=== PATIENT | female | born 1955 | race Caucasian/White ===

== ENCOUNTER → 2016-04-14 | Outpatient (CLI) | payer OTHER ==
[~2016-04-14] MED LIST: ALOE25CA4 PO; CALC-354 PO; CHOL100010 PO; DABI150C PO; DILT-115 PO; DILT-203 PO; FOLI800T PO; MERC50TA9 PO; MESA800T6 PO; METO25TA56 PO; MISC4CAP PO; MULTTAB45 PO; OMEG12006 PO; PANT40TA PO; POTA99TA PO; PRD150 PO; VITA400C28 PO; VITA400C3 PO
[2016-04-14 12:28] LABS: COMPLETE YES; EOS % 0.4 %; IG% 0.2 %; LYMPH % 29.8 %; LYMPH ABS # 1.68 K/uL (1.2-3.4); MEAN CELL VOLUME 84.5 fL (80-100); MEAN CORPUSCULAR HEMOGLOBIN 29.2 pg (25-34); MEAN CORPUSCULAR HGB CONC 34.5 g/dl (32-36); MONO % 8.2 %; NEUT % 61.4 %; PLATELET COUNT 239 K/uL (130-400); RED BLOOD COUNT 3.67 M/uL (4.2-5.4); WHITE BLOOD COUNT 5.64 K/uL (4.8-10.8)
[2016-04-14 12:56] LABS: ALB/GLOB RATIO 1.1 (0.9-2); ALT/SGPT 21 U/L (12-78); BLOOD UREA NITROGEN 11 mg/dl (7-18); BUN/CREATININE RATIO 12.5 (10-20); CALCIUM 8.8 mg/dl (8.5-10.1); CARBON DIOXIDE 27 mmol/L (21-32); CHLORIDE 108 mmol/L (98-107); CREATININE 0.87 mg/dl (0.60-1.20); GLUCOSE 107 mg/dl (70-99); POTASSIUM 3.5 mmol/L (3.5-5.1); SODIUM 143 mmol/L (136-145)
[2016-04-14 13:02] LABS: ALKALINE PHOSPHATASE 123 U/L (45-117); AST/SGOT 8 U/L (15-37); C-REACTIVE PROTEIN < 0.29 mg/dl (0-0.29)
== END | disposition home or self-care (01) ==
LOC: C.LAB1850 11:45
PROVIDERS: ATTEND Registered Nurse
DX: K29.50 Unspecified chronic gastritis without bleeding (principal)

== ENCOUNTER → 2016-06-02 | Outpatient (CLI) | payer OTHER ==
[~2016-06-02] MED LIST changes: -DILT-203 PO; +DILT240C56 PO; +MESA1TAB4 PO; -MESA800T6 PO
[2016-06-02 12:14] LABS: COMPLETE YES; EOS % 0.1 %; HEMATOCRIT 31.7 % (37-47); IG% 0.3 %; LYMPH % 28.4 %; LYMPH ABS # 1.94 K/uL (1.2-3.4); MEAN CELL VOLUME 83.6 fL (80-100); MEAN CORPUSCULAR HGB CONC 33.4 g/dl (32-36); MEAN PLATELET VOLUME 9.7 fL (7.4-10.4); MONO % 6.7 %; NEUT % 64.5 %; PLATELET COUNT 230 K/uL (130-400); RED BLOOD COUNT 3.79 M/uL (4.2-5.4); WHITE BLOOD COUNT 6.83 K/uL (4.8-10.8)
== END | disposition home or self-care (01) ==
LOC: C.LAB1850 11:27
PROVIDERS: ATTEND Registered Nurse
DX: K50.90 Crohn's disease, unspecified, without complications (principal)

== ENCOUNTER → 2016-06-11 | Day surgery (SDC) | payer OTHER ==
[2016-06-02 07:52] VITALS: BMI 31.0
[~2016-06-11] VITALS: Ht 167.6 cm; Wt 88.6 kg
[~2016-06-11] MED LIST changes: -DILT240C56 PO; +LIDOCAINE HCL 2% 2 ML VIAL (20MG/ML) ONE; -PRD150 PO; +PROPOFOL IV EMULSION 10 MG/ML 20 ML VIAL IV ONE; -VITA400C3 PO
[2016-06-11 08:19] VITALS: Ht 167.6 cm; Wt 88.6 kg
[2016-06-11 08:27] VITALS: TEMP 36.8
--- NOTE | 2016-06-11 08:29 | Endo History and Physical ---
History & Physical Date of Service: Jun 11, 2016. Chief Complaint: Screening Referring Physician: Dr. Leon History of Present Illness 61 yo CF who presents for screening colonoscopy. Past Medical History Arthritis, Asthma, Gastrointestinal Disorder, Reflux, Cancer, Hypertension Past Surgical History Hx Cardiac Surgery: No Hx Internal Defibrillator: No Hx Pacemaker: No Hx Abdominal Surgery: Yes (BOWEL RESECTION, APPY, CANDIDO) Hx of Implantable Prosthesis: No Hx Post-Op Nausea and Vomiting: No Hx Cancer Surgery: Yes (BACK EXCISION SCC) Hx Thoracic Surgery: No Hx Orthopedic: Yes (LEFT HEEL SX BONE GRAFTING) Hx Urinary Tract Surgery: No Family History IBD Social History Smoking Status: Never Smoker Hx Substance Use: No Hx Alcohol Use: Yes (OCCASIONALLY) Allergies Coded Allergies: Lactose (Verified Allergy, Unknown, LACTOSE INTOLERANT, 06/02/16) Mushroom (Unverified Allergy, Unknown, GI SYMPTOMS, 06/02/16) Prednisone (Verified Allergy, Unknown, MOOD CHANGES, 06/02/16) Infliximab (Verified Adverse Reaction, Unknown, PALPITATIONS, SOB, FLUSHING, 06/02/16) Morphine (Verified Adverse Reaction, Unknown, HALLUCINATIONS, 06/02/16) Current Medications Reported Home Medications Medications Dose Route/Sig Max Daily Dose Days Date Category Dose Instructions Alph-E (Vitamin E) 400 Unit Cap 1 Cap PO QAM 06/02/16 Reported Vitamin D (Cholecalciferol) 1,000 Unit Tab 1 Tab PO QAM 06/02/16 Reported Pradaxa (Dabigatran Etexilate Mesylate) 150 Mg Cap 150 Mg PO BID 06/02/16 Reported RECENTLY STOPPED TAKING 04/27/16 Potassium 99 Mg Tab 1 Tab PO QAM 06/02/16 Reported Lopressor (Metoprolol Tartrate) 25 Mg Tab 25 Mg PO DIRECTED PRN 06/02/16 Reported Tiazac (Diltiazem HCl) 240 Mg Capcr 240 Mg PO QAM 06/02/16 Reported Protonix (Pantoprazole Sodium) 40 Mg Tab 40 Mg PO BID 06/07/13 Reported Oberlin 3 (Oberlin-3 Fatty Acids) 1 Cap Cap 1 Cap PO QAM 06/07/13 Reported Multiple Vitamin 1 Tab Tab 1 Tab PO QAM 06/07/13 Reported Purinethol (Mercaptopurine) 50 Mg Tab 50 Mg PO QAM 06/07/13 Reported Folic Acid 800 Mcg Tab 800 Mcg PO QAM 06/07/13 Reported Caltrate 600+D (Calcium Carbonate-Cholecalcife) 1 Tab Tab 1 Tabs PO QAM 06/07/13 Reported Asacol Hd (Mesalamine) 800 Mg Tab 800 Mg PO TID 06/07/13 Reported Aloe Vera 25 Mg Cap 25 Mg PO QAM 06/07/13 Reported Align (Probiotic Product) 4 Mg Cap 1 Cap PO QAM 06/07/13 Reported Vital Signs Weight (Kilograms): 88.64 Height (Feet): 5 Height (Inches): 6 Physical Exam General Appearance: WD/WN, no apparent distress Respiratory/Chest: Auscultation: breath sounds normal Cardiovascular: Heart Auscultation: RRR Abdomen: Bowel Sounds: normal Inspection & Palpation: soft, non-distended, no tenderness, guarding & rebound Assessment and Plan Assessment: 61 yo CF who presents for screening colonoscopy. Plan: Proceed with colonoscopy.
--- NOTE | 2016-06-11 09:19 | GI REPORT ---
Procedure Date: 06/11/2016 8:47 AM Procedure: Colonoscopy Indications: Screening for colorectal malignant neoplasm Medicines: Monitored Anesthesia Care Complications: No immediate complications. Estimated Blood Loss: Estimated blood loss: none. Procedure: Pre-Anesthesia Assessment: - Prior to the procedure, a History and Physical was performed, and patient medications and allergies were reviewed. The patient's tolerance of previous anesthesia was also reviewed. The risks and benefits of the procedure and the sedation options and risks were discussed with the patient. All questions were answered, and informed consent was obtained. Prior Anticoagulants: The patient has taken Pradaxa (dabigatran), last dose was more than 28 days prior to procedure. ASA Grade Assessment: III - A patient with severe systemic disease. After reviewing the risks and benefits, the patient was deemed in satisfactory condition to undergo the procedure. After I obtained informed consent, the scope was passed under direct vision. Throughout the procedure, the patient's blood pressure, pulse, and oxygen saturations were monitored continuously. The scope was introduced through the anus and advanced to the ileocolonic anastomosis. The colonoscopy was performed without difficulty. The patient tolerated the procedure well. The quality of the bowel preparation was good. The terminal ileum and the rectum were photographed. Findings: There was evidence of a prior end-to-side ileo-colonic anastomosis in the ascending colon. This was non-patent and was characterized by moderate stenosis and ulceration. The anastomosis was not traversed. Non-bleeding internal hemorrhoids were found during retroflexion. The hemorrhoids were small. Impression: - Non-patent end-to-side ileo-colonic anastomosis, characterized by ulceration and moderate stenosis. - Non-bleeding internal hemorrhoids. - No specimens collected. Recommendation: - Resume previous diet. - Continue present medications. - Repeat colonoscopy in 2 years for surveillance. - Return to primary care physician as previously scheduled. Selvin Campbell DO 06/11/2016 9:19:03 AM This report has been signed electronically. Note Initiated On: 06/11/2016 8:47 AM I attest to the content of the Intraoperative Record and orders documented therein, exceptions below
[2016-06-11 09:43] VITALS: BP 130/79; PULSE 71; O2SAT 98
--- NOTE | 2016-06-11 10:03 | Discharge Instructions ---
Endoscopy Patient Instructions Date / Procedure(s) Performed Jun 11, 2016. Colonoscopy Allergy Information Coded Allergies: Lactose (Verified Allergy, Unknown, LACTOSE INTOLERANT, 06/02/16) Mushroom (Verified Allergy, Unknown, GI SYMPTOMS, 06/11/16) Prednisone (Verified Allergy, Unknown, MOOD CHANGES, 06/02/16) Infliximab (Verified Adverse Reaction, Unknown, PALPITATIONS, SOB, FLUSHING, 06/02/16) Morphine (Verified Adverse Reaction, Unknown, HALLUCINATIONS, 06/02/16) Discharge Date / Findings Jun 11, 2016. Crohn's Disease Anastomotic stricture and anastomotic ulcer Medication Instructions Stopped Medication(s): Pradaxa stopped since April d/t ? blood in stool. OK to resume all medications today as prescribed Reported Home Medications Medications Dose Route/Sig Max Daily Dose Days Date Category Dose Instructions Alph-E (Vitamin E) 400 Unit Cap 1 Cap PO QAM 06/02/16 Reported Vitamin D (Cholecalciferol) 1,000 Unit Tab 1 Tab PO QAM 06/02/16 Reported Pradaxa (Dabigatran Etexilate Mesylate) 150 Mg Cap 150 Mg PO BID 06/02/16 Reported RECENTLY STOPPED TAKING 04/27/16 Potassium 99 Mg Tab 1 Tab PO QAM 06/02/16 Reported Lopressor (Metoprolol Tartrate) 25 Mg Tab 25 Mg PO DIRECTED PRN 06/02/16 Reported Tiazac (Diltiazem HCl) 240 Mg Capcr 240 Mg PO QAM 06/02/16 Reported Protonix (Pantoprazole Sodium) 40 Mg Tab 40 Mg PO BID 06/07/13 Reported Blockton 3 (Blockton-3 Fatty Acids) 1 Cap Cap 1 Cap PO QAM 06/07/13 Reported Multiple Vitamin 1 Tab Tab 1 Tab PO QAM 06/07/13 Reported Purinethol (Mercaptopurine) 50 Mg Tab 50 Mg PO QAM 06/07/13 Reported Folic Acid 800 Mcg Tab 800 Mcg PO QAM 06/07/13 Reported Caltrate 600+D (Calcium Carbonate-Cholecalcife) 1 Tab Tab 1 Tabs PO QAM 06/07/13 Reported Asacol Hd (Mesalamine) 800 Mg Tab 800 Mg PO TID 06/07/13 Reported Aloe Vera 25 Mg Cap 25 Mg PO QAM 06/07/13 Reported Align (Probiotic Product) 4 Mg Cap 1 Cap PO QAM 06/07/13 Reported Provider Instructions Activity Restrictions - No exercising or heavy lifting for 24 hours. - Do not drink alcohol the day of the procedure. - Do not drive a car or operate machinery until the day after the procedure. - Do not make any important decisions or sign important papers in 24 hours after the procedure. Following Day: - Return to full activity which may include returning to work/school. Diet Start your diet with liquids and light foods (jello, soup, juice, toast). Then eat your usual diet if not nauseated. Treatment For Common After Affects For mild abdominal pain, bloating, or excessive gas: - Rest - Eat lightly - Lie on right side 1) Followup in our office in 3 months 2) Check CT Enterography prior to next appointment Follow-Up Information Follow-up with Dr. Leon as scheduled Anesthesia Information What You Should Know You have had a procedure that required some medicine to reduce anxiety and discomfort. This treatment is called moderate sedation. After receiving the treatment, you may be sleepy, but you will be able to breathe on your own. The effects of the treatment may last for several hours. Follow these instructions along with Activity/Diet recommendations noted above: * Do NOT do anything where dizziness or clumsiness would be dangerous. * Rest quietly at home today, then you can be up and about tomorrow. * Have a responsible person stay with you the rest of today. * You may have had an I.V. today. If so, you may take the dressing off later today. Recommendations Call your doctor if: * Trouble breathing * Continuous vomiting for more than 24 hours * Temperature above 101 degrees * Severe abdominal pain or bloating * Pain not relieved by pain medicine ordered * There is increased drainage or redness from any incision * A large amount of rectal bleeding greater than 2-3 tablespoons. (If you had a polyp/s removed or have hemorrhoids, a small amount of blood - from the rectum is to be expected.) * You have any unanswered questions or concerns. IN THE EVENT OF A SERIOUS EMERGENCY, GO TO THE NEAREST EMERGENCY ROOM Your discharge instructions were prepared by provider Selvin Campbell. Patient Instructions Signature Page Neena Merida Patient (or Guardian) Signature/Date: I have read and understand the instructions given to me by my caregivers. Caregiver/RN/Doctor Signature/Date: The above-named patient and/or guardian has received patient instructions on this date. + Original Patient Signature Page (only) stays with chart. Please make copy for patient.
--- NOTE | 2016-06-11 14:24 | Anesthesiology Progress Note ---
Anesthesia Post Op Note Date & Time Jun 11, 2016 at 14:23 Vital Signs Pain Intensity: 0 Vital Signs Past 12 Hours Date Time Temp Pulse Resp B/P Pulse Ox O2 Delivery O2 Flow Rate FiO2 06/11/16 09:43 71 18 130/79 98 Room Air 06/11/16 09:28 65 18 103/59 97 Room Air 06/11/16 09:13 78 18 114/82 95 Room Air 06/11/16 08:27 36.8 72 18 138/97 98 Room Air Notes Mental Status: alert / awake / arousable, participated in evaluation Pt Amnestic to Procedure: Yes Nausea / Vomiting: adequately controlled Pain: adequately controlled Airway Patency, RR, SpO2: stable & adequate BP & HR: stable & adequate Hydration State: stable & adequate Anesthetic Complications: no major complications apparent
== END | disposition home or self-care (01) ==
LOC: C.GI 08:00
PROVIDERS: ATTEND Internal Medicine
DX: Z12.11 Encounter for screening for malignant neoplasm of colon (principal); K64.8 Other hemorrhoids; J45.909 Unspecified asthma, uncomplicated; K21.9 Gastro-esophageal reflux disease without esophagitis; I10 Essential (primary) hypertension; Z90.49 Acquired absence of other specified parts of digestive tract

== ENCOUNTER → 2016-09-04 | Outpatient (CLI) | payer OTHER ==
[~2016-09-04] MED LIST changes: -LIDOCAINE HCL 2% 2 ML VIAL (20MG/ML) ONE; -MESA1TAB4 PO; +MESA800T6 PO; +OPTIRAY 320 IV PRN; -PROPOFOL IV EMULSION 10 MG/ML 20 ML VIAL IV ONE
--- NOTE | 2016-09-04 10:49 | DIAGNOSTIC IMAGING REPORT ---
CT SCAN OF THE ABDOMEN AND PELVIS WITH IV CONTRAST ENTEROGRAPHY PROTOCOL CLINICAL HISTORY: Crohn's disease. Anemia. COMPARISON STUDY: Abdominal CT dated 10/11/2013. TECHNIQUE: The small bowel was prepped by having the patient consumed VoLumen. Following the IV administration of 93 cc of Optiray 320, CT scan of the abdomen and pelvis is performed from the lung bases to the proximal femora using the enterography protocol. Images are reviewed in the axial, sagittal, and coronal planes. IV contrast was administered without complication. Automated dose control exposure was utilized. CT DOSE: 901.88 mGy.cm FINDINGS: Lung bases: The heart is normal in size and without pericardial effusion. The lung bases are clear. There is a tiny hiatal hernia. Liver: The contrast-enhanced liver is enlarged, measuring 20 cm in length. The liver demonstrates diffusely diminished attenuation consistent with hepatic steatosis. There is mild central intrahepatic biliary ductal dilatation. The hepatic veins and portal veins are patent. Gallbladder: Surgically absent noting clips in the gallbladder fossa. Spleen: Normal in size and attenuation. Pancreas: Unremarkable. Adrenal glands: Unremarkable. Kidneys: The contrast enhanced kidneys demonstrate cortical atrophy and are without hydronephrosis. There are bilateral nonobstructing renal calculi. The largest is in the interpolar right kidney and measures up to 8 mm. The kidneys enhance symmetrically. Foci of cortical scarring are present in the interpolar right kidney. A subcentimeter cortical hypodensity in the left kidney likely represents a cyst but is too small for definitive characterization. Abdominal vasculature: The abdominal aorta is normal in course and caliber noting mild atherosclerotic calcification. Bowel: There are postoperative changes from distal ileal resection with ileocolic anastomosis. No hyperemic or thick-walled small bowel loops are identified. Submucosal fat deposition is seen in the distal ileum and suggests chronic inflammation. There is no clear evidence of stricture or fistula formation. The appendix is surgically absent. Peritoneum: There is no intraperitoneal free air or abdominal ascites. Lymphadenopathy: None. Pelvic viscera: The bladder, uterus, and adnexa are normal as visualized. Skeletal structures: The skeletal structures are osteopenic. Mild lumbosacral spondylosis is observed. A large disc herniation is suggested at L3-L4. No lytic or blastic lesions are seen. IMPRESSION: 1. There are postoperative changes from distal ileal resection with ileocolic anastomosis. No bowel obstruction is seen. 2. There is no CT evidence of active Crohn's disease at the time of examination. 3. There is no evidence of abscess, fistula formation, or stricture. 4. Hepatomegaly and hepatic steatosis. 5. Bilateral nonobstructing renal calculi. 6. A large disc herniation is suggested L3-L4. Electronically signed by: Son Briseno M.D. 09/04/2016 10:48 AM Dictated Date/Time: 09/04/2016 10:37 AM
== END | disposition home or self-care (01) ==
LOC: C.CTS 09:09
PROVIDERS: ATTEND Registered Nurse
DX: D64.9 Anemia, unspecified (principal); K50.90 Crohn's disease, unspecified, without complications

== ENCOUNTER → 2016-09-10 | Outpatient (CLI) | payer OTHER ==
[~2016-09-10] MED LIST changes: -OPTIRAY 320 IV PRN
[2016-09-10 13:04] LABS: BASO % 0.2 %; BASO ABS # 0.01 K/uL (0-0.2); COMPLETE YES; EOS % 0.5 %; IG% 0.2 %; LYMPH ABS # 1.66 K/uL (1.2-3.4); MEAN CELL VOLUME 81.5 fL (80-100); MEAN CORPUSCULAR HEMOGLOBIN 25.7 pg (25-34); MEAN CORPUSCULAR HGB CONC 31.5 g/dl (32-36); MEAN PLATELET VOLUME 9.5 fL (7.4-10.4); MONO % 9.9 %; NEUT % 59.2 %; PLATELET COUNT 282 K/uL (130-400); RED BLOOD COUNT 4.05 M/uL (4.2-5.4); WHITE BLOOD COUNT 5.54 K/uL (4.8-10.8)
[2016-09-10 13:33] LABS: ALT/SGPT 25 U/L (12-78); AST/SGOT 13 U/L (15-37); BLOOD UREA NITROGEN 9 mg/dl (7-18); BUN/CREATININE RATIO 10.6 (10-20); CALCIUM 8.8 mg/dl (8.5-10.1); CARBON DIOXIDE 27 mmol/L (21-32); CHLORIDE 108 mmol/L (98-107); CREATININE 0.86 mg/dl (0.60-1.20); GLUCOSE 75 mg/dl (70-99); POTASSIUM 3.6 mmol/L (3.5-5.1); SODIUM 143 mmol/L (136-145)
[2016-09-10 13:36] LABS: ALB/GLOB RATIO 1.1 (0.9-2); ALKALINE PHOSPHATASE 138 U/L (45-117); C-REACTIVE PROTEIN < 0.29 mg/dl (0-0.29)
== END | disposition home or self-care (01) ==
LOC: C.LAB1850 11:52
PROVIDERS: ATTEND Registered Nurse
DX: K83.8 Other specified diseases of biliary tract (principal)

== ENCOUNTER → 2016-09-18 | Outpatient (CLI) | payer OTHER ==
--- NOTE | 2016-09-18 08:59 | DIAGNOSTIC IMAGING REPORT ---
ABDOMEN LIMITED (US) CLINICAL HISTORY: 61 years-old Female presenting with Crohn's disease, intrahepatic biliary ductal dilatation. TECHNIQUE: Real-time grayscale and limited color Doppler ultrasound imaging of the abdomen limited to the right upper quadrant was performed. COMPARISON: Correlation made to CT of the abdomen and pelvis from 09/04/2016. FINDINGS: Pancreas: Visualized portions of the pancreatic head and body normal. Liver: Mildly hyperechogenic parenchyma, although the right hemidiaphragm remains visible, likely indicating mild steatosis. Main portal vein patent with normal directional flow. Biliary: No intrahepatic biliary ductal dilatation. Common bile duct measures up to 5 mm in diameter. Gallbladder: Surgically absent. Right kidney: Normal in appearance. No hydronephrosis. Ascites: None. IMPRESSION: 1. No convincing evidence of biliary ductal dilatation. 2. Suggestion of hepatic steatosis. Electronically signed by: Hilton Chisholm M.D. 09/18/2016 8:57 AM Dictated Date/Time: 09/18/2016 8:55 AM
== END | disposition home or self-care (01) ==
LOC: C.ULTR 08:17
PROVIDERS: ATTEND Registered Nurse
DX: K50.90 Crohn's disease, unspecified, without complications (principal); K83.8 Other specified diseases of biliary tract

== ENCOUNTER → 2016-09-22 | Outpatient (CLI) | payer OTHER | END | disposition home or self-care (01) | LOC: C.PATHSPEC 16:23 | PROVIDERS: ATTEND Dermatology | DX: D36.7 Benign neoplasm of other specified sites (principal) ==

== ENCOUNTER → 2016-09-29 | Outpatient (CLI) | payer OTHER | END | disposition home or self-care (01) | LOC: C.MAMM 08:18 | PROVIDERS: ATTEND Registered Nurse | DX: M85.80 Other specified disorders of bone density and structure, unspecified site (principal) ==

== ENCOUNTER → 2016-10-08 | Outpatient (CLI) | payer OTHER | END | disposition home or self-care (01) | LOC: C.PATHSPEC 17:19 | PROVIDERS: ATTEND Plastic Surgery | DX: C44.622 Squamous cell carcinoma of skin of right upper limb, including shoulder (principal) ==

== ENCOUNTER → 2016-10-16 | Outpatient (CLI) | payer OTHER | END | disposition home or self-care (01) | LOC: C.LAB1850 10:23 | PROVIDERS: ATTEND Registered Nurse | DX: K50.90 Crohn's disease, unspecified, without complications (principal); R53.83 Other fatigue ==

== ENCOUNTER → 2016-12-17 | Outpatient (CLI) | payer OTHER ==
[2016-12-17 12:22] LABS: COMPLETE YES; EOS % 0.7 %; HEMATOCRIT 30.6 % (37-47); IG% 0.2 %; LYMPH % 26.9 %; LYMPH ABS # 1.57 K/uL (1.2-3.4); MEAN CELL VOLUME 78.9 fL (80-100); MEAN CORPUSCULAR HEMOGLOBIN 24.7 pg (25-34); MEAN CORPUSCULAR HGB CONC 31.4 g/dl (32-36); MONO % 6.5 %; NEUT % 65.7 %; PLATELET COUNT 315 K/uL (130-400); RED BLOOD COUNT 3.88 M/uL (4.2-5.4); WHITE BLOOD COUNT 5.83 K/uL (4.8-10.8)
[2016-12-17 12:53] LABS: ALT/SGPT 19 U/L (12-78); BLOOD UREA NITROGEN 12 mg/dl (7-18); BUN/CREATININE RATIO 12.7 (10-20); C-REACTIVE PROTEIN < 0.29 mg/dl (0-0.29); CALCIUM 8.7 mg/dl (8.5-10.1); CARBON DIOXIDE 24 mmol/L (21-32); CHLORIDE 108 mmol/L (98-107); CREATININE 0.91 mg/dl (0.60-1.20); GLUCOSE 109 mg/dl (70-99); POTASSIUM 3.6 mmol/L (3.5-5.1); SODIUM 140 mmol/L (136-145)
[2016-12-17 12:55] LABS: ALKALINE PHOSPHATASE 118 U/L (45-117); AST/SGOT 11 U/L (15-37)
[2016-12-20 14:36] LABS: ALK PHOS ISO-INTESTINE 0 % (1-24); ALK PHOS ISO-LIVER 48 % (25-69); ALK PHOS ISO-PLACENTAL 0 % (<=0); ALK PHOS MACROHEPATIC 0 % (<=0); ALP (ALK P'TASE) 110 U/L (33-130)
== END | disposition home or self-care (01) ==
LOC: C.LAB1850 10:41
PROVIDERS: ATTEND Registered Nurse
DX: R74.8 Abnormal levels of other serum enzymes (principal)

== ENCOUNTER → 2016-12-17 | Outpatient (CLI) | payer OTHER ==
--- NOTE | 2016-12-18 07:46 | MAMMOGRAPHY REPORT ---
BILATERAL DIGITAL SCREENING MAMMOGRAM TOMOSYNTHESIS WITH CAD: 12/17/2016 CLINICAL HISTORY: Routine screening. Patient has no complaints. TECHNIQUE: Breast tomosynthesis in addition to standard 2D mammography was performed. Current study was also evaluated with a Computer Aided Detection (CAD) system. COMPARISON: Comparison is made to exams dated: 12/17/2015 mammogram, 12/12/2014 mammogram, 12/08/2013 mammogram, 12/07/2012 mammogram, 12/04/2011 mammogram, and 12/03/2010 mammogram - [facility]. BREAST COMPOSITION: There are scattered areas of fibroglandular density in both breasts. FINDINGS: There are a few stable benign round microcalcifications. No suspicious mass, architectural distortion or cluster of microcalcifications is seen. IMPRESSION: ACR BI-RADS CATEGORY 1: NEGATIVE There is no mammographic evidence of malignancy. A 1 year screening mammogram is recommended. The pa tient will receive written notification of the results. Approximately 10% of breast cancers are not detected with mammography. A negative mammographic report should not delay biopsy if a clinically suggestive mass is present. Josefa Brown M.D. ay/:12/17/2016 14:34:43 Field Operations Supervisor: Claudia Chambers, [facility] letter sent: Normal 1/2 BI-RADS Code: ACR BI-RADS Category 1: Negative
== END | disposition home or self-care (01) ==
LOC: C.MAMM 10:16
PROVIDERS: ATTEND Obstetrics & Gynecology
DX: Z12.31 Encounter for screening mammogram for malignant neoplasm of breast (principal)

== ENCOUNTER → 2017-01-19 | Outpatient (CLI) | payer OTHER ==
[~2017-01-19] MED LIST changes: +MESA1TAB4 PO; -MESA800T6 PO
[2017-01-19 12:12] LABS: BASO % 0.2 %; BASO ABS # 0.01 K/uL (0-0.2); COMPLETE YES; EOS % 0.3 %; HEMATOCRIT 31.1 % (37-47); IG% 0.2 %; LYMPH % 27.4 %; LYMPH ABS # 1.71 K/uL (1.2-3.4); MEAN CORPUSCULAR HEMOGLOBIN 25.3 pg (25-34); MEAN CORPUSCULAR HGB CONC 31.2 g/dl (32-36); MONO % 6.4 %; NEUT % 65.5 %; PLATELET COUNT 255 K/uL (130-400); RED BLOOD COUNT 3.84 M/uL (4.2-5.4); WHITE BLOOD COUNT 6.24 K/uL (4.8-10.8)
[2017-01-19 12:45] LABS: FERRITIN 4.5 ng/ml (8.0-388.0)
== END | disposition home or self-care (01) ==
LOC: C.LAB1850 10:05
PROVIDERS: ATTEND Registered Nurse
DX: K50.90 Crohn's disease, unspecified, without complications (principal)

== ENCOUNTER → 2017-02-24 | Outpatient (CLI) | payer OTHER ==
[~2017-02-24] MED LIST changes: -FOLI800T PO
== END | disposition home or self-care (01) ==
LOC: C.PAPS 11:34
PROVIDERS: ATTEND Obstetrics & Gynecology
DX: Z12.4 Encounter for screening for malignant neoplasm of cervix (principal)

== ENCOUNTER → 2017-03-14 | Outpatient (CLI) | payer OTHER ==
[2017-03-14 11:19] LABS: BASO % 0.2 %; BASO ABS # 0.01 K/uL (0-0.2); EOS % 0.3 %; EOS ABS # 0.02 K/uL (0-0.5); HEMATOCRIT 33.9 % (37-47); HEMOGLOBIN 10.9 g/dL (12.0-16.0); IG# 0.02 K/uL (0.00-0.02); LYMPH ABS # 1.79 K/uL (1.2-3.4); MEAN CELL VOLUME 81.3 fL (80-100); MEAN CORPUSCULAR HEMOGLOBIN 26.1 pg (25-34); MEAN CORPUSCULAR HGB CONC 32.2 g/dl (32-36); MEAN PLATELET VOLUME 9.8 fL (7.4-10.4); MONO % 8.9 %; MONO ABS # 0.55 K/uL (0.11-0.59); NEUT % 61.3 %; NEUT ABS # 3.78 K/uL (1.4-6.5); PLATELET COUNT 264 K/uL (130-400); RED CELL DISTRIBUTION WIDTH CV 17.3 % (11.5-14.5); RED CELL DISTRIBUTION WIDTH SD 51.7 fL (36.4-46.3); WHITE BLOOD COUNT 6.17 K/uL (4.8-10.8)
[2017-03-14 11:51] LABS: ALBUMIN 3.8 gm/dl (3.4-5.0); ALT/SGPT 23 U/L (12-78); AST/SGOT 12 U/L (15-37); BLOOD UREA NITROGEN 13 mg/dl (7-18); CALCIUM 8.4 mg/dl (8.5-10.1); CARBON DIOXIDE 28 mmol/L (21-32); CREATININE 0.84 mg/dl (0.60-1.20); GLUCOSE 89 mg/dl (70-99); POTASSIUM 3.7 mmol/L (3.5-5.1); SODIUM 138 mmol/L (136-145)
[2017-03-14 11:58] LABS: ALKALINE PHOSPHATASE 124 U/L (45-117); TOTAL PROTEIN 7.4 gm/dl (6.4-8.2); TRANSFERRIN 379 mg/dl (200-360)
== END | disposition home or self-care (01) ==
LOC: C.LAB 10:52
PROVIDERS: ATTEND Registered Nurse
DX: D64.9 Anemia, unspecified (principal)

== ENCOUNTER → 2017-04-20 | Outpatient (CLI) | payer OTHER ==
--- NOTE | 2017-04-20 10:26 | DIAGNOSTIC IMAGING REPORT ---
C-SPINE ROUTINE 4 OR 5 VIEWS CLINICAL HISTORY: M79.646 Thumb [id number] radiculopathy COMPARISON STUDY: No previous studies for comparison. FINDINGS: The prevertebral soft tissues are normal. No fractures or subluxations are visualized. There are multilevel degenerative changes. There is mild left C5-6 foraminal encroachment due to uncinate spurs IMPRESSION: Multilevel degenerative change. No fractures or subluxations are visualized Electronically signed by: Anatoliy Ni M.D. 04/20/2017 10:24 AM Dictated Date/Time: 04/20/2017 10:23 AM
--- NOTE | 2017-04-20 10:27 | DIAGNOSTIC IMAGING REPORT ---
LEFT HAND 3 VIEWS CLINICAL HISTORY: Thumb pain. FINDINGS: 3 views of the left hand are obtained. No prior studies are available for comparison at the time of dictation. The skeletal structures are osteopenic. No fracture is seen. Mild osteoarthritic change is present at the first carpometacarpal and metacarpophalangeal joints. Mild arthritic change is also seen involving the interphalangeal joints, distal greater than proximal. No erosive disease is seen. The overlying soft tissues are within normal limits. IMPRESSION: 1. No acute bony abnormality is seen in the left hand. 2. Osteopenia and arthritic change as above. Electronically signed by: Son Briseno M.D. 04/20/2017 10:26 AM Dictated Date/Time: 04/20/2017 10:24 AM
== END ==
LOC: C.RAD1850 10:07
PROVIDERS: ATTEND Internal Medicine Pulmonary Disease
DX: M79.645 Pain in left finger(s) (principal); M50.30 Other cervical disc degeneration, unspecified cervical region

== ENCOUNTER → 2017-06-04 | Outpatient (CLI) | payer OTHER ==
[2017-06-04 12:20] LABS: EOS % 0.3 %; EOS ABS # 0.02 K/uL (0-0.5); HEMATOCRIT 34.1 % (37-47); HEMOGLOBIN 11.4 g/dL (12.0-16.0); IG# 0.01 K/uL (0.00-0.02); LYMPH % 29.9 %; LYMPH ABS # 1.71 K/uL (1.2-3.4); MEAN CELL VOLUME 82.8 fL (80-100); MEAN CORPUSCULAR HEMOGLOBIN 27.7 pg (25-34); MEAN CORPUSCULAR HGB CONC 33.4 g/dl (32-36); MEAN PLATELET VOLUME 10.1 fL (7.4-10.4); MONO ABS # 0.46 K/uL (0.11-0.59); NEUT % 61.6 %; NEUT ABS # 3.52 K/uL (1.4-6.5); PLATELET COUNT 279 K/uL (130-400); RED CELL DISTRIBUTION WIDTH CV 17.2 % (11.5-14.5); RED CELL DISTRIBUTION WIDTH SD 52.3 fL (36.4-46.3); WHITE BLOOD COUNT 5.72 K/uL (4.8-10.8)
== END | disposition home or self-care (01) ==
LOC: C.LAB1850 10:54
PROVIDERS: ATTEND Registered Nurse
DX: D50.9 Iron deficiency anemia, unspecified (principal)

== ENCOUNTER → 2017-06-30 | Outpatient (CLI) | payer OTHER | END | disposition home or self-care (01) | LOC: C.LAB1850 11:13 | PROVIDERS: ATTEND Registered Nurse | DX: D64.9 Anemia, unspecified (principal); K50.90 Crohn's disease, unspecified, without complications ==

== ENCOUNTER → 2017-07-14 | Outpatient (CLI) | payer OTHER ==
[2017-07-14 13:27] LABS: BASO % 0.2 %; BASO ABS # 0.01 K/uL (0-0.2); HEMATOCRIT 34.3 % (37-47); HEMOGLOBIN 11.6 g/dL (12.0-16.0); IG# 0.02 K/uL (0.00-0.02); LYMPH % 29.7 %; LYMPH ABS # 1.68 K/uL (1.2-3.4); MEAN CELL VOLUME 83.3 fL (80-100); MEAN CORPUSCULAR HEMOGLOBIN 28.2 pg (25-34); MEAN CORPUSCULAR HGB CONC 33.8 g/dl (32-36); MEAN PLATELET VOLUME 9.6 fL (7.4-10.4); MONO % 8.8 %; NEUT % 60.9 %; NEUT ABS # 3.45 K/uL (1.4-6.5); PLATELET COUNT 269 K/uL (130-400); RED CELL DISTRIBUTION WIDTH CV 16.3 % (11.5-14.5); RED CELL DISTRIBUTION WIDTH SD 49.3 fL (36.4-46.3); WHITE BLOOD COUNT 5.66 K/uL (4.8-10.8)
[2017-07-14 14:00] LABS: ALBUMIN 3.7 gm/dl (3.4-5.0); ALT/SGPT 26 U/L (12-78); AST/SGOT 17 U/L (15-37); BLOOD UREA NITROGEN 12 mg/dl (7-18); CALCIUM 8.3 mg/dl (8.5-10.1); CARBON DIOXIDE 22 mmol/L (21-32); CREATININE 0.98 mg/dl (0.60-1.20); GLUCOSE 97 mg/dl (70-99); POTASSIUM 3.2 mmol/L (3.5-5.1); SODIUM 140 mmol/L (136-145)
[2017-07-14 14:10] LABS: ALKALINE PHOSPHATASE 126 U/L (45-117); TOTAL PROTEIN 7.1 gm/dl (6.4-8.2)
== END | disposition home or self-care (01) ==
LOC: C.LAB1850 12:34
PROVIDERS: ATTEND Registered Nurse
DX: K50.90 Crohn's disease, unspecified, without complications (principal); D50.9 Iron deficiency anemia, unspecified; R53.83 Other fatigue

== ENCOUNTER → 2017-09-24 | Outpatient (CLI) | payer OTHER | END | disposition home or self-care (01) | LOC: C.LAB1850 07:38 | PROVIDERS: ATTEND Internal Medicine Cardiovascular Disease | DX: I10 Essential (primary) hypertension (principal) ==

== ENCOUNTER 2019-07-01 16:28 | Inpatient (IN) ==
[2019-07-01] MEDS ORDERED: SODIUM CHLORIDE 0.9% 1000ML 1,000 ML IV ONE (16:43)
[2019-07-01] MEDS ORDERED: fentaNYL citrate 100 MCG/2 ML VIAL IV STA (16:43)
[2019-07-01] MEDS ORDERED: ONDANSETRON INJ 2 MG/ML 2 ML VIAL IV STA (16:43)
--- NOTE | 2019-07-01 16:45 | Emergency Department Note ---
History of Present Illness General Chief complaint: Abdominal Pain Stated complaint: burning abd pain Time Seen by Provider: 07/01/19 16:36 Source: patient Mode of arrival: ambulatory History of Present Illness Provider complaint: Upper abdominal pain Onset (ago): week(s) (June 06) Location: abdomen Radiation: non-radiation Severity: severe Maximum Pain Intensity: 10 Quality: + burning and + other (Cramping) Exacerbated By: + eating Associated symptoms: + nausea/vomiting; no chest pain, no cough, no fever/chills and no shortness of breath This is a 64-year-old female with history of Crohn's disease presenting with upper abdominal pain. She states the pain is across her upper abdomen without radiation to her back. She describes it as a cramping and burning pain. It started June 06 and she started a liquid diet at that time which seemed to quiet it down. It got eventually worse and so she spoke to gastroenterology late May and they put her on Carafate. The Carafate seemed to help after about 4 days but has since stopped helping her and she is having worsening pain with vomiting. Eating makes her pain worse. She did try a piece of hamburger. She does state that she has been mostly on liquids. Her bowel movements have been very liquidy without blood. She states she has had a cholecystectomy and appendectomy. She denies any urinary symptoms. She has no chest pain, shortness of breath, cough or cold symptoms or any known exposure to COVID-19. Home Medications Home Medications Medication Instructions Recorded Confirmed Type aloe vera 25 mg capsule 25 mg PO DAILY cap 10/06/18 07/01/19 History multivitamin 1 tab PO DAILY 10/06/18 07/01/19 History pantoprazole 40 mg tablet,delayed 40 mg PO BID #180 tab 10/06/18 07/01/19 History release vitamin E acetate 400 units PO DAILY 10/06/18 07/01/19 History cholecalciferol (vitamin D3) 125 5,000 units PO DAILY 11/08/18 07/01/19 History mcg (5,000 unit) capsule potassium gluconate 550 mg (90 mg) 550 mg PO DAILY tab 01/02/19 07/01/19 History tablet cyanocobalamin (vitamin B-12) 1,000 mcg IM MONTHLY ea 04/11/19 07/01/19 History 1,000 mcg/mL injection kit diltiazem HCl 240 mg 240 mg PO DAILY #90 cap 04/14/19 07/01/19 Rx capsule,extended release 24 hr, controlled metoprolol tartrate 25 mg tablet 25 mg PO Q6H PRN 90 Days #360 tab 04/14/19 07/01/19 Rx sucralfate 1 gram tablet 1 gm PO QID #40 tab 06/23/19 07/01/19 Rx Bifidobacterium infantis [Align] 4 mg PO DAILY 07/01/19 07/01/19 History Ca carb-D3-mag rs-vmu-vcqx-Zn 1 tab PO BID 07/01/19 07/01/19 History [Caltrate + D3 Plus Minerals] Iron Iv 1 dose IV .PERIODICALLY PRN 07/01/19 07/01/19 History sgkuqcmhoz-ujpvfqlhbfwvq-oasr 1 tab PO UD PRN 07/01/19 07/01/19 History dabigatran etexilate [Pradaxa] 150 mg PO BID 07/01/19 07/01/19 History koleb-gd-3-tzb-xai-cbvgfsy-ast 1 cap PO DAILY 07/01/19 07/01/19 History [MegaRed [place]-3 Krill Oil] mercaptopurine 50 mg PO QAM 07/01/19 07/01/19 History mesalamine 800 mg PO TID 07/01/19 07/01/19 History Allergies Allergy/AdvReac Type Severity Reaction Status Date / Time lactose Allergy Unknown LACTOSE Verified 07/01/19 20:05 INTOLERANT mushroom Allergy Unknown GI SYMPTOMS Verified 07/01/19 20:05 prednisone Allergy Unknown MOOD Verified 07/01/19 20:05 CHANGES infliximab AdvReac Unknown PALPITATIONS, Verified 07/01/19 20:05 SOB, FLUSHING morphine AdvReac Unknown HALLUCINATI Verified 07/01/19 20:05 ONS Past Med/Surg History Medical History Atrial fibrillation with RVR Nephrolithiasis (Inactive) Numbness and tingling in both hands Palpitations Small bowel obstruction (Inactive) Surgical History H/O resection of small bowel History of ankle surgery History of cholecystectomy History of colonoscopy (05/2016) History of esophagogastroduodenoscopy (EGD) (05/2013) Family History Unknown Ankylosing spondylitis Lung cancer Aunt Breast cancer Mother Ovarian cancer Father Ankylosing spondylitis Aunt Inflammatory bowel disease Grandmother (Maternal) Lung cancer Social History Preferred Language: Persian Communication Ability: Effective 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 and A total of 10 systems reviewed and were otherwise negative Physical Exam Vital Signs Vital Signs - 24 hr 07/01/19 16:29 07/01/19 17:29 07/01/19 17:30 Temperature 36.8 C Temperature Source Oral Pulse Rate 77 72 70 Pulse Rate from SpO2 Sensor 73 72 Pulse Strength Normal Respiratory Rate 19 18 15 Blood Pressure 130/83 Blood Pressure Mean 98 Blood Pressure Position Sitting Pulse Oximetry 97 93 93 Oxygen Delivery Method Sepsis Recent Fever Within 48 Hours No Sepsis Action Taken by Nursing No Action Required 07/01/19 18:32 07/01/19 18:38 Temperature Temperature Source Pulse Rate 76 72 Pulse Rate from SpO2 Sensor Pulse Strength Respiratory Rate 20 19 Blood Pressure 137/76 Blood Pressure Mean 82 Blood Pressure Position Pulse Oximetry 94 Oxygen Delivery Method Room Air Sepsis Recent Fever Within 48 Hours Sepsis Action Taken by Nursing Constitutional: Vital signs reviewed. Eyes: Pupils are equal round reactive to light. Conjunctiva are noninjected. ENT: Pharynx is clear without erythema or exudate. Mucous membranes are moist. Neck supple without meningeal signs. Respiratory: Clear to auscultation bilaterally. Breath sounds are equal bilaterally. Cardiovascular: Regular rate and rhythm. No rubs or gallops. GI: Soft, with epigastric tenderness. No guarding. Bowel sounds are present. Musculoskeletal: No peripheral edema. No lower extremity tenderness. Integumentary: No cyanosis. or jaundice. Neurological: The patient is awake and alert. No focal deficits. Psychiatric: Anxious and in obvious discomfort. Course Administered Medications Discontinued Medications Fentanyl Citrate (Fentanyl Citrate) 50 mcg IV NOW STA Stop: 07/01/19 16:44 Last Admin: 07/01/19 17:20 Dose: 50 mcg Documented by: [id number] Sodium Chloride (Nss 1000ml) 1,000 mls @ 999 mls/hr IV .Q1H1M ONE Stop: 07/01/19 17:43 Last Infusion: 07/01/19 18:41 Dose: 0 mls/hr Documented by: [id number] Admin: 07/01/19 17:20 Dose: 999 mls/hr Documented by: [id number] Potassium Chloride (K Omid / Wtr) 10 meq in 100 mls @ 100 mls/hr IV Q1H DONNELL Stop: 07/01/19 19:59 Last Admin: 07/01/19 19:44 Dose: 100 mls/hr Documented by: [id number] Infusion: 07/01/19 19:43 Dose: 0 mls/hr Documented by: [id number] Admin: 07/01/19 18:35 Dose: 100 mls/hr Documented by: [id number] Ondansetron HCl (Zofran) 4 mg IV NOW STA Stop: 07/01/19 16:44 Last Admin: 07/01/19 17:20 Dose: 4 mg Documented by: [id number] Medical Decision Making Differential Diagnosis PUD, gastritis, foodborne illness, Crohn's exacerbation, bowel obstruction Medical Records Attestation: I reviewed the patient's medical records. The patient was seen by Dr. Campbell of gastroenterology via telephone interview. The patient was placed on Carafate and advised to continue her regular medications. Home Medications Current Medication List: was personally reviewed by me Laboratory Data Attestation: I reviewed the patient's lab results. Result diagrams: 07/01/19 17:05 07/01/19 17:05 Lab Results 07/01/19 07/01/19 07/01/19 Range/Units 17:05 17:05 17:05 WBC 12.69 H (4.8-10.8) K/uL RBC 4.58 (4.2-5.4) M/uL Hgb 14.6 (12.0-16.0) g/dL Hct 40.2 (37-47) % MCV 87.8 (80-100) fL MCH 31.9 (25-34) pg MCHC 36.3 H (32-36) g/dL RDW Std Deviation 45.7 (36.4-46.3) fL RDW Coeff of Lina 14.3 (11.5-14.5) % Plt Count 323 (130-400) K/uL MPV 9.7 (7.4-10.4) fL Immature Gran % (Auto) 0.2 % Neut % (Auto) 83.0 % Lymph % (Auto) 11.3 % Dundy % (Auto) 5.2 % Eos % (Auto) 0.2 % Baso % (Auto) 0.1 % Immature Gran # (Auto) 0.03 H (0.00-0.02) K/uL Neut # (Auto) 10.53 H (1.4-6.5) K/uL Lymph # (Auto) 1.43 (1.2-3.4) K/uL Dundy # (Auto) 0.66 H (0.11-0.59) K/uL Eos # (Auto) 0.03 (0-0.5) K/uL Baso # (Auto) 0.01 (0-0.2) K/uL ESR 9 (0-21) mm/hr Sodium 141 (136-145) mmol/L Potassium 2.6 L (3.5-5.1) mmol/L Chloride 106 (98-107) mmol/L Carbon Dioxide 27 (21-32) mmol/L Anion Gap 8.0 (3-11) BUN 9 (7-18) mg/dl Creatinine 1.03 (0.6-1.2) mg/dl Est Cr Clr Drug Dosing 60.2 ml/min Est GFR ( Amer) 66.1 Est GFR (Non-Af Amer) 57.0 BUN/Creatinine Ratio 8.8 L (10-20) Glucose 135 H (70-99) mg/dl Calcium 9.1 (8.5-10.1) mg/dl Total Bilirubin 1.3 H (0.2-1) mg/dl AST 472 H (15-37) U/L ALT 362 H (12-78) U/L Alkaline Phosphatase 222 H (45-117) U/L C-Reactive Protein < 0.29 (0-0.29) mg/dl Total Protein 8.1 (6.4-8.2) gm/dl Albumin 4.2 (3.4-5.0) gm/dl Globulin 3.9 (2.5-4.0) gm/dl Albumin/Globulin Ratio 1.1 (0.9-2) Lipase 81 (73-393) U/L Imaging Data Radiologist's Impression: CT OF THE ABDOMEN AND PELVIS WITHOUT CONTRAST CLINICAL HISTORY: Upper abdominal pain. Crohn's disease. Evaluate for bowel obstruction. COMPARISON STUDY: CT of the abdomen and pelvis September 04, 2016. Abdominal ultrasound September 18, 2016. TECHNIQUE: Axial images of the abdomen and pelvis were obtained without IV contrast. Images were reviewed in the axial, sagittal, and coronal planes. Automated exposure control was utilized for the study. A dose lowering techniqu e was utilized adhering to the principles of ALARA. FINDINGS: Lung bases are unremarkable. Evaluation of the abdomen and pelvis is suboptimal on this unenhanced examination. No pneumatosis, free air or portal venous gas is present. There is fatty infiltration of the liver. There is no biliary ductal dilatation status post cholecystectomy. There is no peripancreatic infiltration. An 8 mm calcification within the cortex of the upper pole the right kidney is noted. Bilateral renal calculi measure up to 4 mm. There are no ureteral calculi. There is no hydronephrosis or hydroureter. The mid to distal small bowel is mildly dilated and fluid-filled. No well- defined transition point is identified. Minimal mesenteric infiltration is noted. Cholecystectomy is noted. The colon is mildly fluid-filled. No suspicious osseous lesions are present. There is no lymphadenopathy. No abscess identified on this unenhanced examination. There is trace perihepatic ascites. IMPRESSION: 1. Mildly dilated, fluid-filled mid to distal small bowel without well-defined transition point. Small bowel likely dilated to the level of the ileocolonic anastomosis. Minimal mesenteric infiltration. An ileus with possible enteritis is favored. A small bowel obstruction could appear similar but is considered less likely. 2. Bilateral nephrolithiasis. No ureteral calculi. 3. Fatty infiltration of the liver. 4. Trace perihepatic ascites. ACT 112: Negative or not required by law. Electronically signed by: Sergio Ho M.D. 07/01/2019 6:11 PM US gallbladder CLINICAL HISTORY: abn LFT eval for biliary obstruction COMPARISON STUDY: Right upper quadrant ultrasound September 18, 2016. CT of the abdomen and pelvis performed earlier today. FINDINGS: Increased hepatic echogenicity indicates fatty infiltration. There is trace perihepatic ascites. No biliary ductal dilatation is identified status post cholecystectomy. The common bile duct measures 6 mm in caliber. The pancreas is largely obscured. There is no right hydronephrosis. A cortical calcification within the upper pole of the right kidney is again noted. IMPRESSION: 1. No biliary ductal dilatation status post cholecystectomy. 2. Fatty infiltration of the liver. 3. Largely obscured pancreas. ACT 112: Negative or not required by law. Electronically signed by: Sergio Ho M.D. 07/01/2019 7:45 PM Blood Pressure Blood Pressure Findings: Elevated blood pressure Blood Pressure Disposition: Referred to patients primary care provider MDM Narrative I did evaluate the patient as noted above. Patient is presenting with significant upper abdominal pain with vomiting. IV access was established. I did treat the patient with IV fentanyl, Zofran and normal saline. I did order and review the patient's blood work as noted in the electronic medical record. The patient has mild leukocytosis without anemia. Her ESR and C-reactive protein are not elevated. Electrolytes are concerning for a potassium of 2.6. This is likely from her vomiting and diarrhea. She was given 20 mEq of potassium IV. Her LFTs are elevated as well with her transaminases in the 100s. I did order a CT of the abdomen and pelvis. I did review the images myself as well as the radiology report as described above. She appears to have ileus with an enteritis. Small bowel obstruction was deemed unlikely. She also has a fa tty liver with some trace ascites. Because of her elevated liver enzymes I did order an ultrasound of the right upper quadrant which showed no biliary obstruction. I did reassess the patient. She is feeling much better. I did discuss the test results with her. I did recommend hospitalization for further care and evaluation. I did discuss the case with the hospitalist and case monitor. Impression & Plan Abdominal pain, Acute hypokalemia, Abnormal LFTs Discharge Plan Visit Data *Final* Discharge Date/Time: 07/01/19 20:14 Chief Complaint: Abdominal Pain Stated Complaint: burning abd pain ED Provider: Preet Botello Discharge Problem: Abdominal pain, Acute hypokalemia, Abnormal LFTs Patient Disposition: Admitted As Inpatient Condition: Good Discharge Instructions Interventions: ED Discharge Assessment Last Done: 07/01/19 20:14
[2019-07-01 17:21] LABS: Basophils # (auto) 0.01 K/uL (0-0.2); Basophils % (auto) 0.1 %; Eosinophils # (auto) 0.03 K/uL (0-0.5); Eosinophils % (auto) 0.2 %; Hematocrit (blood only) 40.2 % (37-47); Hemoglobin 14.6 g/dL (12.0-16.0); Immature Granulocytes # (auto) 0.03 K/uL (0.00-0.02); Immature Granulocytes % (auto) 0.2 %; Lymphocytes # (auto) 1.43 K/uL (1.2-3.4); Lymphocytes % (auto) 11.3 %; Mean Corpuscular Hemoglobin 31.9 pg (25-34); Mean Corpuscular Hgb Conc 36.3 g/dL (32-36); Mean Corpuscular Volume 87.8 fL (80-100); Mean Platelet Volume 9.7 fL (7.4-10.4); Monocytes # (auto) 0.66 K/uL (0.11-0.59); Monocytes % (auto) 5.2 %; Neutrophils # (auto) 10.53 K/uL (1.4-6.5); Platelet Count 323 K/uL (130-400); RDW Coefficient of Variation 14.3 % (11.5-14.5); RDW Standard Deviation 45.7 fL (36.4-46.3); Red Blood Count 4.58 M/uL (4.2-5.4); White Blood Count 12.69 K/uL (4.8-10.8)
[2019-07-01 17:38] LABS: Alanine Aminotransferase 362 U/L (12-78); Albumin Level 4.2 gm/dl (3.4-5.0); Aspartate Aminotransferase 472 U/L (15-37); BUN Creatinine Ratio 8.8 (10-20); Blood Urea Nitrogen 9 mg/dl (7-18); Calcium 9.1 mg/dl (8.5-10.1); Carbon Dioxide 27 mmol/L (21-32); Chloride 106 mmol/L (98-107); Creatinine Clr Calc Pharmacy 60.2 ml/min; Est GFR (African American) 66.1; Glucose 135 mg/dl (70-99); Lipase 81 U/L (73-393); Potassium 2.6 mmol/L (3.5-5.1); Sodium 141 mmol/L (136-145)
[2019-07-01 17:41] LABS: Albumin Globulin Ratio 1.1 (0.9-2); Alkaline Phosphatase 222 U/L (45-117); Bilirubin,Total 1.3 mg/dl (0.2-1); C Reactive Protein < 0.29 mg/dl (0-0.29); Globulin 3.9 gm/dl (2.5-4.0); Total Protein 8.1 gm/dl (6.4-8.2)
--- NOTE | 2019-07-01 18:13 | CT Scan Report ---
CT OF THE ABDOMEN AND PELVIS WITHOUT CONTRAST CLINICAL HISTORY: Upper abdominal pain. Crohn's disease. Evaluate for bowel obstruction. COMPARISON STUDY: CT of the abdomen and pelvis September 04, 2016. Abdominal ultrasound September 18, 2016. TECHNIQUE: Axial images of the abdomen and pelvis were obtained without IV contrast. Images were revi ewed in the axial, sagittal, and coronal planes. Automated exposure control was utilized for the alena dy. A dose lowering technique was utilized adhering to the principles of ALARA. FINDINGS: Lung bases are unremarkable. Evaluation of the abdomen and pelvis is suboptimal on this une nhanced examination. No pneumatosis, free air or portal venous gas is present. There is fatty infiltr ation of the liver. There is no biliary ductal dilatation status post cholecystectomy. There is no pe ripancreatic infiltration. An 8 mm calcification within the cortex of the upper pole the right kidney is noted. Bilateral renal calculi measure up to 4 mm. There are no ureteral calculi. There is no hyd ronephrosis or hydroureter. The mid to distal small bowel is mildly dilated and fluid-filled. No well -defined transition point is identified. Minimal mesenteric infiltration is noted. Cholecystectomy is noted. The colon is mildly fluid-filled. No suspicious osseous lesions are present. There is no lymp hadenopathy. No abscess identified on this unenhanced examination. There is trace perihepatic ascites . IMPRESSION: 1. Mildly dilated, fluid-filled mid to distal small bowel without well-defined transition point. Smal l bowel likely dilated to the level of the ileocolonic anastomosis. Minimal mesenteric infiltration. An ileus with possible enteritis is favored. A small bowel obstruction could appear similar but is co nsidered less likely. 2. Bilateral nephrolithiasis. No ureteral calculi. 3. Fatty infiltration of the liver. 4. Trace perihepatic ascites. ACT 112: Negative or not required by law. Electronically signed by: Sergio Ho M.D. 07/01/2019 6:11 PM
[2019-07-01] MEDS: POTASSIUM CHLORIDE / WTR 10 MEQ/100 ML PLCT IV SCH ×2 (18:35→19:44)
--- NOTE | 2019-07-01 18:55 | History & Physical Report ---
Date of Service July 01, 2019 Assessment & Plan (1) Abdominal pain, epigastric: Suspect combination of gastritis and ileus noted on CT, no clear Crohn's flare at this time. Will defer GI consult pending clinical course. (2) Osteopenia: Vitamin D on hold to reduce amount of medications while NPO (3) Paroxysmal atrial fibrillation: Pradaxa for anticoagulation (keep Eliquis listed as home med as she is due to switch to this once her Pradaxa runs out due to change of insurance) Currently in NSR. Diltiazem ER 240mg PO daily for rate control Metoprolol 25mg PO q6h PRN if she goes into a. fib (4) Chronic gastritis: With acute exacerbation. Continue pantoprazole 40mg PO BID Carafate 1g PO ACHS Add famotidine 20mg IV BID (5) Ileus: NPO, NSS + 40meq KCl 125ml/hr Can likely slowly advance diet tomorrow with GERD friendly foods (6) Hypokalemia: Suspected secondary to GI losses KCl IV 30 meq Followed by 40meq in each 1L NSS as above Repeat level in AM (7) Crohn's disease: No clear current flare up of this based on imaging and she reports this doesn't feel like prior flare ups. Will get ESR and CRP with AM labs to monitor if she gets worse. Continue mesalamine 800mg TID and mercaptopurine 50mg PO QAM (8) Elevated LFTs: Suspected secondary to gastroenteritis. Biliary duct US pending but not noted to be enlarged on CT. Trend LFTs in AM (9) DVT prophylaxis: [facility] on [facility]adaxa [facility] Admission and Anticipated Discharge Date Admission Date: 07/01/2019 History of Present Illness Chief Complaint: Epigastric pain, nausea and vomiting Primary Care Provider: Jet Leon MD Neena Merida is a 64 year old female with Crohn's disease who present to the ER with upper abdominal pain and associated nausea and vomiting. This started on June 06 after having spaghetti and tomato sauce the night before. She has treated similar pains in the past with clear liquid diet slowly increasing back to her usual regimen and she did this successfully on this occasion up until last week then she advanced her diet back to solids. Since then her pain has been getting worse. She was prescribed Carafate by Dr Campbell approximately a week ago which she reports started helping after about 4 days of use. However the last 2 days and especially today it has been getting much worse with limited oral intake that she decided she needed to come to the ER. She describes the pain as cramping, severity 10/10 at worst, currently 2/10, attacks can last for seconds to minutes with 5-10 minutes in between attacks. No melena or red blood in stool. Notes small BM today but good amount yesterday (2-3). With regards to her medications. Ann Marie is listed for when she runs out of Pradaxa due to change of insurance. She is currently on Pradaxa however. Last B12 injection last Thursday (she notes this is newly prescribed since labs in December). She notes relevant PSHx of ileum removed 8 inches in 1992, for crohn's, not perforated at that time. Allergies Allergy/AdvReac Type Severity Reaction Status Date / Time lactose Allergy Unknown LACTOSE Verified 07/01/19 20:05 INTOLERANT mushroom Allergy Unknown GI SYMPTOMS Verified 07/01/19 20:05 prednisone Allergy Unknown MOOD Verified 07/01/19 20:05 CHANGES infliximab AdvReac Unknown PALPITATIONS, Verified 07/01/19 20:05 SOB, FLUSHING morphine AdvReac Unknown HALLUCINATI Verified 07/01/19 20:05 ONS Home Medications Home Medications Medication Instructions Recorded Confirmed Type aloe vera 25 mg capsule 25 mg PO DAILY cap 10/06/18 07/01/19 History multivitamin 1 tab PO DAILY 10/06/18 07/01/19 History pantoprazole 40 mg tablet,delayed 40 mg PO BID #180 tab 10/06/18 07/01/19 History release vitamin E acetate 400 units PO DAILY 10/06/18 07/01/19 History cholecalciferol (vitamin D3) 125 5,000 units PO DAILY 11/08/18 07/01/19 History mcg (5,000 unit) capsule potassium gluconate 550 mg (90 mg) 550 mg PO DAILY tab 01/02/19 07/01/19 History tablet cyanocobalamin (vitamin B-12) 1,000 mcg IM MONTHLY ea 04/11/19 07/01/19 History 1,000 mcg/mL injection kit diltiazem HCl 240 mg 240 mg PO DAILY #90 cap 04/14/19 07/01/19 Rx capsule,extended release 24 hr, controlled metoprolol tartrate 25 mg tablet 25 mg PO Q6H PRN 90 Days #360 tab 04/14/19 07/01/19 Rx sucralfate 1 gram tablet 1 gm PO QID #40 tab 06/23/19 07/01/19 Rx Bifidobacterium infantis [Align] 4 mg PO DAILY 07/01/19 07/01/19 History Ca carb-D3-mag ep-qou-rqzj-Zn 1 tab PO BID 07/01/19 07/01/19 History [Caltrate + D3 Plus Minerals] Iron Iv 1 dose IV .PERIODICALLY PRN 07/01/19 07/01/19 History rwkqeuuqdp-apnscsnbclgwz-mqhj 1 tab PO UD PRN 07/01/19 07/01/19 History dabigatran etexilate [Pradaxa] 150 mg PO BID 07/01/19 07/01/19 History ukskx-am-8-ztl-hvy-yrsmpyp-ast 1 cap PO DAILY 07/01/19 07/01/19 History [MegaRed [place]-3 Krill Oil] mercaptopurine 50 mg PO QAM 07/01/19 07/01/19 History mesalamine 800 mg PO TID 07/01/19 07/01/19 History Past Med/Surg History Medical History Atrial fibrillation with RVR Nephrolithiasis (Inactive) Numbness and tingling in both hands Palpitations Small bowel obstruction (Inactive) Surgical History H/O resection of small bowel History of ankle surgery History of cholecystectomy History of colonoscopy (05/2016) History of esophagogastroduodenoscopy (EGD) (05/2013) Family History Unknown Ankylosing spondylitis Lung cancer Aunt Breast cancer Mother Ovarian cancer Father Ankylosing spondylitis Aunt Inflammatory bowel disease Grandmother (Maternal) Lung cancer Social History Preferred Language: Greek Communication Ability: Effective 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 Required: No Beliefs That Will Affect Care: None marital status: Current Living Situation: Spouse current occupational status: retired Other Information That Helps Us Care for You: No Feels Safe at Home: Yes Safety Concerns: Feels Safe At This Time Smoking Status: Never smoker Hx Alcohol Use: No Hx Substance Use: No Review of Systems Review of Systems: All systems reviewed & are unremarkable except as noted in HPI & below Physical Exam Constitutional: WD/WN, vitals as above Eyes: + anicteric sclerae; normal pupil size ENMT: external ear and nose normal, oropharynx normal Neck: trachea midline, no thyromegaly Respiratory: normal respiratory effort, lungs clear to auscultation Cardiovascular: RRR, no murmur, no edema Gastrointestinal (Abdomen): Inspection/Auscultation: abdomen normal to inspection and normal bowel sounds Percussion/Palpation: + abdomen tender (mild epigastric) and abdomen soft; no guarding and abdomen not rigid Musculoskeletal: no cyanosis or clubbing, extremities motor strength 5/5 Skin: no rashes, warm and dry Neurologic: moves all extremities and awake; no focal motor deficits and not confused Speech / Cognition: normal speech Psychiatric: A+Ox3, euthymic affect Results & Data Results & Data ([facility]) Vital Signs (Past 12 Hours) Vital Signs Temp Pulse Resp BP Pulse Ox 07/01/19 18:38 72 19 137/76 94 07/01/19 18:32 76 20 07/01/19 17:30 70 15 93 07/01/19 17:29 72 18 93 07/01/19 16:29 36.8 C 77 19 130/83 97 PG Care Time/CCT Total # of Minutes Spent Total Time Spent with Patient: Total time spent is greater than 50% in coordin ation of care (as documented) at patient's floor/unit and/or counseling patient: Coding Level of Care Code 98726 Initial Inpt Care Lvl 2 Medical Decision Making High Complexity Diagnoses Abdominal pain, epigastric R10.13 Osteopenia M85.80 Osteopenia location: unspecified Paroxysmal atrial fibrillation I48.0 Chronic gastritis K29.50 Gastritis bleeding: without bleeding Gastritis type: unspecified gastritis Ileus K56.7 Hypokalemia E87.6 Crohn's disease K50.00 Digestive disease complication type: without complication Gastrointestinal tract location: small intestine Elevated LFTs R79.89 DVT prophylaxis Z29.9 (1) Crohn's disease Digestive disease complication type: without complication Gastrointestinal tract location: small intestine Qualified Code(s): K50.00 - Crohn's disease of small intestine without complications (2) Osteopenia Osteopenia location: unspecified Qualified Code(s): M85.80 - Other specified disorders of bone density and structure, unspecified site (3) Chronic gastritis Gastritis bleeding: without bleeding Gastritis type: unspecified gastritis Qualified Code(s): K29.50 - Unspecified chronic gastritis without bleeding
[2019-07-01] MEDS ORDERED: POTASSIUM CHLORIDE / WTR 10 MEQ/100 ML PLCT IV ONE ×2 (19:30→20:30)
--- NOTE | 2019-07-01 19:47 | Ultrasound Report ---
US gallbladder CLINICAL HISTORY: abn LFT eval for biliary obstruction COMPARISON STUDY: Right upper quadrant ultrasound September 18, 2016. CT of the abdomen and pelvis perfor med earlier today. FINDINGS: Increased hepatic echogenicity indicates fatty infiltration. There is trace perihepatic asc ites. No biliary ductal dilatation is identified status post cholecystectomy. The common bile duct me asures 6 mm in caliber. The pancreas is largely obscured. There is no right hydronephrosis. A cortica l calcification within the upper pole of the right kidney is again noted. IMPRESSION: 1. No biliary ductal dilatation status post cholecystectomy. 2. Fatty infiltration of the liver. 3. Largely obscured pancreas. ACT 112: Negative or not required by law. Electronically signed by: Sergio Ho M.D. 07/01/2019 7:45 PM
[2019-07-01] MEDS ORDERED: METOPROLOL TARTRATE 25 MG TAB PO PRN (20:59)
[2019-07-01] MEDS ORDERED: MESALAMINE 800 MG PO SCH (21:00)
[2019-07-01] MEDS ORDERED: LACTATED RINGER'S 1,000 ML IV SCH (21:00)
[2019-07-01] MEDS: FAMOTIDINE 20 MG in SYRINGE 3 ML IV SCH (22:20)
[2019-07-01] MEDS: PANTOprazole 40 MG TAB PO SCH (22:20)
[2019-07-01] MEDS: SUCRALFATE 1 GM TAB PO SCH (22:20)
[2019-07-01] MEDS: POTASSIUM CHLORIDE 40 MEQ in SODIUM CHLORIDE 0.9% 1000ML 1,000 ML IV SCH (23:22)
[2019-07-01 23:43] LABS: Appearance Urine Clear (Clear); Bacteria Urine Automated Negative (Negative); Blood Urine Negative (Negative); Color Urine Dark Yellow; Glucose Urine UA Negative (Negative); Ketones Urine Negative (Negative); Leukocyte Esterase Urine 1+ (Negative); Nitrite Urine Negative (Negative); Protein Urine Negative (Negative); Specific Gravity Urine 1.021 (1.000-1.030); Urobilinogen Urine Negative (Negative)
[2019-07-01 23:59] LABS: Bilirubin Urine 1+ (Negative); Sulfosalicylic Acid Urine Negative (Negative)
[2019-07-02] MEDS ORDERED: ACETAMINOPHEN 1,000 MG/100 ML VIAL IV PRN (00:01)
[2019-07-02 00:06] LABS: Calcium Oxalate Crystals Urine Present (None Prsent); RBC Urine Automated 0-4 /hpf (0-4)
[2019-07-02 05:14] LABS: Basophils # (auto) 0.02 K/uL (0-0.2); Basophils % (auto) 0.3 %; Eosinophils # (auto) 0.07 K/uL (0-0.5); Eosinophils % (auto) 1.1 %; Hematocrit (blood only) 32.2 % (37-47); Hemoglobin 11.5 g/dL (12.0-16.0); Immature Granulocytes # (auto) 0.03 K/uL (0.00-0.02); Immature Granulocytes % (auto) 0.5 %; Lymphocytes # (auto) 1.95 K/uL (1.2-3.4); Lymphocytes % (auto) 29.4 %; Mean Corpuscular Hemoglobin 31.5 pg (25-34); Mean Corpuscular Hgb Conc 35.7 g/dL (32-36); Mean Corpuscular Volume 88.2 fL (80-100); Mean Platelet Volume 9.9 fL (7.4-10.4); Monocytes # (auto) 0.47 K/uL (0.11-0.59); Monocytes % (auto) 7.1 %; Neutrophils # (auto) 4.09 K/uL (1.4-6.5); Neutrophils % (auto) 61.6 %; Platelet Count 236 K/uL (130-400); RDW Coefficient of Variation 14.3 % (11.5-14.5); RDW Standard Deviation 46.2 fL (36.4-46.3); Red Blood Count 3.65 M/uL (4.2-5.4); White Blood Count 6.63 K/uL (4.8-10.8)
[2019-07-02 05:34] LABS: Alanine Aminotransferase 333 U/L (12-78); Albumin Level 2.9 gm/dl (3.4-5.0); Aspartate Aminotransferase 213 U/L (15-37); BUN Creatinine Ratio 10.2 (10-20); Blood Urea Nitrogen 8 mg/dl (7-18); Calcium 7.7 mg/dl (8.5-10.1); Carbon Dioxide 24 mmol/L (21-32); Chloride 114 mmol/L (98-107); Creatinine Clr Calc Pharmacy 83.1 ml/min; Est GFR (African American) 96.9; Est GFR (Non-African American) 83.6; Glucose 98 mg/dl (70-99); Magnesium 1.7 mg/dl (1.8-2.4); Sodium 144 mmol/L (136-145)
[2019-07-02 05:38] LABS: Alkaline Phosphatase 162 U/L (45-117); Bilirubin,Total 0.9 mg/dl (0.2-1); C Reactive Protein < 0.29 mg/dl (0-0.29); Globulin 2.8 gm/dl (2.5-4.0); Total Protein 5.7 gm/dl (6.4-8.2)
[2019-07-02] MEDS: POTASSIUM CHLORIDE 40 MEQ in SODIUM CHLORIDE 0.9% 1000ML 1,000 ML IV SCH (07:42)
[2019-07-02] MEDS: SUCRALFATE 1 GM TAB PO SCH ×5 (07:43→22:08)
[2019-07-02] MEDS ORDERED: DABIGATRAN ETEXILATE 75 MG CAP PO SCH (09:00)
[2019-07-02] MEDS: FAMOTIDINE 20 MG in SYRINGE 3 ML IV SCH ×2 (09:45→20:59)
[2019-07-02] MEDS: POTASSIUM CHLORIDE / WTR 10 MEQ/100 ML PLCT IV SCH ×2 (10:02→10:57)
[2019-07-02] MEDS: dilTIAZem HCL 240 MG CAPCR PO SCH (10:04)
[2019-07-02] MEDS: MULTIVITAMIN TAB PO SCH (10:05)
[2019-07-02] MEDS: MERCAPTOPURINE 50 MG TAB PO SCH (10:06)
[2019-07-02] MEDS: PANTOprazole 40 MG TAB PO SCH ×2 (10:06→21:00)
[2019-07-02] MEDS: MAGNESIUM SULFATE / D5W 1 GM/100 ML BAG IV SCH ×2 (12:22→13:28)
[2019-07-02] MEDS: MESALAMINE 800 MG PO SCH ×2 (13:28→21:00)
[2019-07-02] MEDS: ALUMINUM/MAGNESIUM SUSP 72 ML, LIDOCAINE HCL VISCOUS 2% 24 ML, BARCODE IDENTIFIER 1 EA PO PRN ×2 (15:44→21:00)
--- NOTE | 2019-07-02 15:56 | Hospitalist Progress Note ---
Date of Service July 02, 2019 Assessment & Plan (1) Abdominal pain, epigastric: enteritis seen on CT patient has not experienced improvement over the past month with Protonix, Carafate solid food aggravating her condition keep on clears for now, she does not have much of an appetite will consult GI to see, possible scopes on Thursday? (2) Osteopenia: Vitamin D on hold to reduce amount of medications while not feeling well (3) Paroxysmal atrial fibrillation: Pradaxa for anticoagulation (keep Eliquis listed as home med as she is due to switch to this once her Pradaxa runs out due to change of insurance) Currently in NSR. HOLD Pradaxa, already received morning dose today, possible scopes Thursday? Diltiazem ER 240mg PO daily for rate control Metoprolol 25mg PO q6h PRN if she goes into a. fib (4) Chronic gastritis: With acute exacerbation. Continue pantoprazole 40mg PO BID Carafate 1g PO ACHS Add famotidine 20mg IV BID minimal improvement in her symptoms, again, will ask GI to see patient she says it has been years since her last EGD (5) Ileus: NPO, NSS + 40meq KCl 125ml/hr passing gas will start on clears (6) Hypokalemia: Suspected secondary to GI losses KCl IV 30 meq Followed by 40meq in each 1L NSS as above K up to 3.0 today continue 40mEq in IV fluids, give additional 20mEq via K riders (7) Crohn's disease: No clear current flare up of this based on imaging and she reports this doesn't feel like prior flare ups. Continue mesalamine 800mg TID and mercaptopurine 50mg PO QAM consult GI to see tomorrow (8) Elevated LFTs: unclear etiology AST was up to 700 on admission AST and ALT improving has fatty infiltration on US, no biliary duct dilation/obstruction again, consult GI for their recommendations (9) DVT prophylaxis: hold Pradaxa SCDs Admission and Anticipated Discharge Date Admission Date: July 01, 2019 Subjective patient doing fairly well she says that the epigastric pain has been going on since June 06 she has had limited response to Carafate that was prescribed by Dr. Campbell she describes her symptoms as slowly improving on liquid, bland diet once she advances to solid food it triggers more epigastric pain reviewed labs, AST and ALT elevated on admission, coming down today lipase normal and CT without evidence of pancreatitis WBC normal, Hb 11.5, K low at 3.0 but improved since admission with IV replacement magnesium low at 1.7, Cr stable, small bowel enteritis seen on CT, RUQ US with fatty liver infiltration, no dilation of bile ducts patient has been moving her bowels, typically they are loose, she has not seen any blood recently I discussed asking GI to see her while here, she agreed Review of Systems Review of Systems: All systems reviewed & are unremarkable except as noted in HPI & below Constitutional: no fever, no sweats, no fatigue, no weakness and no weight loss Respiratory: no cough and no dyspnea Cardiovascular: no chest pain and no edema Gastrointestinal: + abdominal pain (epigastric) and + diarrhea/loose stools; no nausea, no constipation, no blood in stools and no melena Musculoskeletal: no joint pain and no myalgia Physical Exam Constitutional: WD/WN, vitals as above + overweight Eyes: PERRL, conjunctivae normal, anicteric sclerae ENMT: external ear and nose normal, oropharynx normal Neck: trachea midline, no thyromegaly Respiratory: normal respiratory effort, lungs clear to auscultation Cardiovascular: RRR, no murmur, no edema Gastrointestinal (Abdomen): Inspection/Auscultation: abdomen normal to inspection and normal bowel sounds; abdomen not distended Percussion/Palpation: + abdomen tender (epigastric) and abdomen soft; no guarding and abdomen not rigid Musculoskeletal: no cyanosis or clubbing, extremities motor strength 5/5 Skin: no rashes, warm and dry Neurologic: patellar DTR's 2+ bilat, sensation intact and PERRL, EOMI, accommodation nl, no face palsy, no dysarthria Psychiatric: A+Ox3, euthymic affect Lymphatic: no cervical or axillary lymphadenopathy Results & Data Results & Data ([facility]) Vital Signs (Past 12 Hours) Vital Signs Temp Pulse Resp BP Pulse Ox 07/02/19 15:24 36.7 C 69 16 125/75 97 07/02/19 09:59 66 146/77 H 07/02/19 07:38 36.6 C 67 16 126/78 100 Laboratory Results Laboratory Results - last 24 hr 07/01/19 07/01/19 07/01/19 17:05 17:05 17:05 WBC 12.69 H RBC 4.58 Hgb 14.6 Hct 40.2 MCV 87.8 MCH 31.9 MCHC 36.3 H RDW Std Deviation 45.7 RDW Coeff of Lina 14.3 Plt Count 323 MPV 9.7 Immature Gran % (Auto) 0.2 Neut % (Auto) 83.0 Lymph % (Auto) 11.3 [place] % (Auto) 5.2 Eos % (Auto) 0.2 Baso % (Auto) 0.1 Immature Gran # (Auto) 0.03 H Neut # (Auto) 10.53 H Lymph # (Auto) 1.43 Ballard # (Auto) 0.66 H Eos # (Auto) 0.03 Baso # (Auto) 0.01 ESR 9 Sodium 141 Potassium 2.6 L Chloride 106 Carbon Dioxide 27 Anion Gap 8.0 BUN 9 Creatinine 1.03 Est Cr Clr Drug Dosing 60.2 Est GFR ( Amer) 66.1 Est GFR (Non-Af Amer) 57.0 BUN/Creatinine Ratio 8.8 L Glucose 135 H Calcium 9.1 Magnesium Total Bilirubin 1.3 H AST 472 H ALT 362 H Alkaline Phosphatase 222 H C-Reactive Protein < 0.29 Total Protein 8.1 Albumin 4.2 Globulin 3.9 Albumin/Globulin Ratio 1.1 Lipase 81 Urine Color Urine Appearance Urine pH Ur Specific [place] Urine Protein Urine Glucose (UA) Urine Ketones Urine Blood Urine Nitrite Urine Bilirubin Urine Urobilinogen Ur Leukocyte Esterase Urine WBC (Auto) Urine RBC (Auto) U Hyaline Cast (Auto) U Epithel Cells (Auto) Urine Bacteria (Auto) Calcium Oxalate Crystal Hepatitis C Ab Screen 07/01/19 07/01/19 07/02/19 17:05 23:25 04:36 WBC RBC Hgb Hct MCV MCH MCHC RDW Std Deviation RDW Coeff of Lina Plt Count MPV Immature Gran % (Auto) Neut % (Auto) Lymph % (Auto) [place] % (Auto) Eos % (Auto) Baso % (Auto) Immature Gran # (Auto) Neut # (Auto) Lymph # (Auto) [place] # (Auto) Eos # (Auto) Baso # (Auto) ESR Sodium Potassium Chloride Carbon Dioxide Anion Gap BUN Creatinine Est Cr Clr Drug Dosing Est GFR ( Amer) Est GFR (Non-Af Amer) BUN/Creatinine Ratio Glucose Calcium Magnesium Total Bilirubin AST ALT Alkaline Phosphatase C-Reactive Protein Total Protein Albumin Globulin Albumin/Globulin Ratio Lipase Urine Color Dark Yellow Urine Appearance Clear Urine pH 5.0 Ur Specific [place] 1.021 Urine Protein Negative Urine Glucose (UA) Negative Urine Ketones Negative Urine Blood Negative Urine Nitrite Negative Urine Bilirubin 1+ H Urine Urobilinogen Negative Ur Leukocyte Esterase 1+ H Urine WBC (Auto) 10-30 H Urine RBC (Auto) 0-4 U Hyaline Cast (Auto) 1-5 U Epithel Cells (Auto) 5-10 H Urine Bacteria (Auto) Negative Calcium Oxalate Crystal Present A Hepatitis C Ab Screen Neg Neg 07/02/19 07/02/19 07/02/19 04:36 04:36 04:36 WBC 6.63 RBC 3.65 L Hgb 11.5 L D Hct 32.2 L MCV 88.2 MCH 31.5 MCHC 35.7 RDW Std Deviation 46.2 RDW Coeff of Lina 14.3 Plt Count 236 MPV 9.9 Immature Gran % (Auto) 0.5 Neut % (Auto) 61.6 Lymph % (Auto) 29.4 [place] % (Auto) 7.1 Eos % (Auto) 1.1 Baso % (Auto) 0.3 Immature Gran # (Auto) 0.03 H Neut # (Auto) 4.09 Lymph # (Auto) 1.95 [place] # (Auto) 0.47 Eos # (Auto) 0.07 Baso # (Auto) 0.02 ESR 2 Sodium 144 Potassium 3.0 L D Chloride 114 H Carbon Dioxide 24 Anion Gap 6.0 BUN 8 Creatinine 0.75 Est Cr Clr Drug Dosing 83.1 Est GFR ( Amer) 96.9 Est GFR (Non-Af Amer) 83.6 BUN/Creatinine Ratio 10.2 Glucose 98 Calcium 7.7 L D Magnesium 1.7 L Total Bilirubin 0.9 AST 213 H ALT 333 H Alkaline Phosphatase 162 H C-Reactive Protein < 0.29 Total Protein 5.7 L D Albumin 2.9 L Globulin 2.8 Albumin/Globulin Ratio 1.0 Lipase Urine Color Urine Appearance Urine pH Ur Specific [place] Urine Protein Urine Glucose (UA) Urine Ketones Urine Blood Urine Nitrite Urine Bilirubin Urine Urobilinogen Ur Leukocyte Esterase Urine WBC (Auto) Urine RBC (Auto) U Hyaline Cast (Auto) U Epithel Cells (Auto) Urine Bacteria (Auto) Calcium Oxalate Crystal Hepatitis C Ab Screen Medications Administered Current Inpatient Medications Al Hydrox/Mg Hydrox/Simethicone 72 ml/ Lidocaine HCl 24 ml/ BARCODE IDENTIFIER 1 ea 0 ml PO Q6H PRN PRN Reason: Epigastric pain Stop: 07/31/19 21:02 Last Admin: 07/02/19 15:44 Dose: 24 ml Documented by: Dabigatran (Pradaxa) 150 mg PO BID [facility] Stop: 08/01/19 08:59 Last Admin: 07/02/19 10:05 Dose: 150 mg Documented by: Diltiazem HCl (Cardizem Cd) 240 mg PO DAILY [facility] Stop: 08/01/19 08:59 Last Admin: 07/02/19 10:04 Dose: 240 mg Documented by: Famotidine 20 mg/ Syringe 5 mls @ 2.5 mls/min IV BID [facility] Stop: 07/31/19 21:14 Last Admin: 07/02/19 09:45 Dose: 2.5 mls/min Documented by: Acetaminophen (Ofirmev) 1,000 mg in 100 mls @ 400 mls/hr IV Q8H PRN PRN Reason: Pain or Fever Stop: 07/05/19 00:00 Mercaptopurine (Purinethol) 50 mg PO QAM [facility] Stop: 08/01/19 08:59 Last Admin: 07/02/19 10:06 Dose: 50 mg Documented by: Metoprolol Tartrate (Lopressor) 25 mg PO Q6H PRN PRN Reason: palpitations Stop: 07/31/19 20:58 Multivitamins (Multivitamin Tab) 1 tab PO DAILY [facility] Stop: 08/01/19 08:59 Last Admin: 07/02/19 10:05 Dose: 1 tab Documented by: Mesalamine 800mg 1 ea PO TID [facility] Stop: 08/01/19 13:59 Last Admin: 07/02/19 13:28 Dose: 1 ea Documented by: Pantoprazole Sodium (Protonix) 40 mg PO BID [facility] Stop: 07/31/19 20:59 Last Admin: 07/02/19 10:06 Dose: 40 mg Documented by: Sucralfate (Carafate Tab) 1 gm PO ACHS [facility] Stop: 07/31/19 20:59 Last Admin: 07/02/19 12:10 Dose: 1 gm Documented by: PG Care Time/CCT Total # of Minutes Spent Total Time Spent with Patient: Total time spent is greater than 50% in coordin ation of care (as documented) at patient's floor/unit and/or counseling patient: Coding Level of Care Code 91679 Subseq Hosp Care Lvl 3 Diagnoses Abdominal pain, epigastric R10.13 Osteopenia M85.80 Osteopenia location: unspecified Paroxysmal atrial fibrillation I48.0 Chronic gastritis K29.50 Gastritis bleeding: without bleeding Gastritis type: unspecified gastritis Ileus K56.7 Hypokalemia E87.6 Crohn's disease K50.00 Digestive disease complication type: without complication Gastrointestinal tract location: small intestine Elevated LFTs R79.89 DVT prophylaxis Z29.9 (1) Crohn's disease Digestive disease complication type: without complication Gastrointestinal tract location: small intestine Qualified Code(s): K50.00 - Crohn's disease of small intestine without complications (2) Osteopenia Osteopenia location: unspecified Qualified Code(s): M85.80 - Other specified disorders of bone density and structure, unspecified site (3) Chronic gastritis Gastritis bleeding: without bleeding Gastritis type: unspecified gastritis Qualified Code(s): K29.50 - Unspecified chronic gastritis without bleeding
[2019-07-03 04:40] LABS: Basophils # (auto) 0.01 K/uL (0-0.2); Basophils % (auto) 0.2 %; Eosinophils # (auto) 0.11 K/uL (0-0.5); Eosinophils % (auto) 2.5 %; Hematocrit (blood only) 32.8 % (37-47); Hemoglobin 11.4 g/dL (12.0-16.0); Lymphocytes # (auto) 1.87 K/uL (1.2-3.4); Lymphocytes % (auto) 41.9 %; Mean Corpuscular Hemoglobin 31.2 pg (25-34); Mean Corpuscular Hgb Conc 34.8 g/dL (32-36); Mean Corpuscular Volume 89.9 fL (80-100); Mean Platelet Volume 9.6 fL (7.4-10.4); Neutrophils # (auto) 2.07 K/uL (1.4-6.5); Neutrophils % (auto) 46.4 %; Platelet Count 202 K/uL (130-400); RDW Coefficient of Variation 14.2 % (11.5-14.5); RDW Standard Deviation 47.2 fL (36.4-46.3); Red Blood Count 3.65 M/uL (4.2-5.4); White Blood Count 4.46 K/uL (4.8-10.8)
[2019-07-03 05:00] LABS: Albumin Level 3.1 gm/dl (3.4-5.0); BUN Creatinine Ratio 6.1 (10-20); Creatinine Clr Calc Pharmacy 85.3 ml/min; Est GFR (African American) 100.2; Est GFR (Non-African American) 86.4
[2019-07-03 05:03] LABS: Albumin Globulin Ratio 1.1 (0.9-2); Bilirubin,Total 0.7 mg/dl (0.2-1); Globulin 2.8 gm/dl (2.5-4.0); Total Protein 5.9 gm/dl (6.4-8.2)
[2019-07-03] MEDS: ALUMINUM/MAGNESIUM SUSP 72 ML, LIDOCAINE HCL VISCOUS 2% 24 ML, BARCODE IDENTIFIER 1 EA PO PRN ×2 (07:52→13:53)
[2019-07-03] MEDS: MESALAMINE 800 MG PO SCH ×3 (07:58→21:11)
[2019-07-03] MEDS: PANTOprazole 40 MG TAB PO SCH ×2 (07:59→21:11)
[2019-07-03] MEDS: dilTIAZem HCL 240 MG CAPCR PO SCH (07:59)
[2019-07-03] MEDS: POTASSIUM CHLORIDE 10 MEQ TABCR PO SCH ×3 (08:00→21:11)
[2019-07-03] MEDS: MERCAPTOPURINE 50 MG TAB PO SCH (08:00)
[2019-07-03] MEDS: MULTIVITAMIN TAB PO SCH (08:00)
[2019-07-03] MEDS: FAMOTIDINE 20 MG in SYRINGE 3 ML IV SCH ×2 (08:04→21:10)
[2019-07-03] MEDS: SUCRALFATE 1 GM TAB PO SCH ×4 (08:46→21:10)
--- NOTE | 2019-07-03 09:04 | Gastrointestinal Consultation ---
Date of Consultation July 03, 2019 Assessment & Plan (1) Ileus: (2) Abdominal pain, epigastric: (3) Crohn's ileitis: (4) Nausea & vomiting: (5) Elevated liver enzymes: Continue current therapy with H2RA, PPI and Carafate therapy. Continue clear liquid diet Plan for EGD and Colon tomorrow for further evaluation of symtpoms. Will need further workup regarding elevated liver panel with 6-MMP levels to evaluate for 6-MP toxicity Elevated liver panel also could be secondary to acute viral hepatitis, which would explain many of her symptoms Further recommendations to follow above noted testing. History of Present Illness Reason for Consultation: Abdominal pain, Nausea, Vomiting, Crohn's disease, enteritis Attending Physician: Laz Oviedo, DO History of Present Illness Neena Merida is a 64 yo CF who presented to the ER on 07/01/2019 with worsening complaints of abdominal pain, nausea and vomiting. She does have a history of Crohn's ileitis s/p resection. I had a virtual check-in visit with her on 06/23/2019 for similar symptoms. At that time, she had stated that her symptoms actually began in early May. They have not improved despite increased outpatient therapy including the addition of Carafate and continued compliance with her PPI, 6-MP and Mesalamine therapy. As her symptoms worsened, she presented to the ER yesterday. Upon arrival, she was noted to have an H/H of 14.6/40.2, AST 472, ALT 362, Alk Phos of 222, and Total bili 1.3. She underwent a RUQ US which showed evidence of prior cholecystectomy and fatty liver disease, but no evidence of biliary ductal dilation. A CT scan of her abd/pelvis was also ordered, and she was found to have a mildly dilated, fluid- filled distal small bowel to the level of the ileocolonic anastomosis, but no definitive obstruction. She was also noted to have bilateral renal calculi and fatty liver with trace perihepatic ascites. She was subsequently admitted, placed on Famotidine 20 mg IV BID, given clear liquids, and IVF. At the time I saw her she was continuing to complain of abdominal pain in the midepigastric area, but it had decreased to 2-3/10 in intensity, non-radiating, exacerbated with meals. She denies any further nausea or vomiting. She further denies any jaundice, acolic stools, dark urine, pruritus, fatigue, hematemesis, melena or hematochezia. Her most recent labs from this morning showed an H/H of 11.4/ 32.8, AST 84, ALT 236, Alk phos 144, and total bili 0.7. Her most recent colonoscopy was in 2016, and she was noted to have a stenosis of her ileocolonic anastomosis and small internal hemorrhoids. Her most recent EGD in 2013 showed mild gastritis and some gastric intestinal metaplasia on biopsies, but no other findings. She has no further complain Allergies Allergy/AdvReac Type Severity Reaction Status Date / Time lactose Allergy Unknown LACTOSE Verified 07/01/19 20:05 INTOLERANT mushroom Allergy Unknown GI SYMPTOMS Verified 07/01/19 20:05 prednisone Allergy Unknown MOOD Verified 07/01/19 20:05 CHANGES infliximab AdvReac Unknown PALPITATIONS, Verified 07/01/19 20:05 SOB, FLUSHING morphine AdvReac Unknown HALLUCINATI Verified 07/01/19 20:05 ONS Home Medications Home Medications Medication Instructions Recorded Confirmed Type aloe vera 25 mg capsule 25 mg PO DAILY cap 10/06/18 07/01/19 History multivitamin 1 tab PO DAILY 10/06/18 07/01/19 History pantoprazole 40 mg tablet,delayed 40 mg PO BID #180 tab 10/06/18 07/01/19 History release vitamin E acetate 400 units PO DAILY 10/06/18 07/01/19 History cholecalciferol (vitamin D3) 125 5,000 units PO DAILY 11/08/18 07/01/19 History mcg (5,000 unit) capsule potassium gluconate 550 mg (90 mg) 550 mg PO DAILY tab 01/02/19 07/01/19 History tablet cyanocobalamin (vitamin B-12) 1,000 mcg IM MONTHLY ea 04/11/19 07/01/19 History 1,000 mcg/mL injection kit diltiazem HCl 240 mg 240 mg PO DAILY #90 cap 04/14/19 07/01/19 Rx capsule,extended release 24 hr, controlled metoprolol tartrate 25 mg tablet 25 mg PO Q6H PRN 90 Days #360 tab 04/14/19 07/01/19 Rx sucralfate 1 gram tablet 1 gm PO QID #40 tab 06/23/19 07/01/19 Rx Bifidobacterium infantis [Align] 4 mg PO DAILY 07/01/19 07/01/19 History Ca carb-D3-mag [id number] 1 tab PO BID 07/01/19 07/01/19 History [Caltrate + D3 Plus Minerals] Iron Iv 1 dose IV .PERIODICALLY PRN 07/01/19 07/01/19 History [id number] 1 tab PO UD PRN 07/01/19 07/01/19 History dabigatran etexilate [Pradaxa] 150 mg PO BID 07/01/19 07/01/19 History [id number]-[id number] 1 cap PO DAILY 07/01/19 07/01/19 History [MegaRed Romance-3 Krill Oil] mercaptopurine 50 mg PO QAM 07/01/19 07/01/19 History mesalamine 800 mg PO TID 07/01/19 07/01/19 History Patient History Medical History Atrial fibrillation with RVR Nephrolithiasis (Inactive) Numbness and tingling in both hands Palpitations Small bowel obstruction (Inactive) Surgical History H/O resection of small bowel History of ankle surgery History of cholecystectomy History of colonoscopy (05/2016) History of esophagogastroduodenoscopy (EGD) (05/2013) Family History Unknown Ankylosing spondylitis Lung cancer Aunt Breast cancer Mother Ovarian cancer Father Ankylosing spondylitis Aunt Inflammatory bowel disease Grandmother (Maternal) Lung cancer Social History Preferred Language: Omani Communication Ability: Effective Auditing Clerk Required: No Beliefs That Will Affect Care: None marital status: Current Living Situation: Spouse current occupational status: retired Other Information That Helps Us Care for You: No Feels Safe at Home: Yes Safety Concerns: Feels Safe At This Time Smoking Status: Never smoker Hx Alcohol Use: No Hx Substance Use: No Physical Exam Constitutional: WD/WN, vitals as above Eyes: PERRL, conjunctivae normal, anicteric sclerae ENMT: external ear and nose normal, oropharynx normal Neck: trachea midline, no thyromegaly Respiratory: normal respiratory effort, lungs clear to auscultation Cardiovascular: RRR, no murmur, no edema Gastrointestinal (Abdomen): Inspection/Auscultation: abdomen normal to inspection and normal bowel sounds Percussion/Palpation: + abdomen tender and abdomen soft; no guarding and abdomen not rigid Skin: no rashes, warm and dry Psychiatric: A+Ox3, euthymic affect Results & Data ([facility]) Vital Signs (Past 12 Hours) Vital Signs Temp Pulse Resp BP Pulse Ox 07/03/19 08:03 36.6 C 76 18 148/92 H 99 07/02/19 23:15 36.8 C 64 16 113/68 97 PG Care Time/CCT Total # of Minutes Spent Total Time Spent with Patient: Total time spent is greater than 50% in coordination of care (as documented) at patient's floor/unit and/or counseling patient: Coding Level of Care Code 74747 Inpt Consult Level 4 Diagnoses Ileus K56.7 Abdominal pain, epigastric R10.13 Crohn's ileitis K50.00 Nausea & vomiting R11.2 Elevated liver enzymes R74.8
[2019-07-03] MEDS ORDERED: bisacodyL 5 MG TABEC PO ONE (09:45)
--- NOTE | 2019-07-03 10:21 | Hospitalist Progress Note ---
Date of Service July 03, 2019 Assessment & Plan (1) Abdominal pain, epigastric: enteritis seen on CT patient has not experienced improvement over the past month with Protonix, Carafate solid food aggravating her condition now clear liquids giving her pain, bloating, diarrhea, cramping consulted Dr. Campbell, discussed with him today plans for EGD and colonoscopy tomorrow, NPO after midnight (2) Paroxysmal atrial fibrillation: Pradaxa for anticoagulation (keep Eliquis listed as home med as she is due to switch to this once her Pradaxa runs out due to change of insurance) Currently in NSR. HOLD Pradaxa, already received morning dose 07/01, plan for scopes Monday 07/03 Diltiazem ER 240mg PO daily for rate control Metoprolol 25mg PO q6h PRN if she goes into a. fib (3) Chronic gastritis: With acute exacerbation. Continue pantoprazole 40mg PO BID Carafate 1g PO ACHS Add famotidine 20mg IV BID minimal improvement in her symptoms, plan for EGD on 07/03 (4) Ileus: NPO, NSS + 40meq KCl 125ml/hr passing liquid stool and gas ileus RESOLVED clinically (5) Hypokalemia: Suspected secondary to GI losses KCl IV 30 meq Followed by 40meq in each 1L NSS as above K is still 3.0 today continue 40mEq in IV fluids, start on 10mEq PO TID (6) Crohn's disease: No clear current flare up of this based on imaging and she reports this doesn't feel like prior flare ups. Continue mesalamine 800mg TID and mercaptopurine 50mg PO QAM per Dr Campbell, she has been resistant to take biological agents in the past, would likely help perhaps she will reconsider based on endoscopy findings (7) Elevated LFTs: unclear etiology AST was up to 700 on admission AST and ALT improving, AST almost normal has fatty infiltration on US, no biliary duct dilation/obstruction per GI, could be viral illness or could be adverse effect of 6MP, plan to check level as outpatient (8) Osteopenia: Vitamin D on hold to reduce amount of medications while not feeling well (9) DVT prophylaxis: hold [facility]a [facility] [place]mission and Anticipated Discharge Date Admission Date: July 01, 2019 Subjective patient tried some liquids last night, aggravated her epigastric pain she has been having loose stools, several times last night, up and down a low with gas and stools reviewed labs, CBC stable, K low at 3.0, Cr normal at 0.[address] Campbell, appreciate his consultation he plans to take for EGD and colonoscopy tomorrow LFT are trending down, AST almost normal from peak of 700 could be 6 mercaptopurine? can check levels as outpatient he discussed that the patient has been resistant to taking biological agents, these would likely give her some benefit if she would agree Review of Systems Review of Systems: All systems reviewed & are unremarkable except as noted in HPI & below Constitutional: + fatigue; no fever, no chills, no sweats and no weakness Respiratory: no cough and no dyspnea Cardiovascular: no chest pain and no edema Gastrointestinal: + abdominal pain (epigastric) and + diarrhea/loose stools; no nausea, no vomiting, no constipation, no blood in stools and no melena Genitourinary: no dysuria Musculoskeletal: no back pain, no joint pain and no muscle weakness Physical Exam Constitutional: WD/WN, vitals as above + overweight Eyes: PERRL, conjunctivae normal, anicteric sclerae ENMT: external ear and nose normal, oropharynx normal Neck: trachea midline, no thyromegaly Respiratory: normal respiratory effort, lungs clear to auscultation Cardiovascular: RRR, no murmur, no edema Gastrointestinal (Abdomen): Inspection/Auscultation: abdomen normal to inspection and normal bowel sounds; abdomen not distended Percussion/Palpation: + abdomen tender (epigastric) and abdomen soft; no guarding and abdomen not rigid Musculoskeletal: no cyanosis or clubbing, extremities motor strength 5/5 Skin: no rashes, warm and dry Neurologic: patellar DTR's 2+ bilat, sensation intact and PERRL, EOMI, accommodation nl, no face palsy, no dysarthria Psychiatric: A+Ox3, euthymic affect Lymphatic: no cervical or axillary lymphadenopathy Results & Data Results & Data ([facility]) Vital Signs (Past 12 Hours) Vital Signs Temp Pulse Resp BP Pulse Ox 07/03/19 08:03 36.6 C 76 18 148/92 H 99 07/02/19 23:15 36.8 C 64 16 113/68 97 Laboratory Results Laboratory Results - last 24 hr 07/03/19 07/03/19 04:18 04:18 WBC 4.46 L RBC 3.65 L Hgb 11.4 L Hct 32.8 L MCV 89.9 MCH 31.2 MCHC 34.8 RDW Std Deviation 47.2 H RDW Coeff of Lina 14.2 Plt Count 202 MPV 9.6 Immature Gran % (Auto) 0.0 Neut % (Auto) 46.4 Lymph % (Auto) 41.9 [place] % (Auto) 9.0 Eos % (Auto) 2.5 Baso % (Auto) 0.2 Immature Gran # (Auto) 0.00 Neut # (Auto) 2.07 Lymph # (Auto) 1.87 [place] # (Auto) 0.40 Eos # (Auto) 0.11 Baso # (Auto) 0.01 Sodium 146 H Potassium 3.0 L Chloride 115 H Carbon Dioxide 26 Anion Gap 5.0 BUN 4 L Creatinine 0.73 Est Cr Clr Drug Dosing 85.3 Est GFR ( Amer) 100.2 Est GFR (Non-Af Amer) 86.4 BUN/Creatinine Ratio 6.1 L Glucose 89 Calcium 8.0 L Total Bilirubin 0.7 AST 84 H ALT 236 H Alkaline Phosphatase 144 H Total Protein 5.9 L Albumin 3.1 L Globulin 2.8 Albumin/Globulin Ratio 1.1 Medications Administered Current Inpatient Medications Al Hydrox/Mg Hydrox/Simethicone 72 ml/ Lidocaine HCl 24 ml/ BARCODE IDENTIFIER 1 ea 0 ml PO Q6H PRN PRN Reason: Epigastric pain Stop: 07/31/19 21:02 Last Admin: 07/03/19 07:52 Dose: 24 ml Documented by: Diltiazem HCl (Cardizem Cd) 240 mg PO DAILY [facility] Stop: 08/01/19 08:59 Last Admin: 07/03/19 07:59 Dose: 240 mg Documented by: Famotidine 20 mg/ Syringe 5 mls @ 2.5 mls/min IV BID [facility] Stop: 07/31/19 21:14 Last Admin: 07/03/19 08:04 Dose: 2.5 mls/min Documented by: Acetaminophen (Ofirmev) 1,000 mg in 100 mls @ 400 mls/hr IV Q8H PRN PRN Reason: Pain or Fever Stop: 07/05/19 00:00 Mercaptopurine (Purinethol) 50 mg PO QAM [facility] Stop: 08/01/19 08:59 Last Admin: 07/03/19 08:00 Dose: 50 mg Documented by: Metoprolol Tartrate (Lopressor) 25 mg PO Q6H PRN PRN Reason: palpitations Stop: 07/31/19 20:58 Multivitamins (Multivitamin Tab) 1 tab PO DAILY [facility] Stop: 08/01/19 08:59 Last Admin: 07/03/19 08:00 Dose: 1 tab Documented by: Mesalamine 800mg 1 ea PO TID [facility] Stop: 08/01/19 13:59 Last Admin: 07/03/19 07:58 Dose: 1 ea Documented by: Pantoprazole Sodium (Protonix) 40 mg PO BID [facility] Stop: 07/31/19 20:59 Last Admin: 07/03/19 07:59 Dose: 40 mg Documented by: Polyethylene Glycol (Miralax Powder Packet) 119 gm PO TODAY@1800 [facility] Stop: 07/03/19 18:01 Polyethylene Glycol (Miralax Powder Packet) 119 gm PO TODAY@2200 [facility] Stop: 07/03/19 22:01 Potassium Chloride (Klor-Con M10) 10 meq PO TID [facility] Stop: 08/02/19 08:59 Last Admin: 07/03/19 08:00 Dose: 10 meq Documented by: Sucralfate (Carafate Tab) 1 gm PO ACHS [facility] Stop: 07/31/19 20:59 Last Admin: 07/03/19 08:46 Dose: 1 gm Documented by: PG Care Time/CCT Total # of Minutes Spent Total Time Spent with Patient: Total time spent is greater than 50% in coordination of care (as documented) at patient's floor/unit and/or counseling patient: Coding Level of Care Code 73794 Subseq Hosp Care Lvl 3 Diagnoses Abdominal pain, epigastric R10.13 Paroxysmal atrial fibrillation I48.0 Chronic gastritis K29.50 Gastritis type: unspecified gastritis Gastritis bleeding: without bleeding Ileus K56.7 Hypokalemia E87.6 Crohn's disease K50.00 Gastrointestinal tract location: small intestine Digestive disease complication type: without complication Elevated LFTs R79.89 Osteopenia M85.80 Osteopenia location: unspecified DVT prophylaxis Z29.9 (1) Osteopenia Osteopenia location: unspecified Qualified Code(s): M85.80 - Other specified disorders of bone density and structure, unspecified site (2) Chronic gastritis Gastritis type: unspecified gastritis Gastritis bleeding: without bleeding Qualified Code(s): K29.50 - Unspecified chronic gastritis without bleeding (3) Crohn's disease Gastrointestinal tract location: small intestine Digestive disease complication type: without complication Qualified Code(s): K50.00 - Crohn's disease of small intestine without complications
[2019-07-03] MEDS: POTASSIUM CHLORIDE 40 MEQ in SODIUM CHLORIDE 0.9% 1000ML 1,000 ML IV SCH (11:17)
[2019-07-03] MEDS ORDERED: POLYETHYLENE (MIRALAX) 17 GM PACK PO SCH ×2 (18:00→22:00)
[2019-07-04] MEDS: POTASSIUM CHLORIDE 40 MEQ in SODIUM CHLORIDE 0.9% 1000ML 1,000 ML IV SCH ×2 (00:38→14:11)
[2019-07-04 04:58] LABS: Basophils # (auto) 0.01 K/uL (0-0.2); Basophils % (auto) 0.2 %; Eosinophils # (auto) 0.09 K/uL (0-0.5); Eosinophils % (auto) 1.8 %; Hematocrit (blood only) 33.4 % (37-47); Hemoglobin 11.7 g/dL (12.0-16.0); Immature Granulocytes # (auto) 0.01 K/uL (0.00-0.02); Immature Granulocytes % (auto) 0.2 %; Lymphocytes # (auto) 1.69 K/uL (1.2-3.4); Lymphocytes % (auto) 34.7 %; Mean Corpuscular Hemoglobin 31.3 pg (25-34); Mean Corpuscular Volume 89.3 fL (80-100); Mean Platelet Volume 9.4 fL (7.4-10.4); Monocytes % (auto) 8.2 %; Neutrophils # (auto) 2.67 K/uL (1.4-6.5); Neutrophils % (auto) 54.9 %; Platelet Count 194 K/uL (130-400); RDW Standard Deviation 46.2 fL (36.4-46.3); Red Blood Count 3.74 M/uL (4.2-5.4); White Blood Count 4.87 K/uL (4.8-10.8)
[2019-07-04 05:26] LABS: Albumin Level 3.2 gm/dl (3.4-5.0); BUN Creatinine Ratio 4.5 (10-20); Calcium 8.4 mg/dl (8.5-10.1); Creatinine Clr Calc Pharmacy 86.5 ml/min; Est GFR (African American) 101.9; Est GFR (Non-African American) 87.9; Potassium 3.4 mmol/L (3.5-5.1)
[2019-07-04 05:29] LABS: Albumin Globulin Ratio 1.1 (0.9-2); Bilirubin,Total 0.9 mg/dl (0.2-1); Globulin 2.8 gm/dl (2.5-4.0)
[2019-07-04] MEDS: SUCRALFATE 1 GM TAB PO SCH ×4 (07:45→21:24)
[2019-07-04] MEDS: POTASSIUM CHLORIDE 10 MEQ TABCR PO SCH ×3 (07:45→21:23)
[2019-07-04] MEDS: MULTIVITAMIN TAB PO SCH (07:45)
[2019-07-04] MEDS: dilTIAZem HCL 240 MG CAPCR PO SCH (07:45)
[2019-07-04] MEDS: MERCAPTOPURINE 50 MG TAB PO SCH (07:46)
[2019-07-04] MEDS: MESALAMINE 800 MG PO SCH ×3 (07:46→21:25)
[2019-07-04] MEDS: PANTOprazole 40 MG TAB PO SCH ×2 (07:46→21:24)
--- NOTE | 2019-07-04 08:20 | Anesthesiology Consultation ---
Date of Service July 04, 2019 Assessment & Plan (1) Encounter for pre-operative examination: Chart Review Chart Review: Acceptable Risk for Surgery and Patient NOT seen in Pre Admission Testing Consults Requested none History Height/Weight Height: 5 ft 5 in Weight: 90.4 kg Allergies Allergy/AdvReac Type Severity Reaction Status Date / Time lactose Allergy Unknown LACTOSE Verified 07/01/19 20:05 INTOLERANT mushroom Allergy Unknown GI SYMPTOMS Verified 07/01/19 20:05 prednisone Allergy Unknown MOOD Verified 07/01/19 20:05 CHANGES infliximab AdvReac Unknown PALPITATIONS, Verified 07/01/19 20:05 SOB, FLUSHING morphine AdvReac Unknown HALLUCINATI Verified 07/01/19 20:05 ONS Medications Home Medications Medication Instructions Recorded Confirmed Last Taken aloe vera 25 mg capsule 25 mg PO DAILY cap 10/06/18 07/01/19 07/01/19 07:30 multivitamin 1 tab PO DAILY 10/06/18 07/01/19 Unknown pantoprazole 40 mg tablet,delayed 40 mg PO BID #180 tab 10/06/18 07/01/19 07/01/19 07:30 release vitamin E acetate 400 units PO DAILY 10/06/18 07/01/19 07/01/19 cholecalciferol (vitamin D3) 125 5,000 units PO DAILY 11/08/18 07/01/19 Unknown mcg (5,000 unit) capsule potassium gluconate 550 mg (90 mg) 550 mg PO DAILY tab 01/02/19 07/01/19 07/01/19 tablet cyanocobalamin (vitamin B-12) 1,000 mcg IM MONTHLY ea 04/11/19 07/01/19 06/29/19 1,000 mcg/mL injection kit diltiazem HCl 240 mg 240 mg PO DAILY #90 cap 04/14/19 07/01/19 07/01/19 07:30 capsule,extended release 24 hr, controlled metoprolol tartrate 25 mg tablet 25 mg PO Q6H PRN 90 Days #360 tab 04/14/19 07/01/19 Unknown sucralfate 1 gram tablet 1 gm PO QID #40 tab 06/23/19 07/01/19 Unknown Bifidobacterium infantis [Align] 4 mg PO DAILY 07/01/19 07/01/19 07/01/19 07:30 Ca carb-D3-mag [id number]-Zn 1 tab PO BID 07/01/19 07/01/19 07/01/19 07:30 [Caltrate + D3 Plus Minerals] Iron Iv 1 dose IV .PERIODICALLY PRN 07/01/19 07/01/19 Unknown [id number]-[id number] 1 tab PO UD PRN 07/01/19 07/01/19 Unknown dabigatran etexilate [Pradaxa] 150 mg PO BID 07/01/19 07/01/19 07/01/19 07:30 [id number]-[id number]-ast 1 cap PO DAILY 07/01/19 07/01/19 Unknown [MegaRed [place]-3 Krill Oil] mercaptopurine 50 mg PO QAM 07/01/19 07/01/19 07/01/19 07:30 mesalamine 800 mg PO TID 07/01/19 07/01/19 07/01/19 07:30 Active Medications Generic Name Dose Route Start Last Admin Trade Name Freq PRN Reason Stop Dose Admin Al Hydrox/Mg Hydrox/ 0 ml 07/01/19 21:03 07/03/19 13:53 Simethicone 72 ml/ Lidocaine PO 07/31/19 21:02 24 ml HCl 24 ml/ BARCODE IDENTIFIER Q6H PRN Administration 1 ea Epigastric pain Diltiazem HCl 240 mg 07/02/19 09:00 07/04/19 07:45 Cardizem Cd PO 08/01/19 08:59 Not Given DAILY [facility] Famotidine 20 mg/ Syringe 5 mls @ 2.5 mls/min 07/01/19 21:15 07/03/19 21:10 IV 07/31/19 21:14 2.5 mls/min BID [facility] Administration Potassium Chloride 40 meq/ 1,020 mls @ 80 mls/hr 07/03/19 10:45 07/04/19 00:38 Sodium Chloride IV 08/02/19 10:44 80 mls/hr .[id number] [facility] Administration Mercaptopurine 50 mg 07/02/19 09:00 07/04/19 07:46 Purinethol PO 08/01/19 08:59 Not Given QAM [facility] Multivitamins 1 tab 07/02/19 09:00 07/04/19 07:45 Multivitamin Tab PO 08/01/19 08:59 Not Given DAILY [facility] Mesalamine 800mg 1 ea 07/02/19 14:00 07/04/19 07:46 PO 08/01/19 13:59 Not Given TID [facility] Pantoprazole Sodium 40 mg 07/01/19 21:00 07/04/19 07:46 Protonix PO 07/31/19 20:59 Not Given BID [facility] Potassium Chloride 10 meq 07/03/19 09:00 07/04/19 07:45 Klor-Con M10 PO 08/02/19 08:59 Not Given TID [facility] Sucralfate 1 gm 07/01/19 21:00 07/04/19 07:45 Carafate Tab PO 07/31/19 20:59 Not Given ACHS [facility] NPO Date Last Intake of Fluids: 07/03/19 Time Last Intake of Fluids: 23:30 Date Last Intake of Solids: 07/03/19 Time Last Intake of Solids: 17:00 Past Medical History Medical History (Updated 07/04/19 @ 08:21 by Rafa Jovel MD) Atrial fibrillation with RVR Nephrolithiasis (Inactive) Numbness and tingling in both hands Obesity Palpitations Small bowel obstruction (Inactive) Past Family History Family History Unknown Ankylosing spondylitis Lung cancer Aunt Breast cancer Mother Ovarian cancer Father Ankylosing spondylitis Aunt Inflammatory bowel disease Grandmother (Maternal) Lung cancer Past Surgical History Surgical History H/O resection of small bowel History of ankle surgery History of cholecystectomy History of colonoscopy (05/2016) History of esophagogastroduodenoscopy (EGD) (05/2013) Social History Smoking Status: Never smoker Hx Alcohol Use: No Alcohol type: wine Hx Substance Use: No Physical Exam Vital Signs Last Vital Signs Temp 36.7 C 07/04/19 07:28 Pulse 66 07/04/19 07:28 Resp 16 07/04/19 07:28 BP 139/79 07/04/19 07:28 Pulse Ox 97 07/04/19 07:28 Testing Laboratory Results 07/04/19 04:45 07/04/19 04:45 Urine Color Dark Yellow 07/01/19 23:25 Urine Appearance Clear (Clear) 07/01/19 23:25 Urine pH 5.0 (4.5-7.5) 07/01/19 23:25 Ur Specific [place] 1.021 (1.000-1.030) 07/01/19 23:25 Urine Protein Negative (Negative) 07/01/19 23:25 Urine Glucose (UA) Negative (Negative) 07/01/19 23:25 Urine Ketones Negative (Negative) 07/01/19:25 Urine Nitrite Negative (Negative) 07/01/19 23:25 Ur Leukocyte Esterase 1+ (Negative) H 07/01/19 23:25 Urine WBC (Auto) 10-30 /hpf (0-5) H 07/01/19 23:25 Urine RBC (Auto) 0-4 /hpf (0-4) 07/01/19: U Hyaline Cast (Auto) 1-5 /lpf (0-5) 07/01/19:25 U Epithel Cells (Auto) 5-10 /lpf (0-5) H 07/01/19 23:25 Urine Bacteria (Auto) Negative (Negative) 07/01/19 23:25 07/01/19 23:25 Urine Culture - Preliminary Urine,Clean Catch Pin-point growth present, reincubating. Other Testing CT OF THE ABDOMEN AND PELVIS WITHOUT CONTRAST CLINICAL HISTORY: Upper abdominal pain. Crohn's disease. Evaluate for bowel obstruction. COMPARISON STUDY: CT of the abdomen and pelvis September 04, 2016. Abdominal ultrasound September 18, 2016. TECHNIQUE: Axial images of the abdomen and pelvis were obtained without IV contrast. Images were reviewed in the axial, sagittal, and coronal planes. Automated exposure control was utilized for the study. A dose lowering technique was utilized adhering to the principles of ALARA. FINDINGS: Lung bases are unremarkable. Evaluation of the abdomen and pelvis is suboptimal on this unenhanced examination. No pneumatosis, free air or portal venous gas is present. There is fatty infiltration of the liver. There is no biliary ductal dilatation status post cholecystectomy. There is no peripancreatic infiltration. An 8 mm calcification within the cortex of the upper pole the right kidney is noted. Bilateral renal calculi measure up to 4 mm. There are no ureteral calculi. There is no hydronephrosis or hydroureter. The mid to distal small bowel is mildly dilated and fluid-filled. No well- defined transition point is identified. Minimal mesenteric infiltration is noted. Cholecystectomy is noted. The colon is mildly fluid-filled. No suspicious osseous lesions are present. There is no lymphadenopathy. No abscess identified on this unenhanced examination. There is trace perihepatic ascites. IMPRESSION: 1. Mildly dilated, fluid-filled mid to distal small bowel without well-defined transition point. Small bowel likely dilated to the level of the ileocolonic anastomosis. Minimal mesenteric infiltration. An ileus with possible enteritis is favored. A small bowel obstruction could appear similar but is considered less likely. 2. Bilateral nephrolithiasis. No ureteral calculi. 3. Fatty infiltration of the liver. 4. Trace perihepatic ascites. ACT 112: Negative or not required by law. Electronically signed by: Sergio Ho M.D. 07/01/2019 6:11 PM Dictated: 07/01/19 1758 Transcribed: 07/01/19 1758
[2019-07-04] MEDS: FAMOTIDINE 20 MG in SYRINGE 3 ML IV SCH ×2 (08:33→21:25)
[2019-07-04] MEDS ORDERED: PROPOFOL IV EMULSION 10 MG/ML 20 ML VIAL IV ONE ×4 (08:47→09:59)
[2019-07-04] MEDS ORDERED: LIDOCAINE HCL 2% 2 ML VIAL/AMP(20MG/ML) INFIL ONE (08:47)
--- NOTE | 2019-07-04 09:08 | Gastroenterology Progress Note ---
Date of Service July 04, 2019 Assessment & Plan (1) Elevated liver enzymes: (2) Crohn's disease: (3) Abdominal pain, epigastric: Proceed with EGD and colonoscopy Continue current therapy Further recommendations to follow Admission and Anticipated Discharge Date Admission Date: July 01, 2019 Subjective Still with epigastric abdominal pain. Tolerated bowel prep well. No hematochezia, hematemesis, or melena. No further complaints. Physical Exam Constitutional: WD/WN, vitals as above Respiratory: normal respiratory effort, lungs clear to auscultation Cardiovascular: RRR, no murmur, no edema Gastrointestinal (Abdomen): normal bowel sounds, soft, nontender, no hepatosplenomegaly Results & Data Results & Data ([facility]) Vital Signs (Past 12 Hours) Vital Signs Temp Pulse Resp BP Pulse Ox 07/04/19 08:57 36.9 C 77 18 148/77 H 97 07/04/19 07:28 36.7 C 66 16 139/79 97 07/03/19 23:26 36.7 C 55 L 16 148/81 H 99 PG Care Time/CCT Total # of Minutes Spent Total Time Spent with Patient: Total time spent is greater than 50% in coordination of care (as documented) at patient's floor/unit and/or counseling patient: Coding Level of Care Code None Diagnoses Elevated liver enzymes R74.8 Crohn's disease K50.00 Gastrointestinal tract location: small intestine Digestive disease complication type: without complication Abdominal pain, epigastric R10.13 (1) Crohn's disease Gastrointestinal tract location: small intestine Digestive disease complication type: without complication Qualified Code(s): K50.00 - Crohn's disease of small intestine without complications
[2019-07-04] MEDS ORDERED: fentaNYL citrate 100 MCG/2 ML VIAL ONE (09:09)
[2019-07-04] MEDS ORDERED: ONDANSETRON INJ 2 MG/ML 2 ML VIAL ONE (09:16)
--- NOTE | 2019-07-04 10:09 | GI REPORT ---
Patient Name: Neena Merida Procedure Date: 07/04/2019 9:09 AM Date of : 1955 Admit Type: Inpatient Age: 64 Gender: Female Attending MD: Selvin Campbell DO Procedure: Colonoscopy Providers: Selvin Campbell DO Referring MD: Joleen Calix Md Indications: Disease activity assessment of Crohn's disease of the small bowel Medicines: Monitored Anesthesia Care Complications: No immediate complications. Estimated Blood Loss: Estimated blood loss: none. Procedure: Pre-Anesthesia Assessment: - Prior to the procedure, a History and Physical was performed, and patient medications and allergies were reviewed. The patient's tolerance of previous anesthesia was also reviewed. The risks and benefits of the procedure and the sedation options and risks were discussed with the patient. All questions were answered, and informed consent was obtained. Prior Anticoagulants: The patient has taken Pradaxa (dabigatran), last dose was 4 days prior to procedure. ASA Grade Assessment: III - A patient with severe systemic disease. After reviewing the risks and benefits, the patient was deemed in satisfactory condition to undergo the procedure. After I obtained informed consent, the scope was passed under direct vision. Throughout the procedure, the patient's blood pressure, pulse, and oxygen saturations were monitored continuously. The Colonoscope was introduced through the anus and advanced to the ileocolonic anastomosis. The colonoscopy was performed without difficulty. The patient tolerated the procedure well. The quality of the bowel preparation was good. The rectum was photographed. Findings: The perianal and digital rectal examinations were normal. There was evidence of a prior end-to-side ileo-colonic anastomosis in the ascending colon. This was non-patent and was characterized by severe stenosis and ulceration. The anastomosis could not be traversed. A TTS dilator was passed through the scope. Dilation with a 12-13.5-15 mm pyloric balloon dilator was performed. The dilation site was examined and showed moderate improvement in luminal narrowing. Non-bleeding internal hemorrhoids were found during retroflexion. The hemorrhoids were small. Impression: - Non-patent end-to-side ileo-colonic anastomosis, characterized by ulceration and severe stenosis. Dilated. - Non-bleeding internal hemorrhoids. - No specimens collected. Recommendation: - Resume previous diet. - Continue present medications. - Repeat colonoscopy in 1 year for surveillance. - Return to primary care physician as previously scheduled. Selvin Campbell, DO 07/04/2019 10:09:20 AM This report has been signed electronically. Note Initiated On: 07/04/2019 9:09 AM Number of Addenda: 0 I attest to the content of the Intraoperative Record and orders documented therein, exceptions below {[id number]}
--- NOTE | 2019-07-04 10:12 | GI REPORT ---
Patient Name: Neena Merida Procedure Date: 07/04/2019 9:10 AM Date of : 1955 Admit Type: Inpatient Age: 64 Gender: Female Attending MD: Selvin Campbell DO Procedure: Upper GI endoscopy Providers: Selvin Campbell DO Referring MD: Joleen Calix Md Indications: Epigastric abdominal pain Medicines: Monitored Anesthesia Care Complications: No immediate complications. Estimated Blood Loss: Estimated blood loss: none. Procedure: Pre-Anesthesia Assessment: - Prior to the procedure, a History and Physical was performed, and patient medications and allergies were reviewed. The patient's tolerance of previous anesthesia was also reviewed. The risks and benefits of the procedure and the sedation options and risks were discussed with the patient. All questions were answered, and informed consent was obtained. Prior Anticoagulants: The patient has taken Pradaxa (dabigatran), last dose was 4 days prior to procedure. ASA Grade Assessment: III - A patient with severe systemic disease. After reviewing the risks and benefits, the patient was deemed in satisfactory condition to undergo the procedure. After obtaining informed consent, the endoscope was passed under direct vision. Throughout the procedure, the patient's blood pressure, pulse, and oxygen saturations were monitored continuously. The Endoscope was introduced through the mouth, and advanced to the second part of duodenum. The upper GI endoscopy was accomplished without difficulty. The patient tolerated the procedure well. Findings: The examined esophagus was normal. Localized moderate inflammation characterized by erythema was found in the gastric antrum. Biopsies were taken with a cold forceps for histology. One 8 mm sessile polyp with bleeding was found in the duodenal bulb. The polyp was removed with a hot snare. Resection and retrieval were complete. Area was successfully injected with 3 mL of a 1:10,000 solution of epinephrine for hemostasis. To prevent bleeding after the polypectomy, one hemostatic clip was successfully placed (MR conditional). There was no bleeding at the end of the procedure. Impression: - Normal esophagus. - Gastritis. Biopsied. - One duodenal polyp. Resected and retrieved. Injected. Clip (MR conditional) was placed. Recommendation: - Return patient to [facility] for ongoing care. - Advance diet as tolerated. - Continue present medications. - Resume Pradaxa (dabigatran) at prior dose in 5 days. Selvin Campbell DO 07/04/2019 10:12:25 AM This report has been signed electronically. Note Initiated On: 07/04/2019 9:10 AM Number of Addenda: 0 I attest to the content of the Intraoperative Record and orders documented therein, exceptions below {[id number]}
--- NOTE | 2019-07-04 11:15 | Anesthesiology Progress Note ---
Date of Service July 04, 2019 Anesthesia Post Procedure Vital Signs Vital Signs: Temp Pulse Resp BP Pulse Ox 07/04/19 10:31 68 19 174/88 H 100 07/04/19 10:16 75 18 133/71 100 07/04/19 10:01 77 18 137/96 98 07/04/19 08:57 36.9 C 77 18 148/77 H 97 07/04/19 07:28 36.7 C 66 16 139/79 97 07/03/19 23:26 36.7 C 55 L 16 148/81 H 99 07/03/19 15:39 36.8 C 63 16 123/77 99 Pain Intensity Abdomen: Pain Intensity: 2 Transfer of Care Handoff Completed per policy Notes Mental Status: alert / awake / arousable Patient Amnestic to Procedure: Yes Nausea / Vomiting: adequately controlled Pain: adequately controlled Airway Patency, RR, SpO2: stable & adequate BP & HR: stable & adequate Hydration State: stable & adequate Anesthetic Complications: no major complications apparent and Pt Satisfied with anesthetic care
--- NOTE | 2019-07-04 13:20 | Hospitalist Progress Note ---
Date of Service July 04, 2019 Assessment & Plan (1) Abdominal pain, epigastric: enteritis seen on CT, no pancreatitis lipase was normal LFTs significantly elevated but are now trending downward patient has not experienced improvement over the past month with Protonix, Carafate solid food aggravating her condition Even clear liquids giving her pain, bloating, diarrhea, cramping consulted Dr. Campbell, GI Now status post EGD and colonoscopy on 07/03 with findings of severe stenosis and ulceration at her previous ileocolonic anastomosis was dilated, as well as gastric antrum gastritis and a large duodenal polyp which was removed and injected with epinephrine -Secondary to her Crohn's most likely -Await GI input on further treatment -Clear liquids diet for now and continue IV fluids until tolerating adequate p.o. (2) Paroxysmal atrial fibrillation: Pradaxa for anticoagulation (keep Eliquis listed as home med as she is due to switch to this once her Pradaxa runs out due to change of insurance) Currently in NSR on examination. Continue to HOLD Pradaxa for scopes Continue diltiazem ER 240mg PO daily for rate control Continue metoprolol 25mg PO q6h PRN if she goes into a. fib (3) Chronic gastritis: With acute exacerbation now proven on EGD. Continue pantoprazole 40mg PO BID Carafate 1g PO ACHS Continue famotidine 20mg IV BID eventually convert to p.o. (4) Ileus: Improved, advance diet to clear liquids today -Continue NSS + 40meq KCl 80 ml/hr till taking adequate p.o. (5) Hypokalemia: Suspected secondary to GI losses, improved now with replacement but mildly low today Continue potassium chloride and IV fluids and continue potassium chloride 10 mEq p.o. 3 times daily -Follow BMP in the morning -Follow magnesium level in the morning (6) Crohn's disease: With severe stenosis and ulceration at her prior ileocolonic anastomosis as per colonoscopy-dilated -Defer to GI for further management Continue mesalamine 800mg TID and mercaptopurine 50mg PO QAM Patient is willing to take a biologic agent in the future after discussion of r isks and benefits with GI She was on Remicade in the past and had an allergic reaction (7) Elevated LFTs: unclear etiology but possibly related to her Crohn's flare AST was up to 700 on admission AST and ALT improving, AST almost normal has fatty infiltration on US, no biliary duct dilation/obstruction per GI, could be viral illness or could be adverse effect of 6MP however she continues to take 6-MP and LFTs are improving, plan to check level as outpatient (8) Osteopenia: Vitamin D on hold to reduce amount of medications while not feeling well (9) DVT prophylaxis: hold Pradaxa SCDs Disposition-continued stay Admission and Anticipated Discharge Date Admission Date: July 01, 2019 Subjective Patient had her EGD and colonoscopy today. She reports the epigastric pain is now much improved from previous, but still having some mild generalized abdominal discomfort since having her endoscopies. She denies any chest pain or shortness of breath. Last bowel movement was this morning, nonbloody. She is currently tolerating a clear liquids diet for lunch. Review of Systems Review of Systems: All systems reviewed & are unremarkable except as noted in HPI & below Physical Exam Constitutional: WD/WN, vitals as above Eyes: PERRL, conjunctivae normal, anicteric sclerae ENMT: external ear and nose normal, oropharynx normal Neck: trachea midline, no thyromegaly Respiratory: normal respiratory effort, lungs clear to auscultation Cardiovascular: RRR, no murmur, no edema Chest (Breasts): Chest: normal inspection of chest Gastrointestinal (Abdomen): normal bowel sounds, soft, nontender, no hepatosplenomegaly Musculoskeletal: Extremities: extremities normal to inspection; no cyanosis and no clubbing Skin: no rashes, warm and dry Neurologic: moves all extremities and awake; no focal motor deficits Psychiatric: A+Ox3, euthymic affect Lymphatic: no lymphedema Results & Data Results & Data ([facility]) Vital Signs (Past 12 Hours) Vital Signs Temp Pulse Resp BP Pulse Ox 07/04/19 13:00 81 16 116/54 L 98 07/04/19 12:00 64 16 115/73 96 07/04/19 11:29 63 16 109/67 97 07/04/19 10:31 68 19 174/88 H 100 07/04/19 10:16 75 18 133/71 100 07/04/19 10:01 77 18 137/96 98 07/04/19 08:57 36.9 C 77 18 148/77 H 97 07/04/19 07:28 36.7 C 66 16 139/79 97 Laboratory Results 07/04/19 07/04/19 Range/Units 04:45 04:45 WBC 4.87 (4.8-10.8) K/uL RBC 3.74 L (4.2-5.4) M/uL Hgb 11.7 L (12.0-16.0) g/dL Hct 33.4 L (37-47) % MCV 89.3 (80-100) fL MCH 31.3 (25-34) pg MCHC 35.0 (32-36) g/dL RDW Std Deviation 46.2 (36.4-46.3) fL RDW Coeff of Lina 14.0 (11.5-14.5) % Plt Count 194 (130-400) K/uL MPV 9.4 (7.4-10.4) fL Immature Gran % (Auto) 0.2 % Neut % (Auto) 54.9 % Lymph % (Auto) 34.7 % [place] % (Auto) 8.2 % Eos % (Auto) 1.8 % Baso % (Auto) 0.2 % Immature Gran # (Auto) 0.01 (0.00-0.02) K/uL Neut # (Auto) 2.67 (1.4-6.5) K/uL Lymph # (Auto) 1.69 (1.2-3.4) K/uL [place] # (Auto) 0.40 (0.11-0.59) K/uL Eos # (Auto) 0.09 (0-0.5) K/uL Baso # (Auto) 0.01 (0-0.2) K/uL Sodium 145 (136-145) mmol/L Potassium 3.4 L (3.5-5.1) mmol/L Chloride 114 H (98-107) mmol/L Carbon Dioxide 25 (21-32) mmol/L Anion Gap 6.0 (3-11) BUN 3 L (7-18) mg/dl Creatinine 0.72 (0.6-1.2) mg/dl Est Cr Clr Drug Dosing 86.5 ml/min Est GFR ( Amer) 101.9 Est GFR (Non-Af Amer) 87.9 BUN/Creatinine Ratio 4.5 L (10-20) Glucose 85 (70-99) mg/dl Calcium 8.4 L (8.5-10.1) mg/dl Total Bilirubin 0.9 (0.2-1) mg/dl AST 49 H (15-37) U/L ALT 181 H (12-78) U/L Alkaline Phosphatase 140 H (45-117) U/L Total Protein 6.0 L (6.4-8.2) gm/dl Albumin 3.2 L (3.4-5.0) gm/dl Globulin 2.8 (2.5-4.0) gm/dl Albumin/Globulin Ratio 1.1 (0.9-2) PG Care Time/CCT Total # of Minutes Spent Total Time Spent with Patient: Total time spent is greater than 50% in coordination of care (as documented) at patient's floor/unit and/or counseling patient: Coding Level of Care Code 85939 Subseq Hosp Care Lvl 3 Diagnoses Abdominal pain, epigastric R10.13 Paroxysmal atrial fibrillation I48.0 Chronic gastritis K29.50 Gastritis type: unspecified gastritis Gastritis bleeding: without bleeding Ileus K56.7 Hypokalemia E87.6 Crohn's disease K50.00 Gastrointestinal tract location: small intestine Digestive disease complication type: without complication Elevated LFTs R79.89 Osteopenia M85.80 Osteopenia location: unspecified DVT prophylaxis Z29.9 (1) Chronic gastritis Gastritis type: unspecified gastritis Gastritis bleeding: without bleeding Qualified Code(s): K29.50 - Unspecified chronic gastritis without bleeding (2) Crohn's disease Gastrointestinal tract location: small intestine Digestive disease complication type: without complication Qualified Code(s): K50.00 - Crohn's disease of small intestine without complications (3) Osteopenia Osteopenia location: unspecified Qualified Code(s): M85.80 - Other specified disorders of bone density and structure, unspecified site
[2019-07-05] MEDS: POTASSIUM CHLORIDE 40 MEQ in SODIUM CHLORIDE 0.9% 1000ML 1,000 ML IV SCH (02:55)
[2019-07-05 06:13] LABS: Basophils # (auto) 0.01 K/uL (0-0.2); Basophils % (auto) 0.2 %; Eosinophils # (auto) 0.08 K/uL (0-0.5); Eosinophils % (auto) 1.8 %; Lymphocytes # (auto) 1.37 K/uL (1.2-3.4); Mean Corpuscular Hemoglobin 31.5 pg (25-34); Mean Corpuscular Hgb Conc 35.3 g/dL (32-36); Mean Corpuscular Volume 89.2 fL (80-100); Mean Platelet Volume 9.6 fL (7.4-10.4); Monocytes # (auto) 0.32 K/uL (0.11-0.59); Neutrophils # (auto) 2.79 K/uL (1.4-6.5); Platelet Count 203 K/uL (130-400); RDW Coefficient of Variation 14.1 % (11.5-14.5); RDW Standard Deviation 46.3 fL (36.4-46.3); Red Blood Count 3.81 M/uL (4.2-5.4); White Blood Count 4.57 K/uL (4.8-10.8)
[2019-07-05 06:43] LABS: Albumin Level 3.2 gm/dl (3.4-5.0); BUN Creatinine Ratio 3.4 (10-20); Bilirubin Direct 0.3 mg/dl (0-0.2); Creatinine Clr Calc Pharmacy 86.5 ml/min; Est GFR (African American) 101.9; Est GFR (Non-African American) 87.9; Magnesium 1.7 mg/dl (1.8-2.4); Potassium 3.6 mmol/L (3.5-5.1)
[2019-07-05 06:46] LABS: Total Protein 6.2 gm/dl (6.4-8.2)
[2019-07-05] MEDS: SUCRALFATE 1 GM TAB PO SCH ×4 (08:16→20:08)
--- NOTE | 2019-07-05 09:46 | Gastroenterology Progress Note ---
Date of Service July 05, 2019 Assessment & Plan (1) Elevated liver enzymes: (2) Ileus: (3) Crohn's ileitis: (4) Abdominal pain, epigastric: Advance diet as tolerated Continue current therapy Liver panel is improving, will need 6-MMP levels drawn as an outpatient. Check CT Enterography in 2 weeks. Scheduled followup with MIKIE Simms on 07/13/2019, may be switched to Telehealth Pathology pending from EGD and Colonoscopy. Admission and Anticipated Discharge Date Admission Date: July 01, 2019 Subjective Neena Merida was feeling slightly improved today at the time of my visit. She states that she was able to tolerate liquid diet, and is looking forward to advancing it this AM. She describes mild, 3/10 RUQ abdominal pain, described as an ache. She denies any fevers, chills, nausea, vomiting, hematemesis, melena or hematochezia, and has no further complaints. Review of Systems Review of Systems: All systems reviewed & are unremarkable except as noted in HPI & below Physical Exam Constitutional: WD/WN, vitals as above Eyes: PERRL, conjunctivae normal, anicteric sclerae ENMT: external ear and nose normal, oropharynx normal Neck: trachea midline, no thyromegaly Respiratory: normal respiratory effort, lungs clear to auscultation Cardiovascular: RRR, no murmur, no edema Gastrointestinal (Abdomen): normal bowel sounds, soft, nontender, no hepatosplenomegaly Skin: no rashes, warm and dry Psychiatric: A+Ox3, euthymic affect Results & Data Results & Data ([facility]) Vital Signs (Past 12 Hours) Vital Signs Temp Pulse Resp BP Pulse Ox 07/05/19 08:00 36.3 C L 74 16 138/95 100 07/05/19 02:55 36.7 C 69 15 112/69 95 07/04/19 22:52 36.6 C 66 16 149/86 H 97 PG Care Time/CCT Total # of Minutes Spent Total Time Spent with Patient: Total time spent is greater than 50% in coordination of care (as documented) at patient's floor/unit and/or counseling patient: Coding Level of Care Code 19290 Subseq Hosp Care Lvl 3 Diagnoses Elevated liver enzymes R74.8 Ileus K56.7 Crohn's ileitis K50.00 Abdominal pain, epigastric R10.13
[2019-07-05] MEDS: dilTIAZem HCL 240 MG CAPCR PO SCH (09:59)
[2019-07-05] MEDS: POTASSIUM CHLORIDE 10 MEQ TABCR PO SCH ×3 (09:59→20:08)
[2019-07-05] MEDS: MESALAMINE 800 MG PO SCH ×3 (09:59→20:09)
[2019-07-05] MEDS: MULTIVITAMIN TAB PO SCH (09:59)
[2019-07-05] MEDS: PANTOprazole 40 MG TAB PO SCH ×2 (09:59→20:08)
[2019-07-05] MEDS: MERCAPTOPURINE 50 MG TAB PO SCH (10:00)
[2019-07-05] MEDS: FAMOTIDINE 20 MG in SYRINGE 3 ML IV SCH (10:17)
--- NOTE | 2019-07-05 12:31 | Hospitalist Progress Note ---
Date of Service July 05, 2019 Assessment & Plan (1) Abdominal pain, epigastric: With enteritis seen on CT, no pancreatitis-lipase was normal LFTs significantly elevated but are now continuing to trend downward She has not experienced improvement over the past month with Protonix, Carafate Solid food aggravating her condition previously and even clear liquids giving her pain, bloating, diarrhea, cramping Consulted Dr. Campbell, GI Now status post EGD and colonoscopy on 07/03 with findings of severe stenosis and ulceration at her previous ileocolonic anastomosis which was dilated, as well as gastric antrum gastritis and a large duodenal polyp which was removed and injected with epinephrine Now much improved and is tolerating a low fiber diet so far today, passing stool, abdominal pain almost completely resolved -Secondary to her Crohn's most likely -Await GI input on further treatment-recommends CT enterography in 2 weeks, follow-up as an outpatient -DC IV fluids -Change IV Pepcid to p.o. -Continued stay to make sure she tolerates solid diet before discharge -Follow-up on pathology results when available (2) Paroxysmal atrial fibrillation: Typically on Pradaxa for anticoagulation (keep Eliquis listed as home med as she is due to switch to this once her Pradaxa runs out due to change of insurance) Currently in NSR on examination. -discussed with GI-will wait 5 days after endoscopy to start Pradaxa given polyp removal and biopsy-we will restart on 07/08 Continue diltiazem ER 240mg PO daily for rate control Continue metoprolol 25mg PO q6h PRN if she goes into a. fib (3) Chronic gastritis: With acute exacerbation now proven on EGD. Continue pantoprazole 40mg PO BID Carafate 1g PO ACHS Continue famotidine and convert to p.o. (4) Ileus: Resolved Advancing diet and discontinuing fluids (5) Hypokalemia: Suspected secondary to GI losses, improved now with replacement -Continue potassium chloride 10 mEq p.o. 3 times daily -Replacing magnesium as below -Follow BMP in the morning (6) Crohn's disease: With severe stenosis and ulceration at her prior ileocolonic anastomosis as per colonoscopy-dilated -Defer to GI for further management Continue mesalamine 800mg TID and mercaptopurine 50mg PO QAM Patient is willing to take a biologic agent in the future after discussion of risks and benefits with GI She was on Remicade in the past and had an allergic reaction -Needs CT enterography in 2 weeks -Follow-up as an outpatient with GI (7) Elevated LFTs: unclear etiology but possibly related to her Crohn's flare AST was up to 700 on admission Continuing to trend downward-AST is now normal has fatty infiltration on US, no biliary duct dilation/obstruction per GI, could be viral illness or could be adverse effect of 6MP however she continues to take 6-MP and LFTs are improving, plan to check level as outpatient (8) Osteopenia: Vitamin D on hold to reduce amount of medications while not feeling well (9) Hypomagnesemia: Mildly low at 1.7 With myalgias in the thighs with minimal walking -Replace with magnesium sulfate 1 g IV x1 (10) Left-sided back pain: Seems musculoskeletal, not pleuritic, with minimal tenderness on palpation, denies chest pain or shortness of breath -Add Voltaren gel Observe for improvement (11) Thigh pain: Likely muscle cramps from inactivity from being hospitalized for several days Also with hypomagnesemia and previous hypokalemia -Continue replacing potassium and magnesium as above Encourage continue ambulation (12) DVT prophylaxis: hold Pradaxa but can restart on 07/08 SCDs Disposition-continued stay, but hopeful for discharge home tomorrow Admission and Anticipated Discharge Date Admission Date: July 01, 2019 Anticipated date of discharge: 07/06/19 Subjective Patient tolerating low fiber diet so far today. Having some very mild epigastric pain but overall much improved. She is having bowel movements. No n ausea or vomiting. She is having some left sided mid back pain that has been fairly constant and mild through the morning, not worse with deep inspiration, denies cough. She also walked multiple laps around the [place] today and afterwards had a lot of cramping in her thighs and her thighs continue to ache. Denies chest pains or shortness of breath. 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 customer liaison Review of Systems Review of Systems: All systems reviewed & are unremarkable except as noted in HPI & below Physical Exam Constitutional: WD/WN, vitals as above Eyes: PERRL, conjunctivae normal, anicteric sclerae ENMT: external ear and nose normal, oropharynx normal Neck: trachea midline, no thyromegaly Respiratory: normal respiratory effort, lungs clear to auscultation Cardiovascular: RRR, no murmur, no edema Chest (Breasts): Chest: normal inspection of chest (Minimal tenderness to palpation over left mid back) Gastrointestinal (Abdomen): Inspection/Auscultation: abdomen normal to inspection and normal bowel sounds; abdomen not distended Percussion/Palpation: + abdomen tender (Very mild discomfort in the epigastric region without guarding or rebound tenderness) and abdomen soft Musculoskeletal: Extremities: extremities normal to inspection; no cyanosis and no clubbing Skin: no rashes, warm and dry Neurologic: moves all extremities and awake; no focal motor deficits Psychiatric: A+Ox3, euthymic affect Lymphatic: no lymphedema Results & Data Results & Data ([facility]) Vital Signs (Past 12 Hours) Vital Signs Temp Pulse Resp BP Pulse Ox 07/05/19 08:00 36.3 C L 74 16 138/95 100 07/05/19 02:55 36.7 C 69 15 112/69 95 Laboratory Results 07/05/19 07/05/19 Range/Units 06:01 06:01 WBC 4.57 L (4.8-10.8) K/uL RBC 3.81 L (4.2-5.4) M/uL Hgb 12.0 (12.0-16.0) g/dL Hct 34.0 L (37-47) % MCV 89.2 (80-100) fL MCH 31.5 (25-34) pg MCHC 35.3 (32-36) g/dL RDW Std Deviation 46.3 (36.4-46.3) fL RDW Coeff of Lina 14.1 (11.5-14.5) % Plt Count 203 (130-400) K/uL MPV 9.6 (7.4-10.4) fL Immature Gran % (Auto) 0.0 % Neut % (Auto) 61.0 % Lymph % (Auto) 30.0 % [place] % (Auto) 7.0 % Eos % (Auto) 1.8 % Baso % (Auto) 0.2 % Immature Gran # (Auto) 0.00 (0.00-0.02) K/uL Neut # (Auto) 2.79 (1.4-6.5) K/uL Lymph # (Auto) 1.37 (1.2-3.4) K/uL [place] # (Auto) 0.32 (0.11-0.59) K/uL Eos # (Auto) 0.08 (0-0.5) K/uL Baso # (Auto) 0.01 (0-0.2) K/uL Sodium 146 H (136-145) mmol/L Potassium 3.6 (3.5-5.1) mmol/L Chloride 116 H (98-107) mmol/L Carbon Dioxide 24 (21-32) mmol/L Anion Gap 6.0 (3-11) BUN 2 L (7-18) mg/dl Creatinine 0.72 (0.6-1.2) mg/dl Est Cr Clr Drug Dosing 86.5 ml/min Est GFR ( Amer) 101.9 Est GFR (Non-Af Amer) 87.9 BUN/Creatinine Ratio 3.4 L (10-20) Glucose 88 (70-99) mg/dl Calcium 8.0 L (8.5-10.1) mg/dl Magnesium 1.7 L (1.8-2.4) mg/dl Total Bilirubin 1.0 (0.2-1) mg/dl Direct Bilirubin 0.3 H (0-0.2) mg/dl AST 35 (15-37) U/L ALT 145 H (12-78) U/L Alkaline Phosphatase 133 H (45-117) U/L Total Protein 6.2 L (6.4-8.2) gm/dl Albumin 3.2 L (3.4-5.0) gm/dl PG Care Time/CCT Total # of Minutes Spent Total Time Spent with Patient: Total time spent is greater than 50% in coordination of care (as documented) at patient's floor/unit and/or counseling patient: Coding Level of Care Code 80063 Subseq Hosp Care Lvl 3 Diagnoses Abdominal pain, epigastric R10.13 Paroxysmal atrial fibrillation I48.0 Chronic gastritis K29.50 Gastritis type: unspecified gastritis Gastritis bleeding: without bleeding Ileus K56.7 Hypokalemia E87.6 Crohn's disease K50.00 Gastrointestinal tract location: small intestine Digestive disease complication type: without complication Elevated LFTs R79.89 Osteopenia M85.80 Osteopenia location: unspecified Hypomagnesemia E83.42 Left-sided back pain M54.9 Thigh pain M79.659 DVT prophylaxis Z29.9 (1) Chronic gastritis Gastritis type: unspecified gastritis Gastritis bleeding: without bleeding Qualified Code(s): K29.50 - Unspecified chronic gastritis without bleeding (2) Crohn's disease Gastrointestinal tract location: small intestine Digestive disease complication type: without complication Qualified Code(s): K50.00 - Crohn's disease of small intestine without complications (3) Osteopenia Osteopenia location: unspecified Qualified Code(s): M85.80 - Other specified disorders of bone density and structure, unspecified site
[2019-07-05] MEDS ORDERED: MAGNESIUM SULFATE / D5W 1 GM/100 ML BAG IV ONE (13:00)
[2019-07-05] MEDS: DICLOFENAC SOD 1% GEL 100 GM TUBE EXT SCH ×3 (14:02→20:10)
[2019-07-05] MEDS: FAMOTIDINE 20 MG TAB PO SCH (20:08)
[2019-07-06 06:03] LABS: Basophils # (auto) 0.01 K/uL (0-0.2); Basophils % (auto) 0.2 %; Eosinophils % (auto) 1.8 %; Hematocrit (blood only) 32.4 % (37-47); Hemoglobin 11.6 g/dL (12.0-16.0); Immature Granulocytes # (auto) 0.01 K/uL (0.00-0.02); Immature Granulocytes % (auto) 0.2 %; Lymphocytes # (auto) 1.36 K/uL (1.2-3.4); Lymphocytes % (auto) 24.8 %; Mean Corpuscular Hemoglobin 32.5 pg (25-34); Mean Corpuscular Hgb Conc 35.8 g/dL (32-36); Mean Corpuscular Volume 90.8 fL (80-100); Monocytes # (auto) 0.56 K/uL (0.11-0.59); Monocytes % (auto) 10.2 %; Neutrophils # (auto) 3.45 K/uL (1.4-6.5); Neutrophils % (auto) 62.8 %; Platelet Count 205 K/uL (130-400); RDW Standard Deviation 46.7 fL (36.4-46.3); Red Blood Count 3.57 M/uL (4.2-5.4); White Blood Count 5.49 K/uL (4.8-10.8)
[2019-07-06 06:34] LABS: Albumin Level 3.1 gm/dl (3.4-5.0); BUN Creatinine Ratio 7.6 (10-20); Calcium 8.1 mg/dl (8.5-10.1); Creatinine Clr Calc Pharmacy 83.1 ml/min; Est GFR (African American) 96.9; Est GFR (Non-African American) 83.6; Magnesium 1.8 mg/dl (1.8-2.4); Potassium 3.7 mmol/L (3.5-5.1)
[2019-07-06 06:37] LABS: Albumin Globulin Ratio 1.1 (0.9-2); Bilirubin,Total 0.9 mg/dl (0.2-1); Globulin 2.9 gm/dl (2.5-4.0)
[2019-07-06] MEDS: SUCRALFATE 1 GM TAB PO SCH ×2 (07:53→11:39)
[2019-07-06] MEDS: FAMOTIDINE 20 MG TAB PO SCH (08:52)
[2019-07-06] MEDS: POTASSIUM CHLORIDE 10 MEQ TABCR PO SCH ×2 (08:53→13:23)
[2019-07-06] MEDS: PANTOprazole 40 MG TAB PO SCH (08:53)
[2019-07-06] MEDS: dilTIAZem HCL 240 MG CAPCR PO SCH (08:53)
[2019-07-06] MEDS: MULTIVITAMIN TAB PO SCH (08:53)
[2019-07-06] MEDS: MESALAMINE 800 MG PO SCH ×2 (08:54→13:23)
[2019-07-06] MEDS: MERCAPTOPURINE 50 MG TAB PO SCH (08:54)
[2019-07-06] MEDS: DICLOFENAC SOD 1% GEL 100 GM TUBE EXT SCH ×2 (08:55→11:36)
--- NOTE | 2019-07-06 11:50 | History & Physical Report ---
Date of Service July 06, 2019 Assessment & Plan (1) Elevated liver enzymes: (2) Crohn's disease: Continue Pantoprazole 40 mg by mouth twice daily Recommend Pedcid 20 mg by mouth at bedtime as needed for breakthrough symptoms Continue Carafate 1 g PO AC and HS for 10 days total F/U with MIKIE Simms in office next week Continue 6-MP, will need 6-MMP level as outpatient Check CTE in 2 weeks as outpatient Consider biologic therapy moving forward due to history of Fibrostenosing Crohn 's ileitis. History of Present Illness Chief Complaint: Primary Care Provider: Jet Leon MD Neena Merida was seen today at her bedside. She is feeling much better today, and has been tolerating PO intake. She states that she has not had any fevers, chills, nausea, vomiting, or diarrhea. She states she did have a "normal bowel movement." She has no other complaints. Allergies Allergy/AdvReac Type Severity Reaction Status Date / Time lactose Allergy Unknown LACTOSE Verified 07/01/19 20:05 INTOLERANT mushroom Allergy Unknown GI SYMPTOMS Verified 07/01/19 20:05 prednisone Allergy Unknown MOOD Verified 07/01/19 20:05 CHANGES infliximab AdvReac Unknown PALPITATIONS, Verified 07/01/19 20:05 SOB, FLUSHING morphine AdvReac Unknown HALLUCINATI Verified 07/01/19 20:05 ONS Home Medications Home Medications Medication Instructions Recorded Confirmed Type aloe vera 25 mg capsule 25 mg PO DAILY cap 10/06/18 07/01/19 History multivitamin 1 tab PO DAILY 10/06/18 07/01/19 History pantoprazole 40 mg tablet,delayed 40 mg PO BID #180 tab 10/06/18 07/01/19 History release vitamin E acetate 400 units PO DAILY 10/06/18 07/01/19 History cholecalciferol (vitamin D3) 125 5,000 units PO DAILY 11/08/18 07/01/19 History mcg (5,000 unit) capsule potassium gluconate 550 mg (90 mg) 550 mg PO DAILY tab 01/02/19 07/01/19 History tablet cyanocobalamin (vitamin B-12) 1,000 mcg IM MONTHLY ea 04/11/19 07/01/19 History 1,000 mcg/mL injection kit diltiazem HCl 240 mg 240 mg PO DAILY #90 cap 04/14/19 07/01/19 Rx capsule,extended release 24 hr, controlled metoprolol tartrate 25 mg tablet 25 mg PO Q6H PRN 90 Days #360 tab 04/14/19 07/01/19 Rx sucralfate 1 gram tablet 1 gm PO QID #40 tab 06/23/19 07/01/19 Rx Bifidobacterium infantis [Align] 4 mg PO DAILY 07/01/19 07/01/19 History Ca carb-D3-mag [id number]-Zn 1 tab PO BID 07/01/19 07/01/19 History [Caltrate + D3 Plus Minerals] Iron Iv 1 dose IV .PERIODICALLY PRN 07/01/19 07/01/19 History pjdftndhtw-vpdezprgfukrf-[id number] 1 tab PO UD PRN 07/01/19 07/01/19 History dabigatran etexilate [Pradaxa] 150 mg PO BID 07/01/19 07/01/19 History [id number]-[id number]-mjh-[id number]-ast 1 cap PO DAILY 07/01/19 07/01/19 History [MegaRed [place]-3 Krill Oil] mercaptopurine 50 mg PO QAM 07/01/19 07/01/19 History mesalamine 800 mg PO TID 07/01/19 07/01/19 History Past Med/Surg History Medical History (Updated 07/05/19 @ 12:37 by Joleen Cailx MD) Atrial fibrillation with RVR Nephrolithiasis (Inactive) Numbness and tingling in both hands Obesity Palpitations Small bowel obstruction (Inactive) Surgical History H/O resection of small bowel History of ankle surgery History of cholecystectomy History of colonoscopy (05/2016) History of esophagogastroduodenoscopy (EGD) (05/2013) Family History Unknown Ankylosing spondylitis Lung cancer Aunt Breast cancer Mother Ovarian cancer Father Ankylosing spondylitis Aunt Inflammatory bowel disease Grandmother (Maternal) Lung cancer Social History Preferred Language: Portuguese Communication Ability: Effective Lumber Mover Required: No Beliefs That Will Affect Care: None marital status: Current Living Situation: Spouse current occupational status: retired Other Information That Helps Us Care for You: No Feels Safe at Home: Yes Safety Concerns: Feels Safe At This Time Smoking Status: Never smoker Hx Alcohol Use: No Hx Substance Use: No Review of Systems All systems reviewed & are unremarkable except as noted in HPI & below Physical Exam Constitutional: WD/WN, vitals as above Eyes: PERRL, conjunctivae normal, anicteric sclerae ENMT: external ear and nose normal, oropharynx normal Neck: trachea midline, no thyromegaly Respiratory: normal respiratory effort, lungs clear to auscultation Cardiovascular: RRR, no murmur, no edema Gastrointestinal (Abdomen): normal bowel sounds, soft, nontender, no hepatosplenomegaly Skin: no rashes, warm and dry Psychiatric: A+Ox3, euthymic affect Results & Data Vital Signs (Past 12 Hours) Vital Signs Temp Pulse Resp BP Pulse Ox 07/06/19 07:50 36.7 C 100 H 16 115/75 98 Coding Level of Care Code 20775 Initial Inpt Care Lvl 3 Diagnoses Elevated liver enzymes R74.8 Crohn's disease K50.00 Gastrointestinal tract location: small intestine Digestive disease complication type: without complication (1) Crohn's disease Gastrointestinal tract location: small intestine Digestive disease complication type: without complication Qualified Code(s): K50.00 - Crohn's disease of small intestine without complications
--- NOTE | 2019-07-06 13:16 | Discharge Summary ---
Date of Service July 06, 2019 Admission HPI Per Admitting Provider Chief Complaint: Epigastric pain, nausea and vomiting Primary Care Provider: Jet Leon MD Neena Merida is a 64 year old female with Crohn's disease who present to the ER with upper abdominal pain and associated nausea and vomiting. This started on June 06 after having spaghetti and tomato sauce the night before. She has treated similar pains in the past with clear liquid diet slowly increasing back to her usual regimen and she did this successfully on this occasion up until last week then she advanced her diet back to solids. Since then her pain has been getting worse. She was prescribed Carafate by Dr Campbell approximately a week ago which she reports started helping after about 4 days of use. However the last 2 days and especially today it has been getting much worse with limited oral intake that she decided she needed to come to the ER. She describes the pain as cramping, severity 10/10 at worst, currently 2/10, attacks can last for seconds to minutes with 5-10 minutes in between attacks. No melena or red blood in stool. Notes small BM today but good amount yesterday (2-3). With regards to her medications. Eliquis is listed for when she runs out of Pradaxa due to change of insurance. She is currently on Pradaxa however. Last B12 injection last Thursday (she notes this is newly prescribed since labs in December). She notes relevant PSHx of ileum removed 8 inches in 1992, for crohn's, not perforated at that time. Principal Diagnosis Crohn's ileitis, gastritis Discharge Exam Constitutional WD/WN, vitals as above Eyes PERRL, conjunctivae normal, anicteric sclerae ENMT external ear and nose normal, oropharynx normal Neck trachea midline, no thyromegaly Respiratory normal respiratory effort, lungs clear to auscultation Cardiovascular RRR, no murmur, no edema Gastrointestinal (Abdomen) normal bowel sounds, soft, nontender, no hepatosplenomegaly Musculoskeletal Extremities: extremities normal to inspection; no cyanosis and no clubbing Skin no rashes, warm and dry Neurologic moves all extremities and awake; no focal motor deficits Psychiatric A+Ox3, euthymic affect Lymphatic no lymphedema Discharge Data Allergies Allergy/AdvReac Type Severity Reaction Status Date / Time lactose Allergy Unknown LACTOSE Verified 07/13/19 10:24 INTOLERANT mushroom Allergy Unknown GI SYMPTOMS Verified 07/13/19 10:24 prednisone Allergy Unknown MOOD Verified 07/13/19 10:24 CHANGES infliximab AdvReac Unknown PALPITATIONS, Verified 07/13/19 10:24 SOB, FLUSHING morphine AdvReac Unknown HALLUCINATI Verified 07/13/19 10:24 ONS Consultations 07/01/19 18:27 ED Decision to Admit Stat 07/03/19 07:19 Consult Gastroenterology Routine Procedures Performed Operation Date: 07/04/19 08:30 Actual Procedures s Colonoscopy Dilatation - Selvin Clarke. Case, DO p EGD Polypectomy - Selvin Calrke. Case, DO Ordered Studies 07/01/19 16:43 CT abd pelvis wo con Stat 07/01/19 18:27 US gallbladder Stat Hospital Course (1) Abdominal pain, epigastric: With enteritis seen on CT, no pancreatitis-lipase was normal LFTs significantly elevated but are now continuing to trend downward almost back to normal She has not experienced improvement over the past month with Protonix, Carafate Solid food aggravating her condition previously and even clear liquids giving her pain, bloating, diarrhea, cramping Consulted Dr. Campbell, GI Now status post EGD and colonoscopy on 07/03 with findings of severe stenosis and ulceration at her previous ileocolonic anastomosis which was dilated, as well as gastric antrum gastritis and a large duodenal polyp which was removed and injected with epinephrine Now much improved and is tolerating a low fiber diet, passing stool, abdominal pain almost completely resolved -Secondary to her Crohn's - GI recommends CT enterography in 2 weeks, follow-up as an outpatient -continue Pepcid 20mg po qhs, PPI bid, carafate Pathology with benign polyp from duodenum Stable for dc to home (2) Paroxysmal atrial fibrillation: Typically on Pradaxa for anticoagulation (keep Eliquis listed as home med as she is due to switch to this once her Pradaxa runs out due to change of insurance) Currently in NSR on examination. -discussed with GI-will wait 5 days after endoscopy to start Pradaxa given polyp removal and biopsy-we will restart on 07/08 Continue diltiazem ER 240mg PO daily for rate control Continue metoprolol 25mg PO q6h PRN if she goes into a. fib (3) Chronic gastritis: With acute exacerbation now proven on EGD. Continue pantoprazole 40mg PO BID Carafate 1g PO ACHS Continue famotidine (4) Ileus: Resolved Advancing diet and discontinued fluids (5) Hypokalemia: Suspected secondary to GI losses, improved now with replacement -Continue potassium chloride 10 mEq p.o. once daily -Follow BMP in one week with PCP (6) Crohn's disease: With severe stenosis and ulceration at her prior ileocolonic anastomosis as per colonoscopy-dilated -Defer to GI for further management Continue mesalamine 800mg TID and mercaptopurine 50mg PO QAM Patient is willing to take a biologic agent in the future after discussion of risks and benefits with GI She was on Remicade in the past and had an allergic reaction -Needs CT enterography in 2 weeks -Follow-up as an outpatient with GI (7) Elevated LFTs: unclear etiology but possibly related to her Crohn's flare AST was up to 700 on admission Continuing to trend downward-AST is now normal has fatty infiltration on US, no biliary duct dilation/obstruction per GI, could be viral illness or could be adverse effect of 6MP however she continues to take 6-MP and LFTs are improving, plan to check level as outpatient F/u LFTs in 1 week as outpt (8) Osteopenia: continue Vitamin D (9) Hypomagnesemia: Mildly low and replaced (10) Left-sided back pain: Seems musculoskeletal, not pleuritic, with minimal tenderness on palpation, denies chest pain or shortness of breath -Added Voltaren gel Had improvement (11) Thigh pain: Likely muscle cramps from inactivity from being hospitalized for several days Also with hypomagnesemia and previous hypokalemia -Continue replacing potassium and magnesium as above Encourage continue ambulation Improved (12) DVT prophylaxis: hold Pradaxa but can restart on 07/08 SCDs Disposition-stable for dc to home Total Time Total Time Spent Total Time Spent (In Minutes): 35 min Total Time Includes: Examination of the Patient, Discharge Planning, Medication Reconciliation and Communication With Other Providers (Gastroenterology) Discharge Plan Discharge Items Patient Disposition: Home - Self-Care Reason For Visit: EPIGASTRIC PAIN,NAUSEA,VOMITING Discharge Diagnosis: Crohn's ileitis with stricture, abdominal pain Condition on Discharge: Good Activity: Resume your previous activity Non-emergency contact: Primary Care Provider and Apprentice Carpenter Call non-emergency contact if: you have any medication questions, your symptoms worsen, your pain is not controlled, your pain is worsening, your pain is unusual for you and your pain is concerning for you Follow-up/Referrals: Jet Leon MD [Primary Care Provider] - (Please contact Dr. Leon's office to see if they would like a virtual visit with you for follow-up in the next 1 to 2 weeks.) Hannah Salazar CRNP [Nurse Practitioner] - 07/13/19 11:00 am (Please, follow up at [facility] with Hannah DELUNA on ThursdayJuly 12 at 11:00 am. This appointment may be via TELEPHONE. A nurse will contact you about it. If you have any questions, call the office at [phone].) Diet: Low Fiber and Low Fat Addtl Attending Provider Instructions: You are found to have a stricture at the ileocolonic anastomosis which was dilated by Dr. Campbell. You also found to have inflammation in the stomach and a polyp in the duodenum which was removed. Please continue on the Pepcid at nighttime, the Carafate for 10 days, and follow-up as scheduled with GI. Please have your liver enzymes and your potassium level checked in 1 week with results to be sent to your PCP and to GI. Pending Studies at Discharge: No Stand-Alone Forms: My [facility] Medications and DC Order Prescriptions: New diclofenac sodium [Voltaren] 1 % Gel 4 g EXT QID PRN (Reason: For back pain) Qty: 100 RF: 0 famotidine 20 mg Tablet 20 mg PO HS Qty: 30 RF: 0 potassium chloride [Klor-Con M10] 10 mEq Tablet,Er Particles/Crystals 10 meq PO DAILY Qty: 30 RF: 0 Continued diltiazem HCl 240 mg capsule,ext.rel 24h degradable 240 mg PO DAILY Qty: 90 RF: 3 metoprolol tartrate 25 mg tablet 25 mg PO Q6H PRN (Reason: palpitations) 90 Days Qty: 360 RF: 3 cyanocobalamin (vitamin B-12) 1,000 mcg/mL kit 1,000 mcg IM MONTHLY RF: 0 cholecalciferol (vitamin D3) 5,000 unit capsule 5,000 units PO DAILY RF: 0 pantoprazole 40 mg tablet,delayed release (DR/EC) 40 mg PO BID Qty: 180 RF: 0 multivitamin [Multiple Vitamins] tablet 1 tab PO DAILY RF: 0 vitamin E acetate 400 units PO DAILY RF: 0 aloe vera 25 mg capsule 25 mg PO DAILY RF: 0 Align 4 mg Capsule 4 mg PO DAILY RF: 0 Caltrate + D3 Plus Minerals 300 mg-800 unit -25 mg-0.5 mg Tablet 1 tab PO BID RF: 0 MegaRed Hitchcock-3 Krill Oil [id number] mg Capsule 1 cap PO DAILY RF: 0 Iron Iv 1 dose IV .PERIODICALLY PRN RF: 0 mjywdqdkjn-wdcxvhbkwnqyo-cctf 50-325-40 mg tablet 1 tab PO UD PRN (Reason: Migraine Headache) RF: 0 mercaptopurine 50 mg tablet 50 mg PO QAM RF: 0 mesalamine 800 mg tablet,delayed release (DR/EC) 800 mg PO TID RF: 0 sucralfate [Carafate] 1 gram tablet 1 gm PO QID Qty: 40 RF: 0 Pradaxa 150 mg Capsule 150 mg PO BID Qty: 0 RF: 0 Discontinued potassium gluconate 550 mg (90 mg) tablet 550 mg PO DAILY RF: 0 Discharge Orders: Discharge Order (Routine); Ordered 07/06/19 Ordered By: Joleen Cordoba/Other Patient Handouts: Colonoscopy, Endoscopy Lower GI Admission Data Admit Date/Time: 07/01/19 19:21 Attending Provider: Joleen Calix Admit Provider: Tonny Kolb Primary Care Provider: Jet Leon Other Providers: Selvin Campbell Other Interventions: Discharge Summary Assessment (RN) Last Done: 07/06/19 13:25 DC Date/Time DO NOT enter until pt leaves facility: 07/06/19 14:33 Coding Level of Care Code D/C Day Management >30 mins Diagnoses Abdominal pain, epigastric R10.13 Paroxysmal atrial fibrillation I48.0 Chronic gastritis K29.50 Gastritis bleeding: without bleeding Gastritis type: unspecified gastritis Ileus K56.7 Hypokalemia E87.6 Crohn's disease K50.00 Digestive disease complication type: without complication Gastrointestinal tract location: small intestine Elevated LFTs R79.89 Osteopenia M85.80 Osteopenia location: unspecified Hypomagnesemia E83.42 Left-sided back pain M54.9 Thigh pain M79.659 DVT prophylaxis Z29.9
== END 2019-07-06 14:33 | disposition home or self-care (01) | DRG 386 ==
LOC: ED 16:28 → 3E 19:21 → SUATTDRO 19:21 → 3E 20:14

== ENCOUNTER 2023-02-27 08:05 | Observation (INO) ==
[2023-02-27] MEDS ORDERED: SODIUM CHLORIDE 0.9% 1,000 ML IV ONE (08:21)
[2023-02-27] MEDS ORDERED: ONDANSETRON INJ 2 MG/ML 2 ML VIAL IV STA (08:22)
[2023-02-27] MEDS ORDERED: HYDROmorphone INJ 0.5 MG/0.5 ML SYR IV STA ×3 (08:24→13:00)
--- NOTE | 2023-02-27 09:11 | Emergency Department Note ---
Impression & Plan Hydronephrosis concurrent with and due to calculi of kidney and ureter, UTI (urinary tract infection) ED Provider Note NAME: BARBARA INMAN AGE: 67 SEX: F : 1955 ARRIVES VIA: Walk-In INFORMANT: Patient ED PROVIDER(S): Arnulfo Sparks DO CHIEF COMPLAINT: abdominal pain HPI: Patient is a 67-year-old female who presents the ER for severe left lower quadrant abdominal pain which started in the past 24 hours. She has a history of Crohn's and previous bowel obstructions and resections. She admits to nausea and vomiting. Pain is severe and radiates throughout. Denies any headache or change in vision. No chest pain or shortness of breath. She notes she feels very weak all over. No dysuria, urgency, or frequency. ADDITIONAL HISTORY OBTAINED: Per HPI Chronic Medical/Social Conditions Affecting Care: Per HPI PAST MEDICAL HISTORY:See Below PAST SURGICAL HISTORY:See Below FAMILY HISTORY:See Below SOCIAL HISTORY:See Below HOME MEDICATIONS:See Below ALLERGIES:See Below VITALS:See Below PHYSICAL EXAMINATION: GENERAL: Sitting up in chair alert, moderate distress holding left lower EYE EXAM: normal conjunctiva. OROPHARYNX: mucous membranes are dry NECK: supple, no nuchal rigidity, no adenopathy, non-tender LUNGS: Clear to auscultation. Normal chest wall mechanics HEART: no murmurs, S1 normal and S2 normal ABDOMEN: abdomen soft, TTP in LLQ, normo-active bowel sounds, no masses, no rebound or guarding. UPPER EXTREMITIES: upper extremities are grossly normal. LOWER EXTREMITIES: No pitting edema. NEURO EXAM: Normal sensorium, cranial nerves II-XII grossly intact, normal speech, no gross weakness of arms, no gross weakness of legs. No drift. Finger to nose intact. Gross sensation intact. MEDICAL DECISION MAKING: Patient is a 67-year-old female who presents ER for the above-stated complaint. IV was established blood work was obtained. Labs show mild leukocytosis of 11,000. No significant anemia. BMP on LFTs was unremarkable. T. bili at 1.1. Lipase was normal. UA did have +1 bacteria as well as 10-30 whites and leukocytes. Was covered with IV Rocephin. Was given multiple doses of morphine/Dilaudid. Was updated at bedside discussed with urology and Dr. Ignacio Means for further evaluation management treatment. Consults/Care Managements Discussions: Per MDM Triage Nursing notes reviewed. Limited review of prior medical records performed Vital Signs: reviewed and remarkable for HTN Differential diagnosis: Differential diagnoses includes but is not limited to gastritis, peptic ulcer disease, GERD, gallbladder disease, pancreatitis, small bowel obstruction, appendicitis, diverticulitis, hernia, urinary tract infection, torsion, perforation, trauma, infectious. ER treatment provided: See below Diagnostics interpreted by me include EKG and cardiac monitoring as listed below: -Cardiac Monitoring: An order was placed for continuous cardiac monitoring. The monitor shows a rate of 90 with sinus rhythm. -ECG: none -Laboratory studies:Interpreted by me as stated above in MDM and shown below. Imaging studies: Xrays: As interpreted by me:none CTs show: CT abdomen pelvis per my preliminary read shows left-sided hydronephrosis CT abdomen pelvis per radiology shows hydronephrosis with a recently passed stone and a likely distal ureteral stone Procedures:none Critical Care: None Past Med/Surg History Medical History History of colon polyps Kidney stones Fracture of right tibial plateau Crohns disease History of kidney stones Hx of pancreatitis Hx of squamous cell carcinoma Iron deficiency anemia Temporomandibular joint disorder Hx of small bowel obstruction Hx of migraines Asthma Palpitations Osteopenia Chronic gastritis Atrial fibrillation with RVR GERD (gastroesophageal reflux disease) HTN (hypertension) Surgical History History of surgery History of Mohs surgery for squamous cell carcinoma in situ of skin History of anesthesia reaction H/O foot surgery History of appendectomy History of esophagogastroduodenoscopy (EGD) (05/2013) H/O resection of small bowel History of colonoscopy (07/2020) History of cholecystectomy Family History Unknown Ankylosing spondylitis Lung cancer Aunt Breast cancer Mother Ovarian cancer, Onset Age: 43 Father Family history of diabetes mellitus Ankylosing spondylitis Aunt Inflammatory bowel disease Grandmother (Maternal) Lung cancer Grandmother (Paternal) Family history of diabetes mellitus Son Family history of colonic polyps Social History Smoking Status: Never smoker Second Hand Exposure: Yes (IN THE PAST); Do You Dip or Chew Tobacco: No; Hx Alcohol Use: Yes Alcohol type: wine Hx Substance Use: No Preferred Language: Bengali Communication Ability: Effective Chain Dyer Required: No Beliefs That Will Affect Care: None marital status: Current Living Situation: Spouse current occupational status: retired Feels Safe at Home: Yes Assistive Devices: Contacts, Glasses and Other Allergies Allergies Allergy/AdvReac Type Severity Reaction Status Date / Time infliximab Allergy Severe PALPITATIONS, Verified 02/27/23 14:35 SOB, FLUSHING lactose Allergy Unknown LACTOSE Verified 02/27/23 14:35 INTOLERANT mushroom Allergy Unknown GI SYMPTOMS Verified 02/27/23 14:35 nickel Allergy Unknown SKIN Verified 02/27/23 14:35 REACTION prednisone Allergy Unknown MOOD Verified 02/27/23 14:35 CHANGES morphine AdvReac Unknown HALLUCINATI Verified 02/27/23 14:35 ONS Home Meds Home Medications Medication Instructions Recorded Confirmed multivitamin (Multiple Vitamins 1 tab PO QAM 10/06/18 02/27/23 tablet) cholecalciferol (vitamin D3) 125 5,000 units PO QAM 11/08/18 02/27/23 mcg (5,000 unit) capsule cyanocobalamin (vitamin B-12) 1,000 mcg IM MONTHLY 04/11/19 02/27/23 1,000 mcg/mL injection kit Bifidobacterium infantis 4 mg 4 mg PO QAM 07/01/19 02/27/23 capsule (Align) calcium carb 300 mg-D3 20 mcg-mag 1 tab PO BID 07/01/19 02/27/23 ox 25 mg-copy camera operator 0.5 [id number] tablet (Caltrate-D3 Plus Minerals) krill 500 mg-omega 3 115 mg-dha 30 1 cap PO QAM 07/01/19 02/27/23 mg-epa 64 [id number]-txilsau-pcgki capsule (MegaRed [place]-3 Krill Oil) vedolizumab 300 mg intravenous 300 mg IV .every 8 weeks 04/15/21 02/27/23 solution (Entyvio) [id number]-pbcpnovsxtpfl-ztfxodao 1 tab PO UD PRN Migraine Headache 07/14/22 02/27/23 50 mg-325 mg-40 mg tablet vitamin E 400 unit tablet 400 unit PO QAM 07/14/22 02/27/23 mercaptopurine 50 mg tablet 50 mg PO QAM 02/27/23 02/27/23 potassium chloride 10 mEq 10 meq PO QAM 02/27/23 02/27/23 tablet,extended release(part/cryst) (Erin Weaver) Previous Rx's Medication Instructions Recorded metoprolol tartrate 25 mg tablet 25 mg PO Q6H PRN palpitations 90 05/06/22 days #30 tabs pantoprazole 20 mg tablet,delayed 20 mg PO DAILY #90 tabs 02/05/23 release diltiazem HCl 240 mg 240 mg PO QAM #90 caps 02/09/23 capsule,extended release 24 hr, controlled apixaban 5 mg tablet (Eliquis) 5 mg PO BID #180 tabs 02/19/23 Results & Data (ED) Vital Signs Vital Signs - 24 hr 02/27/23 08:09 02/27/23 10:16 02/27/23 10:16 Temperature 36.6 C Temperature Source Temporal Artery Scan Pulse Rate 69 60 Pulse Rate [Right Finger] 60 Pulse Rhythm Regular Respiratory Rate 18 20 22 Respiratory Effort / Characteristics Non-Labored Spontaneous Respiratory Depth Normal Blood Pressure 164/86 H Blood Pressure [Left Arm] 161/73 H Blood Pressure Mean 112 Blood Pressure Mean [Left Arm] 102 Pulse Oximetry 100 99 99 Oxygen Delivery Method Room Air Room Air Room Air Sepsis Recent Fever Within 48 Hours No Sepsis New/Unexplained Change in Mental Status N/A Sepsis Action Taken by Nursing No Action Required 02/27/23 10:17 02/27/23 11:06 02/27/23 13:33 Temperature Temperature Source Pulse Rate 60 Pulse Rate [Right Finger] 72 91 H Pulse Rhythm Respiratory Rate 18 18 Respiratory Effort / Characteristics Non-Labored Spontaneous Non-Labored Spontaneous Respiratory Depth Normal Normal Blood Pressure Blood Pressure [Left Arm] 136/70 133/75 Blood Pressure Mean Blood Pressure Mean [Left Arm] 92 94 Pulse Oximetry 97 100 Oxygen Delivery Method Room Air Room Air Sepsis Recent Fever Within 48 Hours Sepsis New/Unexplained Change in Mental Status Sepsis Action Taken by Nursing 02/27/23 14:20 Temperature Temperature Source Pulse Rate 93 H Pulse Rate [Right Finger] Pulse Rhythm Respiratory Rate Respiratory Effort / Characteristics Respiratory Depth Blood Pressure Blood Pressure [Left Arm] Blood Pressure Mean Blood Pressure Mean [Left Arm] Pulse Oximetry Oxygen Delivery Method Sepsis Recent Fever Within 48 Hours Sepsis New/Unexplained Change in Mental Status Sepsis Action Taken by Nursing Laboratory Data 02/27/23 09:45 02/27/23 09:45 Lab Results 02/27/23 02/27/23 Range/Units 09:45 11:27 WBC 11.12 H (4.8-10.8) K/ul RBC 4.24 (4.20-5.40) M/uL Hgb 13.7 (12.0-16.0) g/dl Hct 38.3 (37.0-47.0) % MCV 90.3 (80.0-100.0) fL MCH 32.3 (25.0-34.0) pg MCHC 35.8 (32.0-36.0) g/dL RDW Std Deviation 46.0 (36.4-46.3) fL RDW Coeff of Lina 13.9 (11.5-14.5) % Plt Count 274 (130-400) K/uL MPV 9.8 (9.4-12.4) fL Immature Gran % (Auto) 0.4 % Neut % (Auto) 86.5 % Lymph % (Auto) 8.7 % [place] % (Auto) 4.0 % Eos % (Auto) 0.2 % Baso % (Auto) 0.2 % Neut # (Auto) 9.63 H (1.40-6.50) K/uL Lymph # (Auto) 0.97 L (1.20-3.40) K/uL [place]urry # (Auto) 0.44 (0.11-0.59) K/uL Eos # (Auto) 0.02 (0.00-0.50) K/uL Baso # (Auto) 0.02 (0.00-0.20) K/uL Immature Gran # (Auto) 0.04 (0.01-0.20) K/uL Sodium 141 (136-145) mmol/L Potassium 3.6 (3.5-5.1) mmol/L Chloride 105 (98-107) mmol/L Carbon Dioxide 24 (21-32) mmol/L Anion Gap 12 H (3-11) BUN 14 (6-23) mg/dl Creatinine 0.91 (0.6-1.2) mg/dl Est Cr Clr Drug Dosing Not Reportable Est GFR ( Amer) 75.1 ml/min Est GFR (Non-Af Amer) 64.8 ml/min BUN/Creatinine Ratio 15.4 (10-20) Glucose 121 H (70-99(Fasting)) mg/dl Calcium 9.9 (8.6-10.3) mg/dl Total Bilirubin 1.1 H (0.2-1.0) mg/dl AST 16 (13-39) U/L ALT 15 (7-52) U/L Alkaline Phosphatase 109 H (34-104) U/L Total Protein 7.5 (6.0-8.3) gm/dl Albumin 4.6 (3.4-5.0) gm/dl Globulin 2.9 (2.5-4.0) gm/dl Albumin/Globulin Ratio 1.6 (0.9-2) Lipase 35 (11-82) U/L Urine Color [place] Urine Appearance Cloudy A (Clear) Urine pH 5.5 (4.5-7.5) Ur Specific [place] 1.038 H (1.000-1.030) Urine Protein 1+ H (Negative) Urine Glucose (UA) Negative (Negative) Urine Ketones Trace H (Negative) Urine Blood 3+ H (Negative) Urine Nitrite Negative (Negative) Urine Bilirubin Negative (Negative) Urine Urobilinogen Negative (Negative) Ur Leukocyte Esterase Trace H (Negative) Urine WBC (Auto) 10-30 H (0-5) /hpf Urine RBC (Auto) >30 H (0-4) /hpf U Hyaline Cast (Auto) 0 (0-5) /lpf U Epithel Cells (Auto) 5-10 H (0-5) /lpf Urine Bacteria (Auto) 1+ H (Negative) Urine Yeast Not Reportable Administered Medications Pantoprazole Sodium 40 mg/ (Syringe) 10 mls @ 5 mls/min IV DAILY@1100 [facility] Stop: 03/29/23 13:49 Last Admin: 02/27/23 14:57 Dose: 5 mls/min Documented By: LISA Discontinued Medications Diltiazem HCl (Diltiazem Hcl 120 Mg Capcr) 120 mg PO ONE ONE Stop: 02/27/23 13:46 Last Admin: 02/27/23 14:57 Dose: 120 mg Documented By: LISA Hydromorphone HCl (Hydromorphone Inj 0.5 Mg/0.5 Ml Syr) 0.5 mg IV NOW STA Stop: 02/27/23 08:25 Last Admin: 02/27/23 09:48 Dose: 0.5 mg Documented By: LISA Hydromorphone HCl (Hydromorphone Inj 0.5 Mg/0.5 Ml Syr) 0.5 mg IV NOW STA Stop: 02/27/23 09:08 Last Admin: 02/27/23 10:19 Dose: 0.5 mg Documented By: LISA Hydromorphone HCl (Hydromorphone Inj 0.5 Mg/0.5 Ml Syr) 0.5 mg IV NOW STA Stop: 02/27/23 13:01 Last Admin: 02/27/23 13:28 Dose: 0.5 mg Documented By: LIAS Sodium Chloride (Nss) 1,000 mls @ 999 mls/hr IV .Q1H1M ONE Stop: 02/27/23 09:21 Last Infusion: 02/27/23 10:58 Dose: Infused Documented By: Admin: 02/27/23 09:50 Dose: 999 mls/hr Documented By: LISA Sodium Chloride (Nss) 1,000 mls @ 999 mls/hr IV .Q1H1M DONNELL Stop: 02/27/23 13:00 Last Infusion: 02/27/23 13:16 Dose: Infused Documented By: Admin: 02/27/23 12:09 Dose: 999 mls/hr Documented By: Infusion: 02/27/23 12:06 Dose: Infused Documented By: Admin: 02/27/23 11:02 Dose: 999 mls/hr Documented By: LISA Ceftriaxone Sodium (Rocephin) 2,000 mg in 50 mls @ 100 mls/hr IV NOW STA Stop: 02/27/23 13:29 Last Infusion: 02/27/23 15:10 Dose: Infused Documented By: Admin: 02/27/23 13:28 Dose: 100 mls/hr Documented By: LISA Ioversol (Optiray 320 500ml) 90 ml IV ONCE ONE Stop: 02/27/23 10:32 Last Admin: 02/27/23 10:31 Dose: 90 ml Documented By: RICK Ketorolac Tromethamine (Ketorolac Tromethamine 15 Mg/Ml Vial) 15 mg IV NOW ONE Stop: 02/27/23 10:54 Last Admin: 02/27/23 11:02 Dose: 15 mg Documented By: LISA Mercaptopurine (Mercaptopurine 50 Mg Tab) 50 mg PO NOW STA Stop: 02/27/23 13:35 Last Admin: 02/27/23 14:56 Dose: 50 mg Documented By: LISA Co-signed By: LI Ondansetron HCl (Ondansetron Inj 2 Mg/Ml 2 Ml Vial) 4 mg IV NOW STA Stop: 02/27/23 08:23 Last Admin: 02/27/23 09:48 Dose: 4 mg Documented By: LISA Imaging Data Radiologist's Impression: Abdomen/Pelvis CT 02/27/23 09:07 CT abd pelvis IV con only CLINICAL HISTORY: llq abd pain TECHNIQUE: Helical axial images of the abdomen and pelvis were obtained and displayed. Automated dose lowering techniques and/or adjustment according to patient size were utilized for this exam. This exam was performed with intravenous contrast. CT DOSE: 1317.47 mGy.cm COMPARISON: Comparison is made to CT enterography 08/12/2022 FINDINGS: Lower chest: Minimal atelectatic changes are seen. Liver: Hepatic steatosis is noted. Gallbladder and biliary tree: Patient is status post cholecystectomy. No intra- or extrahepatic biliary ductal dilation. Pancreas: Unremarkable, no focal lesions. Spleen: Unremarkable. Adrenals: Unremarkable. Kidneys and ureters: Left hydronephrosis and hydroureter is seen with a left UPJ stone measuring 4 mm in diameter. Bladder: Limited evaluation due to underdistention. A punctate stone is noted dependently in the bladder. Reproductive organs: Unremarkable. Bowel: Postsurgical changes of bowel resection are seen. There is a small duodenal diverticulum. No acute abnormalities. Lymph nodes Retroperitoneal: Subcentimeter lymph nodes are noted. Pelvic: Unremarkable. Mesenteric: Unremarkable. Peritoneum: Normal. Vessels: Unremarkable. Abdominal wall: Postsurgical changes are seen in the upper umbilical region. Bones: Degenerative changes in the visualized spine. IMPRESSION: 1. Left hydronephrosis and hydroureter with an obstructive UVJ stone. Additional bladder stone is seen compatible with recently passed stone. 2. Postsurgical changes in the bowel without acute abnormality. ACT 112: Negative or not required by law. Electronically signed by: Laz Lam M.D. 02/27/2023 10:42 AM Discharge Plan Visit Data Chief Complaint: Abdominal Pain Stated Complaint: abd pain, vomting ED Provider: Arnulfo Sparks Discharge Problem: Hydronephrosis concurrent with and due to calculi of kidney and ureter, UTI (urinary tract infection) Patient Disposition: Admitted As Inpatient Discharge Instructions Interventions: ED Discharge Assessment Last Done: 02/27/23 14:53 Forms Stand Alone Forms: My [facility] [place] Prescriptions Prescriptions: No Action diltiazem HCl 240 mg capsule,ext.rel 24h degradable 240 mg PO QAM Qty: 90 3RF Eliquis 5 mg tablet 5 mg PO BID Qty: 180 3RF cyanocobalamin (vitamin B-12) 1,000 mcg/mL kit 1,000 mcg IM MONTHLY Entyvio 300 mg recon soln 300 mg IV .every 8 weeks cholecalciferol (vitamin D3) 5,000 unit capsule 5,000 units PO QAM multivitamin [Multiple Vitamins] tablet 1 tab PO QAM metoprolol tartrate 25 mg tablet 25 mg PO Q6H PRN (Reason: palpitations) 90 Days Qty: 30 6RF pantoprazole 20 mg tablet,delayed release (DR/EC) 20 mg PO DAILY Qty: 90 3RF Align 4 mg Capsule 4 mg PO QAM Caltrate-D3 Plus Minerals 300 mg-800 unit -25 mg-0.5 mg Tablet 1 tab PO BID Patient Comments: CALTRATE 600 + D + MINERALS. [id number] [MegaRed [place]-3 Krill Oil] [phone] mg Capsule 1 cap PO QAM Patient Comments: 500 MG mercaptopurine 50 mg tablet 50 mg PO QAM potassium chloride [Klor-Con M10] 10 mEq tablet,ER particles/crystals 10 meq PO QAM vitamin E 400 unit Tablet 400 unit PO QAM [id number]-ciugmwszgeuth-sbeo 50-325-40 mg tablet 1 tab PO UD PRN (Reason: Migraine Headache) Referrals Referrals: Jet Leon MD [Primary Care Provider] - Discharge Problem: UTI (urinary tract infection) Qualifiers: Urinary tract infection type: site unspecified Hematuria presence: with hematuria Qualified Code(s): N39.0 - Urinary tract infection, site not specified
[2023-02-27 10:06] LABS: Basophils # (auto) 0.02 K/uL (0.00-0.20); Basophils % (auto) 0.2 %; Eosinophils # (auto) 0.02 K/uL (0.00-0.50); Eosinophils % (auto) 0.2 %; Hematocrit (blood only) 38.3 % (37.0-47.0); Hemoglobin 13.7 g/dl (12.0-16.0); Immature Granulocytes # (auto) 0.04 K/uL (0.01-0.20); Immature Granulocytes % (auto) 0.4 %; Lymphocytes # (auto) 0.97 K/uL (1.20-3.40); Lymphocytes % (auto) 8.7 %; Mean Corpuscular Hemoglobin 32.3 pg (25.0-34.0); Mean Corpuscular Hgb Conc 35.8 g/dL (32.0-36.0); Mean Corpuscular Volume 90.3 fL (80.0-100.0); Mean Platelet Volume 9.8 fL (9.4-12.4); Monocytes # (auto) 0.44 K/uL (0.11-0.59); Neutrophils # (auto) 9.63 K/uL (1.40-6.50); Neutrophils % (auto) 86.5 %; Platelet Count 274 K/uL (130-400); RDW Coefficient of Variation 13.9 % (11.5-14.5); Red Blood Count 4.24 M/uL (4.20-5.40); White Blood Count 11.12 K/ul (4.8-10.8)
[2023-02-27 10:15] LABS: Alanine Aminotransferase 15 U/L (7-52); Albumin Globulin Ratio 1.6 (0.9-2); Albumin Level 4.6 gm/dl (3.4-5.0); Alkaline Phosphatase 109 U/L (34-104); Anion Gap 12 (3-11); Aspartate Aminotransferase 16 U/L (13-39); BUN Creatinine Ratio 15.4 (10-20); Bilirubin,Total 1.1 mg/dl (0.2-1.0); Blood Urea Nitrogen 14 mg/dl (6-23); Calcium 9.9 mg/dl (8.6-10.3); Carbon Dioxide 24 mmol/L (21-32); Chloride 105 mmol/L (98-107); Est GFR (African American) 75.1 ml/min; Est GFR (Non-African American) 64.8 ml/min; Globulin 2.9 gm/dl (2.5-4.0); Glucose 121 mg/dl (70-99(Fasting)); Lipase 35 U/L (11-82); Potassium 3.6 mmol/L (3.5-5.1); Sodium 141 mmol/L (136-145); Total Protein 7.5 gm/dl (6.0-8.3)
[2023-02-27] MEDS ORDERED: OPTIRAY 320 500ml IV ONE (10:31)
--- NOTE | 2023-02-27 10:43 | CT Scan Report ---
CT abd pelvis IV con only CLINICAL HISTORY: llq abd pain TECHNIQUE: Helical axial images of the abdomen and pelvis were obtained and displayed. Automated dose lowering techniques and/or adjustment according to patient size were utilized for this exam. This e xam was performed with intravenous contrast. CT DOSE: 1317.47 mGy.cm COMPARISON: Comparison is made to CT enterography 08/12/2022 FINDINGS: Lower chest: Minimal atelectatic changes are seen. Liver: Hepatic steatosis is noted. Gallbladder and biliary tree: Patient is status post cholecystectomy. No intra- or extrahepatic bilia ry ductal dilation. Pancreas: Unremarkable, no focal lesions. Spleen: Unremarkable. Adrenals: Unremarkable. Kidneys and ureters: Left hydronephrosis and hydroureter is seen with a left UPJ stone measuring 4 mm in diameter. Bladder: Limited evaluation due to underdistention. A punctate stone is noted dependently in the blad harlan. Reproductive organs: Unremarkable. Bowel: Postsurgical changes of bowel resection are seen. There is a small duodenal diverticulum. No a cute abnormalities. Lymph nodes Retroperitoneal: Subcentimeter lymph nodes are noted. Pelvic: Unremarkable. Mesenteric: Unremarkable. Peritoneum: Normal. Vessels: Unremarkable. Abdominal wall: Postsurgical changes are seen in the upper umbilical region. Bones: Degenerative changes in the visualized spine. IMPRESSION: 1. Left hydronephrosis and hydroureter with an obstructive UVJ stone. Additional bladder stone is se en compatible with recently passed stone. 2. Postsurgical changes in the bowel without acute abnormality. ACT 112: Negative or not required by law. Electronically signed by: Laz Lam M.D. 02/27/2023 10:42 AM
[2023-02-27] MEDS ORDERED: KETOROLAC TROMETHAMINE 15 MG/ML VIAL IV ONE (10:53)
[2023-02-27] MEDS: SODIUM CHLORIDE 0.9% 1,000 ML IV SCH ×2 (11:02→12:09)
[2023-02-27 11:43] LABS: Appearance Urine Cloudy (Clear); Bilirubin Urine Negative (Negative); Blood Urine 3+ (Negative); Cast Urine Automated 0 /lpf (0-5); Color Urine Orange; Glucose Urine UA Negative (Negative); Ketones Urine Trace (Negative); Leukocyte Esterase Urine Trace (Negative); Nitrite Urine Negative (Negative); Protein Urine 1+ (Negative); Specific Gravity Urine 1.038 (1.000-1.030); Urobilinogen Urine Negative (Negative); pH Urine 5.5 (4.5-7.5)
[2023-02-27 12:14] LABS: RBC Urine Automated >30 /hpf (0-4)
[2023-02-27 12:16] LABS: Bacteria Urine Automated 1+ (Negative)
[2023-02-27] MEDS ORDERED: cefTRIAXone SODIUM 2,000 MG/50 ML BAG IV STA (13:00)
[2023-02-27] MEDS ORDERED: MERCAPTOPURINE 50 MG TAB PO STA (13:34)
[2023-02-27] MEDS ORDERED: dilTIAZem HCL 120 MG CAPCR PO ONE (13:45)
[2023-02-27] MEDS ORDERED: ONDANSETRON INJ 2 MG/ML 2 ML VIAL IV PRN (13:49)
[2023-02-27] MEDS ORDERED: HYDROmorphone INJ 0.5 MG/0.5 ML SYR IV PRN (13:51)
--- NOTE | 2023-02-27 14:03 | History & Physical Report ---
Date of Service February 27, 2023 Assessment & Plan (1) Calculus of distal left ureter: (2) Hydronephrosis concurrent with and due to calculi of kidney and ureter: (3) Crohn's ileitis: (4) GERD (gastroesophageal reflux disease): (5) Paroxysmal atrial fibrillation: (6) Anastomotic stricture of small intestine: Plan Obstructing left UVJ ureteral calculus/left hydroureteronephrosis/recently passed bladder stone- N.p.o. except ice chips, sips and asymptomatic patient's Zofran 4 mg IV every 6 hours as needed Pantoprazole 40 mg IV daily Ceftriaxone 2 g IV daily Acetaminophen 650 mg by mouth every 6 hours as needed for mild pain or fever Dilaudid 0.5 mg IV every 3 hours as needed for moderate to severe pain Strain urine Patient has had kidney stones in the past, that she was able to pass without having stents being placed Consult urology Atrial fibrillation/hypertension- Hold apixaban for now, last dose was yesterday evening Patient did not have her morning Cardizem CD 240 mg tablet Give Cardizem CD 120 mg now, and then resume 240 mg tomorrow morning. Can give short acting Cardizem 30 mg at 6 intervals if needed if heart rate increases Crohn's- Usually takes mercaptopurine 50 mg in the morning, which will resume tomorrow, but will give a single dose this afternoon History of Present Illness Chief Complaint: The patient presents to the emergency department with severe left lower quadrant and flank pain which began about 24 hours ago Primary Care Provider: Jet Leon MD The patient is a 67-year-old female with a past medical history including kidney stones, GERD, anastomotic stricture of the small intestine, deep venous insufficiency, paroxysmal atrial fibrillation on chronic anticoagulation with apixaban, Crohn's ileitis, postmenopausal state, and B12 deficiency. She presents to the emergency department with 24 hours of worsening left lower quadrant abdominal and left flank pain. She does report some nausea without vomiting Allergies Allergy/AdvReac Type Severity Reaction Status Date / Time infliximab Allergy Severe PALPITATIONS, Verified 02/05/23 10:26 SOB, FLUSHING lactose Allergy Unknown LACTOSE Verified 02/05/23 10:26 INTOLERANT mushroom Allergy Unknown GI SYMPTOMS Verified 02/05/23 10:26 nickel Allergy Unknown SKIN Verified 02/05/23 10:26 REACTION prednisone Allergy Unknown MOOD Verified 02/05/23 10:26 CHANGES morphine AdvReac Unknown HALLUCINATI Verified 02/05/23 10:26 ONS Home Medications Medication Instructions Recorded Confirmed Type multivitamin (Multiple Vitamins 1 tab PO QAM 10/06/18 02/05/23 History tablet) cholecalciferol (vitamin D3) 125 5,000 units PO QAM 11/08/18 02/05/23 History mcg (5,000 unit) capsule cyanocobalamin (vitamin B-12) 1,000 mcg IM MONTHLY 04/11/19 02/05/23 History 1,000 mcg/mL injection kit Bifidobacterium infantis 4 mg 4 mg PO QAM 07/01/19 02/05/23 History capsule (Align) calcium carb 300 mg-D3 20 mcg-mag 1 tab PO BID 07/01/19 02/05/23 History ox 25 mg-atomic spectroscopist 0.5 bv-nlrd-xwoh tablet (Caltrate-D3 Plus Minerals) krill 500 mg-omega 3 115 mg-dha 30 1 cap PO QAM 07/01/19 02/05/23 History mg-epa 64 mg-irulzeh-hahsx capsule (MegaRed [place]-3 Krill Oil) vedolizumab 300 mg intravenous 300 mg IV .every 8 weeks 04/15/21 02/05/23 History solution (Entyvio) metoprolol tartrate 25 mg tablet 25 mg PO Q6H PRN palpitations 90 05/06/22 02/05/23 Rx days #30 tabs aofxrvihug-wzqxbttoxxyty-sgdvryag 1 tab PO UD PRN Migraine Headache 07/14/22 02/05/23 History 50 mg-325 mg-40 mg tablet vitamin E 400 unit tablet 400 mg PO QAM 07/14/22 02/05/23 History pantoprazole 20 mg tablet,delayed 20 mg PO DAILY #90 tabs 02/05/23 02/05/23 Rx release diltiazem HCl 240 mg 240 mg PO QAM #90 caps 02/09/23 Rx capsule,extended release 24 hr, controlled apixaban 5 mg tablet (Eliquis) 5 mg PO BID #180 tabs 02/19/23 Rx mercaptopurine 50 mg tablet See Rx Instructions .Route 02/19/23 Rx .COMPLEX #90 tabs potassium chloride 10 mEq See Rx Instructions .Route 02/19/23 Rx tablet,extended .COMPLEX #90 tabs release(part/cryst) (Klor-Con M) Past Med/Surg History Medical History History of colon polyps Kidney stones Fracture of right tibial plateau Crohns disease History of kidney stones Hx of pancreatitis Hx of squamous cell carcinoma Iron deficiency anemia Temporomandibular joint disorder Hx of small bowel obstruction Hx of migraines Asthma Palpitations Osteopenia Chronic gastritis Atrial fibrillation with RVR GERD (gastroesophageal reflux disease) HTN (hypertension) Surgical History History of surgery History of Mohs surgery for squamous cell carcinoma in situ of skin History of anesthesia reaction H/O foot surgery History of appendectomy History of esophagogastroduodenoscopy (EGD) (05/2013) H/O resection of small bowel History of colonoscopy (07/2020) History of cholecystectomy Family History Unknown Ankylosing spondylitis Lung cancer Aunt Breast cancer Mother Ovarian cancer, Onset Age: 43 Father Family history of diabetes mellitus Ankylosing spondylitis Aunt Inflammatory bowel disease Grandmother (Maternal) Lung cancer Grandmother (Paternal) Family history of diabetes mellitus Son Family history of colonic polyps Social History Smoking Status: Never smoker Second Hand Exposure: Yes (IN THE PAST); Do You Dip or Chew Tobacco: No; Hx Alcohol Use: Yes Alcohol type: wine Hx Substance Use: No Preferred Language: Azeri Communication Ability: Effective Fire Protection Equipment Technician Required: No Beliefs That Will Affect Care: None marital status: Current Living Situation: Spouse current occupational status: retired Feels Safe at Home: Yes Assistive Devices: Contacts, Glasses and Other Review of Systems Review of Systems: The patient denies chest pain, palpitations, shortness of breath, dyspnea on exertion, cough, lower extremity swelling, sore throat, fevers, chills, sweats, diarrhea , constipation, abdominal pain, pelvic pain, blood in urine or stool, lightheadedness, dizziness, headache, memory loss, loss of consciousness, rash, abnormal bruising or bleeding, imbalance, focal or generalized weakness, numbness or tingling in arms or legs, generalized arthralgias or myalgias, back or neck pain, or night sweats. The review of systems is otherwise negative other than for that already noted above, and at least 10 systems have been reviewed. Physical Exam Physical Exam: The patient is awake, alert and oriented 3, well developed and well nourished, normocephalic and atraumatic, lying in bed and in no acute distress. HEENT--PERRL, EOMI, mucous membranes and oropharynx mildly dry. Neck--supple. No JVD. No bruits. Thyroid normal, trachea midline, no adenopathy. Heart--normal S1 and S2. No murmurs, rubs or gallops. Lungs--clear bilaterally, no respiratory distress, no accessory muscle use. Abdomen--normal bowel sounds and soft. Nontender. Nondistended, no hernias or ma sses, no organomegaly. Extremities--no cyanosis or clubbing. No edema. Dermatologic--normal skin turgor, normal color, no abnormal lymph nodes, no rash. Neurologic--cranial nerves II through XII grossly intact. Rheumatologic--normal range of motion. Psychiatric--normal affect. Results & Data Results & Data Vital Signs (Past 12 Hours) Vital Signs Temp Pulse Pulse Resp BP BP Pulse Ox 02/27/23 13:33 91 H 18 133/75 100 02/27/23 11:06 72 18 136/70 97 02/27/23 10:17 60 02/27/23 10:16 60 22 99 02/27/23 10:16 60 20 161/73 H 99 02/27/23 08:09 36.6 C 69 18 164/86 H 100 O2 Del Method 02/27/23 13:33 Room Air 02/27/23 11:06 Room Air 02/27/23 10:17 02/27/23 10:16 Room Air 02/27/23 10:16 Room Air 02/27/23 08:09 Room Air Laboratory Results Laboratory Results WBC 11.12 K/ul (4.8-10.8) H 02/27/23 09:45 RBC 4.24 M/uL (4.20-5.40) 02/27/23 09:45 Hgb 13.7 g/dl (12.0-16.0) 02/27/23 09:45 Hct 38.3 % (37.0-47.0) 02/27/23 09:45 MCV 90.3 fL (80.0-100.0) 02/27/23 09:45 MCH 32.3 pg (25.0-34.0) 02/27/23 09:45 MCHC 35.8 g/dL (32.0-36.0) 02/27/23 09:45 RDW Std Deviation 46.0 fL (36.4-46.3) 02/27/23 09:45 RDW Coeff of Lina 13.9 % (11.5-14.5) 02/27/23 09:45 Plt Count 274 K/uL (130-400) 02/27/23 09:45 MPV 9.8 fL (9.4-12.4) 02/27/23 09:45 Immature Gran % (Auto) 0.4 % 02/27/23 09:45 Neut % (Auto) 86.5 % 02/27/23 09:45 Lymph % (Auto) 8.7 % 02/27/23 09:45 [place] % (Auto) 4.0 % 02/27/23 09:45 Eos % (Auto) 0.2 % 02/27/23 09:45 Baso % (Auto) 0.2 % 02/27/23 09:45 Neut # (Auto) 9.63 K/uL (1.40-6.50) H 02/27/23 09:45 Lymph # (Auto) 0.97 K/uL (1.20-3.40) L 02/27/23 09:45 [place] # (Auto) 0.44 K/uL (0.11-0.59) 02/27/23 09:45 Eos # (Auto) 0.02 K/uL (0.00-0.50) 02/27/23 09:45 Baso # (Auto) 0.02 K/uL (0.00-0.20) 02/27/23 09:45 Immature Gran # (Auto) 0.04 K/uL (0.01-0.20) 02/27/23 09:45 Sodium 141 mmol/L (136-145) 02/27/23 09:45 Potassium 3.6 mmol/L (3.5-5.1) 02/27/23 09:45 Chloride 105 mmol/L (98-107) 02/27/23 09:45 Carbon Dioxide 24 mmol/L (21-32) 02/27/23 09:45 Anion Gap 12 (3-11) H 02/27/23 09:45 BUN 14 mg/dl (6-23) 02/27/23 09:45 Creatinine 0.91 mg/dl (0.6-1.2) 02/27/23 09:45 Est Cr Clr Drug Dosing Not Reportable 02/27/23 09:45 Est GFR ( Amer) 75.1 ml/min 02/27/23 09:45 Est GFR (Non-Af Amer) 64.8 ml/min 02/27/23 09:45 BUN/Creatinine Ratio 15.4 (10-20) 02/27/23 09:45 Glucose 121 mg/dl (70-99(Fasting)) H 02/27/23 09:45 Calcium 9.9 mg/dl (8.6-10.3) 02/27/23 09:45 Total Bilirubin 1.1 mg/dl (0.2-1.0) H 02/27/23 09:45 AST 16 U/L (13-39) 02/27/23 09:45 ALT 15 U/L (7-52) 02/27/23 09:45 Alkaline Phosphatase 109 U/L (34-104) H 02/27/23 09:45 Total Protein 7.5 gm/dl (6.0-8.3) 02/27/23 09:45 Albumin 4.6 gm/dl (3.4-5.0) 02/27/23 09:45 Globulin 2.9 gm/dl (2.5-4.0) 02/27/23 09:45 Albumin/Globulin Ratio 1.6 (0.9-2) 02/27/23 09:45 Lipase 35 U/L (11-82) 02/27/23 09:45 Urine Color [place] 02/27/23 11:27 Urine Appearance Cloudy (Clear) A 02/27/23 11:27 Urine pH 5.5 (4.5-7.5) 02/27/23 11:27 Ur Specific [place] 1.038 (1.000-1.030) H 02/27/23 11:27 Urine Protein 1+ (Negative) H 02/27/23 11:27 Urine Glucose (UA) Negative (Negative) 02/27/23 11:27 Urine Ketones Trace (Negative) H 02/27/23 11:27 Urine Blood 3+ (Negative) H 02/27/23 11:27 Urine Nitrite Negative (Negative) 02/27/23 11:27 Urine Bilirubin Negative (Negative) 02/27/23 11:27 Urine Urobilinogen Negative (Negative) 02/27/23 11:27 Ur Leukocyte Esterase Trace (Negative) H 02/27/23 11:27 Urine WBC (Auto) 10-30 /hpf (0-5) H 02/27/23 11:27 Urine RBC (Auto) >30 /hpf (0-4) H 02/27/23 11:27 U Hyaline Cast (Auto) 0 /lpf (0-5) 02/27/23 11:27 U Epithel Cells (Auto) 5-10 /lpf (0-5) H 02/27/23 11:27 Urine Bacteria (Auto) 1+ (Negative) H 02/27/23 11:27 Urine Yeast Not Reportable 02/27/23 11:27 Impressions Abdomen/Pelvis CT 02/27/23 09:07 CT abd pelvis IV con only CLINICAL HISTORY: llq abd pain TECHNIQUE: Helical axial images of the abdomen and pelvis were obtained and displayed. Automated dose lowering techniques and/or adjustment according to patient size were utilized for this exam. This exam was performed with intravenous contrast. CT DOSE: 1317.47 mGy.cm COMPARISON: Comparison is made to CT enterography 08/12/2022 FINDINGS: Lower chest: Minimal atelectatic changes are seen. Liver: Hepatic steatosis is noted. Gallbladder and biliary tree: Patient is status post cholecystectomy. No intra- or extrahepatic biliary ductal dilation. Pancreas: Unremarkable, no focal lesions. Spleen: Unremarkable. Adrenals: Unremarkable. Kidneys and ureters: Left hydronephrosis and hydroureter is seen with a left UPJ stone measuring 4 mm in diameter. Bladder: Limited evaluation due to underdistention. A punctate stone is noted dependently in the bladder. Reproductive organs: Unremarkable. Bowel: Postsurgical changes of bowel resection are seen. There is a small duodenal diverticulum. No acute abnormalities. Lymph nodes Retroperitoneal: Subcentimeter lymph nodes are noted. Pelvic: Unremarkable. Mesenteric: Unremarkable. Peritoneum: Normal. Vessels: Unremarkable. Abdominal wall: Postsurgical changes are seen in the upper umbilical region. Bones: Degenerative changes in the visualized spine. IMPRESSION: 1. Left hydronephrosis and hydroureter with an obstructive UVJ stone. Additional bladder stone is seen compatible with recently passed stone. 2. Postsurgical changes in the bowel without acute abnormality. ACT 112: Negative or not required by law. Electronically signed by: Laz Lam M.D. 02/27/2023 10:42 AM Code Status & VTE Plan Code Status Full code VTE Prophylaxis Plan VTE Prophylaxis will be ordered: Yes PG Care Time/CCT Total # of Minutes Spent Total Time Spent with Patient: Total time spent is greater than 50% in coordination of care (as documented) at patient's floor/unit and/or counseling patient: Coding Level of Care Code 82409 INT INP/OBS CARE 3/75MIN Diagnoses Calculus of distal left ureter N20.1 Hydronephrosis concurrent with and due to calculi of kidney and ureter N13.2 Crohn's disease of ileum with other complication K50.018 Digestive disease complication type: other complication GERD (gastroesophageal reflux disease) K21.9 Paroxysmal atrial fibrillation I48.0 Anastomotic stricture of small intestine K91.89; K91.30 (3) Crohn's ileitis Digestive disease complication type: other complication Qualified Code(s): K50.018 - Crohn's disease of small intestine with other complication
[2023-02-27] MEDS: PANTOprazole 40 MG in SYRINGE 0 ML IV SCH (14:57)
[2023-02-27] MEDS ORDERED: BUTALBITAL/ACETAMIN/CAFFEINE TAB PO PRN (16:13)
[2023-02-27] MEDS ORDERED: ACETAMINOPHEN 325 MG TAB PO PRN (16:13)
[2023-02-27] MEDS: NSS + 20MEQ KCL 20 MEQ/1,000 ML BAG IV SCH (17:00)
[2023-02-28] MEDS: NSS + 20MEQ KCL 20 MEQ/1,000 ML BAG IV SCH (03:08)
[2023-02-28] MEDS ORDERED: cefTRIAXone SODIUM 2,000 MG in DEXTROSE 5 % MINI-B 50 ML IV SCH (07:00)
[2023-02-28 07:39] LABS: Albumin Globulin Ratio 1.5 (0.9-2); Albumin Level 3.4 gm/dl (3.4-5.0); BUN Creatinine Ratio 14.7 (10-20); Bilirubin,Total 0.9 mg/dl (0.2-1.0); Calcium 8.1 mg/dl (8.6-10.3); Creatinine Clr Calc Pharmacy 78.9 ml/min; Est GFR (African American) 94.9 ml/min; Est GFR (Non-African American) 81.9 ml/min; Globulin 2.2 gm/dl (2.5-4.0); Magnesium 1.6 mg/dl (1.7-2.4); Potassium 3.7 mmol/L (3.5-5.1); Total Protein 5.6 gm/dl (6.0-8.3)
[2023-02-28 08:10] LABS: Basophils # (auto) 0.02 K/uL (0.00-0.20); Basophils % (auto) 0.3 %; Eosinophils # (auto) 0.04 K/uL (0.00-0.50); Eosinophils % (auto) 0.7 %; Hematocrit (blood only) 31.4 % (37.0-47.0); Hemoglobin 10.6 g/dl (12.0-16.0); Immature Granulocytes # (auto) 0.01 K/uL (0.01-0.20); Immature Granulocytes % (auto) 0.2 %; Lymphocytes # (auto) 1.66 K/uL (1.20-3.40); Lymphocytes % (auto) 27.3 %; Mean Corpuscular Hemoglobin 31.6 pg (25.0-34.0); Mean Corpuscular Hgb Conc 33.8 g/dL (32.0-36.0); Mean Corpuscular Volume 93.7 fL (80.0-100.0); Mean Platelet Volume 10.1 fL (9.4-12.4); Monocytes # (auto) 0.41 K/uL (0.11-0.59); Monocytes % (auto) 6.7 %; Neutrophils # (auto) 3.94 K/uL (1.40-6.50); Neutrophils % (auto) 64.8 %; Platelet Count 177 K/uL (130-400); RDW Coefficient of Variation 14.4 % (11.5-14.5); RDW Standard Deviation 49.8 fL (36.4-46.3); Red Blood Count 3.35 M/uL (4.20-5.40); White Blood Count 6.08 K/ul (4.8-10.8)
--- NOTE | 2023-02-28 08:25 | Hospitalist Progress Note ---
Date of Service February 28, 2023 Assessment & Plan (1) Calculus of distal left ureter: (2) Hydronephrosis concurrent with and due to calculi of kidney and ureter: (3) Crohn's ileitis: (4) GERD (gastroesophageal reflux disease): (5) Paroxysmal atrial fibrillation: (6) Anastomotic stricture of small intestine: Plan Obstructing left UVJ ureteral calculus/left hydroureteronephrosis/recently passed bladder stone- N.p.o. except ice chips, sips and asymptomatic patient's Zofran 4 mg IV every 6 hours as needed Pantoprazole 40 mg IV daily Ceftriaxone 2 g IV daily Acetaminophen 650 mg by mouth every 6 hours as needed for mild pain or fever Dilaudid 0.5 mg IV every 3 hours as needed for moderate to severe pain Strain urine Patient has had kidney stones in the past, that she was able to pass without having stents being placed Urology consulted, messaged this AM. GIven patient reporting no pain likely outpatient follow up/possible able to pass stone by herself Urology to see this AM to discuss Ceftriaxone for urinary coverage, f/u urine cx but would provide dose prior to dc and can send empiric abx for coverage. WBC normalized on repeat. has been afebrile Atrial fibrillation/hypertension- Hold apixaban for now, last dose was yesterday evening Patient did not have her morning Cardizem CD 240 mg tablet Give Cardizem CD 120 mg now, and then resume 240 mg tomorrow morning. Can give short acting Cardizem 30 mg at 6 intervals if needed if heart rate increases Crohn's- Usually takes mercaptopurine 50 mg in the morning, which will resume tomorrow, but will give a single dose this afternoon Admission and Anticipated Discharge Date Admission Date: February 27, 2023 Results & Data Results & Data Vital Signs (Past 12 Hours) Vital Signs Temp Pulse Pulse Resp BP BP Pulse Ox 02/28/23 08:18 36.9 C 76 20 101/64 92 02/28/23 03:53 92 H 02/28/23 03:00 36.6 C 86 18 119/68 94 02/27/23 23:00 36.8 C 91 H 14 114/73 97 O2 Del Method 02/28/23 08:18 Room Air 02/28/23 03:53 02/28/23 03:00 Room Air 02/27/23 23:00 Room Air PG Care Time/CCT Total # of Minutes Spent Total Time Spent with Patient: Total time spent is greater than 50% in coordination of care (as documented) at patient's floor/unit and/or counseling patient: Coding Diagnoses Calculus of distal left ureter N20.1 Hydronephrosis concurrent with and due to calculi of kidney and ureter N13.2 Crohn's disease of ileum with other complication K50.018 Digestive disease complication type: other complication GERD (gastroesophageal reflux disease) K21.9 Paroxysmal atrial fibrillation I48.0 Anastomotic stricture of small intestine K91.89; K91.30 (3) Crohn's ileitis Digestive disease complication type: other complication Qualified Code(s): K50.018 - Crohn's disease of small intestine with other complication
[2023-02-28] MEDS ORDERED: dilTIAZem HCL 240 MG CAPCR PO SCH (09:00)
[2023-02-28] MEDS ORDERED: MERCAPTOPURINE 50 MG TAB PO SCH (09:00)
[2023-02-28] MEDS ORDERED: CHOLECALCIFEROL 5,000 UNITS 125 MCG TAB PO SCH (09:00)
[2023-02-28] MEDS ORDERED: dilTIAZem HCL 120 MG CAPCR PO SCH (09:00)
[2023-02-28] MEDS: MAGNESIUM SULFATE / D5W 1 GM/100 ML BAG IV SCH ×2 (10:26→12:33)
--- NOTE | 2023-02-28 10:48 | Urology Consultation ---
Date of Consultation February 28, 2023 Assessment & Plan (1) Calculus of distal left ureter: (2) Hydronephrosis concurrent with and due to calculi of kidney and ureter: (3) UTI (urinary tract infection): Plan 59-year-old female with a 4 mm left UVJ calculus and hydronephrosis who was admitted to the hospital service on 02/27/2023. Her pain has resolved and it sounds as if she passed the stone in the toilet but we do not have that for analysis. Offered her observation versus stent placement. She would prefer observation which I agree with. Stable for discharge home from urologic perspective. Recommend 3 days of Bactrim for prophylaxis Discussed need to return to the hospital if pain is uncontrolled or if she develops fevers I will send a message to see her back in roughly 1 month with a KUB and renal ultrasound to confirm passage History of Present Illness Attending Physician: Ernesto Scott MD History of Present Illness 59-year-old female with a 4 mm left UVJ calculus and hydronephrosis who was admitted to the hospital service on 02/27/2023. Initial labs showed a mild leukocytosis of 11, creatinine of 0.91 and a urinalysis that had 1+ bacteria and some leukocytosis but was nitrite negative. Independently reviewed his CT scan which showed a 4 mm left UVJ calculus with hydroureteronephrosis. Patient was started on ceftriaxone. She reports feeling much better today. She thinks that she actually passed the stone into the toilet this morning. She is not interested in any procedures. Denies any fevers. Labs show improvement today with a white blood cell count of 6.08, creatinine of 0.75. Her urine culture is pending. Allergies Allergy/AdvReac Type Severity Reaction Status Date / Time infliximab Allergy Severe PALPITATIONS, Verified 02/27/23 14:35 SOB, FLUSHING lactose Allergy Unknown LACTOSE Verified 02/27/23 14:35 INTOLERANT mushroom Allergy Unknown GI SYMPTOMS Verified 02/27/23 14:35 nickel Allergy Unknown SKIN Verified 02/27/23 14:35 REACTION prednisone Allergy Unknown MOOD Verified 02/27/23 14:35 CHANGES morphine AdvReac Unknown HALLUCINATI Verified 02/27/23 14:35 ONS Home Medications Medication Instructions Recorded Confirmed Type multivitamin (Multiple Vitamins 1 tab PO QAM 10/06/18 02/27/23 History tablet) cholecalciferol (vitamin D3) 125 5,000 units PO QAM 11/08/18 02/27/23 History mcg (5,000 unit) capsule cyanocobalamin (vitamin B-12) 1,000 mcg IM MONTHLY 04/11/19 02/27/23 History 1,000 mcg/mL injection kit Bifidobacterium infantis 4 mg 4 mg PO QAM 07/01/19 02/27/23 History capsule (Align) calcium carb 300 mg-D3 20 mcg-mag 1 tab PO BID 07/01/19 02/27/23 History ox 25 mg-sonoscope operator 0.5 ce-ymkk-muln tablet (Caltrate-D3 Plus Minerals) krill 500 mg-omega 3 115 mg-dha 30 1 cap PO QAM 07/01/19 02/27/23 History mg-epa 64 he-bskmkww-nwybz capsule (MegaRed [place]-3 Krill Oil) vedolizumab 300 mg intravenous 300 mg IV .every 8 weeks 04/15/21 02/27/23 History solution (Entyvio) metoprolol tartrate 25 mg tablet 25 mg PO Q6H PRN palpitations 90 05/06/22 02/27/23 Rx days #30 tabs bhhwyxlbhi-budauwoudenax-hnmuuptl 1 tab PO UD PRN Migraine Headache 07/14/22 02/27/23 History 50 mg-325 mg-40 mg tablet vitamin E 400 unit tablet 400 unit PO QAM 07/14/22 02/27/23 History pantoprazole 20 mg tablet,delayed 20 mg PO DAILY #90 tabs 02/05/23 02/27/23 Rx release diltiazem HCl 240 mg 240 mg PO QAM #90 caps 02/09/23 02/27/23 Rx capsule,extended release 24 hr, controlled apixaban 5 mg tablet (Eliquis) 5 mg PO BID #180 tabs 02/19/23 02/27/23 Rx mercaptopurine 50 mg tablet 50 mg PO QAM 02/27/23 02/27/23 History potassium chloride 10 mEq 10 meq PO QAM 02/27/23 02/27/23 History tablet,extended release(part/cryst) (Klor-Con M) Patient History Medical History History of colon polyps Kidney stones Fracture of right tibial plateau Crohns disease History of kidney stones Hx of pancreatitis Hx of squamous cell carcinoma Iron deficiency anemia Temporomandibular joint disorder Hx of small bowel obstruction Hx of migraines Asthma Palpitations Osteopenia Chronic gastritis Atrial fibrillation with RVR GERD (gastroesophageal reflux disease) HTN (hypertension) Surgical History History of surgery History of Mohs surgery for squamous cell carcinoma in situ of skin History of anesthesia reaction H/O foot surgery History of appendectomy History of esophagogastroduodenoscopy (EGD) (05/2013) H/O resection of small bowel History of colonoscopy (07/2020) History of cholecystectomy Family History Unknown Ankylosing spondylitis Lung cancer Aunt Breast cancer Mother Ovarian cancer, Onset Age: 43 Father Family history of diabetes mellitus Ankylosing spondylitis Aunt Inflammatory bowel disease Grandmother (Maternal) Lung cancer Grandmother (Paternal) Family history of diabetes mellitus Son Family history of colonic polyps Social History Smoking Status: Never smoker Second Hand Exposure: No; Do You Dip or Chew Tobacco: No; Tobacco Cessation Education Requested by Patient: No Hx Alcohol Use: Yes Alcohol type: wine and hard liquor Hx Substance Use: No Preferred Language: Kosovan Communication Ability: Effective Housing Coordinator Required: No Beliefs That Will Affect Care: None marital status: Current Living Situation: Spouse current occupational status: retired Other Information That Helps Us Care for You: No Feels Safe at Home: Yes Safety Concerns: Feels Safe At This Time Assistive Devices: Contacts and Glasses Review of Systems Review of Systems: 14 point review of systems negative outs celso of what is listed above in HPI Physical Exam Physical Exam: General: Alert and oriented, no acute distress HEENT: Normocephalic, mucous membranes moist Pulmonary: Nonlabored respirations Abdomen: Nondistended Extremities: Moves all 4 spontaneously Neuro: No gross deficits Skin: Warm, dry, no rashes noted Results & Data Vital Signs (Past 12 Hours) Vital Signs Temp Pulse Pulse Resp BP BP Pulse Ox 02/28/23 08:18 36.9 C 76 20 101/64 92 02/28/23 03:53 92 H 02/28/23 03:00 36.6 C 86 18 119/68 94 02/27/23 23:00 36.8 C 91 H 14 114/73 97 O2 Del Method 02/28/23 08:18 Room Air 02/28/23 03:53 02/28/23 03:00 Room Air 02/27/23 23:00 Room Air PG Care Time/CCT Total # of Minutes Spent Total Time Spent with Patient: Total time spent is greater than 50% in coordination of care (as documented) at patient's floor/unit and/or counseling patient: Coding Level of Care Code 06982 INT INP/OBS CARE MIN Diagnoses Calculus of distal left ureter N20.1 Hydronephrosis concurrent with and due to calculi of kidney and ureter N13.2 UTI (urinary tract infection) N39.0; R31.9 Hematuria presence: with hematuria Urinary tract infection type: site unspecified (3) UTI (urinary tract infection) Hematuria presence: with hematuria Urinary tract infection type: site unspecified Qualified Code(s): N39.0 - Urinary tract infection, site not specified; R31.9 - Hematuria, unspecified
--- NOTE | 2023-02-28 11:42 | Discharge Summary ---
Date of Service February 28, 2023 Admission HPI Per Admitting Provider The patient is a 67-year-old female with a past medical history including kidney stones, GERD, anastomotic stricture of the small intestine, deep venous insufficiency, paroxysmal atrial fibrillation on chronic anticoagulation with apixaban, Crohn's ileitis, postmenopausal state, and B12 deficiency. She presents to the emergency department with 24 hours of worsening left lower quadrant abdominal and left flank pain. She does report some nausea without vomiting Admission Exam Per Admitting Provider The patient is awake, alert and oriented 3, well developed and well nourished, normocephalic and atraumatic, lying in bed and in no acute distress. HEENT--PERRL, EOMI, mucous membranes and oropharynx mildly dry. Neck--supple. No JVD. No bruits. Thyroid normal, trachea midline, no adenopathy. Heart--normal S1 and S2. No murmurs, rubs or gallops. Lungs--clear bilaterally, no respiratory distress, no accessory muscle use. Abdomen--normal bowel sounds and soft. Nontender. Nondistended, no hernias or masses, no organomegaly. Extremities--no cyanosis or clubbing. No edema. Dermatologic--normal skin turgor, normal color, no abnormal lymph nodes, no rash. Neurologic--cranial nerves II through XII grossly intact. Rheumatologic--normal range of motion. Psychiatric--normal affect. Principal Diagnosis L sided kidney stone with obstruction, UTI Discharge Exam General: WD/WN female sitting up in bed, NAD HEENT; head normocephalic, atraumatic, mmm, trachea midline Resp: even/unlabored, no w/c/r, on room air CV: RRR, faint systolic murmur, no pitting edema/calf tenderness, pulses palpable GI: +BS, soft/NT : no arthur, no CVA tenderness MSK/Neuro: no focal deficits, no slurred speech/facial droop, answering questions appropriately Psych: AOx3, cooperative with exam Discharge Data Allergies Allergy/AdvReac Type Severity Reaction Status Date / Time infliximab Allergy Severe PALPITATIONS, Verified 02/27/23 14:35 SOB, FLUSHING lactose Allergy Unknown LACTOSE Verified 02/27/23 14:35 INTOLERANT mushroom Allergy Unknown GI SYMPTOMS Verified 02/27/23 14:35 nickel Allergy Unknown SKIN Verified 02/27/23 14:35 REACTION prednisone Allergy Unknown MOOD Verified 02/27/23 14:35 CHANGES morphine AdvReac Unknown HALLUCINATI Verified 02/27/23 14:35 ONS Consultations 02/27/23 13:37 ED Decision to Admit Stat 02/28/23 07:50 Consult Urology Routine Ordered Studies Abdomen/Pelvis CT 02/27/23 09:07 CT abd pelvis IV con only CLINICAL HISTORY: llq abd pain TECHNIQUE: Helical axial images of the abdomen and pelvis were obtained and d isplayed. Automated dose lowering techniques and/or adjustment according to patient size were utilized for this exam. This exam was performed with intravenous contrast. CT DOSE: 1317.47 mGy.cm COMPARISON: Comparison is made to CT enterography 08/12/2022 FINDINGS: Lower chest: Minimal atelectatic changes are seen. Liver: Hepatic steatosis is noted. Gallbladder and biliary tree: Patient is status post cholecystectomy. No intra- or extrahepatic biliary ductal dilation. Pancreas: Unremarkable, no focal lesions. Spleen: Unremarkable. Adrenals: Unremarkable. Kidneys and ureters: Left hydronephrosis and hydroureter is seen with a left UPJ stone measuring 4 mm in diameter. Bladder: Limited evaluation due to underdistention. A punctate stone is noted dependently in the bladder. Reproductive organs: Unremarkable. Bowel: Postsurgical changes of bowel resection are seen. There is a small duodenal diverticulum. No acute abnormalities. Lymph nodes Retroperitoneal: Subcentimeter lymph nodes are noted. Pelvic: Unremarkable. Mesenteric: Unremarkable. Peritoneum: Normal. Vessels: Unremarkable. Abdominal wall: Postsurgical changes are seen in the upper umbilical region. Bones: Degenerative changes in the visualized spine. IMPRESSION: 1. Left hydronephrosis and hydroureter with an obstructive UVJ stone. Additional bladder stone is seen compatible with recently passed stone. 2. Postsurgical changes in the bowel without acute abnormality. ACT 112: Negative or not required by law. Electronically signed by: Laz Lam M.D. 02/27/2023 10:42 AM Hospital Course (1) Calculus of distal left ureter: (2) Hydronephrosis concurrent with and due to calculi of kidney and ureter: (3) Crohn's ileitis: (4) GERD (gastroesophageal reflux disease): (5) Paroxysmal atrial fibrillation: (6) Anastomotic stricture of small intestine: Plan Presented with L flank pain in patient with hx of stones, able to pass larger than current without intervention. CTAP on admission noting left hydronephrosis and hydroureter with an obstructive UVJ stone. Additional bladder stone is seen compatible with recently passed stone. (4mm) Made NPO, IVF for hydration and antiemetics/pain control as needed. Placed on IV antibiotics with IV Ceftriaxone for possible UTI Urology consulted and discussed w/ Dr Mendosa as patient likely passed stone in ER before coming up to the floor and is PAIN free at present time and renal function stable/WBC normalized w/ IV Ceftriaxone and decision to dc on Bactrim for additional 3 days for treatment. Tolerated advancement of diet without issue prior to discharge Urine cx pending at time of discharge. F/u Urology discussed with patient with Dr Mendosa. Atrial fibrillation/hypertension- Hold apixaban on admission (last dose PM 02/26) and was continued on cardizem Resumed eliquis at discharge as no intervention planned Rates controlled, NSR on telemetry. Mag checked, low 1.6 and IV replacement ordered. Of note, on 10meq KCL daily and discussed can hold while on bactrim/eat a banana daily while on such and can resume following. Discussed given her hx headaches/cramps likely benefit from daily OTC supplementation or if issues w/ diarrhea can get rx for slow mag Crohn's- Mercaptopurine 50 mg daily Hypomagnesemia - hx of lows, checked given such/hx paroxysmal afib -? 2nd to PPI use, recent reduction to 20mg daily on PO K to keep ~4 w/ her afib. Also reports baseline cramping/some headaches at times as above and discussed OTC magnesium but if any issues with diarrhea can discuss w/ PCP about slow mag. Total Time Total Time Spent Total Time Spent (In Minutes): 45 Discharge Plan Discharge Items Patient Disposition: Home - Self-Care Reason For Visit: L UVJ STONE, LEFT HYDRO Discharge Diagnosis: Kidney Stone, possible UTI Goals: You have been hospitalized for an acute medical problem. During your stay at [facility], we have made an effort to correct the problem that brought you to the hospital while keeping you as comfortable as possible. Medications were used to bring your condition under control and your discharge instructions will include directions for any medications you should take after leaving the hospital. Please make sure you see your Primary Care Provider as part of your follow up plan. Activity: Resume your previous activity Non-emergency contact: Primary Care Provider and Urologist Call non-emergency contact if: you have any medication questions, your symptoms worsen, your pain is not controlled and you have a fever Follow-up/Referrals: Jet Leon MD [Primary Care Provider] - Thony Mendosa MD [Physician] - (1 week) Diet: Heart Healthy Addtl Attending Provider Instructions: You have been hospitalized for abdominal/flank pain and found to have a kidney stone. You were treated with IV fluids for hydration and antibiotics for possible UTI/infected stone, which has likely passed per discussion. Urology was consulted and felt stable for discharge and can follow up as an outpatient for any continued issues. Antibiotics were discussed and you should continue Bactrim twice daily for another 3 days to complete the course. You will be called with any issues with culture if any resistance found. As discussed, over the counter magnesium supplementation might not be a bad idea. If any ongoing issues with diarrhea, you can discuss slow magnesium with primary care. Please follow up with primary care in the next 7-10 days to monitor your status after discharge. Please continue to stay well hydrated and push oral fluids. Please return to the ER with any worsened pain, fever, inability to keep up with oral intake, or for any symptoms concerning for you. It has been a pleasure being a part of the medical team providing for you while you have been in the hospital. Take care! Pending Studies at Discharge: Yes Studies:: urine culture Stand-Alone Forms: My [facility] [place], Smoking Cessation Medications and DC Order Prescriptions: New sulfamethoxazole-trimethoprim 800-160 mg tablet 1 tab PO BID 3 Days Qty: 6 0RF Continued diltiazem HCl 240 mg capsule,ext.rel 24h degradable 240 mg PO QAM Qty: 90 3RF Eliquis 5 mg tablet 5 mg PO BID Qty: 180 3RF cyanocobalamin (vitamin B-12) 1,000 mcg/mL kit 1,000 mcg IM MONTHLY Entyvio 300 mg recon soln 300 mg IV .every 8 weeks cholecalciferol (vitamin D3) 5,000 unit capsule 5,000 units PO QAM multivitamin [Multiple Vitamins] tablet 1 tab PO QAM metoprolol tartrate 25 mg tablet 25 mg PO Q6H PRN (Reason: palpitations) 90 Days Qty: 30 6RF pantoprazole 20 mg tablet,delayed release (DR/EC) 20 mg PO DAILY Qty: 90 3RF Align 4 mg Capsule 4 mg PO QAM Caltrate-D3 Plus Minerals 300 mg-800 unit -25 mg-0.5 mg Tablet 1 tab PO BID Patient Comments: CALTRATE 600 + D + MINERALS. [id number] [MegaRed Ryan-3 Krill Oil] 364-375-62-64 mg Capsule 1 cap PO QAM Patient Comments: 500 MG mercaptopurine 50 mg tablet 50 mg PO QAM potassium chloride [Klor-Con M10] 10 mEq tablet,ER particles/crystals 10 meq PO QAM vitamin E 400 unit Tablet 400 unit PO QAM [id number]-esuxtwjzbyixe-ubuo 50-325-40 mg tablet 1 tab PO UD PRN (Reason: Migraine Headache) Discharge Orders: Discharge Order (Routine); Ordered 02/28/23 Ordered By: Letitia Henley Admission Data Admit Date/Time: 02/27/23 13:53 Attending Provider: Ernesto Scott Admit Provider: Ignacio Means Primary Care Provider: Jet Leon Other Providers: Ignacio Means; Thony Mendosa Other Interventions: Discharge Summary Assessment (RN) Last Done: 02/28/23 14:17 Supervising Physician Co-Signing Physician Notes The patient was not seen by me. The chart was reviewed. Case discussed with TOREY Roberts. Agree with assessment and plan Coding Level of Care Code 35966 INP/OBS DISCH >30 MIN Diagnoses Calculus of distal left ureter N20.1 Hydronephrosis concurrent with and due to calculi of kidney and ureter N13.2 Crohn's disease of ileum with other complication K50.018 Digestive disease complication type: other complication GERD (gastroesophageal reflux disease) K21.9 Paroxysmal atrial fibrillation I48.0 Anastomotic stricture of small intestine K91.89; K91.30
[2023-02-28] MEDS: PANTOprazole 40 MG in SYRINGE 0 ML IV SCH (11:47)
--- NOTE | 2023-02-28 12:01 | Communication Note ---
Date of Service: February 28, 2023 By CMS guidelines, a determination that the admission or continued stay is not medically necessary has been made by a member of the UR committee and lauri narvaez for this hospital stay, therefore a Code 44 will be completed and the Inpatient admission will be changed to outpatient.
== END 2023-02-28 15:45 | disposition home or self-care (01) | DRG 690 ==
LOC: ED 08:05 → INTOOBSV 13:53 → 2S 13:53 → SUATTDRO 13:53 → 2S 14:56

== ENCOUNTER 2023-04-04 23:57 | Inpatient (IN) ==
--- NOTE | 2023-04-05 00:08 | Emergency Department Note ---
Impression & Plan Small bowel obstruction, Crohn's ileitis ED Provider Note CHIEF COMPLAINT: Abdominal pain, vomiting HISTORY OF PRESENTING ILLNESS: This 67-year-old female patient presents to the emergency department for evaluation of epigastric abdominal pain radiating to her lower abdomen as well as nausea and vomiting. The symptoms started earlier this evening and are getting progressively worse. She states that it is a sharp burning pain in her stomach. Has had multiple episodes of vomiting. The patient has a history of gastritis and states that it feels similar, but the pain and vomiting is worse than normal. The patient takes Protonix 20 mg once a day for GERD. She tried Pepcid and Zofran tonight without improvement. She also has a history of Crohn's ileitis and is on mercaptopurine and Entyvio for treatment. The patient has history of surgical resection with small bowel obstructions originating at her anastomosis site. She is also on apixaban for A-fib and deep venous insufficiency. She denies chest pain or SOB. Denies fevers, cough, or URI symptoms. She states that she has not been urinating much since the symptoms started, but denies any other urinary symptoms. Has loose stools from her Crohn's Disease and had a "normal for me" BM this morning. Denies hematochezia, melena, hematuria, hemoptysis, or hematemesis. REVIEW OF SYSTEMS: See HPI for pertinent positives and pertinent negatives. ALLERGIES: Infliximab, lactose, mushroom, nickel, prednisone, and Morphine MEDICATIONS: See below PAST MEDICAL HISTORY: See below PHYSICAL EXAM: VITALS: Vitals are noted on the nurse's note and reviewed by myself. GENERAL: Non toxic, no acute distress, non-diaphoretic. SKIN: No rashes or abnormal skin lesions to the abdomen. Capillary refill <2 sec. EYES: PERRLA. EOMI. Conjunctivae without injection, sclerae without icterus. NOSE: Patent without discharge. MOUTH: Mucous membranes moist. Uvula midline. Airway patent. NECK: Supple without nuchal rigidity. HEART: Regular rate and rhythm without murmurs gallops or rubs. LUNGS: Clear to auscultation bilaterally without wheezes, rales or rhonchi. No retractions or accessory muscle use. ABDOMEN: Positive bowel sounds x 4. Normal tympanic percussion. Soft, tender to palpation maximally in the epigastric and right upper quadrant, but also diffusely tenderness to palpation over the entire abdomen. No masses or organomegaly. No CVA tenderness. Bella sign negative. No guarding or rebound tenderness. No focal RLQ or LLQ tenderness. MUSCULOSKELETAL: No gross musculoskeletal defects. NEURO: Patient was alert and oriented. No focal neurological deficits. DIFFERENTIAL DIAGNOSIS: Differential diagnosis includes hepatitis, pancreatitis, cholecystitis, cholelithiasis, appendicitis, kidney stone, pyelonephritis, UTI, gastritis, gastroenteritis, mesenteric adenitis, obstruction, constipation, hernia, abdominal abscess, perforation, diverticulitis, IBD, ischemic colitis, abdominal aortic aneurysm, , ectopic , ovarian cyst, ovarian torsion, acute salpingitis, or others. ED COURSE AND MEDICAL DECISION MAKING: MONITOR: Continuous cardiac exercise specialist: Order was placed for continuous cardiac exercise specialist. Patient was placed on the cardiac exercise specialist and continuous pulse ox. Patient was noted to be in normal sinus rhythm at an initial rate of 94 bpm per my interpretation. EKG: EKG was interpreted by myself as normal sinus rhythm at 90 bpm with left axis deviation, but no acute ST or T wave changes. MEDICATIONS GIVEN: 1 L normal saline solution bolus. Zofran 4 mg IV, Tylenol 1000 mg IV. Morphine 4 mg IV. INTERPRETATION OF LABS: I interpreted the labs with full lab results as below in the lab section of this note. White blood cell count elevated at 13.02. Hemoglobin normal at 13.8. Platelet count normal at 252. Coags were normal. Anion gap 12, glucose 158, total bilirubin 1.3, and alk phos 118, but CMP otherwise normal. Magnesium normal. Lipase normal. High-sensitivity troponin normal. Urinalysis with 1+ blood, but negative for UTI. COVID, influenza, and RSV were negative. INTERPRETATION OF IMAGING: Chest x-ray per my interpretation was negative for acute cardiopulmonary etiology. Radiology report still pending. CT scan of the abdomen and pelvis with IV contrast showed diffuse small bowel dilation highly concerning for small bowel obstruction with zone of transition in the distal ileum colonic anastomosis and decompression of the colon diffusely. There is also a calcification within the right kidney suggestive of the stone measuring 10.4 mm with adjacent scarring. Status postcholecystectomy. CONSULTATIONS: On-call hospitalist [facility] SUMMARY: I examined the patient. An IV lock was placed and labs were drawn. The patient was medicated as above with some improvement of her symptoms. Laboratory study findings as above. EKG and high-sensitivity troponin were normal and I do not suspect ACS as a cause of her symptoms. Chest x-ray negative per my interpretation. CT scan of the abdomen and pelvis with IV contrast showed a small bowel obstruction. This is likely the cause of the patient's symptoms. An NG tube was placed. The patient was independently evaluated by Dr. Saavedra, who agrees with my assessment and treatment plan. I spoke with the on-call hospitalist who agreed to admit the patient for further management. Please refer to their dictation for further details. The patient's care was transferred in stable condition. DIAGNOSIS: Small bowel obstruction Past Med/Surg History Medical History UTI (urinary tract infection) Hydronephrosis concurrent with and due to calculi of kidney and ureter History of colon polyps Kidney stones CURRENT/NO ISSUES WITH AT PRESENT TIME. Fracture of right tibial plateau HX AGE 9 AND IN 2021. NO SURGICAL INTERVENTION. Crohns disease History of kidney stones Hx of pancreatitis Hx of squamous cell carcinoma Iron deficiency anemia HX OF Temporomandibular joint disorder CLICKING/NO LOCKING Hx of small bowel obstruction Hx of migraines Asthma VERY MILD (NO INHALER USED) Palpitations REASON FOR PRN METOPROLOL Osteopenia Chronic gastritis Atrial fibrillation with RVR DX 2014 OR 2015. FOLLOWS WITH [address] SINGH. NO HX CARDIOVERSION. GERD (gastroesophageal reflux disease) HTN (hypertension) Surgical History History of surgery MULTIPLE REMOVAL OF SKIN CANCER SPOTS. History of Mohs surgery for squamous cell carcinoma in situ of skin History of anesthesia reaction WITH GENERAL ANESTHESIA>SHAKING AND COLD H/O foot surgery LEFT HEEL BONE GRAFT History of appendectomy History of esophagogastroduodenoscopy (EGD) (05/2013) H/O resection of small bowel History of colonoscopy (07/2020) History of cholecystectomy Family History Unknown Ankylosing spondylitis Lung cancer Aunt Breast cancer Mother Ovarian cancer, Onset Age: 43 rapid progressive, one year. Father Family history of diabetes mellitus Ankylosing spondylitis Aunt Inflammatory bowel disease Grandmother (Maternal) Lung cancer Grandmother (Paternal) Family history of diabetes mellitus Son Family history of colonic polyps Social History Smoking Status: Never smoker Second Hand Exposure: No; Do You Dip or Chew Tobacco: No; Hx Alcohol Use: Yes Alcohol type: wine and hard liquor Hx Substance Use: No Preferred Language: Cypriot Communication Ability: Effective Wet Press Tender Required: No Beliefs That Will Affect Care: None marital status: Current Living Situation: Spouse current occupational status: retired Feels Safe at Home: Yes Assistive Devices: Contacts and Glasses Allergies Allergies Allergy/AdvReac Type Severity Reaction Status Date / Time infliximab Allergy Severe PALPITATIONS, Verified 04/05/23 00:48 SOB, FLUSHING lactose Allergy Intermediate LACTOSE Verified 04/05/23 00:48 INTOLERANT mushroom Allergy Intermediate GI SYMPTOMS Verified 04/05/23 00:48 nickel Allergy Mild SKIN Verified 04/05/23 00:48 REACTION morphine AdvReac Intermediate HALLUCINATI Verified 04/05/23 00:48 ONS prednisone AdvReac Intermediate MOOD Verified 04/05/23 00:48 CHANGES Home Meds Home Medications Medication Instructions Recorded Confirmed multivitamin (Multiple Vitamins 1 tab PO QAM 10/06/18 04/05/23 tablet) cholecalciferol (vitamin D3) 125 5,000 units PO QAM 11/08/18 04/05/23 mcg (5,000 unit) capsule cyanocobalamin (vitamin B-12) 1,000 mcg IM MONTHLY 04/11/19 04/05/23 1,000 mcg/mL injection kit Bifidobacterium infantis 4 mg 4 mg PO QAM 07/01/19 04/05/23 capsule (Align) calcium carb 300 mg-D3 20 mcg-mag 1 tab PO BID 07/01/19 04/05/23 ox 25 mg-gyroscope repairer 0.5 [id number]-[id number] tablet (Caltrate-D3 Plus Minerals) krill 500 mg-omega 3 115 mg-dha 30 1 cap PO QAM 07/01/19 04/05/23 mg-epa 64 ew-hogiuhz-omhfe capsule (MegaRed Clements-3 Krill Oil) vedolizumab 300 mg intravenous 300 mg IV .every 8 weeks 04/15/21 04/05/23 solution (Entyvio) [id number]-tekvghcijroui-[id number] 1 tab PO DIRECTED PRN Migraine 07/14/22 04/05/23 50 mg-325 mg-40 mg tablet Headache mercaptopurine 50 mg tablet 50 mg PO QAM 02/27/23 04/05/23 potassium chloride 10 mEq 10 meq PO QAM 02/27/23 04/05/23 tablet,extended release(part/cryst) (Klor-Con M) magnesium chloride 64 mg 64 mg PO HS 04/05/23 04/05/23 (magnesium chloride) tablet,delayed release (Mag 64) vitamin E 268 mg (400 unit) capsule 268 mg PO DAILY 04/05/23 04/05/23 Previous Rx's Medication Instructions Recorded metoprolol tartrate 25 mg tablet 25 mg PO Q6H PRN palpitations 90 05/06/22 days #30 tabs pantoprazole 20 mg tablet,delayed 20 mg PO DAILY #90 tabs 02/05/23 release diltiazem HCl 240 mg 240 mg PO QAM #90 caps 02/09/23 capsule,extended release 24 hr, controlled apixaban 5 mg tablet (Eliquis) 5 mg PO BID #180 tabs 02/19/23 Results & Data (ED) Vital Signs Vital Signs - 24 hr 04/04/23 23:59 04/05/23 00:47 04/05/23 00:47 Temperature 36.5 C Temperature Source Temporal Artery Scan Pulse Rate 103 H 86 Pulse Rate [Apical] 86 Pulse Rate from SpO2 Sensor Pulse Rhythm Regular Pulse Rhythm [Apical] Regular Pulse Strength [Apical] Normal Respiratory Rate 22 18 18 Respiratory Effort / Characteristics Non-Labored Spontaneous Respiratory Depth Normal Respiratory Pattern Regular Blood Pressure 125/79 Blood Pressure [Right Arm] 142/87 H Blood Pressure Mean 94 Blood Pressure Mean [Right Arm] 105 Blood Pressure Position [Right Arm] Semi-fowlers Pulse Oximetry 100 98 98 Oxygen Delivery Method Room Air Room Air Room Air Sepsis Recent Fever Within 48 Hours No Sepsis New/Unexplained Change in Mental Status No Sepsis Action Taken by Nursing Physician Notified 04/05/23 00:55 04/05/23 00:55 04/05/23 01:00 Temperature Temperature Source Pulse Rate 83 82 83 Pulse Rate [Apical] Pulse Rate from SpO2 Sensor 83 84 Pulse Rhythm Pulse Rhythm [Apical] Pulse Strength [Apical] Respiratory Rate 16 18 Respiratory Effort / Characteristics Respiratory Depth Respiratory Pattern Blood Pressure Blood Pressure [Right Arm] Blood Pressure Mean Blood Pressure Mean [Right Arm] Blood Pressure Position [Right Arm] Pulse Oximetry 97 95 Oxygen Delivery Method Sepsis Recent Fever Within 48 Hours Sepsis New/Unexplained Change in Mental Status Sepsis Action Taken by Nursing 04/05/23 01:00 04/05/23 01:10 04/05/23 01:20 Temperature Temperature Source Pulse Rate 81 82 Pulse Rate [Apical] Pulse Rate from SpO2 Sensor 82 84 Pulse Rhythm Pulse Rhythm [Apical] Pulse Strength [Apical] Respiratory Rate 20 17 Respiratory Effort / Characteristics Respiratory Depth Respiratory Pattern Blood Pressure 139/81 Blood Pressure [Right Arm] Blood Pressure Mean 101 Blood Pressure Mean [Right Arm] Blood Pressure Position [Right Arm] Pulse Oximetry 95 95 Oxygen Delivery Method Sepsis Recent Fever Within 48 Hours Sepsis New/Unexplained Change in Mental Status Sepsis Action Taken by Nursing 04/05/23 01:50 04/05/23 02:00 04/05/23 02:00 Temperature Temperature Source Pulse Rate 80 78 Pulse Rate [Apical] Pulse Rate from SpO2 Sensor 82 82 Pulse Rhythm Pulse Rhythm [Apical] Pulse Strength [Apical] Respiratory Rate 13 17 Respiratory Effort / Characteristics Respiratory Depth Respiratory Pattern Blood Pressure 118/72 Blood Pressure [Right Arm] Blood Pressure Mean 86 Blood Pressure Mean [Right Arm] Blood Pressure Position [Right Arm] Pulse Oximetry 98 95 Oxygen Delivery Method Sepsis Recent Fever Within 48 Hours Sepsis New/Unexplained Change in Mental Status Sepsis Action Taken by Nursing 04/05/23 02:10 04/05/23 02:20 04/05/23 02:30 Temperature Temperature Source Pulse Rate 76 77 75 Pulse Rate [Apical] Pulse Rate from SpO2 Sensor 76 77 74 Pulse Rhythm Pulse Rhythm [Apical] Pulse Strength [Apical] Respiratory Rate 17 17 20 Respiratory Effort / Characteristics Respiratory Depth Respiratory Pattern Blood Pressure Blood Pressure [Right Arm] Blood Pressure Mean Blood Pressure Mean [Right Arm] Blood Pressure Position [Right Arm] Pulse Oximetry 94 97 95 Oxygen Delivery Method Sepsis Recent Fever Within 48 Hours Sepsis New/Unexplained Change in Mental Status Sepsis Action Taken by Nursing 04/05/23 02:30 04/05/23 02:40 04/05/23 02:50 Temperature Temperature Source Pulse Rate 78 93 H Pulse Rate [Apical] Pulse Rate from SpO2 Sensor 78 92 H Pulse Rhythm Pulse Rhythm [Apical] Pulse Strength [Apical] Respiratory Rate 18 20 Respiratory Effort / Characteristics Respiratory Depth Respiratory Pattern Blood Pressure 128/78 Blood Pressure [Right Arm] Blood Pressure Mean 92 Blood Pressure Mean [Right Arm] Blood Pressure Position [Right Arm] Pulse Oximetry 93 99 Oxygen Delivery Method Sepsis Recent Fever Within 48 Hours Sepsis New/Unexplained Change in Mental Status Sepsis Action Taken by Nursing 04/05/23 03:00 04/05/23 03:01 04/05/23 03:01 Temperature Temperature Source Pulse Rate 105 H 101 H Pulse Rate [Apical] Pulse Rate from SpO2 Sensor 105 H 101 H Pulse Rhythm Pulse Rhythm [Apical] Pulse Strength [Apical] Respiratory Rate 39 H 36 H Respiratory Effort / Characteristics Respiratory Depth Respiratory Pattern Blood Pressure 186/96 H Blood Pressure [Right Arm] Blood Pressure Mean 124 Blood Pressure Mean [Right Arm] Blood Pressure Position [Right Arm] Pulse Oximetry 98 90 Oxygen Delivery Method Sepsis Recent Fever Within 48 Hours Sepsis New/Unexplained Change in Mental Status Sepsis Action Taken by Nursing 04/05/23 03:10 04/05/23 03:20 04/05/23 03:30 Temperature Temperature Source Pulse Rate 83 90 89 Pulse Rate [Apical] Pulse Rate from SpO2 Sensor 83 90 89 Pulse Rhythm Pulse Rhythm [Apical] Pulse Strength [Apical] Respiratory Rate 15 17 12 Respiratory Effort / Characteristics Respiratory Depth Respiratory Pattern Blood Pressure Blood Pressure [Right Arm] Blood Pressure Mean Blood Pressure Mean [Right Arm] Blood Pressure Position [Right Arm] Pulse Oximetry 97 95 95 Oxygen Delivery Method Sepsis Recent Fever Within 48 Hours Sepsis New/Unexplained Change in Mental Status Sepsis Action Taken by Nursing 04/05/23 03:30 04/05/23 03:40 04/05/23 03:50 Temperature Temperature Source Pulse Rate 97 H 94 H Pulse Rate [Apical] Pulse Rate from SpO2 Sensor 97 H 93 H Pulse Rhythm Pulse Rhythm [Apical] Pulse Strength [Apical] Respiratory Rate 26 H 17 Respiratory Effort / Characteristics Respiratory Depth Respiratory Pattern Blood Pressure 124/77 Blood Pressure [Right Arm] Blood Pressure Mean 90 Blood Pressure Mean [Right Arm] Blood Pressure Position [Right Arm] Pulse Oximetry 97 93 Oxygen Delivery Method Sepsis Recent Fever Within 48 Hours Sepsis New/Unexplained Change in Mental Status Sepsis Action Taken by Nursing 04/05/23 05:00 04/05/23 05:51 Temperature Temperature Source Pulse Rate 96 H 94 H Pulse Rate [Apical] Pulse Rate from SpO2 Sensor Pulse Rhythm Pulse Rhythm [Apical] Pulse Strength [Apical] Respiratory Rate 18 Respiratory Effort / Characteristics Respiratory Depth Respiratory Pattern Blood Pressure 132/73 Blood Pressure [Right Arm] Blood Pressure Mean Blood Pressure Mean [Right Arm] Blood Pressure Position [Right Arm] Pulse Oximetry 95 Oxygen Delivery Method Room Air Sepsis Recent Fever Within 48 Hours Sepsis New/Unexplained Change in Mental Status Sepsis Action Taken by Nursing Laboratory Data 04/05/23 00:33 04/05/23 00:33 Lab Results 04/05/23 04/05/23 04/05/23 Range/Units 00:33 00:35 04:05 WBC 13.02 H (4.8-10.8) K/ul RBC 4.28 (4.20-5.40) M/uL Hgb 13.8 (12.0-16.0) g/dl Hct 38.5 (37.0-47.0) % MCV 90.0 (80.0-100.0) fL MCH 32.2 (25.0-34.0) pg MCHC 35.8 (32.0-36.0) g/dL RDW Std Deviation 48.8 H (36.4-46.3) fL RDW Coeff of Lina 14.8 H (11.5-14.5) % Plt Count 252 (130-400) K/uL MPV 9.9 (9.4-12.4) fL PT 11.1 (9.0-12.0) Seconds INR 1.0 (0.9-1.1) APTT 29 (21-31) Seconds PTT Ratio 1.0 Sodium 138 (136-145) mmol/L Potassium 3.7 (3.5-5.1) mmol/L Chloride 102 (98-107) mmol/L Carbon Dioxide 24 (21-32) mmol/L Anion Gap 12 H (3-11) BUN 13 (6-23) mg/dl Creatinine 1.08 (0.6-1.2) mg/dl Est Cr Clr Drug Dosing 53.9 ml/min Est GFR ( Amer) 61.1 ml/min Est GFR (Non-Af Amer) 52.7 ml/min BUN/Creatinine Ratio 12.0 (10-20) Glucose 158 H (70-99(Fasting)) mg/dl Calcium 10.1 (8.6-10.3) mg/dl Magnesium 1.8 (1.7-2.4) mg/dl Total Bilirubin 1.3 H (0.2-1.0) mg/dl AST 32 (13-39) U/L ALT 26 (7-52) U/L Alkaline Phosphatase 118 H (34-104) U/L Troponin I High Sens < 2.3 (0-14) pg/ml Total Protein 8.0 (6.0-8.3) gm/dl Albumin 5.0 (3.4-5.0) gm/dl Globulin 3.0 (2.5-4.0) gm/dl Albumin/Globulin Ratio 1.7 (0.9-2) Lipase 26 (11-82) U/L Urine Color Yellow Urine Appearance Clear (Clear) Urine pH 5.0 (4.5-7.5) Ur Specific Royal 1.020 (1.000-1.030) Urine Protein Negative (Negative) Urine Glucose (UA) Negative (Negative) Urine Ketones Negative (Negative) Urine Blood 1+ H (Negative) Urine Nitrite Negative (Negative) Urine Bilirubin Negative (Negative) Urine Urobilinogen Negative (Negative) Ur Leukocyte Esterase Negative (Negative) SARS-CoV-2 (PCR) NEGATIVE (Negative) Influenza Type A (PCR) Negative (Neg) Influenza Type B (PCR) Negative (Neg) RSV (RT-PCR) Negative (Neg) Administered Medications Discontinued Medications Sodium Chloride (Nss) 1,000 mls @ 999 mls/hr IV .Q1H1M STA Stop: 04/05/23 01:18 Last Infusion: 04/05/23 01:40 Dose: Infused Documented By: Admin: 04/05/23 00:38 Dose: 999 mls/hr Documented By: SALVATORE Acetaminophen (Ofirmev) 1,000 mg in 100 mls @ 400 mls/hr IV NOW STA Stop: 04/05/23 00:32 Last Infusion: 04/05/23 01:07 Dose: Infused Documented By: Admin: 04/05/23 00:42 Dose: 400 mls/hr Documented By: SALVATORE Ioversol (Optiray 320 500ml) 88 ml IV ONCE ONE Stop: 04/05/23 01:40 Last Admin: 04/05/23 01:39 Dose: 88 ml Documented By: SURINDER Morphine Sulfate (Morphine Sulfate 4 Mg/Ml 1 Ml Carp\\Vial) 4 mg IV NOW STA Stop: 04/05/23 02:37 Last Admin: 04/05/23 02:45 Dose: 4 mg Documented By: SALVATORE Ondansetron HCl (Ondansetron Inj 2 Mg/Ml 2 Ml Vial) 4 mg IV NOW STA Stop: 04/05/23 00:19 Last Admin: 04/05/23 00:40 Dose: 4 mg Documented By: SALVATORE Imaging Data Radiologist's Impression: Abdomen/Pelvis CT 04/05/23 00:19 Exam(s): CT ABDOMEN + PELVIS With Contrast IV Amt: 88 cc's optiray 320 EXAM: CT Abdomen and Pelvis With Intravenous Contrast CLINICAL HISTORY: Reason for exam: Abdominal pain. TECHNIQUE: Axial computed tomography images of the abdomen and pelvis with intravenous contrast. CTDI is 26.97 mGy and DLP is 1323.27 mGy-cm. Automated exposure control was utilized for the study. A dose lowering technique was utilized adhering to the principles of ALARA. CONTRAST: Patient received 88 cc's optiray 320 of IV contrast COMPARISON: 02/27/2023. FINDINGS: Lung bases: Trace left lower lobe atelectasis. Heart: Unremarkable. No cardiomegaly. No significant pericardial effusion. Normal cardiac size. ABDOMEN: Liver: Unremarkable. No mass. Gallbladder and bile ducts: Status post cholecystectomy. No ductal dilation. Pancreas: Unremarkable. No mass. No ductal dilation. Spleen: Unremarkable. No splenomegaly. Adrenals: Unremarkable. No mass. Kidneys and ureters: Stone within the middle pole of the right kidney with adjacent cortical scarring, measuring 10.4 mm. Otherwise normal right kidney. Normal left kidney. No hydronephrosis. Stomach and bowel: Postoperative changes at the level of the cecum and distal ileum. Diffuse small bowel wall distention reaching a maximum diameter of 3.2 cm suggestive of small bowel obstruction, also no transition indeterminate and likely in the distal ileum/colonic anastomosis. The colon is decompressed. No mucosal thickening. PELVIS: Appendix: No findings to suggest acute appendicitis. Bladder: Unremarkable. No mass. Reproductive: Anteverted uterus. ABDOMEN and PELVIS: Intraperitoneal space: Unremarkable. No free air. No significant fluid collection. Bones/joints: Degenerative disease of the spine. No acute fracture. No dislocation. Soft tissues: Unremarkable. Vasculature: Calcified atherosclerotic disease of aorta with no aneurysm or dissection. Lymph nodes: Unremarkable. No enlarged lymph nodes. IMPRESSION: 1. Diffuse small bowel dilatation highly concerning for small bowel obstruction with zone of transition in the distal ileum colonic anastomosis and decompression of the colon diffusely. 2. Calcification within the right kidney suggestive of a stone measuring 10.4 mm with adjacent scarring. Status post cholecystectomy, otherwise unremarkable abdominal viscera. Electronically signed by: Barbara Patel MD 04/05/23 03:07 AM Discharge Plan Visit Data Chief Complaint: Abdominal Pain Stated Complaint: BURNING ABD PAIN,VOMITING ED Provider: Mery Saavedra ED Midlevel Provider: Criselda Chavira Discharge Problem: Small bowel obstruction, Crohn's ileitis Patient Disposition: Admitted As Inpatient Discharge Instructions Interventions: ED Discharge Assessment Last Done: 04/05/23 05:51 Discharge Problem: Crohn's ileitis Qualifiers: Digestive disease complication type: with intestinal obstruction Qualified Code(s): K50.012 - Crohn's disease of small intestine with intestinal obstruction
[2023-04-05] MEDS: SODIUM CHLORIDE 0.9% 1,000 ML IV STA (00:38)
[2023-04-05] MEDS: ONDANSETRON INJ 2 MG/ML 2 ML VIAL IV STA (00:40)
[2023-04-05] MEDS: ACETAMINOPHEN 1,000 MG/100 ML VIAL IV STA (00:42)
[2023-04-05 00:52] LABS: Hematocrit (blood only) 38.5 % (37.0-47.0); Hemoglobin 13.8 g/dl (12.0-16.0); Mean Corpuscular Hemoglobin 32.2 pg (25.0-34.0); Mean Corpuscular Hgb Conc 35.8 g/dL (32.0-36.0); Mean Platelet Volume 9.9 fL (9.4-12.4); Platelet Count 252 K/uL (130-400); RDW Coefficient of Variation 14.8 % (11.5-14.5); RDW Standard Deviation 48.8 fL (36.4-46.3); Red Blood Count 4.28 M/uL (4.20-5.40); White Blood Count 13.02 K/ul (4.8-10.8)
[2023-04-05 01:06] LABS: Alanine Aminotransferase 26 U/L (7-52); Albumin Globulin Ratio 1.7 (0.9-2); Alkaline Phosphatase 118 U/L (34-104); Anion Gap 12 (3-11); Aspartate Aminotransferase 32 U/L (13-39); Bilirubin,Total 1.3 mg/dl (0.2-1.0); Blood Urea Nitrogen 13 mg/dl (6-23); Calcium 10.1 mg/dl (8.6-10.3); Carbon Dioxide 24 mmol/L (21-32); Chloride 102 mmol/L (98-107); Creatinine Clr Calc Pharmacy 53.9 ml/min; Est GFR (African American) 61.1 ml/min; Est GFR (Non-African American) 52.7 ml/min; Glucose 158 mg/dl (70-99(Fasting)); Lipase 26 U/L (11-82); Potassium 3.7 mmol/L (3.5-5.1); Sodium 138 mmol/L (136-145)
[2023-04-05 01:12] LABS: Troponin I High Sensitivity < 2.3 pg/ml (0-14)
[2023-04-05 01:22] LABS: Partial Thromboplastin Time 29 Seconds (21-31); Prothrombin Time 11.1 Seconds (9.0-12.0)
[2023-04-05 01:29] LABS: Influenza A virus by PCR Negative (Neg); Influenza B virus by PCR Negative (Neg); RSV by PCR Negative (Neg); SARS CoV2 RNA(COVID-19) Ceph NEGATIVE (Negative)
[2023-04-05] MEDS: OPTIRAY 320 500ml IV ONE (01:39)
[2023-04-05] MEDS: MoRPHine SULFATE 4 MG/ML 1 ML CARP\\VIAL IV STA (02:45)
--- NOTE | 2023-04-05 03:08 | CT Scan Report ---
Exam(s): CT ABDOMEN + PELVIS With Contrast IV Amt: 88 cc's optiray 320 EXAM: CT Abdomen and Pelvis With Intravenous Contrast CLINICAL HISTORY: Reason for exam: Abdominal pain. TECHNIQUE: Axial computed tomography images of the abdomen and pelvis with intravenous contrast. CTDI is 26.97 mGy and DLP is 1323.27 mGy-cm. Automated exposure control was utilized for the study. A dose lowering technique was utilized adhering to the principles of ALARA. CONTRAST: Patient received 88 cc's optiray 320 of IV contrast COMPARISON: 02/27/2023. FINDINGS: Lung bases: Trace left lower lobe atelectasis. Heart: Unremarkable. No cardiomegaly. No significant pericardial effusion. Normal cardiac size. ABDOMEN: Liver: Unremarkable. No mass. Gallbladder and bile ducts: Status post cholecystectomy. No ductal dilation. Pancreas: Unremarkable. No mass. No ductal dilation. Spleen: Unremarkable. No splenomegaly. Adrenals: Unremarkable. No mass. Kidneys and ureters: Stone within the middle pole of the right kidney with adjacent cortical scarring, measuring 10.4 mm. Otherwise normal right kidney. Normal left kidney. No hydronephrosis. Stomach and bowel: Postoperative changes at the level of the cecum and distal ileum. Diffuse small bowel wall distention reaching a maximum diameter of 3.2 cm suggestive of small bowel obstruction, also no transition indeterminate and likely in the distal ileum/colonic anastomosis. The colon is decompressed. No mucosal thickening. PELVIS: Appendix: No findings to suggest acute appendicitis. Bladder: Unremarkable. No mass. Reproductive: Anteverted uterus. ABDOMEN and PELVIS: Intraperitoneal space: Unremarkable. No free air. No significant fluid collection. Bones/joints: Degenerative disease of the spine. No acute fracture. No dislocation. Soft tissues: Unremarkable. Vasculature: Calcified atherosclerotic disease of aorta with no aneurysm or dissection. Lymph nodes: Unremarkable. No enlarged lymph nodes. IMPRESSION: 1. Diffuse small bowel dilatation highly concerning for small bowel obstruction with zone of transition in the distal ileum colonic anastomosis and decompression of the colon diffusely. 2. Calcification within the right kidney suggestive of a stone measuring 10.4 mm with adjacent scarring. Status post cholecystectomy, otherwise unremarkable abdominal viscera. Electronically signed by: Barbara Patel MD 04/05/23 03:07 AM
[2023-04-05 03:39] LABS: Magnesium 1.8 mg/dl (1.7-2.4)
--- NOTE | 2023-04-05 04:00 | History & Physical Report ---
Date of Service April 05, 2023 Assessment & Plan (1) Small bowel obstruction: Plan: 67yo female with history of Crohns ileitis s/p prior bowel resection with anastomotic stricture s/p dilation - last performed June 2022. Patient presenting with acute onset abdominal pain with nausea and vomiting. Found to have SBO with transition point likely at anastomosis. Concern for progression of stricture. Patient is fairly comfortable at present. No nausea or bloating -Admit to medical -NGT to LIWS -Dilaudid PRN pain -Zofran PRN nausea -IVF and electrolyte repletion -GI consultation appreciated. Patient follows with Dr. Campbell (2) Crohn's ileitis: Plan: Patient with history of Crohns on 6-mercaptopurine and Entyvio -Continue 6-mercaptopurine -GI consultation appreciated -Will hold steroids for now (3) GERD (gastroesophageal reflux disease): Plan: Chronic. Stable. Patient just reduced her dose of Protonix and reports that her heartburn symptoms are overall well controlled -Protonix 40mg IV daily (4) Paroxysmal atrial fibrillation: Plan: Rate controlled. On Anticoagulation with Apixaban -Hold Apixaban -Lovenox 1mg/kg BID for now -Continue metoprolol -Continue Diltiazem History of Present Illness Chief Complaint: abdominal pain Primary Care Provider: Jet Leon MD Neena Merida is a pleasant 67yo female with history of Crohns disease on Mercaptopurine and Entyvio, s/p bowel resection with ileocolonic anastomosis with prior anastomotic strictures requiring dilation - last in June 2022 presenting with sudden onset of abdominal pain, nausea and vomiting that began today around 16:00. She took sublingual Zofran and Pepcid with minimal improvement. His symptoms persist - dull aching pain with soreness. Patient is not passing gas. Last BM was this AM She denies chest pain, SOB, fever, chills, cough. No additional complaints at this time. In the ER she is afebrile, HD stable, ,NAD CT of the abdomen performed which revealed an SBO with zone of the transition in the distal ileum ER Course: NSS x 1L Zofran 4mg IV Tylenol 1gm IV Morphine 4mg IV Allergies Allergy/AdvReac Type Severity Reaction Status Date / Time infliximab Allergy Severe PALPITATIONS, Verified 04/05/23 00:48 SOB, FLUSHING lactose Allergy Intermediate LACTOSE Verified 04/05/23 00:48 INTOLERANT mushroom Allergy Intermediate GI SYMPTOMS Verified 04/05/23 00:48 nickel Allergy Mild SKIN Verified 04/05/23 00:48 REACTION morphine AdvReac Intermediate HALLUCINATI Verified 04/05/23 00:48 ONS prednisone AdvReac Intermediate MOOD Verified 04/05/23 00:48 CHANGES Home Medications Medication Instructions Recorded Confirmed Type multivitamin (Multiple Vitamins 1 tab PO QAM 10/06/18 04/05/23 History tablet) cholecalciferol (vitamin D3) 125 5,000 units PO QAM 11/08/18 04/05/23 History mcg (5,000 unit) capsule cyanocobalamin (vitamin B-12) 1,000 mcg IM MONTHLY 04/11/19 04/05/23 History 1,000 mcg/mL injection kit Bifidobacterium infantis 4 mg 4 mg PO QAM 07/01/19 04/05/23 History capsule (Align) calcium carb 300 mg-D3 20 mcg-mag 1 tab PO BID 07/01/19 04/05/23 History ox 25 mg-scleroscope tester 0.5 [id number] tablet (Caltrate-D3 Plus Minerals) krill 500 mg-omega 3 115 mg-dha 30 1 cap PO QAM 07/01/19 04/05/23 History mg-epa 64 kk-vnjioih-bszfp capsule (MegaRed [place]-3 Krill Oil) vedolizumab 300 mg intravenous 300 mg IV .every 8 weeks 04/15/21 04/05/23 History solution (Entyvio) metoprolol tartrate 25 mg tablet 25 mg PO Q6H PRN palpitations 90 05/06/22 04/05/23 Rx days #30 tabs [id number]-[id number] 1 tab PO DIRECTED PRN Migraine 07/14/22 04/05/23 History 50 mg-325 mg-40 mg tablet Headache pantoprazole 20 mg tablet,delayed 20 mg PO DAILY #90 tabs 02/05/23 04/05/23 Rx release diltiazem HCl 240 mg 240 mg PO QAM #90 caps 02/09/23 04/05/23 Rx capsule,extended release 24 hr, controlled apixaban 5 mg tablet (Eliquis) 5 mg PO BID #180 tabs 02/19/23 04/05/23 Rx mercaptopurine 50 mg tablet 50 mg PO QAM 02/27/23 04/05/23 History potassium chloride 10 mEq 10 meq PO QAM 02/27/23 04/05/23 History tablet,extended release(part/cryst) (Klor-Con M) magnesium chloride 64 mg 64 mg PO HS 04/05/23 04/05/23 History (magnesium chloride) tablet,delayed release (Mag 64) vitamin E 268 mg (400 unit) capsule 268 mg PO DAILY 04/05/23 04/05/23 History Past Med/Surg History Medical History UTI (urinary tract infection) Hydronephrosis concurrent with and due to calculi of kidney and ureter History of colon polyps Kidney stones CURRENT/NO ISSUES WITH AT PRESENT TIME. Fracture of right tibial plateau HX AGE 9 AND IN 2021. NO SURGICAL INTERVENTION. Crohns disease History of kidney stones Hx of pancreatitis Hx of squamous cell carcinoma Iron deficiency anemia HX OF Temporomandibular joint disorder CLICKING/NO LOCKING Hx of small bowel obstruction Hx of migraines Asthma VERY MILD (NO INHALER USED) Palpitations REASON FOR PRN METOPROLOL Osteopenia Chronic gastritis Atrial fibrillation with RVR DX 2014 OR 2015. FOLLOWS WITH DR. SINGH. NO HX CARDIOVERSION. GERD (gastroesophageal reflux disease) HTN (hypertension) Surgical History History of surgery MULTIPLE REMOVAL OF SKIN CANCER SPOTS. History of Mohs surgery for squamous cell carcinoma in situ of skin History of anesthesia reaction WITH GENERAL ANESTHESIA>SHAKING AND COLD H/O foot surgery LEFT HEEL BONE GRAFT History of appendectomy History of esophagogastroduodenoscopy (EGD) (05/2013) H/O resection of small bowel History of colonoscopy (07/2020) History of cholecystectomy Family History Unknown Ankylosing spondylitis Lung cancer Aunt Breast cancer Mother Ovarian cancer, Onset Age: 43 rapid progressive, one year. Father Family history of diabetes mellitus Ankylosing spondylitis Aunt Inflammatory bowel disease Grandmother (Maternal) Lung cancer Grandmother (Paternal) Family history of diabetes mellitus Son Family history of colonic polyps Social History Smoking Status: Never smoker Second Hand Exposure: No; Do You Dip or Chew Tobacco: No; Hx Alcohol Use: Yes Alcohol type: wine and hard liquor Hx Substance Use: No Preferred Language: [place] Communication Ability: Effective Solution Designer Required: No Beliefs That Will Affect Care: None marital status: Current Living Situation: Spouse current occupational status: retired Feels Safe at Home: Yes Assistive Devices: Contacts and Glasses Review of Systems Review of Systems: All systems reviewed & are unremarkable except as noted in HPI & below Physical Exam Physical Exam: General: patient resting comfortably, non-toxic in appearance, AA&O x 4 Skin: warm, dry, intact, no rashes or lesions HEENT: NC/AT, PERRL, EOMI, anicteric sclera, conjunctiva without injection, external ear normal to inspection and nontender, nares patent, moist mucus membranes, dentition intact, no oropharyngeal lesions, neck supple, trachea midline, no LAD, no thyromegaly, no JVD Heart: +S1/S2, regular, no m/r/g Lungs: equal air entry bilaterally, no rales/rhonchi/wheezes Abd: +BS diminished, soft, diffusely tender without rebound, ND, no masses/organomegaly/ascites Ext: warm, 2+ pulses in UE/LE bilaterally, no clubbing/cyanosis or edema Neuro: nonfocal, patient AA&O x 4, speech intact, no facial droop, moving all extremities on command with equal strength 5/5 Results & Data Results & Data Vital Signs (Past 12 Hours) Vital Signs Temp Pulse Pulse Resp BP BP Pulse Ox 04/05/23 00:55 83 04/05/23 00:47 86 18 98 04/05/23 00:47 86 18 142/87 H 98 04/04/23 23:59 36.5 C 103 H 22 125/79 100 O2 Del Method 04/05/23 00:55 04/05/23 00:47 Room Air 04/05/23 00:47 Room Air 04/04/23 23:59 Room Air Laboratory Results Laboratory Results WBC 13.02 K/ul (4.8-10.8) H 04/05/23 00:33 RBC 4.28 M/uL (4.20-5.40) 04/05/23 00:33 Hgb 13.8 g/dl (12.0-16.0) 04/05/23 00:33 Hct 38.5 % (37.0-47.0) 04/05/23 00:33 MCV 90.0 fL (80.0-100.0) 04/05/23 00:33 MCH 32.2 pg (25.0-34.0) 04/05/23 00:33 MCHC 35.8 g/dL (32.0-36.0) 04/05/23 00:33 RDW Std Deviation 48.8 fL (36.4-46.3) H 04/05/23 00:33 RDW Coeff of Lina 14.8 % (11.5-14.5) H 04/05/23 00:33 Plt Count 252 K/uL (130-400) 04/05/23 00:33 MPV 9.9 fL (9.4-12.4) 04/05/23 00: PT 11.1 Seconds (9.0-12.0) 04/05/23 00:33 INR 1.0 (0.9-1.1) 04/05/23 00:33 APTT 29 Seconds (21-31) 04/05/23 00:33 PTT Ratio 1.0 04/05/23 00:33 Sodium 138 mmol/L (136-145) 04/05/23 00:33 Potassium 3.7 mmol/L (3.5-5.1) 04/05/23 00: Chloride 102 mmol/L (98-107) 04/05/23 00: Carbon Dioxide 24 mmol/L (21-32) 04/05/23 00:33 Anion Gap 12 (3-11) H 04/05/23 00:33 BUN 13 mg/dl (6-23) 04/05/23 00:33 Creatinine 1.08 mg/dl (0.6-1.2) 04/05/23 00:33 Est Cr Clr Drug Dosing 53.9 ml/min 04/05/23 00:33 Est GFR ( Amer) 61.1 ml/min 04/05/23 00:33 Est GFR (Non-Af Amer) 52.7 ml/min 04/05/23 00:33 BUN/Creatinine Ratio 12.0 (10-20) 04/05/23 00:33 Glucose 158 mg/dl (70-99(Fasting)) H 04/05/23 00:33 Calcium 10.1 mg/dl (8.6-10.3) 04/05/23 00:33 Magnesium 1.8 mg/dl (1.7-2.4) 04/05/23 00:33 Total Bilirubin 1.3 mg/dl (0.2-1.0) H 04/05/23 00:33 AST 32 U/L (13-39) 04/05/23 00:33 ALT 26 U/L (7-52) 04/05/23 00:33 Alkaline Phosphatase 118 U/L (34-104) H 04/05/23 00:33 Troponin I High Sens < 2.3 pg/ml (0-14) 04/05/23 00:33 Total Protein 8.0 gm/dl (6.0-8.3) 04/05/23 00:33 Albumin 5.0 gm/dl (3.4-5.0) 04/05/23 00:33 Globulin 3.0 gm/dl (2.5-4.0) 04/05/23 00:33 Albumin/Globulin Ratio 1.7 (0.9-2) 04/05/23 00:33 Lipase 26 U/L (11-82) 04/05/23 00:33 Urine Color Yellow 04/05/23 04:05 Urine Appearance Clear (Clear) 04/05/23 04:05 Urine pH 5.0 (4.5-7.5) 04/05/23 04:05 Ur Specific [place] 1.020 (1.000-1.030) 04/05/23 04:05 Urine Protein Negative (Negative) 04/05/23 04:05 Urine Glucose (UA) Negative (Negative) 04/05/23 04:05 Urine Ketones Negative (Negative) 04/05/23 04:05 Urine Blood 1+ (Negative) H 04/05/23 04:05 Urine Nitrite Negative (Negative) 04/05/23 04:05 Urine Bilirubin Negative (Negative) 04/05/23 04:05 Urine Urobilinogen Negative (Negative) 04/05/23 04:05 Ur Leukocyte Esterase Negative (Negative) 04/05/23 04:05 SARS-CoV-2 (PCR) NEGATIVE (Negative) 04/05/23 00:35 Influenza Type A (PCR) Negative (Neg) 04/05/23 00:35 Influenza Type B (PCR) Negative (Neg) 04/05/23 00:35 RSV (RT-PCR) Negative (Neg) 04/05/23 00:35 Impressions Abdomen/Pelvis CT 04/05/23 00:19 Exam(s): CT ABDOMEN + PELVIS With Contrast IV Amt: 88 cc's optiray 320 EXAM: CT Abdomen and Pelvis With Intravenous Contrast CLINICAL HISTORY: Reason for exam: Abdominal pain. TECHNIQUE: Axial computed tomography images of the abdomen and pelvis with intravenous contrast. CTDI is 26.97 mGy and DLP is 1323.27 mGy-cm. Automated exposure control was utilized for the study. A dose lowering technique was utilized adhering to the principles of ALARA. CONTRAST: Patient received 88 cc's optiray 320 of IV contrast COMPARISON: 02/27/2023. FINDINGS: Lung bases: Trace left lower lobe atelectasis. Heart: Unremarkable. No cardiomegaly. No significant pericardial effusion. Normal cardiac size. ABDOMEN: Liver: Unremarkable. No mass. Gallbladder and bile ducts: Status post cholecystectomy. No ductal dilation. Pancreas: Unremarkable. No mass. No ductal dilation. Spleen: Unremarkable. No splenomegaly. Adrenals: Unremarkable. No mass. Kidneys and ureters: Stone within the middle pole of the right kidney with adjacent cortical scarring, measuring 10.4 mm. Otherwise normal right kidney. Normal left kidney. No hydronephrosis. Stomach and bowel: Postoperative changes at the level of the cecum and distal ileum. Diffuse small bowel wall distention reaching a maximum diameter of 3.2 cm suggestive of small bowel obstruction, also no transition indeterminate and likely in the distal ileum/colonic anastomosis. The colon is decompressed. No mucosal thickening. PELVIS: Appendix: No findings to suggest acute appendicitis. Bladder: Unremarkable. No mass. Reproductive: Anteverted uterus. ABDOMEN and PELVIS: Intraperitoneal space: Unremarkable. No free air. No significant fluid collection. Bones/joints: Degenerative disease of the spine. No acute fracture. No dislocation. Soft tissues: Unremarkable. Vasculature: Calcified atherosclerotic disease of aorta with no aneurysm or dissection. Lymph nodes: Unremarkable. No enlarged lymph nodes. IMPRESSION: 1. Diffuse small bowel dilatation highly concerning for small bowel obstruction with zone of transition in the distal ileum colonic anastomosis and decompression of the colon diffusely. 2. Calcification within the right kidney suggestive of a stone measuring 10.4 mm with adjacent scarring. Status post cholecystectomy, otherwise unremarkable abdominal viscera. Electronically signed by: Barbara Patel MD 04/05/23 03:07 AM PG Care Time/CCT Total # of Minutes Spent Total Time Spent with Patient: Total time spent is greater than 50% in coordination of care (as documented) at patient's floor/unit and/or counseling patient: Coding Level of Care Code 61182 INT INP/OBS CARE 2/55MIN Diagnoses Small bowel obstruction K56.609 Crohn's disease of ileum with other complication K50.018 Digestive disease complication type: other complication GERD (gastroesophageal reflux disease) K21.9 Paroxysmal atrial fibrillation I48.0 (2) Crohn's ileitis Digestive disease complication type: other complication Qualified Code(s): K50.018 - Crohn's disease of small intestine with other complication
[2023-04-05 04:49] LABS: Appearance Urine Clear (Clear); Bilirubin Urine Negative (Negative); Blood Urine 1+ (Negative); Color Urine Yellow; Glucose Urine UA Negative (Negative); Ketones Urine Negative (Negative); Leukocyte Esterase Urine Negative (Negative); Nitrite Urine Negative (Negative); Protein Urine Negative (Negative); Urobilinogen Urine Negative (Negative)
--- NOTE | 2023-04-05 05:22 | Emergency Department Note ---
ED Visit Note I was consulted by the Advanced Practice Provider. I personally made/approved the management plan and take responsibility for the patient management. I performed a substantive portion of the visit. This includes the aspects of: -History/Physical/and I personally evaluated the patient -MDM -I independently interpreted the following studies: Chest x-ray and abdominal x- rays .
[2023-04-05 06:06] LABS: Calcium Oxalate Crystals Urine Present (None Prsent); Epithelial Cell Urine 0-5 /lpf (0-5)
[2023-04-05 06:07] LABS: Bacteria Urine Negative (Negative); WBC Urine 0-5 /hpf (0-5)
[2023-04-05] MEDS ORDERED: METOPROLOL TARTRATE 25 MG TAB PO PRN (06:12)
[2023-04-05] MEDS ORDERED: HYDROmorphone INJ 0.5 MG/0.5 ML SYR IV PRN ×3 (06:12→14:17)
[2023-04-05] MEDS ORDERED: ENOXAPARIN 1 MG/KG SC SCH (06:12)
[2023-04-05] MEDS: LACTATED RINGER'S 1,000 ML IV SCH (06:36)
[2023-04-05] MEDS: MAGNESIUM SULFATE / D5W 1 GM/100 ML BAG IV SCH (06:36)
[2023-04-05] MEDS: ENOXAPARIN 100 MG/1ML SYR SQ SCH (06:37)
--- NOTE | 2023-04-05 07:34 | XRay Report ---
XR chest 1V portable, XR KUB/Abdomen 1 view HISTORY: 67 years-old Female epigastric abdominal pain acute chest and upper abdominal pain COMPARISON: CT abdomen and pelvis of same day, chest radiograph 08/16/2015 TECHNIQUE: AP view the chest with KUB radiograph FINDINGS: CHEST: Cardiomediastinal and hilar silhouettes are unchanged. Mild linear subsegmental left basilar atelecta sis. No pneumothorax, pleural effusion or airspace consolidation. The bones appear grossly intact. KUB: 10 mm calcification of the superior pole right kidney. Cholecystectomy. No free air. Distal tip of en teric tube projects over the abdominal left upper quadrant, likely within the gastric body. The lower abdomen is excluded from the [id number]. Mildly dilated air-filled loops of small bowel measure u p to approximately 3 cm. IMPRESSION: 1. No acute process of the chest. 2. Distal tip of enteric tube projects over the gastric body. 3. Mildly dilated loops of small bowel are better evaluated on the same day CT abdomen and pelvis. ACT 112: Negative or not required by law. The above report was generated using voice recognition software. It may contain grammatical, syntax o r spelling errors. Electronically signed by: Ajit Thompson M.D. 04/05/2023 7:32 AM
--- NOTE | 2023-04-05 08:47 | Electrocardiogram Report ---
Test Reason : Blood Pressure : / mmHG Vent. Rate : 090 BPM Atrial Rate : 090 BPM P-R Int : 152 ms QRS Dur : 086 ms QT Int : 382 ms P-R-T Axes : 046 -42 048 degrees QTc Int : 467 ms Normal sinus rhythm Left axis deviation Poor R wave progression, consider anterior FL vs. lead placement vs. LVH Abnormal ECG When compared with ECG of 17-AUG-2015 07:28, PRWP now present Confirmed by Ashu Ghotra ([id number]) on 04/05/2023 8:47:16 AM Referred By: REFERRED SELF Confirmed By:Ashu Ghotra
--- NOTE | 2023-04-05 09:48 | Gastrointestinal Consultation ---
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 At this time I would just wait for NG suction to open up the obstruction if it will. She would prefer not to start steroids and I will let her have that discussion with Dr. Campbell and hold on the steroids for now. They also may want to discuss switching meds as well. She would prefer no surgery and I agree, however 80% of people with Crohn's who have surgery end up having subsequent surgical procedures. History of Present Illness Reason for Consultation: Crohn's, SBO Attending Physician: Preet Fernando MD History of Present Illness 67 year old female with lifelong Crohn's disease, s/p surgical resection in 1989. She has had issues with scarring at the anastamosis and was getting dilated every two years by Dr. Campbell. Last year he told her he wasn't able to dilate as much as he would have liked to. She has been on entyvio since 2019 and mercaptopurine forever. She hasn't really had may bad flares but will get some intermittent abdominal pain that she usually manages with dietary changes. Yesterday she started having cramping abdominal pain that evolved to include vomiting. She presented to ER and was found to have evidence of SBO on CT scan. She feels better now that she has NG tube in place. She denies abuse of NSAIDs. Allergies Allergy/AdvReac Type Severity Reaction Status Date / Time infliximab Allergy Severe PALPITATIONS, Verified 04/05/23 00:48 SOB, FLUSHING lactose Allergy Intermediate LACTOSE Verified 04/05/23 00:48 INTOLERANT mushroom Allergy Intermediate GI SYMPTOMS Verified 04/05/23 00:48 nickel Allergy Mild SKIN Verified 04/05/23 00:48 REACTION morphine AdvReac Intermediate HALLUCINATI Verified 04/05/23 00:48 ONS prednisone AdvReac Intermediate MOOD Verified 04/05/23 00:48 CHANGES Home Medications Medication Instructions Recorded Confirmed Type multivitamin (Multiple Vitamins 1 tab PO QAM 10/06/18 04/05/23 History tablet) cholecalciferol (vitamin D3) 125 5,000 units PO QAM 11/08/18 04/05/23 History mcg (5,000 unit) capsule cyanocobalamin (vitamin B-12) 1,000 mcg IM MONTHLY 04/11/19 04/05/23 History 1,000 mcg/mL injection kit Bifidobacterium infantis 4 mg 4 mg PO QAM 07/01/19 04/05/23 History capsule (Align) calcium carb 300 mg-D3 20 mcg-mag 1 tab PO BID 07/01/19 04/05/23 History ox 25 mg-senior copywriter 0.5 ok-hlqg-xkkk tablet (Caltrate-D3 Plus Minerals) krill 500 mg-omega 3 115 mg-dha 30 1 cap PO QAM 07/01/19 04/05/23 History mg-epa 64 jm-frfscmx-xbcry capsule (MegaRed [place]-3 Krill Oil) vedolizumab 300 mg intravenous 300 mg IV .every 8 weeks 04/15/21 04/05/23 History solution (Entyvio) metoprolol tartrate 25 mg tablet 25 mg PO Q6H PRN palpitations 90 05/06/22 04/05/23 Rx days #30 tabs grxnhtglhn-yffppboojkpiy-xuyjhtfe 1 tab PO DIRECTED PRN Migraine 07/14/22 04/05/23 History 50 mg-325 mg-40 mg tablet Headache pantoprazole 20 mg tablet,delayed 20 mg PO DAILY #90 tabs 02/05/23 04/05/23 Rx release diltiazem HCl 240 mg 240 mg PO QAM #90 caps 02/09/23 04/05/23 Rx capsule,extended release 24 hr, controlled apixaban 5 mg tablet (Eliquis) 5 mg PO BID #180 tabs 02/19/23 04/05/23 Rx mercaptopurine 50 mg tablet 50 mg PO QAM 02/27/23 04/05/23 History potassium chloride 10 mEq 10 meq PO QAM 02/27/23 04/05/23 History tablet,extended release(part/cryst) (Klor-Con M) magnesium chloride 64 mg 64 mg PO HS 04/05/23 04/05/23 History (magnesium chloride) tablet,delayed release (Mag 64) vitamin E 268 mg (400 unit) capsule 268 mg PO DAILY 04/05/23 04/05/23 History Patient History Medical History UTI (urinary tract infection) Hydronephrosis concurrent with and due to calculi of kidney and ureter History of colon polyps Kidney stones CURRENT/NO ISSUES WITH AT PRESENT TIME. Fracture of right tibial plateau HX AGE 9 AND IN 2021. NO SURGICAL INTERVENTION. Crohns disease History of kidney stones Hx of pancreatitis Hx of squamous cell carcinoma Iron deficiency anemia HX OF Temporomandibular joint disorder CLICKING/NO LOCKING Hx of small bowel obstruction Hx of migraines Asthma VERY MILD (NO INHALER USED) Palpitations REASON FOR PRN METOPROLOL Osteopenia Chronic gastritis Atrial fibrillation with RVR DX 2014 OR 2015. FOLLOWS WITH [address]. SINGH. NO HX CARDIOVERSION. GERD (gastroesophageal reflux disease) HTN (hypertension) Surgical History History of surgery MULTIPLE REMOVAL OF SKIN CANCER SPOTS. History of Mohs surgery for squamous cell carcinoma in situ of skin History of anesthesia reaction WITH GENERAL ANESTHESIA>SHAKING AND COLD H/O foot surgery LEFT HEEL BONE GRAFT History of appendectomy History of esophagogastroduodenoscopy (EGD) (05/2013) H/O resection of small bowel History of colonoscopy (07/2020) History of cholecystectomy Family History Unknown Ankylosing spondylitis Lung cancer Aunt Breast cancer Mother Ovarian cancer, Onset Age: 43 rapid progressive, one year. Father Family history of diabetes mellitus Ankylosing spondylitis Aunt Inflammatory bowel disease Grandmother (Maternal) Lung cancer Grandmother (Paternal) Family history of diabetes mellitus Son Family history of colonic polyps Social History Smoking Status: Never smoker Second Hand Exposure: No; Do You Dip or Chew Tobacco: No; Tobacco Cessation Education Requested by Patient: No Hx Alcohol Use: Yes Alcohol type: wine and hard liquor Hx Substance Use: No Preferred Language: Hungarian Communication Ability: Effective Dock Manager Required: No Beliefs That Will Affect Care: None marital status: Current Living Situation: Spouse current occupational status: retired Other Information That Helps Us Care for You: No Feels Safe at Home: Yes Safety Concerns: Feels Safe At This Time Assistive Devices: Contacts and Glasses Review of Systems Review of Systems: All systems reviewed & are unremarkable except as noted in HPI & below Physical Exam Constitutional: WD/WN, vitals as above Eyes: PERRL, conjunctivae normal, anicteric sclerae Neck: trachea midline, no thyromegaly Respiratory: normal respiratory effort, lungs clear to auscultation Cardiovascular: RRR, no murmur, no edema Gastrointestinal (Abdomen): Inspection/Auscultation: abdomen normal to inspection Percussion/Palpation: + abdomen tender (diffusely) and abdomen soft; no hepatosplenomegaly Results & Data Vital Signs (Past 12 Hours) Vital Signs Temp Pulse Pulse Pulse Resp BP BP 04/05/23 06:20 36.8 C 101 H 16 146/79 H 04/05/23 05:51 94 H 18 132/73 04/05/23 05:00 96 H 04/05/23 03:50 94 H 17 04/05/23 03:40 97 H 26 H 04/05/23 03:30 124/77 04/05/23 03:30 89 12 04/05/23 03:20 90 17 04/05/23 03:10 83 15 04/05/23 03:01 101 H 36 H 04/05/23 03:01 186/96 H 04/05/23 03:00 105 H 39 H 04/05/23 02:50 93 H 20 04/05/23 02:40 78 18 04/05/23 02:30 128/78 04/05/23 02:30 75 20 04/05/23 02:20 77 17 04/05/23 02:10 76 17 04/05/23 02:00 78 17 04/05/23 02:00 118/72 04/05/23 01:50 80 13 04/05/23 01:20 82 17 04/05/23 01:10 81 20 04/05/23 01:00 139/81 04/05/23 01:00 83 18 04/05/23 00:55 82 16 04/05/23 00:55 83 04/05/23 00:47 86 18 04/05/23 00:47 86 18 142/87 H 04/04/23 23:59 36.5 C 103 H 22 125/79 Pulse Ox O2 Del Method 04/05/23 06:20 100 Room Air 04/05/23 05:51 95 Room Air 04/05/23 05:00 04/05/23 03:50 93 04/05/23 03:40 97 04/05/23 03:30 04/05/23 03:30 95 04/05/23 03:20 95 04/05/23 03:10 97 04/05/23 03:01 90 04/05/23 03:01 04/05/23 03:00 98 04/05/23 02:50 99 04/05/23 02:40 93 04/05/23 02:30 04/05/23 02:30 95 04/05/23 02:20 97 04/05/23 02:10 94 04/05/23 02:00 95 04/05/23 02:00 04/05/23 01:50 98 04/05/23 01:20 95 04/05/23 01:10 95 04/05/23 01:00 04/05/23 01:00 95 04/05/23 00:55 97 04/05/23 00:55 04/05/23 00:47 98 Room Air 04/05/23 00:47 98 Room Air 04/04/23 23:59 100 Room Air Laboratory Results Laboratory Results WBC 13.02 K/ul (4.8-10.8) H 04/05/23 00:33 RBC 4.28 M/uL (4.20-5.40) 04/05/23 00:33 Hgb 13.8 g/dl (12.0-16.0) 04/05/23 00:33 Hct 38.5 % (37.0-47.0) 04/05/23 00:33 MCV 90.0 fL (80.0-100.0) 04/05/23 00:33 MCH 32.2 pg (25.0-34.0) 04/05/23 00:33 MCHC 35.8 g/dL (32.0-36.0) 04/05/23 00:33 RDW Std Deviation 48.8 fL (36.4-46.3) H 04/05/23 00:33 RDW Coeff of Lina 14.8 % (11.5-14.5) H 04/05/23 00:33 Plt Count 252 K/uL (130-400) 04/05/23 00:33 MPV 9.9 fL (9.4-12.4) 04/05/23 00:33 PT 11.1 Seconds (9.0-12.0) 04/05/23 00:33 INR 1.0 (0.9-1.1) 04/05/23 00:33 APTT 29 Seconds (21-31) 04/05/23 00:33 PTT Ratio 1.0 04/05/23 00:33 Sodium 138 mmol/L (136-145) 04/05/23 00:33 Potassium 3.7 mmol/L (3.5-5.1) 04/05/23 00:33 Chloride 102 mmol/L (98-107) 04/05/23 00:33 Carbon Dioxide 24 mmol/L (21-32) 04/05/23 00:33 Anion Gap 12 (3-11) H 04/05/23 00:33 BUN 13 mg/dl (6-23) 04/05/23 00:33 Creatinine 1.08 mg/dl (0.6-1.2) 04/05/23 00:33 Est Cr Clr Drug Dosing 53.9 ml/min 04/05/23 00:33 Est GFR ( Amer) 61.1 ml/min 04/05/23 00:33 Est GFR (Non-Af Amer) 52.7 ml/min 04/05/23 00:33 BUN/Creatinine Ratio 12.0 (10-20) 04/05/23 00:33 Glucose 158 mg/dl (70-99(Fasting)) H 04/05/23 00:33 Calcium 10.1 mg/dl (8.6-10.3) 04/05/23 00:33 Magnesium 1.8 mg/dl (1.7-2.4) 04/05/23 00:33 Total Bilirubin 1.3 mg/dl (0.2-1.0) H 04/05/23 00:33 AST 32 U/L (13-39) 04/05/23 00:33 ALT 26 U/L (7-52) 04/05/23 00:33 Alkaline Phosphatase 118 U/L (34-104) H 04/05/23 00:33 Troponin I High Sens < 2.3 pg/ml (0-14) 04/05/23 00:33 Total Protein 8.0 gm/dl (6.0-8.3) 04/05/23 00:33 Albumin 5.0 gm/dl (3.4-5.0) 04/05/23 00:33 Globulin 3.0 gm/dl (2.5-4.0) 04/05/23 00:33 Albumin/Globulin Ratio 1.7 (0.9-2) 04/05/23 00:33 Lipase 26 U/L (11-82) 04/05/23 00:33 Urine Color Yellow 04/05/23 04:05 Urine Appearance Clear (Clear) 04/05/23 04:05 Urine pH 5.0 (4.5-7.5) 04/05/23 04:05 Ur Specific [place] 1.020 (1.000-1.030) 04/05/23 04:05 Urine Protein Negative (Negative) 04/05/23 04:05 Urine Glucose (UA) Negative (Negative) 04/05/23 04:05 Urine Ketones Negative (Negative) 04/05/23 04:05 Urine Blood 1+ (Negative) H 04/05/23 04:05 Urine Nitrite Negative (Negative) 04/05/23 04:05 Urine Bilirubin Negative (Negative) 04/05/23 04:05 Urine Urobilinogen Negative (Negative) 04/05/23 04:05 Ur Leukocyte Esterase Negative (Negative) 04/05/23 04:05 Urine RBC 10-30 /hpf (0-4) H 04/05/23 04:05 Urine WBC 0-5 /hpf (0-5) 04/05/23 04:05 Ur Epithelial Cells 0-5 /lpf (0-5) 04/05/23 04:05 Calcium Oxalate Crystal Present (None Prsent) A 04/05/23 04:05 Urine Bacteria Negative (Negative) 04/05/23 04:05 SARS-CoV-2 (PCR) NEGATIVE (Negative) 04/05/23 00:35 Influenza Type A (PCR) Negative (Neg) 04/05/23 00:35 Influenza Type B (PCR) Negative (Neg) 04/05/23 00:35 RSV (RT-PCR) Negative (Neg) 04/05/23 00:35 Impressions Chest X-Ray 04/05/23 00:18 XR chest 1V portable, XR KUB/Abdomen 1 view HISTORY: 67 years-old Female epigastric abdominal pain acute chest and upper abdominal pain COMPARISON: CT abdomen and pelvis of same day, chest radiograph 08/16/2015 TECHNIQUE: AP view the chest with KUB radiograph FINDINGS: CHEST: Cardiomediastinal and hilar silhouettes are unchanged. Mild linear subsegmental left basilar atelectasis. No pneumothorax, pleural effusion or airspace consolidation. The bones appear grossly intact. KUB: 10 mm calcification of the superior pole right kidney. Cholecystectomy. No free air. Distal tip of enteric tube projects over the abdominal left upper quadrant, likely within the gastric body. The lower abdomen is excluded from the field -of-view. Mildly dilated air-filled loops of small bowel measure up to approximately 3 cm. IMPRESSION: 1. No acute process of the chest. 2. Distal tip of enteric tube projects over the gastric body. 3. Mildly dilated loops of small bowel are better evaluated on the same day CT abdomen and pelvis. ACT 112: Negative or not required by law. The above report was generated using voice recognition software. It may contain grammatical, syntax or spelling errors. Electronically signed by: Ajit Thompson M.D. 04/05/2023 7:32 AM Abdomen/Pelvis CT 04/05/23 00:19 Exam(s): CT ABDOMEN + PELVIS With Contrast IV Amt: 88 cc's optiray 320 EXAM: CT Abdomen and Pelvis With Intravenous Contrast CLINICAL HISTORY: Reason for exam: Abdominal pain. TECHNIQUE: Axial computed tomography images of the abdomen and pelvis with intravenous contrast. CTDI is 26.97 mGy and DLP is 1323.27 mGy-cm. Automated exposure control was utilized for the study. A dose lowering technique was utilized adhering to the principles of ALARA. CONTRAST: Patient received 88 cc's optiray 320 of IV contrast COMPARISON: 02/27/2023. FINDINGS: Lung bases: Trace left lower lobe atelectasis. Heart: Unremarkable. No cardiomegaly. No significant pericardial effusion. Normal cardiac size. ABDOMEN: Liver: Unremarkable. No mass. Gallbladder and bile ducts: Status post cholecystectomy. No ductal dilation. Pancreas: Unremarkable. No mass. No ductal dilation. Spleen: Unremarkable. No splenomegaly. Adrenals: Unremarkable. No mass. Kidneys and ureters: Stone within the middle pole of the right kidney with adjacent cortical scarring, measuring 10.4 mm. Otherwise normal right kidney. Normal left kidney. No hydronephrosis. Stomach and bowel: Postoperative changes at the level of the cecum and distal ileum. Diffuse small bowel wall distention reaching a maximum diameter of 3.2 cm suggestive of small bowel obstruction, also no transition indeterminate and likely in the distal ileum/colonic anastomosis. The colon is decompressed. No mucosal thickening. PELVIS: Appendix: No findings to suggest acute appendicitis. Bladder: Unremarkable. No mass. Reproductive: Anteverted uterus. ABDOMEN and PELVIS: Intraperitoneal space: Unremarkable. No free air. No significant fluid collection. Bones/joints: Degenerative disease of the spine. No acute fracture. No dislocation. Soft tissues: Unremarkable. Vasculature: Calcified atherosclerotic disease of aorta with no aneurysm or dissection. Lymph nodes: Unremarkable. No enlarged lymph nodes. IMPRESSION: 1. Diffuse small bowel dilatation highly concerning for small bowel obstruction with zone of transition in the distal ileum colonic anastomosis and decompression of the colon diffusely. 2. Calcification within the right kidney suggestive of a stone measuring 10.4 mm with adjacent scarring. Status post cholecystectomy, otherwise unremarkable abdominal viscera. Electronically signed by: Barbara Patel MD 04/05/23 03:07 AM KUB X-Ray 04/05/23 04:10 XR chest 1V portable, XR KUB/Abdomen 1 view HISTORY: 67 years-old Female epigastric abdominal pain acute chest and upper abdominal pain COMPARISON: CT abdomen and pelvis of same day, chest radiograph 08/16/2015 TECHNIQUE: AP view the chest with KUB radiograph FINDINGS: CHEST: Cardiomediastinal and hilar silhouettes are unchanged. Mild linear subsegmental left basilar atelectasis. No pneumothorax, pleural effusion or airspace consolidation. The bones appear grossly intact. KUB: 10 mm calcification of the superior pole right kidney. Cholecystectomy. No free air. Distal tip of enteric tube projects over the abdominal left upper quadrant, likely within the gastric body. The lower abdomen is excluded from the [id number]. Mildly dilated air-filled loops of small bowel measure up to approximately 3 cm.
[2023-04-05] MEDS: dilTIAZem HCL 240 MG CAPCR PO SCH (10:31)
[2023-04-05] MEDS: MERCAPTOPURINE 50 MG TAB PO SCH (10:31)
[2023-04-05] MEDS: PANTOprazole 40 MG in SYRINGE 0 ML IV SCH (10:32)
--- NOTE | 2023-04-05 14:18 | Hospitalist Progress Note ---
Date of Service April 05, 2023 Assessment & Plan (1) Small bowel obstruction: Plan: 67yo female with history of Crohns ileitis s/p prior bowel resection with anastomotic stricture s/p dilation - last performed June 2022. Patient presenting with acute onset abdominal pain with nausea and vomiting. Found to have SBO with transition point likely at anastomosis. Concern for progression of stricture. Patient is fairly comfortable at present. No nausea or bloating -Admit to medical -NGT to LIWS -Dilaudid PRN pain -Zofran PRN nausea -IVF and electrolyte repletion -GI consultation appreciated. Patient follows with Dr. Campbell hopeful to have dilation again (2) Crohn's ileitis: Plan: Patient with history of Crohns on 6-mercaptopurine and Entyvio -hold 6-mercaptopurine and entyvio -GI consultation appreciated (3) GERD (gastroesophageal reflux disease): Plan: Chronic. Stable. Patient just reduced her dose of Protonix and reports that her heartburn symptoms are overall well controlled -Protonix 40mg IV daily (4) Paroxysmal atrial fibrillation: Plan: Rate controlled. On Anticoagulation with Apixaban -Hold Apixaban -Lovenox 1mg/kg BID for now - -Continue Diltiazem Admission and Anticipated Discharge Date Admission Date: April 05, 2023 Subjective pt is with persistent abdominal pain, ngt to LIS, no flatus no bm hopeful to see if Dr Campbell will dilate anastomosis again Physical Exam Physical Exam: Pt is awake and alert abd is with hypoactive bowel sounds tympanitic, tender no rebound no guarding Results & Data Results & Data Vital Signs (Past 12 Hours) Vital Signs Temp Pulse Pulse Resp BP BP Pulse Ox 04/05/23 06:20 98.2 F 101 H 16 146/79 H 100 04/05/23 05:51 94 H 18 132/73 95 04/05/23 05:00 96 H 04/05/23 03:50 94 H 17 93 04/05/23 03:40 97 H 26 H 97 04/05/23 03:30 124/77 04/05/23 03:30 89 12 95 04/05/23 03:20 90 17 95 04/05/23 03:10 83 15 97 04/05/23 03:01 101 H 36 H 90 04/05/23 03:01 186/96 H 04/05/23 03:00 105 H 39 H 98 04/05/23 02:50 93 H 20 99 04/05/23 02:40 78 18 93 04/05/23 02:30 128/78 04/05/23 02:30 75 20 95 04/05/23 02:20 77 17 97 O2 Del Method 04/05/23 06:20 Room Air 04/05/23 05:51 Room Air 04/05/23 05:00 04/05/23 03:50 04/05/23 03:40 04/05/23 03:30 04/05/23 03:30 04/05/23 03:20 04/05/23 03:10 04/05/23 03:01 04/05/23 03:01 04/05/23 03:00 04/05/23 02:50 04/05/23 02:40 04/05/23 02:30 04/05/23 02:30 04/05/23 02:20 Laboratory Results review cbc review chemistry PG Care Time/CCT Total # of Minutes Spent Total Time Spent with Patient: Total time spent is greater than 50% in coordination of care (as documented) at patient's floor/unit and/or counseling patient: Coding Level of Care Code 18567 SUB INP/OBS CARE 2/35MIN Diagnoses Small bowel obstruction K56.609 Crohn's disease of ileum with other complication K50.012 Digestive disease complication type: with intestinal obstruction GERD (gastroesophageal reflux disease) K21.9 Paroxysmal atrial fibrillation I48.0 (2) Crohn's ileitis Digestive disease complication type: with intestinal obstruction Qualified Code(s): K50.012 - Crohn's disease of small intestine with intestinal obs truction
[2023-04-05] MEDS ORDERED: FIRST - Mouthwash BLM 119 ML PO PRN (14:26)
[2023-04-05] MEDS: HYDROmorphone INJ 0.5 MG/0.5 ML SYR IV PRN (15:42)
[2023-04-05] MEDS: ONDANSETRON INJ 2 MG/ML 2 ML VIAL IV PRN (19:48)
[2023-04-06 06:30] LABS: Hematocrit (blood only) 33.6 % (37.0-47.0); Hemoglobin 11.9 g/dl (12.0-16.0); Mean Corpuscular Hemoglobin 32.6 pg (25.0-34.0); Mean Corpuscular Hgb Conc 35.4 g/dL (32.0-36.0); Mean Corpuscular Volume 92.1 fL (80.0-100.0); Mean Platelet Volume 10.2 fL (9.4-12.4); Platelet Count 185 K/uL (130-400); RDW Coefficient of Variation 14.5 % (11.5-14.5); RDW Standard Deviation 48.9 fL (36.4-46.3); Red Blood Count 3.65 M/uL (4.20-5.40); White Blood Count 7.26 K/ul (4.8-10.8)
[2023-04-06 06:45] LABS: Albumin Level 3.6 gm/dl (3.4-5.0); BUN Creatinine Ratio 14.1 (10-20); Bilirubin Direct 0.3 mg/dl (0-0.2); Bilirubin,Total 1.2 mg/dl (0.2-1.0); Calcium 8.2 mg/dl (8.6-10.3); Creatinine Clr Calc Pharmacy 81.1 ml/min; Est GFR (African American) 101.4 ml/min; Est GFR (Non-African American) 87.5 ml/min; Potassium 3.5 mmol/L (3.5-5.1); Total Protein 5.8 gm/dl (6.0-8.3)
[2023-04-06] MEDS: SODIUM CHLORIDE 0.9% 500 ML IV SCH (07:43)
--- NOTE | 2023-04-06 10:19 | Gastroenterology Progress Note ---
Date of Service April 06, 2023 Assessment & Plan (1) Small bowel obstruction: (2) Crohn's ileitis: Plan Discussed case with Dr. Barton who advised on plan. - keep NPO. - Will continue to see how she does with NG. - will start IV solumedrol 30mg bid. - recommend surgical consultation in case surgery is needed. if she does not requite surgery while inpatient, would consider colorectal surgery evaluation as outpatient given anastomotic stricture. - Discussed with Dr. Campbell. At this time, would not perform a colonoscopy with dilation given active SBO. Can be set up as outpatient once SBO has resolved. Admission and Anticipated Discharge Date Admission Date: April 05, 2023 Supervising Physician Co-Signing Physician Notes I saw the patient and agree with the findings as documented by Garland Chase PAC Subjective Patient tells me she feels slightly better today in regards to pain though still some epigastric discomfort. she has NG to suction. she tells me that last evening she did have some nausea and had an episode of emesis. she has not had any bowel movements or passed gas yet. currently resting comfortably in bed. Review of Systems Review of Systems: All systems reviewed & are unremarkable except as noted in HPI & below Physical Exam Constitutional: WD/WN, vitals as above Respiratory: normal respiratory effort, lungs clear to auscultation Cardiovascular: RRR, no murmur, no edema Gastrointestinal (Abdomen): diffuse tenderness, no guarding, no bowel sounds. soft. Psychiatric: Orientation: alert and oriented x 3 Results & Data Results & Data Vital Signs (Past 12 Hours) Vital Signs Temp Pulse Resp BP Pulse Ox O2 Del Method 04/06/23 06:58 98.2 F 85 16 125/72 94 Room Air PG Care Time/CCT Total # of Minutes Spent Total Time Spent with Patient: Total time spent is greater than 50% in coordination of care (as documented) at patient's floor/unit and/or counseling patient: Coding Level of Care Code 78400 SUB INP/OBS CARE 2/35MIN Diagnoses Small bowel obstruction K56.609 Crohn's disease of ileum with other complication K50.012 Digestive disease complication type: with intestinal obstruction Time Spent (min) 46 (2) Crohn's ileitis Digestive disease complication type: with intestinal obstruction Qualified Code(s): K50.012 - Crohn's disease of small intestine with intestinal obstruction
[2023-04-06] MEDS: methylPREDNISolone 30 MG in SYRINGE 0 ML IV SCH (10:37)
--- NOTE | 2023-04-06 10:43 | Hospitalist Progress Note ---
Date of Service April 06, 2023 Assessment & Plan (1) Crohn's ileitis: Plan: Patient with history of Crohns on 6-mercaptopurine and Entyvio -hold 6-mercaptopurine and entyvio -GI consultation appreciated, started methylprednisolone, may need colorectal specialist (2) GERD (gastroesophageal reflux disease): Plan: Chronic. Stable. Patient just reduced her dose of Protonix and reports that her heartburn symptoms are overall well controlled -Protonix 40mg IV daily (3) Paroxysmal atrial fibrillation: Plan: Rate controlled. On Anticoagulation with Apixaban -Hold Apixaban -Lovenox 1mg/kg BID for now - -Continue Diltiazem Admission and Anticipated Discharge Date Admission Date: April 05, 2023 Subjective pt is with some pain but improved, some flatus no bowel movements Physical Exam Physical Exam: pt is with some abdominal pain, hypoactive bowel sounds ngt to LIS Results & Data Results & Data Vital Signs (Past 12 Hours) Vital Signs Temp Pulse Resp BP Pulse Ox O2 Del Method 04/06/23 06:58 98.2 F 85 16 125/72 94 Room Air Laboratory Results review cbc review chemistry PG Care Time/CCT Total # of Minutes Spent Total Time Spent with Patient: Total time spent is greater than 50% in coordination of care (as documented) at patient's floor/unit and/or counseling patient: Coding Level of Care Code 82370 SUB INP/OBS CARE 2MIN Diagnoses Crohn's disease of ileum with other complication K50.012 Digestive disease complication type: with intestinal obstruction GERD (gastroesophageal reflux disease) K21.9 Paroxysmal atrial fibrillation I48.0 (1) Crohn's ileitis Digestive disease complication type: with intestinal obstruction Qualified Code(s): K50.012 - Crohn's disease of small intestine with intestinal obstruction
[2023-04-06] MEDS: SODIUM CHLORIDE 0.9% 1,000 ML IV SCH ×2 (11:20→20:03)
--- NOTE | 2023-04-07 10:12 | Gastroenterology Progress Note ---
Date of Service April 07, 2023 Assessment & Plan (1) Crohn's ileitis: (2) Small bowel obstruction: Plan Discussed case with Dr. Barton who helped advise on plan. Patient overall feeling better today. Now passing gas. - continue with IV steroids. - as outpatient can set up colonoscopy with dilation. - would recommend evaluation with colorectal surgery for evaluation as outpatient. Admission and Anticipated Discharge Date Admission Date: April 05, 2023 Supervising Physician Co-Signing Physician Notes I saw the patient and agree with the findings as documented by Garland Chase PAC Subjective Patient does feel better since starting the IV steroids. she has been passing gas, but no bowel movement yet. abdominal pain has improved, but still present. still some nausea, but no emesis. tolerating ice chips. Review of Systems Review of Systems: All systems reviewed & are unremarkable except as noted in HPI & below Physical Exam Constitutional: WD/WN, vitals as above Respiratory: normal respiratory effort, lungs clear to auscultation Cardiovascular: RRR, no murmur, no edema Gastrointestinal (Abdomen): hypoactive bowel sounds. soft. mild tenderness to palpation. no guarding. Psychiatric: Orientation: alert and oriented x 3 Affect: euthymic affect Results & Data Results & Data Vital Signs (Past 12 Hours) Vital Signs Temp Pulse Resp BP Pulse Ox O2 Del Method 04/07/23 07:24 97.7 F 80 16 150/78 H 98 Room Air PG Care Time/CCT Total # of Minutes Spent Total Time Spent with Patient: Total time spent is greater than 50% in coordination of care (as documented) at patient's floor/unit and/or counseling patient: Coding Level of Care Code 16584 SUB INP/OBS CARE 03/26MIN Diagnoses Crohn's disease of ileum with other complication K50.012 Digestive disease complication type: with intestinal obstruction Small bowel obstruction K56.609 (1) Crohn's ileitis Digestive disease complication type: with intestinal obstruction Qualified Code(s): K50.012 - Crohn's disease of small intestine with intestinal obstruction
--- NOTE | 2023-04-07 18:10 | Hospitalist Progress Note ---
Date of Service April 07, 2023 Assessment & Plan (1) Crohn's ileitis: Plan: Patient with history of Crohns on 6-mercaptopurine and Entyvio -hold 6-mercaptopurine and entyvio -GI consultation appreciated, improved after being started on methylprednisolone, hopeful to have improvement with medical management but may need colorectal specialist Patient previously has had her ilio colonic anastomosis dilated by Dr. Campbell. This seems to be in the area where the concern for small bowel obstruction is noted on imaging Attempts to improve her medically with plans for outpatient colonoscopic redilatation in the future (2) GERD (gastroesophageal reflux disease): Plan: Chronic. Stable. Patient just reduced her dose of Protonix and reports that her heartburn symptoms are overall well controlled -Protonix 40mg IV daily (3) Paroxysmal atrial fibrillation: Plan: Rate controlled. On Anticoagulation with Apixaban -Hold Apixaban -Lovenox 1mg/kg BID for now - -Continue Diltiazem Admission and Anticipated Discharge Date Admission Date: April 05, 2023 Subjective Patient has had some improvement since starting steroids. She has less abdominal distention. She still has increased abdominal digestive noises according to her. She still has NG tube to low intermittent suction. She has had flatus with no stool Physical Exam Physical Exam: Abdominal pain is lessening she is less distended and tympanitic she has normoactive bowel sounds today No guarding or acute abdomen noted Results & Data Results & Data Vital Signs (Past 12 Hours) Vital Signs Temp Pulse Resp BP Pulse Ox O2 Del Method 04/07/23 14:19 97.9 F 91 H 16 160/88 H 98 Room Air 04/07/23 07:24 97.7 F 80 16 150/78 H 98 Room Air Laboratory Results Ordered CBC and chemistry for 04/08/2023 PG Care Time/CCT Total # of Minutes Spent Total Time Spent with Patient: Total time spent is greater than 50% in coordination of care (as documented) at patient's floor/unit and/or counseling patient: Coding Level of Care Code 47051 SUB INP/OBS CARE Diagnoses Crohn's disease of ileum with other complication K50.012 Digestive disease complication type: with intestinal obstruction GERD (gastroesophageal reflux disease) K21.9 Paroxysmal atrial fibrillation I48.0 (1) Crohn's ileitis Digestive disease complication type: with intestinal obstruction Qualified Code(s): K50.012 - Crohn's disease of small intestine with intestinal obstruction
[2023-04-08 07:23] LABS: Calcium 8.6 mg/dl (8.6-10.3); Est GFR (African American) 106.3 ml/min; Est GFR (Non-African American) 91.7 ml/min; Potassium 3.7 mmol/L (3.5-5.1)
--- NOTE | 2023-04-08 16:17 | Hospitalist Progress Note ---
Date of Service April 08, 2023 Assessment & Plan (1) Crohn's ileitis: Plan: Patient with history of Crohns on 6-mercaptopurine and Entyvio -hold 6-mercaptopurine and entyvio, will restart on discharge -GI consultation appreciated, improved after being started on me thylprednisolone, pt improved, pt request steroid other than prednisone converted to po dexamethasone on pm 04/08 expect a short course on discharge anticipate home with short course, nurse navigatior to coordinate colonoscopy as outpt Patient previously has had her ilio colonic anastomosis dilated by Dr. Campbell. This seems to be in the area where the concern for small bowel obstruction is noted on imaging Attempts to improve her medically with plans for outpatient colonoscopic redilatation in the future (2) GERD (gastroesophageal reflux disease): Plan: Chronic. Stable. Patient just reduced her dose of Protonix and reports that her heartburn symptoms are overall well controlled -Protonix 40mg po daily (3) Paroxysmal atrial fibrillation: Plan: Rate controlled. On Anticoagulation with Apixaban -resume Apixaban - -Continue Diltiazem Admission and Anticipated Discharge Date Admission Date: April 05, 2023 Subjective pt feels improved, tolerating po liquids, removing NGT will advance diet for dinner Physical Exam Physical Exam: awake and alert, no abdominal pain some soft bm Results & Data Results & Data Vital Signs (Past 12 Hours) Vital Signs Temp Pulse Resp BP Pulse Ox O2 Del Method 04/08/23 14:48 98.4 F 87 16 132/75 97 Room Air 04/08/23 07:46 98.2 F 76 16 152/83 H 98 Room Air Laboratory Results reviewed chemistry updated PG Care Time/CCT Total # of Minutes Spent Total Time Spent with Patient: Total time spent is greater than 50% in coordination of care (as documented) at patient's floor/unit and/or counseling patient: Coding Level of Care Code 04104 SUB INP/OBS CARE 3/50MIN Diagnoses Crohn's disease of ileum with other complication K50.012 Digestive disease complication type: with intestinal obstruction GERD (gastroesophageal reflux disease) K21.9 Paroxysmal atrial fibrillation I48.0 (1) Crohn's ileitis Digestive disease complication type: with intestinal obstruction Qualified Code(s): K50.012 - Crohn's disease of small intestine with intestinal obstruction
[2023-04-08] MEDS: dexAMETHasone 4 MG TAB PO SCH (20:10)
[2023-04-08] MEDS: APIXABAN 5 MG TABLET PO SCH (20:11)
[2023-04-09 06:57] LABS: Hematocrit (blood only) 30.2 % (37.0-47.0); Hemoglobin 10.6 g/dl (12.0-16.0); Mean Corpuscular Hemoglobin 32.1 pg (25.0-34.0); Mean Corpuscular Hgb Conc 35.1 g/dL (32.0-36.0); Mean Corpuscular Volume 91.5 fL (80.0-100.0); Mean Platelet Volume 10.3 fL (9.4-12.4); Platelet Count 187 K/uL (130-400); RDW Coefficient of Variation 14.4 % (11.5-14.5); RDW Standard Deviation 48.3 fL (36.4-46.3); White Blood Count 5.93 K/ul (4.8-10.8)
[2023-04-09] MEDS: PANTOprazole 40 MG TAB PO SCH (08:50)
--- NOTE | 2023-04-09 22:08 | Hospitalist Progress Note ---
Date of Service April 09, 2023 Assessment & Plan (1) Crohn's ileitis: Plan: Patient with history of Crohns on 6-mercaptopurine and Entyvio -hold 6-mercaptopurine and entyvio, will restart on discharge -GI consultation appreciated, improved after being started on me thylprednisolone, pt improved, pt request steroid other than prednisone converted to po dexamethasone on pm 04/08 anticipate home with 4 week taper oif steroid, nurse navigatior to coordinate colonoscopy as outpt Patient previously has had her ilio colonic anastomosis dilated by Dr. Campbell. This seems to be in the area where the concern for small bowel obstruction is noted on imaging Attempts to improve her medically with plans for outpatient colonoscopic redilatation in the future Awaiting BM after starting a low fiber diet. (2) GERD (gastroesophageal reflux disease): Plan: Chronic. Stable. Patient just reduced her dose of Protonix and reports that her heartburn symptoms are overall well controlled -Protonix 40mg po daily (3) Paroxysmal atrial fibrillation: Plan: Rate controlled. On Anticoagulation with Apixaban -resume Apixaban - -Continue Diltiazem Admission and Anticipated Discharge Date Admission Date: April 05, 2023 Subjective Patient reports having a rash this AM, but this subsided later in the day. Patient also reports having no BM since diet was advanced. Review of Systems Review of Systems: All systems reviewed & are unremarkable except as noted in HPI & below Physical Exam Physical Exam: awake and alert, no abdominal pain some soft bm skin no rash Results & Data Results & Data Vital Signs (Past 12 Hours) Vital Signs Temp Pulse Resp BP Pulse Ox O2 Del Method 04/09/23 21:38 36.4 C L 61 18 169/91 H 100 Room Air 04/09/23 15:29 36.4 C L 64 16 134/76 96 Room Air PG Care Time/CCT Total # of Minutes Spent Total Time Spent with Patient: Total time spent is greater than 50% in coordination of care (as documented) at patient's floor/unit and/or counseling patient: Coding Level of Care Code 11810 SUB INP/OBS CARE 2/35MIN Diagnoses Crohn's disease of ileum with other complication K50.012 Digestive disease complication type: with intestinal obstruction GERD (gastroesophageal reflux disease) K21.9 Paroxysmal atrial fibrillation I48.0 (1) Crohn's ileitis Digestive disease complication type: with intestinal obstruction Qualified Code(s): K50.012 - Crohn's disease of small intestine with intestinal obstruction
[2023-04-10 06:18] LABS: BUN Creatinine Ratio 16.2 (10-20); Creatinine Clr Calc Pharmacy 84.7 ml/min; Est GFR (African American) 104.2 ml/min; Est GFR (Non-African American) 89.9 ml/min; Potassium 3.1 mmol/L (3.5-5.1)
--- NOTE | 2023-04-10 10:12 | Communication Note ---
Date of Service: April 10, 2023 Patient has been unable to tolerate steroids. she tells me she has not slept and feels like her "skin is crawling and heart racing". She refused her morning dose and tells me these symptoms resolved. I discussed case with Dr. Barton who advised we switch her to budesonide 9mg for 8 weeks. i stopped her dexamethasone and started this.
[2023-04-10] MEDS: BUDESONIDE EC 3 MG CAP PO SCH (11:55)
--- NOTE | 2023-04-10 21:16 | Hospitalist Progress Note ---
Date of Service April 10, 2023 Assessment & Plan (1) Crohn's ileitis: Plan: Patient with history of Crohns on 6-mercaptopurine and Entyvio -hold 6-mercaptopurine and entyvio, will restart on discharge -GI consultation appreciated, improved after being started on me thylprednisolone, pt improved, pt request steroid other than prednisone converted to po dexamethasone on pm 02 anticipate home with 4 week taper oif steroid, nurse navigatior to coordinate colonoscopy as outpt Patient previously has had her ilio colonic anastomosis dilated by Dr. Campbell. This seems to be in the area where the concern for small bowel obstruction is noted on imaging Attempts to improve her medically with plans for outpatient colonoscopic redilatation in the future Patient had a small BM after a low fiber diet. Corticosteroid is now switched to budesonide. (2) GERD (gastroesophageal reflux disease): Plan: Chronic. Stable. Patient just reduced her dose of Protonix and reports that her heartburn symptoms are overall well controlled -Protonix 40mg po daily (3) Paroxysmal atrial fibrillation: Plan: Rate controlled. On Anticoagulation with Apixaban -resume Apixaban - -Continue Diltiazem Admission and Anticipated Discharge Date Admission Date: April 05, 2023 Subjective 67 yo female reports no new symptoms. She states she did not tolerate the corticosteroid and is asking for a different one as she was not able to sleep, and skin was crawling. Review of Systems Review of Systems: All systems reviewed & are unremarkable except as noted in HPI & below Physical Exam Physical Exam: awake and alert, no abdominal pain some soft bm skin no rash Results & Data Results & Data Vital Signs (Past 12 Hours) Vital Signs Temp Pulse Resp BP Pulse Ox O2 Del Method 04/10/23 19:41 36.7 C 69 16 132/79 97 Room Air 04/10/23 15:05 37.1 C 66 16 118/71 99 Room Air PG Care Time/CCT Total # of Minutes Spent Total Time Spent with Patient: Total time spent is greater than 50% in coordination of care (as documented) at patient's floor/unit and/or counseling patient: Coding Level of Care Code 55487 SUB INP/OBS CARE 2/35MIN Diagnoses Crohn's disease of ileum with other complication K50.012 Digestive disease complication type: with intestinal obstruction GERD (gastroesophageal reflux disease) K21.9 Paroxysmal atrial fibrillation I48.0 (1) Crohn's ileitis Digestive disease complication type: with intestinal obstruction Qualified Code(s): K50.012 - Crohn's disease of small intestine with intestinal obstruction
[2023-04-11 07:09] LABS: Hematocrit (blood only) 29.7 % (37.0-47.0); Hemoglobin 10.9 g/dl (12.0-16.0); Mean Corpuscular Hemoglobin 32.4 pg (25.0-34.0); Mean Corpuscular Hgb Conc 36.7 g/dL (32.0-36.0); Mean Corpuscular Volume 88.4 fL (80.0-100.0); Mean Platelet Volume 10.2 fL (9.4-12.4); Platelet Count 212 K/uL (130-400); RDW Coefficient of Variation 14.4 % (11.5-14.5); Red Blood Count 3.36 M/uL (4.20-5.40); White Blood Count 6.97 K/ul (4.8-10.8)
--- NOTE | 2023-04-11 10:22 | Discharge Summary ---
Date of Service April 11, 2023 Admission HPI Per Admitting Provider Neena Merida is a pleasant 67yo female with history of Crohns disease on Mercaptopurine and Entyvio, s/p bowel resection with ileocolonic anastomosis with prior anastomotic strictures requiring dilation - last in June 2022 presenting with sudden onset of abdominal pain, nausea and vomiting that began today around 16:00. She took sublingual Zofran and Pepcid with minimal improvement. His symptoms persist - dull aching pain with soreness. Patient is not passing gas. Last BM was this AM She denies chest pain, SOB, fever, chills, cough. No additional complaints at this time. In the ER she is afebrile, HD stable, ,NAD CT of the abdomen performed which revealed an SBO with zone of the transition in the distal ileum ER Course: NSS x 1L Zofran 4mg IV Tylenol 1gm IV Morphine 4mg IV Discharge Data Allergies Allergy/AdvReac Type Severity Reaction Status Date / Time infliximab Allergy Severe PALPITATIONS, Verified 04/05/23 00:48 SOB, FLUSHING lactose Allergy Intermediate LACTOSE Verified 04/05/23 00:48 INTOLERANT mushroom Allergy Intermediate GI SYMPTOMS Verified 04/05/23 00:48 nickel Allergy Mild SKIN Verified 04/05/23 00:48 REACTION morphine AdvReac Intermediate HALLUCINATI Verified 04/05/23 00:48 ONS prednisone AdvReac Intermediate MOOD Verified 04/05/23 00:48 CHANGES Consultations 04/05/23 03:23 ED Decision to Admit Stat 04/05/23 03:59 Consult Gastroenterology Routine Ordered Studies 04/05/23 00:19 CT abd pelvis IV con only Stat Hospital Course (1) Crohn's ileitis: Patient with history of Crohns on 6-mercaptopurine and Entyvio -hold 6-mercaptopurine and entyvio, will restart on discharge -GI consultation appreciated, improved after being started on methylpredn isolone, pt improved, pt request steroid other than prednisone converted to po dexamethasone on pm 04/08 anticipate home with 4 week taper oif steroid, nurse navigatior to coordinate colonoscopy as outpt Patient previously has had her ilio colonic anastomosis dilated by Dr. Campbell. This seems to be in the area where the concern for small bowel obstruction is noted on imaging Attempts to improve her medically with plans for outpatient colonoscopic redilatation in the future Patient had a small BM after a low fiber diet. Corticosteroid is now switched to budesonide. (2) GERD (gastroesophageal reflux disease): Chronic. Stable. Patient just reduced her dose of Protonix and reports that her heartburn symptoms are overall well controlled -Protonix 40mg po daily (3) Paroxysmal atrial fibrillation: Rate controlled. On Anticoagulation with Apixaban -resume Apixaban - -Continue Diltiazem Discharge Plan Discharge Items Reason For Visit: SBO, CROHNS DISEASE Follow-up/Referrals: Jet Leon MD [Primary Care Provider] - Medications and DC Order Prescriptions: No Action diltiazem HCl 240 mg capsule,ext.rel 24h degradable 240 mg PO QAM Qty: 90 3RF Eliquis 5 mg tablet 5 mg PO BID Qty: 180 3RF cyanocobalamin (vitamin B-12) 1,000 mcg/mL kit 1,000 mcg IM MONTHLY Rx Instructions: DUE 04/15/23. Entyvio 300 mg recon soln 300 mg IV .every 8 weeks Rx Instructions: DUE 04/15/23 cholecalciferol (vitamin D3) 5,000 unit capsule 5,000 units PO QAM multivitamin [Multiple Vitamins] tablet 1 tab PO QAM metoprolol tartrate 25 mg tablet 25 mg PO Q6H PRN (Reason: palpitations) 90 Days Qty: 30 6RF pantoprazole 20 mg tablet,delayed release (DR/EC) 20 mg PO DAILY Qty: 90 3RF Align 4 mg Capsule 4 mg PO QAM Caltrate-D3 Plus Minerals 300 mg-800 unit -25 mg-0.5 mg Tablet 1 tab PO BID Patient Comments: CALTRATE 600 + D + MINERALS. [id number] [MegaRed [place]-3 Krill Oil] [id number] mg Capsule 1 cap PO QAM Patient Comments: 500 MG mercaptopurine 50 mg tablet 50 mg PO QAM potassium chloride [Klor-Con M10] 10 mEq tablet,ER particles/crystals 10 meq PO QAM [id number]-[id number] 50-325-40 mg tablet 1 tab PO DIRECTED PRN (Reason: Migraine Headache) vitamin E 268 mg (400 unit) Capsule 268 mg PO DAILY Mag 64 64 mg Tablet,Delayed Release (Dr/Ec) 64 mg PO HS Admission Data Admit Date/Time: 04/05/23 03:59 Attending Provider: Esteban Soni Admit Provider: Pattie Linda Primary Care Provider: Jet Leon Other Providers: Selvin Campbell; Pattie Linda Coding Diagnoses Crohn's disease of ileum with other complication K50.012 Digestive disease complication type: with intestinal obstruction GERD (gastroesophageal reflux disease) K21.9 Paroxysmal atrial fibrillation I48.0
--- NOTE | 2023-04-11 10:23 | Hospitalist Progress Note ---
Date of Service April 11, 2023 Assessment & Plan (1) Crohn's ileitis: Plan: Patient with history of Crohns on 6-mercaptopurine and Entyvio -hold 6-mercaptopurine and entyvio, will restart on discharge -GI consultation appreciated, improved after being started on m ethylprednisolone, pt improved, pt request steroid other than prednisone converted to po dexamethasone on pm 04/08 anticipate home with 4 week taper oif steroid, nurse navigatior to coordinate colonoscopy as outpt Patient previously has had her ilio colonic anastomosis dilated by Dr. Campbell. This seems to be in the area where the concern for small bowel obstruction is noted on imaging Attempts to improve her medically with plans for outpatient colonoscopic redilatation in the future Patient had a small BM after a low fiber diet. Corticosteroid is now switched to budesonide. (2) GERD (gastroesophageal reflux disease): Plan: Chronic. Stable. Patient just reduced her dose of Protonix and reports that her heartburn symptoms are overall well controlled -Protonix 40mg po daily (3) Paroxysmal atrial fibrillation: Plan: Rate controlled. On Anticoagulation with Apixaban -resume Apixaban - -Continue Diltiazem Admission and Anticipated Discharge Date Admission Date: April 05, 2023 Results & Data Results & Data Vital Signs (Past 12 Hours) Vital Signs Temp Pulse Resp BP Pulse Ox O2 Del Method 04/11/23 07:45 36.7 C 60 15 128/77 100 Room Air PG Care Time/CCT Total # of Minutes Spent Total Time Spent with Patient: Total time spent is greater than 50% in coordination of care (as documented) at patient's floor/unit and/or counseling patient: Coding Diagnoses Crohn's disease of ileum with other complication K50.012 Digestive disease complication type: with intestinal obstruction GERD (gastroesophageal reflux disease) K21.9 Paroxysmal atrial fibrillation I48.0 (1) Crohn's ileitis Digestive disease complication type: with intestinal obstruction Qualified Code(s): K50.012 - Crohn's disease of small intestine with intestinal obstructio n
== END 2023-04-11 14:13 | disposition home or self-care (01) | DRG 387 ==
LOC: ED 23:57 → 3E 04-05 03:59 → SUATTDRO 04-05 03:59 → 3E 04-05 05:51

== ENCOUNTER 2023-04-24 16:02 | Inpatient (IN) ==
--- NOTE | 2023-04-24 16:27 | XRay Report ---
XR chest 1V not portable HISTORY: Chest pain, nonspecific COMPARISON: Chest 04/05/2023. FINDINGS: No pneumothorax. No pleural effusions. The heart remains top normal in size. Small linear s carlike densities the left lung base persists. No new focal lung consolidations to suggest a pneumoni a. No evidence for pulmonary edema. There are calcifications within the aortic knob. No acute fractur es identified. Prior cholecystectomy. IMPRESSION: No significant change compared to the prior study. No acute process. ACT 112: Negative or not required by law. Electronically signed by: Rafa Onofre M.D. 04/24/2023 4:26 PM
[2023-04-24 17:58] LABS: Basophils # (auto) 0.03 K/uL (0.00-0.20); Basophils % (auto) 0.2 %; Eosinophils # (auto) 0.01 K/uL (0.00-0.50); Eosinophils % (auto) 0.1 %; Hematocrit (blood only) 39.6 % (37.0-47.0); Hemoglobin 13.7 g/dl (12.0-16.0); Immature Granulocytes # (auto) 0.07 K/uL (0.01-0.20); Immature Granulocytes % (auto) 0.5 %; Lymphocytes # (auto) 1.87 K/uL (1.20-3.40); Lymphocytes % (auto) 13.8 %; Mean Corpuscular Hemoglobin 31.9 pg (25.0-34.0); Mean Corpuscular Hgb Conc 34.6 g/dL (32.0-36.0); Mean Corpuscular Volume 92.3 fL (80.0-100.0); Mean Platelet Volume 9.8 fL (9.4-12.4); Monocytes % (auto) 5.9 %; Neutrophils % (auto) 79.5 %; Platelet Count 330 K/uL (130-400); RDW Standard Deviation 53.1 fL (36.4-46.3); Red Blood Count 4.29 M/uL (4.20-5.40); White Blood Count 13.58 K/ul (4.8-10.8)
[2023-04-24 18:13] LABS: Alanine Aminotransferase 17 U/L (7-52); Albumin Globulin Ratio 1.5 (0.9-2); Albumin Level 4.3 gm/dl (3.4-5.0); Alkaline Phosphatase 93 U/L (34-104); Anion Gap 8 (3-11); Aspartate Aminotransferase 14 U/L (13-39); BUN Creatinine Ratio 19.2 (10-20); Bilirubin,Total 0.6 mg/dl (0.2-1.0); Blood Urea Nitrogen 14 mg/dl (6-23); Calcium 9.5 mg/dl (8.6-10.3); Carbon Dioxide 28 mmol/L (21-32); Chloride 104 mmol/L (98-107); Est GFR (African American) 97.4 ml/min; Globulin 2.8 gm/dl (2.5-4.0); Glucose 112 mg/dl (70-99(Fasting)); Potassium 3.3 mmol/L (3.5-5.1); Sodium 140 mmol/L (136-145); Total Protein 7.1 gm/dl (6.0-8.3)
[2023-04-24 18:18] LABS: Troponin I High Sensitivity 13.2 pg/ml (0-14)
[2023-04-24 18:25] LABS: Partial Thromboplastin Time 27 Seconds (21-31)
[2023-04-24] MEDS: SODIUM CHLORIDE 0.9% 1,000 ML IV ONE (18:25)
[2023-04-24] MEDS: dilTIAZem HCl 5 MG/ML 5 ML VIAL IV ONE (18:43)
[2023-04-24] MEDS: dilTIAZem HCl 5 MG/ML 5 ML VIAL IV STA (18:57)
[2023-04-24 19:04] LABS: Magnesium 1.9 mg/dl (1.7-2.4)
--- NOTE | 2023-04-24 19:10 | History & Physical Report ---
"Date of Service April 24, 2023 Assessment & Plan (1) Paroxysmal atrial fibrillation: (2) GERD (gastroesophageal reflux disease): Plan Atrial Fibrillation with RVR -S/P Diltiazem 15mg IV and an additional Diltazem 30mg PO -Continue home PO Diltiazem 240mg -Can add an Diltiazem 30mg q6h PRN if remaining in RVR -Anticoagulated with Eliquis -HR between 100-130s since arrival -Monitor on telemetry Electrolyte Abnormalities: Hypokalemia | Hypomagnesemia -Potassium of 3.3, s/p 40 meq PO, 20 meq K riders -Mag of 1.9, s/p 1g magnesium sulfate -Repeat BMP and magnesium level ordered for a.m. Crohn's Disease -Home medications include mercaptopurine and Entyvio -Continue budesonide GERD -Continue home Protonix Admit to telemetry Diet: Heart healthy VTE Prophylaxis: Eliquis Code Status: Full Code History of Present Illness Primary Care Provider: Jet Leon MD Neena Merida is a 68 year-old female with past medical history of Crohn's disease, s/p bowel resection with ileocolonic anastomosis with prior anastomotic strictures requiring dilation, paroxysmal atrial fibrillation who presented to the ED due to concern of an episode of atrial fibrillation. Her paroxysmal atrial fibrillation is typically controlled with PRN metoprolol which she took last night, but symptoms this morning had not improved. She notes she has been eating and drinking without issue, denies any changes in bowel or bladder habits. She endorses some chest pressure with her palpitations, although is not experiencing anything at this time. Patient was recently admitted for SBO secondary to Crohn's, was recently switched from dexamethasone to budesonide. 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 ED Course: -EKG -CBC, CMP, Magnesium -s/p IV diltiazem -1L NSS bolus Allergies Allergy/AdvReac Type Severity Reaction Status Date / Time infliximab Allergy Severe PALPITATIONS, Verified 04/15/23 12:35 SOB, FLUSHING lactose Allergy Intermediate LACTOSE Verified 04/15/23 12:35 INTOLERANT mushroom Allergy Intermediate GI SYMPTOMS Verified 04/15/23 12:35 nickel Allergy Mild SKIN Verified 04/15/23 12:35 REACTION dexamethasone Allergy multiple sx Verified 04/15/23 12:35 morphine AdvReac Intermediate HALLUCINATI Verified 04/15/23 12:35 ONS prednisone AdvReac Intermediate MOOD Verified 04/15/23 12:35 CHANGES Home Medications Medication Instructions Recorded Confirmed Type multivitamin (Multiple Vitamins 1 tab PO QAM 10/06/18 04/24/23 History tablet) cholecalciferol (vitamin D3) 125 5,000 units PO QAM 11/08/18 04/24/23 History mcg (5,000 unit) capsule cyanocobalamin (vitamin B-12) 1,000 mcg IM .EVERY 3 WEEKS 04/11/19 04/24/23 History 1,000 mcg/mL injection kit Bifidobacterium infantis 4 mg 4 mg PO QAM 07/01/19 04/24/23 History capsule (Align) calcium carb 300 mg-D3 20 mcg-mag 1 tab PO BID 07/01/19 04/24/23 History ox 25 mg-copy lathe tender 0.5 kf-rltm-uflf tablet (Caltrate-D3 Plus Minerals) krill 500 mg-omega 3 115 mg-dha 30 1 cap PO QAM 07/01/19 04/24/23 History mg-epa 64 up-mpyzxii-gqsyy capsule (MegaRed [place]-3 Krill Oil) vedolizumab 300 mg intravenous 300 mg IV .every 8 weeks 04/15/21 04/24/23 History solution (Entyvio) pthvsszgms-mzqztttjgbixe-bdevzvib 1 tab PO DIRECTED PRN Migraine 07/14/22 04/24/23 History 50 mg-325 mg-40 mg tablet Headache diltiazem HCl 240 mg 240 mg PO QAM #90 caps 02/09/23 04/24/23 Rx capsule,extended release 24 hr, controlled apixaban 5 mg tablet (Eliquis) 5 mg PO BID #180 tabs 02/19/23 04/24/23 Rx mercaptopurine 50 mg tablet 50 mg PO QAM 02/27/23 04/24/23 History potassium chloride 10 mEq 10 meq PO QAM 02/27/23 04/24/23 History tablet,extended release(part/cryst) (Klor-Con M) magnesium chloride 64 mg 64 mg PO HS 04/05/23 04/24/23 History (magnesium chloride) tablet,delayed release (Mag 64) vitamin E 268 mg (400 unit) capsule 268 mg PO QAM 04/05/23 04/24/23 History iron dextran 1 dose IV DIRECTED 04/15/23 04/24/23 History budesonide 9 mg tablet,delayed and 9 mg PO QAM 04/24/23 04/24/23 History extended release pantoprazole 20 mg tablet,delayed 20 mg PO QAM 04/24/23 04/24/23 History release Past Med/Surg History Medical History UTI (urinary tract infection) Hydronephrosis concurrent with and due to calculi of kidney and ureter History of colon polyps Kidney stones CURRENT/NO ISSUES WITH AT PRESENT TIME. Fracture of right tibial plateau HX AGE 9 AND IN 2021. NO SURGICAL INTERVENTION. Crohns disease History of kidney stones Hx of pancreatitis Hx of squamous cell carcinoma Iron deficiency anemia HX OF Temporomandibular joint disorder CLICKING/NO LOCKING Hx of small bowel obstruction Hx of migraines Asthma VERY MILD (NO INHALER USED) Palpitations REASON FOR PRN METOPROLOL Osteopenia Chronic gastritis Atrial fibrillation with RVR DX 2014 OR 2015. FOLLOWS WITH DR[address] SINGH. NO HX CARDIOVERSION. GERD (gastroesophageal reflux disease) HTN (hypertension) Surgical History History of surgery MULTIPLE REMOVAL OF SKIN CANCER SPOTS. History of Mohs surgery for squamous cell carcinoma in situ of skin History of anesthesia reaction WITH GENERAL ANESTHESIA>SHAKING AND COLD H/O foot surgery LEFT HEEL BONE GRAFT History of appendectomy History of esophagogastroduodenoscopy (EGD) (05/2013) H/O resection of small bowel History of colonoscopy (07/2020) History of cholecystectomy Family History Unknown Ankylosing spondylitis Lung cancer Aunt Breast cancer Mother Ovarian cancer, Onset Age: 43 rapid progressive, one year. 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: No Beliefs That Will Affect Care: None marital status: Current Living Situation: Spouse current occupational status: retired Other Information That Helps Us Care for You: No Feels Safe at Home: Yes Safety Concerns: Feels Safe At This Time Assistive Devices: Glasses Review of Systems Review of Systems: As per above Physical Exam Eyes: + anicteric sclerae; no conjunctival abn ormality ENMT: Ears: no external ear abnormality Nose: no external nose abnormality Moist mucous membranes Respiratory: normal respiratory effort, lungs clear to auscultation Cardiovascular: Rate/Rhythm: + irregularly irregular Extremities: no edema Gastrointestinal (Abdomen): Abdomen soft, nontender and nondistended Musculoskeletal: Moves all limbs independently Skin: no rashes, warm and dry Psychiatric: A+Ox3, euthymic affect Results & Data Results & Data Vital Signs (Past 12 Hours) Vital Signs Temp Pulse Pulse Resp BP BP Pulse Ox 04/24/23 18:40 103 H 18 95 04/24/23 18:38 137 H 04/24/23 18:32 115 H 23 96 04/24/23 18:32 134/99 04/24/23 18:30 127 H 19 94 04/24/23 18:21 115 H 22 93/77 L 96 04/24/23 18:21 99 04/24/23 16:04 36.5 C 87 19 117/79 99 O2 Del Method 04/24/23 18:40 04/24/23 18:38 04/24/23 18:32 04/24/23 18:32 04/24/23 18:30 04/24/23 18:21 Room Air 04/24/23 18:21 04/24/23 16:04 Room Air Supervising Physician Co-Signing Physician Notes Attending addendum: I have physically seen this patient, have supervised the medical residents activities, and agree with the H&P unless as otherwise noted. Assessment and Plan: Atrial fibrillation with RVR- Status post diltiazem 15 mg IV in the ED Give diltiazem 30 mg p.o. now, and then every 6 hours as needed heart rate for greater than 110 Continue diltiazem extended release 240 mg every morning May need to change to twice daily dosing of diltiazem extended release Continue Eliquis 5 mg p.o. twice daily Likely triggering cause hypokalemia and relative hypomagnesemia Electrolyte disturbances- Potassium 3.3 magnesium 1.9 Give Klor-Con 40 mEq p.o., and K riders IV x 2 Give mag sulfate 1 g IV Repeat laboratories in a.m. May need to change pantoprazole to famotidine Crohn's disease- Continue usual home medications of mercaptopurine and budesonide Takes Entyvio 300 mg IV every 8 weeks as outpatient Resident Activity Tracking Resident Involvement: Resident Care Provided Care Provided: [facility]"
[2023-04-24] MEDS: POTASSIUM CHLORIDE CRTAB 20 MEQ TABCR PO STA (19:52)
[2023-04-24] MEDS: MAGNESIUM SULFATE / D5W 1 GM/100 ML BAG IV ONE (19:53)
[2023-04-24] MEDS: dilTIAZem HCL 30 MG TAB PO ONE (20:31)
[2023-04-24] MEDS: POTASSIUM CHLORIDE / WTR 10 MEQ/100 ML PLCT IV SCH (20:31)
[2023-04-24] MEDS: dilTIAZem HCL 125 MG in DEXTROSE 5% 100 ML IV SCH (20:33)
[2023-04-24] MEDS: STAT IV Infusion **Titration per Protocol STA (20:55)
[2023-04-24] MEDS: APIXABAN 5 MG TABLET PO ONE (21:58)
[2023-04-24] MEDS ORDERED: ONDANSETRON INJ 2 MG/ML 2 ML VIAL IV PRN (23:18)
[2023-04-24] MEDS ORDERED: ACETAMINOPHEN 325 MG TAB PO PRN (23:18)
--- NOTE | 2023-04-25 00:43 | Emergency Department Note ---
History of Present Illness General Chief Complaint: Cardiac Assessment Stated Complaint: A-FIB, TACHYCARDIA, CHEST PAIN, LIGHTHEADED Time Seen by Provider: 04/24/23 18:28 History of Present Illness Provider Complaint: + palpitations and + atrial fibrillation Onset (ago): 2 day(s) Duration: + Constant Context: + occurred during rest Arrhythmia history: + atrial fibrillation and + on anti-coagulants (Eliquis) Associated symptoms: + chest pain; no shortness of breath, no syncope, no near- syncope, no nausea, no vomiting, no anxiety, no cough or no paresthesias HPI narrative: Patient took her normal Cardizem 240 mg ER as well as an extra dose of metoprolol 25 mg p.o. but her symptoms persisted. Home Medications Medication Instructions Recorded Confirmed Type multivitamin (Multiple Vitamins 1 tab PO QAM 10/06/18 04/24/23 History tablet) cholecalciferol (vitamin D3) 125 5,000 units PO QAM 11/08/18 04/24/23 History mcg (5,000 unit) capsule cyanocobalamin (vitamin B-12) 1,000 mcg IM .EVERY 3 WEEKS 04/11/19 04/24/23 History 1,000 mcg/mL injection kit Bifidobacterium infantis 4 mg 4 mg PO QAM 07/01/19 04/24/23 History capsule (Align) calcium carb 300 mg-D3 20 mcg-mag 1 tab PO BID 07/01/19 04/24/23 History ox 25 mg-copy lathe tender 0.5 md-wome-ppon tablet (Caltrate-D3 Plus Minerals) krill 500 mg-omega 3 115 mg-dha 30 1 cap PO QAM 07/01/19 04/24/23 History mg-epa 64 bm-nrbbiiv-hlbvp capsule (MegaRed [place]-3 Krill Oil) vedolizumab 300 mg intravenous 300 mg IV .every 8 weeks 04/15/21 04/24/23 History solution (Entyvio) ocxcidtqxa-ajyvdabzgbszu-jwtuddkr 1 tab PO DIRECTED PRN Migraine 07/14/22 04/24/23 History 50 mg-325 mg-40 mg tablet Headache diltiazem HCl 240 mg 240 mg PO QAM #90 caps 02/09/23 04/24/23 Rx capsule,extended release 24 hr, controlled apixaban 5 mg tablet (Eliquis) 5 mg PO BID #180 tabs 12/21/23 02/23/24 Rx mercaptopurine 50 mg tablet 50 mg PO QAM 02/27/23 04/24/23 History potassium chloride 10 mEq 10 meq PO QAM 02/27/23 04/24/23 History tablet,extended release(part/cryst) (Klor-Con M) magnesium chloride 64 mg 64 mg PO HS 04/05/23 04/24/23 History (magnesium chloride) tablet,delayed release (Mag 64) vitamin E 268 mg (400 unit) capsule 268 mg PO QAM 04/05/23 04/24/23 History iron dextran 1 dose IV DIRECTED 04/15/23 04/24/23 History budesonide 9 mg tablet,delayed and 9 mg PO QAM 04/24/23 04/24/23 History extended release pantoprazole 20 mg tablet,delayed 20 mg PO QAM 04/24/23 04/24/23 History release Allergies Allergy/AdvReac Type Severity Reaction Status Date / Time infliximab Allergy Severe PALPITATIONS, Verified 04/15/23 12:35 SOB, FLUSHING lactose Allergy Intermediate LACTOSE Verified 04/15/23 12:35 INTOLERANT mushroom Allergy Intermediate GI SYMPTOMS Verified 04/15/23 12:35 nickel Allergy Mild SKIN Verified 04/15/23 12:35 REACTION dexamethasone Allergy multiple sx Verified 04/15/23 12:35 morphine AdvReac Intermediate HALLUCINATI Verified 04/15/23 12:35 ONS prednisone AdvReac Intermediate MOOD Verified 04/15/23 12:35 CHANGES Past Med/Surg History Medical History UTI (urinary tract infection) Hydronephrosis concurrent with and due to calculi of kidney and ureter History of colon polyps Kidney stones CURRENT/NO ISSUES WITH AT PRESENT TIME. Fracture of right tibial plateau HX AGE 9 AND IN 2021. NO SURGICAL INTERVENTION. Crohns disease History of kidney stones Hx of pancreatitis Hx of squamous cell carcinoma Iron deficiency anemia HX OF Temporomandibular joint disorder CLICKING/NO LOCKING Hx of small bowel obstruction Hx of migraines Asthma VERY MILD (NO INHALER USED) Palpitations REASON FOR PRN METOPROLOL Osteopenia Chronic gastritis Atrial fibrillation with RVR DX 2014 OR 2015. FOLLOWS WITH DR[address] SINGH. NO HX CARDIOVERSION. GERD (gastroesophageal reflux disease) HTN (hypertension) Surgical History History of surgery MULTIPLE REMOVAL OF SKIN CANCER SPOTS. History of Mohs surgery for squamous cell carcinoma in situ of skin History of anesthesia reaction WITH GENERAL ANESTHESIA>SHAKING AND COLD H/O foot surgery LEFT HEEL BONE GRAFT History of appendectomy History of esophagogastroduodenoscopy (EGD) (05/2013) H/O resection of small bowel History of colonoscopy (07/2020) History of cholecystectomy Family History Unknown Ankylosing spondylitis Lung cancer Aunt Breast cancer Mother Ovarian cancer, Onset Age: 43 rapid progressive, one year. 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 Beliefs That Will Affect Care: None marital status: Current Living Situation: Spouse current occupational status: retired Feels Safe at Home: Yes Assistive Devices: Glasses Physical Exam 2 Vital Signs: Vital Signs - 24 hr 04/24/23 16:04 04/24/23 18:21 04/24/23 18:21 Temperature 36.5 C Temperature Source Temporal Artery Sc an Pulse Rate 87 Pulse Rate [Left F suzie] 115 H Pulse Rate from Sp O2 Sensor Respiratory Rate 19 22 Respiratory Effort / Characteristics Non-Labored Sponta neous Respiratory Depth Normal Blood Pressure 117/79 Blood Pressure [Le ft Arm] 93/77 L Blood Pressure Mally n 91 Blood Pressure Mally n [Left Arm] 82 Blood Pressure Pos ition [Left Arm] Sitting Pulse Oximetry 99 99 96 Oxygen Delivery Me thod Room Air Room Air Sepsis Recent Feve r Within 48 Hours No Sepsis New/Unexpla ined Change in Men priscila Status N/A Sepsis Action Take n by Nursing No Action Required 04/24/23 18:30 04/24/23 18:32 04/24/23 18:32 Temperature Temperature Source Pulse Rate 127 H 115 H Pulse Rate [Left F suzie] Pulse Rate from Sp O2 Sensor 91 H 98 H Respiratory Rate 19 23 Respiratory Effort / Characteristics Respiratory Depth Blood Pressure 134/99 Blood Pressure [Le ft Arm] Blood Pressure Mally n 105 Blood Pressure Mally n [Left Arm] Blood Pressure Pos ition [Left Arm] Pulse Oximetry 94 96 Oxygen Delivery Me thod Sepsis Recent Feve r Within 48 Hours Sepsis New/Unexpla ined Change in Men priscila Status Sepsis Action Take n by Nursing 04/24/23 18:38 04/24/23 18:40 04/24/23 19:00 Temperature Temperature Source Pulse Rate 137 H 103 H 102 H Pulse Rate [Left F suzie] Pulse Rate from Sp O2 Sensor 86 88 Respiratory Rate 18 17 Respiratory Effort / Characteristics Respiratory Depth Blood Pressure Blood Pressure [Le ft Arm] Blood Pressure Mally n Blood Pressure Mally n [Left Arm] Blood Pressure Pos ition [Left Arm] Pulse Oximetry 95 96 Oxygen Delivery Me thod Sepsis Recent Feve r Within 48 Hours Sepsis New/Unexpla ined Change in Men priscila Status Sepsis Action Take n by Nursing 04/24/23 19:13 04/24/23 19:30 Temperature Temperature Source Pulse Rate 114 H 113 H Pulse Rate [Left F suzie] Pulse Rate from Sp O2 Sensor 116 H 105 H Respiratory Rate 20 20 Respiratory Effort / Characteristics Respiratory Depth Blood Pressure 119/72 Blood Pressure [Le ft Arm] Blood Pressure Mally n 87 Blood Pressure Mally n [Left Arm] Blood Pressure Pos ition [Left Arm] Pulse Oximetry 99 99 Oxygen Delivery Me thod Sepsis Recent Feve r Within 48 Hours Sepsis New/Unexpla ined Change in Men priscila Status Sepsis Action Take n by Nursing Physical Exam: Physical Exam GENERAL: oriented to person, place, and time. appears well-developed and well- nourished. HENT: Exam performed. - Head: Normocephalic and atraumatic. EYES: Conjunctivae and EOM are normal. Right eye exhibits no discharge. Left eye exhibits no discharge. No scleral icterus. NECK: Normal range of motion. Neck supple. No JVD present. CV: Tachycardic rate, irregular rhythm, normal heart sounds and intact distal pulses. There is no peripheral edema. Palpable radial pulses bue. PULM/CHEST: Effort normal and breath sounds normal. No respiratory distress. No stridor. no wheezes. no rales. ABD: The abdomen is soft. There is no tenderness. NEURO: Motor and sensation grossly intact. SKIN: Skin is warm and dry. He is not diaphoretic. PSYCH: normal mood and affect. Behavior is normal. Judgment and thought content normal. Course Course 1827: The patient was evaluated in room D3. A complete history and physical exam was performed Administered Medications Discontinued Medications Apixaban (Apixaban 5 Mg Tablet) 5 mg PO ONE ONE Stop: 04/24/23 21:16 Last Admin: 04/24/23 21:58 Dose: 5 mg Documented By: TORIBIO Diltiazem HCl (Diltiazem Hcl 5 Mg/Ml 5 Ml Vial) Confirm Administered Dose 50 mg IV .STK-MED ONE Stop: 04/24/23 18:34 Last Admin: 04/24/23 18:43 Dose: Not Given Documented By: MARY GRACE Diltiazem HCl (Diltiazem Hcl 5 Mg/Ml 5 Ml Vial) 15 mg IV NOW STA Stop: 04/24/23 18:37 Last Admin: 04/24/23 18:57 Dose: 15 mg Documented By: MARY GRACE Co-signed By: ANGELA Diltiazem HCl (Diltiazem Hcl 30 Mg Tab) 30 mg PO NOW ONE Stop: 04/24/23 19:38 Last Admin: 04/24/23 20:31 Dose: 30 mg Documented By: ADRIANA Sodium Chloride (Nss) 1,000 mls @ 999 mls/hr IV .Q1H1M ONE Stop: 04/24/23 19:24 Last Infusion: 04/24/23 19:35 Dose: Infused Documented By: Admin: 04/24/23 18:25 Dose: 999 mls/hr Documented By: MARY GRACE Diltiazem HCl 125 mg/ Dextrose 125 mls @ 5 mls/hr IV .Q24H [facility]; Protocol Stop: 05/24/23 18:44 Last Admin: 04/24/23 20:33 Dose: Not Given Documented By: ADRIANA Magnesium Sulfate/Dextrose (Magnesium Sulfate / D5w) 1 gm in 100 mls @ 50 mls/hr IV ONE ONE Stop: 04/24/23 21:34 Last Infusion: 04/24/23 21:41 Dose: Infused Documented By: Admin: 04/24/23 19:53 Dose: 50 mls/hr Documented By: ILIR Potassium Chloride (K Omid / Wtr) 10 meq in 100 mls @ 100 mls/hr IV Q1H [facility] Stop: 04/24/23 21:44 Last Infusion: 04/24/23 23:47 Dose: Infused Documented By: Admin: 04/24/23 21:57 Dose: 100 mls/hr Documented By: Infusion: 04/24/23 21:41 Dose: Infused Documented By: Admin: 04/24/23 20:31 Dose: 100 mls/hr Documented By: ADRIANA Miscellaneous (Stat Iv Infusion Titration Per Protocol) 1 each N/A NOW STA Stop: 04/24/23 18:39 Last Admin: 04/24/23 20:55 Dose: Not Given Documented By: ADRIANA Potassium Chloride (Potassium Chloride Crtab 20 Meq Tabcr) 40 meq PO NOW STA Stop: 04/24/23 19:36 Last Admin: 04/24/23 19:52 Dose: 40 meq Documented By: ILIR Medical Decision Making Laboratory Data Attestation: I reviewed the patient's lab results. 04/24/23 17:36 04/24/23 17:36 Lab Results 04/24/23 Range/Units 17:36 WBC 13.58 H (4.8-10.8) K/ul RBC 4.29 (4.20-5.40) M/uL Hgb 13.7 (12.0-16.0) g/dl Hct 39.6 (37.0-47.0) % MCV 92.3 (80.0-100.0) fL MCH 31.9 (25.0-34.0) pg MCHC 34.6 (32.0-36.0) g/dL RDW Std Deviation 53.1 H (36.4-46.3) fL RDW Coeff of Lina 16.0 H (11.5-14.5) % Plt Count 330 (130-400) K/uL MPV 9.8 (9.4-12.4) fL Immature Gran % (Auto) 0.5 % Neut % (Auto) 79.5 % Lymph % (Auto) 13.8 % Amelia % (Auto) 5.9 % Eos % (Auto) 0.1 % Baso % (Auto) 0.2 % Neut # (Auto) 10.80 H (1.40-6.50) K/uL Lymph # (Auto) 1.87 (1.20-3.40) K/uL Amelia # (Auto) 0.80 H (0.11-0.59) K/uL Eos # (Auto) 0.01 (0.00-0.50) K/uL Baso # (Auto) 0.03 (0.00-0.20) K/uL Immature Gran # (Auto) 0.07 (0.01-0.20) K/uL PT 11.0 (9.0-12.0) Seconds INR 1.0 (0.9-1.1) APTT 27 (21-31) Seconds PTT Ratio 1.0 Sodium 140 (136-145) mmol/L Potassium 3.3 L (3.5-5.1) mmol/L Chloride 104 (98-107) mmol/L Carbon Dioxide 28 (21-32) mmol/L Anion Gap 8 (3-11) BUN 14 (6-23) mg/dl Creatinine 0.73 (0.6-1.2) mg/dl Est Cr Clr Drug Dosing Not Reportable Est GFR ( Amer) 97.4 ml/min Est GFR (Non-Af Amer) 84.0 ml/min BUN/Creatinine Ratio 19.2 (10-20) Glucose 112 H (70-99(Fasting)) mg/dl Calcium 9.5 (8.6-10.3) mg/dl Magnesium 1.9 (1.7-2.4) mg/dl Total Bilirubin 0.6 (0.2-1.0) mg/dl AST 14 (13-39) U/L ALT 17 (7-52) U/L Alkaline Phosphatase 93 (34-104) U/L Troponin I High Sens 13.2 (0-14) pg/ml Total Protein 7.1 (6.0-8.3) gm/dl Albumin 4.3 (3.4-5.0) gm/dl Globulin 2.8 (2.5-4.0) gm/dl Albumin/Globulin Ratio 1.5 (0.9-2) Imaging Data Attestation: I personally reviewed and interpreted this imaging study as follows: My Impression: Chest x-ray negative. Airway clear. No pneumothorax. No consolidation. No cardiomegaly or cephalization.. No free air under the diaphragm. No fractures of the skeletal structures. Radiologist's Impression: Chest X-Ray 04/24/23 16:07 XR chest 1V not portable HISTORY: Chest pain, nonspecific COMPARISON: Chest 04/05/2023. FINDINGS: No pneumothorax. No pleural effusions. The heart remains top normal in size. Small linear scarlike densities the left lung base persists. No new focal lung consolidations to suggest a pneumonia. No evidence for pulmonary edema. There are calcifications within the aortic knob. No acute fractures identified. Prior cholecystectomy. IMPRESSION: No significant change compared to the prior study. No acute process. ACT 112: Negative or not required by law. Electronically signed by: Rafa Onofre M.D. 04/24/2023 4:26 PM ECG Data Attestation: I personally reviewed and interpreted this ECG as follows: Additional Comments: EKG #1 at 1735: Atrial fibrillation with rate of 134. QRS and QTc intervals within normal limits. No ST elevation or ST depression. EKG #2 at 1839 status post Cardizem bolus: Atrial fibrillation with a rate of 112. QRS and QTc intervals within normal limits. No ST elevation or ST depression. MDM Narrative Cardiac monitoring: An order was placed for continuous cardiac monitoring. The monitor shows a rate of 120-160 with atrial fibrilation rhythm interpreted by me Blood pressure stable. Cardizem bolus to 50 mg was ordered for the patient. Patient's ventricular rate improved but then came back up quickly. Patient be started on Cardizem drip. Patient will be admitted to the [facility] team. Impression & Plan Atrial fibrillation with RVR Critical Care Time Critical Care Time: Yes Total Critical Care Time: 48 I have personally spent greater than 48 minutes of critical care time in the direct management of this patient. This includes bedside care, interpretation of diagnostic studies, and testing, discussion with consultants, patient, and family members, and other required patient management activities. This 48 minutes is in excess of all separately billable procedures. Discharge Plan Visit Data Chief Complaint: Cardiac Assessment Stated Complaint: A-FIB, TACHYCARDIA, CHEST PAIN, LIGHTHEADED ED Provider: Mauro Monteiro Discharge Problem: Atrial fibrillation with RVR Patient Disposition: Admitted As Inpatient Discharge Instructions Interventions: ED Discharge Assessment Last Done: 04/24/23 22:16
[2023-04-25] MEDS: dilTIAZem HCL 30 MG TAB PO PRN (03:50)
--- NOTE | 2023-04-25 05:56 | Billing Data ---
Date of Service April 25, 2023 Coding Level of Care Code 11606 INT INP/OBS CARE
--- NOTE | 2023-04-25 07:09 | Electrocardiogram Report ---
Test Reason : Blood Pressure : / mmHG Vent. Rate : 134 BPM Atrial Rate : 000 BPM P-R Int : 000 ms QRS Dur : 084 ms QT Int : 308 ms P-R-T Axes : 000 -43 067 degrees QTc Int : 459 ms Atrial fibrillation with rapid ventricular response with premature ventricular or aberrantly conducte d complexes Left axis deviation Moderate voltage criteria for LVH, may be normal variant Abnormal ECG When compared with ECG of 05-APR-2023 00:15, Atrial fibrillation has replaced Sinus rhythm Vent. rate has increased BY 44 BPM Confirmed by Alvarado Paulson ([id number]) on 04/25/2023 7:08:40 AM Referred By: REFERRED SELF Confirmed By:Yoel Paulson
[2023-04-25 07:43] LABS: Basophils # (auto) 0.02 K/uL (0.00-0.20); Basophils % (auto) 0.2 %; Eosinophils # (auto) 0.03 K/uL (0.00-0.50); Eosinophils % (auto) 0.3 %; Hematocrit (blood only) 35.9 % (37.0-47.0); Hemoglobin 12.3 g/dl (12.0-16.0); Immature Granulocytes # (auto) 0.04 K/uL (0.01-0.20); Immature Granulocytes % (auto) 0.4 %; Lymphocytes % (auto) 30.3 %; Mean Corpuscular Hemoglobin 32.3 pg (25.0-34.0); Mean Corpuscular Hgb Conc 34.3 g/dL (32.0-36.0); Mean Corpuscular Volume 94.2 fL (80.0-100.0); Mean Platelet Volume 9.8 fL (9.4-12.4); Monocytes % (auto) 5.6 %; Neutrophils # (auto) 5.61 K/uL (1.40-6.50); Neutrophils % (auto) 63.2 %; Platelet Count 255 K/uL (130-400); RDW Coefficient of Variation 16.2 % (11.5-14.5); RDW Standard Deviation 54.8 fL (36.4-46.3); Red Blood Count 3.81 M/uL (4.20-5.40)
[2023-04-25] MEDS: dilTIAZem HCl 5 MG/ML 5 ML VIAL IV STA (08:03)
[2023-04-25] MEDS: dilTIAZem HCL 125 MG in DEXTROSE 5% 100 ML IV SCH (08:11)
[2023-04-25] MEDS: ADVANCED PROBIOTIC 650 MG CAPSULE PO SCH (08:21)
[2023-04-25] MEDS: BUDESONIDE EC 3 MG CAP PO SCH (08:21)
[2023-04-25] MEDS: APIXABAN 5 MG TABLET PO SCH (08:21)
[2023-04-25 08:38] LABS: Albumin Globulin Ratio 1.5 (0.9-2); Albumin Level 3.6 gm/dl (3.4-5.0); BUN Creatinine Ratio 15.6 (10-20); Bilirubin,Total 0.9 mg/dl (0.2-1.0); Creatinine Clr Calc Pharmacy 88.6 ml/min; Est GFR (African American) 105.5 ml/min; Globulin 2.4 gm/dl (2.5-4.0); Magnesium 1.9 mg/dl (1.7-2.4); Potassium 3.5 mmol/L (3.5-5.1)
--- NOTE | 2023-04-25 08:41 | Hospitalist Progress Note ---
"Date of Service April 25, 2023 Assessment & Plan (1) Paroxysmal atrial fibrillation: (2) GERD (gastroesophageal reflux disease): Plan Attending: Dr. Scott 1. Atrial Fibrillation with RVR * S/P Diltiazem 15mg IV and an additional Diltazem 30mg PO * Continue home PO Diltiazem 240mg * Started on a diltiazem drip this morning for persistent atrial fibrillation with RVR * Continue anticoagulation with Eliquis * Continue monitoring on telemetry * Appreciate Dr. Paulson's (cardiology) input 2. Electrolyte Abnormalities: Hypokalemia | Hypomagnesemia * Potassium of 3.3, s/p 40 meq PO, 20 meq K riders * Mag of 1.9, s/p 1g magnesium sulfate * Repeat BMP and magnesium levels 3.5 and 1.9 respectively * Continue oral fvxvgsgw5g of KCl 3. Crohn's Disease * Continue home medications including mercaptopurine and Entyvio * Continue budesonide * Follow electrolytes 4. GERD * Continue home Protonix Diet: Heart healthy VTE Prophylaxis: Eliquis Code Status: Full Code Admission and Anticipated Discharge Date Admission Date: April 24, 2023 Supervising Physician Co-Signing Physician Notes The patient was not seen by me. The chart was reviewed. Case discussed with TOREY Georges. Agree with assessment and plan Subjective Attending: Dr. Scott This is a 68-year-old female admitted last evening for atrial fibrillation with rapid ventricular rate. She was given diltiazem 15 mg IV in the emergency department followed by diltiazem 30 mg p.o. and advised to continue home dose of 240 mg. Patient continues in A-fib with RVR this morning. She was placed on diltiazem drip. Patient is anticoagulant with Eliquis. Presented with hypokalemia with a potassium level 3.3 and was given 40 mill equivalents of oral potassium and 20 mill equivalents IV rider. Labs today are improved and stable. Cardiology consulted. No current SOB or chest pain. Increased heart rate with ambulation. No LE edema Review of Systems 2 Review of Systems: A total of 10 systems was reviewed and is negative other than as listed in the HPI Physical Exam 2 Physical Exam: GENERAL : No acute distress EYES: No icterus, gaze conjugate NOSE: No evidence of epistaxis MOUTH: No lesions or candidiasis NECK: Supple LUNGS: CTA B/L, no wheezes, rales or rhonchi HEART: Irregular, irregular with a rate of 112 ABDOMEN: Soft, NT, ND, BS Present EXTREMITIES: No LE edema, pedal pulses intact NEURO: A&OX3 Results & Data Results & Data Vital Signs (Past 12 Hours) Vital Signs Temp Pulse Pulse Resp BP BP Pulse Ox 04/25/23 07:39 36.6 C 112 H 18 123/68 96 04/25/23 03:50 37.0 C 126 H 18 106/63 92 04/24/23 23:55 36.8 C 122 H 18 146/95 H 99 04/24/23 23:18 36.8 C 122 H 18 146/95 H 99 04/24/23 22:34 104 H 04/24/23 21:58 115 H 19 117/81 98 04/24/23 21:00 130 H 14 118/80 94 04/24/23 20:35 108 H 20 O2 Del Method 04/25/23 07:39 Room Air 04/25/23 03:50 Room Air 04/24/23 23:55 Room Air 04/24/23 23:18 Room Air 04/24/23 22:34 04/24/23 21:58 04/24/23 21:00 04/24/23 20:35 Laboratory Results 04/25/23 07:24 04/25/23 07:24 Diagnostic Findings Chest X-Ray 04/24/23 16:07 XR chest 1V not portable HISTORY: Chest pain, nonspecific COMPARISON: Chest 04/05/2023. FINDINGS: No pneumothorax. No pleural effusions. The heart remains top normal in size. Small linear scarlike densities the left lung base persists. No new focal lung consolidations to suggest a pneumonia. No evidence for pulmonary edema. There are calcifications within the aortic knob. No acute fractures identified. Prior cholecystectomy. IMPRESSION: No significant change compared to the prior study. No acute process. ACT 112: Negative or not required by law. Electronically signed by: Rafa Onofre M.D. 04/24/2023 4:26 PM ECG Additional Comments: PG Care Time/CCT Total # of Minutes Spent Total Time Spent with Patient: Total time spent is greater than 50% in coordination of care (as documented) at patient's floor/unit and/or counseling patient: 30 minutes face to face and in discussion with nursing Coding Level of Care Code 09522 SUB INP/OBS CARE 2/35MIN Diagnoses Paroxysmal atrial fibrillation I48.0 GERD (gastroesophageal reflux disease) K21.9 Time Spent (min) 40 Comment 40 minutes total including chart review and patient contact"
[2023-04-25] MEDS ORDERED: dilTIAZem HCL 240 MG CAPCR PO SCH (09:00)
[2023-04-25] MEDS: STAT IV Infusion **Titration per Protocol STA (09:12)
[2023-04-25 09:38] LABS: T4 Free Thyroxine 1.06 ng/dl (0.61-1.60)
--- NOTE | 2023-04-25 11:00 | Cardiology Consultation ---
Date of Consultation April 25, 2023 Assessment & Plan (1) Atrial fibrillation with RVR: Plan 1. Atrial fibrillation: Persistent. It sounds as if she has done very well with respect atrial fibrillation over the years. She cannot recall any other extended episode other than that which initially prompted the diagnosis. It is very likely that she will convert back to sinus rhythm on her own, although it is unfortunate that this is not occurred yet. She was mildly symptomatic likely from the elevated ventricular rates. I think we will continue attempts at rate control with the diltiazem infusion while we wait for her to convert. I will obtain an echocardiogram in if she has a structurally normal heart with good consider administration of flecainide as well. I think if she fails to convert on her own or with flecainide we should plan for electrical cardioversion provided she is agreeable. She will continue systemic anticoagulation indefinitely History of Present Illness Reason for Consultation: Atrial fibrillation Requesting Physician: Tyler Attending Physician: Ernesto Scott MD History of Present Illness The patient is a 68-year-old woman with a history of paroxysmal atrial fibrillation who presents with atrial fibrillation. Seems that 2 nights ago she developed a sensation of palpitations and associated rapid heartbeat. She recognizes atrial fibrillation was also alerted by her wear a bowl watch that she had atrial fibrillation. She took metoprolol as previously prescribed on a p.r.n. basis. Her symptoms waxed and waned over the course of nearly 24 hours. She was able to cook breakfast, rest and drink lots of fluids in an attempt to improve her symptoms. However, yesterday evening her symptoms persisted and she did have some associated chest pressure. She was prompted to present to the emergency room where she was discovered to have atrial fibrillation and associated high ventricular rates. The patient has had a difficult beginning 04/2023. She has been in the hospital with kidney stones and a bowel obstruction. As such, she has been less active recently. She is also noted to be anemic and recently had an iron infusion. Generally speaking she can do housework and go up and down stairs with little limitation. She also walks her laboratory retrieve ir and generally does not have limiting dyspnea. She does not endorse any symptoms of chest pain. She may have rare palpitations on occasion but no extended episodes. Her watch is not warned her of any additional episodes of atrial fibrillation recently. Currently she is feeling better. She is aware of some sense of palpitation, but this is not very bothersome. She has not really been out of bed but is tolerating a diet. Allergies Allergy/AdvReac Type Severity Reaction Status Date / Time infliximab Allergy Severe PALPITATIONS, Verified 04/15/23 12:35 SOB, FLUSHING lactose Allergy Intermediate LACTOSE Verified 04/15/23 12:35 INTOLERANT mushroom Allergy Intermediate GI SYMPTOMS Verified 04/15/23 12:35 nickel Allergy Mild SKIN Verified 04/15/23 12:35 REACTION dexamethasone Allergy multiple sx Verified 04/15/23 12:35 morphine AdvReac Intermediate HALLUCINATI Verified 04/15/23 12:35 ONS prednisone AdvReac Intermediate MOOD Verified 04/15/23 12:35 CHANGES Home Medications Medication Instructions Recorded Confirmed Type multivitamin (Multiple Vitamins 1 tab PO QAM 10/06/18 04/24/23 History tablet) cholecalciferol (vitamin D3) 125 5,000 units PO QAM 11/08/18 04/24/23 History mcg (5,000 unit) capsule cyanocobalamin (vitamin B-12) 1,000 mcg IM .EVERY 3 WEEKS 04/11/19 04/24/23 History 1,000 mcg/mL injection kit Bifidobacterium infantis 4 mg 4 mg PO QAM 07/01/19 04/24/23 History capsule (Align) calcium carb 300 mg-D3 20 mcg-mag 1 tab PO BID 07/01/19 04/24/23 History ox 25 mg-endoscopy nurse 0.5 [id number]-unjk tablet (Caltrate-D3 Plus Minerals) krill 500 mg-omega 3 115 mg-dha 30 1 cap PO QAM 07/01/19 04/24/23 History mg-epa 64 yg-pppuabz-kqtlq capsule (MegaRed [place]-3 Krill Oil) vedolizumab 300 mg intravenous 300 mg IV .every 8 weeks 04/15/21 04/24/23 History solution (Entyvio) nnobzycxvu-bidywlqqflqtb-asjtxitv 1 tab PO DIRECTED PRN Migraine 07/14/22 04/24/23 History 50 mg-325 mg-40 mg tablet Headache diltiazem HCl 240 mg 240 mg PO QAM #90 caps 02/09/23 04/24/23 Rx capsule,extended release 24 hr, controlled apixaban 5 mg tablet (Eliquis) 5 mg PO BID #180 tabs 02/19/23 04/24/23 Rx mercaptopurine 50 mg tablet 50 mg PO QAM 02/27/23 04/24/23 History potassium chloride 10 mEq 10 meq PO QAM 02/27/23 04/24/23 History tablet,extended release(part/cryst) (Klor-Con M) magnesium chloride 64 mg 64 mg PO HS 04/05/23 04/24/23 History (magnesium chloride) tablet,delayed release (Mag 64) vitamin E 268 mg (400 unit) capsule 268 mg PO QAM 04/05/23 04/24/23 History iron dextran 1 dose IV DIRECTED 04/15/23 04/24/23 History budesonide 9 mg tablet,delayed and 9 mg PO QAM 04/24/23 04/24/23 History extended release pantoprazole 20 mg tablet,delayed 20 mg PO QAM 04/24/23 04/24/23 History release Patient History Medical History UTI (urinary tract infection) Hydronephrosis concurrent with and due to calculi of kidney and ureter History of colon polyps Kidney stones CURRENT/NO ISSUES WITH AT PRESENT TIME. Fracture of right tibial plateau HX AGE 9 AND IN 2021. NO SURGICAL INTERVENTION. Crohns disease History of kidney stones Hx of pancreatitis Hx of squamous cell carcinoma Iron deficiency anemia HX OF Temporomandibular joint disorder CLICKING/NO LOCKING Hx of small bowel obstruction Hx of migraines Asthma VERY MILD (NO INHALER USED) Palpitations REASON FOR PRN METOPROLOL Osteopenia Chronic gastritis Atrial fibrillation with RVR DX 2014 OR 2015. FOLLOWS WITH DR. SINGH. NO HX CARDIOVERSION. GERD (gastroesophageal reflux disease) HTN (hypertension) Surgical History History of surgery MULTIPLE REMOVAL OF SKIN CANCER SPOTS. History of Mohs surgery for squamous cell carcinoma in situ of skin History of anesthesia reaction WITH GENERAL ANESTHESIA>SHAKING AND COLD H/O foot surgery LEFT HEEL BONE GRAFT History of appendectomy History of esophagogastroduodenoscopy (EGD) (05/2013) H/O resection of small bowel History of colonoscopy (07/2020) History of cholecystectomy Family History Unknown Ankylosing spondylitis Lung cancer Aunt Breast cancer Mother Ovarian cancer, Onset Age: 43 rapid progressive, one year. Father Family history of diabetes mellitus Ankylosing spondylitis Aunt Inflammatory bowel disease Grandmother (Maternal) Lung cancer Grandmother (Paternal) Family history of diabetes mellitus Son Family history of colonic polyps Social History Smoking Status: Never smoker Second Hand Exposure: No; Do You Dip or Chew Tobacco: No; Tobacco Cessation Education Requested by Patient: No Hx Alcohol Use: No Hx Substance Use: No Preferred Language: Hebrew Communication Ability: Effective Camp Advisor Required: No Beliefs That Will Affect Care: None marital status: Current Living Situation: Spouse current occupational status: retired Other Information That Helps Us Care for You: No Feels Safe at Home: Yes Safety Concerns: Feels Safe At This Time Assistive Devices: Glasses Review of Systems Review of Systems: Per HPI. No recent fevers or chills peer Physical Exam Physical Exam: She is alert and oriented x3. Mood affect appear normal. She answered all questions appropriately. HEENT: Sclerae are anicteric. Pupils are equal and reactive to light and accommodation. Extraocular movements were intact. Neuro: Cranial nerves intact Lungs: Lungs are clear to auscultation bilaterally. There are no rales wheezes or rhonchi. She has normal respiratory effort without use of accessory muscles. There is normal pulmonary excursion. Cardiac: The rhythm was irregular. Rate was fast. S1 and S2 were normal. There are no murmurs on examination. The PMI was not markedly displaced on palpation. Extremities: Patient has bilateral radial pulses that are equal in intensity. There is no evidence cyanosis or clubbing. There was no evidence of significant peripheral edema bilaterally. Skin: There are no rashes noted on examination today. Results & Data Vital Signs (Past 12 Hours) Vital Signs Temp Pulse Resp BP Pulse Ox O2 Del Method 04/25/23 07:39 36.6 C 112 H 18 123/68 96 Room Air 04/25/23 03:50 37.0 C 126 H 18 106/63 92 Room Air 04/24/23 23:55 36.8 C 122 H 18 146/95 H 99 Room Air 04/24/23 23:18 36.8 C 122 H 18 146/95 H 99 Room Air Laboratory Results Abnormal Lab Results 04/24/23 04/25/23 17:36 07:24 WBC 13.58 H 8.90 RBC 4.29 3.81 L Hgb 13.7 12.3 Hct 39.6 35.9 L MCV 92.3 94.2 MCH 31.9 32.3 MCHC 34.6 34.3 RDW Std Deviation 53.1 H 54.8 H RDW Coeff of Lina 16.0 H 16.2 H Plt Count 330 255 MPV 9.8 9.8 Immature Gran % (Auto) 0.5 0.4 Neut % (Auto) 79.5 63.2 Lymph % (Auto) 13.8 30.3 [place] % (Auto) 5.9 5.6 Eos % (Auto) 0.1 0.3 Baso % (Auto) 0.2 0.2 Neut # (Auto) 10.80 H 5.61 Lymph # (Auto) 1.87 2.70 [place] # (Auto) 0.80 H 0.50 Eos # (Auto) 0.01 0.03 Baso # (Auto) 0.03 0.02 Immature Gran # (Auto) 0.07 0.04 PT 11.0 INR 1.0 APTT 27 PTT Ratio 1.0 Sodium 140 143 Potassium 3.3 L 3.5 Chloride 104 108 H Carbon Dioxide 28 29 Anion Gap 8 6 BUN 14 10 Creatinine 0.73 0.64 Est Cr Clr Drug Dosing Not Reportable 88.6 Est GFR ( Amer) 97.4 105.5 Est GFR (Non-Af Amer) 84.0 91.0 BUN/Creatinine Ratio 19.2 15.6 Glucose 112 H 97 Calcium 9.5 9.0 Magnesium 1.9 1.9 Total Bilirubin 0.6 0.9 AST 14 11 L ALT 17 14 Alkaline Phosphatase 93 76 Troponin I High Sens 13.2 Total Protein 7.1 6.0 Albumin 4.3 3.6 Globulin 2.8 2.4 L Albumin/Globulin Ratio 1.5 1.5 Free T4 1.06 Free T3 2.99 Diagnostic Findings Chest x-ray was obtained the time of admission. No acute Pulmonary process. ECG Additional Comments: EKG at the time admission revealed atrial fibrillation with rapid ventricular response, left axis deviation. PG Care Time/CCT Total # of Minutes Spent Total Time Spent with Patient: Total time spent is greater than 50% in coordination of care (as documented) at patient's floor/unit and/or counseling patient: Coding Level of Care Code 94055 INT INP/OBS CARE MIN Diagnoses Atrial fibrillation with RVR I48.91
[2023-04-25] MEDS: PANTOprazole 40 MG TAB PO SCH (11:25)
[2023-04-25] MEDS: MERCAPTOPURINE 50 MG TAB PO SCH (11:26)
--- OUTSIDE RECORDS SUMMARY | 2023-04-25 15:44 | External Medical Summary | Continuity of Care Document ---
Author Name Unknown Organization [address] [id number] Care Team Providers Care Drapery Worker Name Role Phone Jet Leon Primary Care Physician [phone] Encounter [facility] [id number] Date(s): 04/21/23 - 04/21/[address] [facility] [address] [facility] [address] [place] [phone] Encounter Diagnosis Squamous cell carcinoma of scalp(Discharge Diagnosis) - 04/21/23 Discharge Disposition: Home or Self Care Attending Physician: MD Govea Cassandra Referring Physician: MD Vannessa, Maritza B Allergies, Adverse Reactions, Alerts Substance Reaction Severity Status morphine hallucinations sees bugs Active dexAMETHasone skin reaction insomnia heart racing Active mushrooms vomiting Active predniSONE systemic Active Remicade increased heart rate sob Active Medications acetaminophen/butalbital/caffeine 325 mg-50 mg-40 mg oral tablet Start: 11/22/20 13:34:00 EDT Start Date: 11/22/20 Status: Ordered Align Start: 10/06/12 9:47:00, 4 mg =, PO, Daily Start Date: 10/06/12 Status: Ordered budesonide Start: 04/21/23 9:41:00 EST Start Date: 04/21/23 Status: Ordered Caltrate 600 with D Start: 05/07/11 15:57:00, 1 tab, PO, bid Start Date: 05/07/11 Status: Ordered Centrum pro nut-omega 3 Start: 10/06/12 9:49:00, Centrum pro nut-omega 3, 2 tabs/dose unknown, PO, Daily Start Date: 10/06/12 Status: Ordered diltiazem Start: 01/09/16 11:28:00, 240 mg =, PO, Daily Start Date: 01/09/16 Status: Ordered Eliquis 5 mg oral tablet Start: 04/09/20 10:48:00 EST, 1 tab, PO, bid Start Date: 04/09/20 Status: Ordered Entyvio 300 mg intravenous injection Start: 11/29/19 9:49:00 EDT, every 8 weeks Start Date: 11/29/19 Status: Ordered mercaptopurine 50 mg oral tablet Start: 05/07/11 15:54:00, 1 tab, PO, Daily Start Date: 05/07/11 Status: Ordered Metoprolol Tartrate 25 mg oral tablet Start: 11/22/20 13:33:00 EDT, prn Start Date: 11/22/20 Status: Ordered Bulger-3 oral capsule Start: 11/22/20 13:36:00 EDT Start Date: 11/22/20 Status: Ordered potassium ACETATE Start: 04/09/20 10:49:00 EST, See Instructions, 10 meq daily Start Date: 04/09/20 Status: Ordered Protonix 20 mg oral delayed release tablet Start: 03/04/23 9:19:00 EST, 1 tab, PO, Daily Start Date: 03/04/23 Status: Ordered Vitamin B12 1000 mcg/mL injectable solution Start: 04/06/19 10:04:00 EST, 1,000 mcg =, IM, ONCE Start Date: 04/06/19 Stop Date: 05/06/19 Status: Ordered Vitamin D3 Start: 10/17/13 16:18:00, 1 tab/dose unknown, PO, Daily Start Date: 10/17/13 Status: Ordered vitamin E Start: 05/07/11 15:58:00, 400 Int_Unit =, PO, Daily Start Date: 05/07/11 Status: Ordered Mental Status 04/21/23 Barriers to Learning one year None evide nt Mandatory Health Literacy Documentation Yes Health Literacy Communication Barriers N ever Primary Language French Problem List Condition Confirmation Course Effective Dates Status Health St atus Informant Actinic keratosis Confirmed Active Atrial fibrillation Confirmed Active Changing skin lesion Confirmed Active Crohns disease Confirmed Active Family history of skin cancer 1 Confirmed Active History of malignant neoplasm of skin Confirmed Active Inflamed seborrheic keratosis Confirmed Active Dermatitis Confirmed Active Melanocytic nevus of trunk Confirmed Active Actinic keratoses Confirmed Active Skin tag Confirmed Active Sun-damaged skin Confirmed Active Squamous cell carcinoma, trunk Confirmed Active Common wart Confirmed Active 1father had skin ca ? Diagnosis Diagnosis Type Effective Dates Health Status Cl inical Service Informant Squamous cell carcinoma of scalp Discharge Diagnosis 04/21/23 Procedures Procedure Date Related Diagnosis Body Site Status Mohs micrographic surgery 04/21/23 Completed Shave biopsy and cauterizati on of skin 1 03/04/23 Completed Shave biopsy and cauterization of skin 01/12/23 Completed Root canal of tooth 12/16/22 Compl eted Electrodesiccation with curettage 08/18/22 Completed Shave biopsy and cauterization of skin 08/18/22 Completed Mohs micrographic surgery 02/05/22 Completed Mohs micrographic surgery 02/05/22 Completed Electrodesiccation with curettage 01/07/22 Completed Electrodesiccation with curettage 12/06/20 Completed Shave biopsy and cauterization of skin 11/22/20 Completed Shave biopsy 2 04/09/20 Completed Shave biopsy and cauterization of skin 11/29/19 Completed Shave biopsy and cauterization of skin 05/04/19 Completed Shave biopsy of skin 3 07/10/15 Co mpleted Shave biopsy and cauterizati on of skin 4 01/09/15 Completed Endoscopy 04/2013 Completed Excision 5 05/2012 Completed Gallbladder operation 1986 Com pleted 1ED&C 2left upper back 3upper back 4x2 sites 5SCC removal Social History Social History Type Response Smoking Status Never smoked cigaret jason Sex Female Dermatology Outpt Proc * JORDYN Garcia Norah J: PERFORM Event Display: Dermatology Outpt Proc Authored Date: [id number] DERMATOLOGY MOHS MAPPING IMAGES Name: BARBARA INMAN Patient Number: [id number] : 1955 Date of Service: 04/21/2023 _ Electronic Signature on File Electronically Reviewed/Signed by: Lissett Garcia Author Signature Dt/Tm:04/21/2023 03:38 PM Electronically Reviewed/Signed by: MD Eliezer Pimentelignvane Signature Dt/Tm: 04/21/2023 04:03 PM Department of Dermatology [facility] * MD Hurd Sara B: REVIEW MD Hurd Sara B: REVIEW, MODIFY, SIGN, VERIFY Event Display: Dermatology Outpt Proc Authored Date: [id number] Patient: BARBARA INMAN Age: 68 years Sex: Female : 1955 Associated Diagnoses: None Author: MD Govea Cassandra Visit Information Nurse/MA: Visit Information [facility] number: [id number] [facility] location of surgery: [facility] Pathology accession number: [id number] [facility] Environmental Consultant: JORDYN Garcia Norah J [facility] Surgeon: MD Govea Cassandra [facility] Environmental Consultant Surgeon: MD Govea Cassandra [facility] Referring Physician: MD Hurd Sara B . Referral information: Referring Physician: MD Hurd Sara B. Family physician information: Primary Care Physician: MD Leon John J . Location: [facility] Status Allergies: Allergic Reactions (Selected) Severity Not Documented DexAMETHasone- Insomnia, skin reaction and heart racing. Morphine- Hallucinations and sees bugs. Mushrooms- Vomiting. PredniSONE- Systemic. Remicade- Sob and increased heart rate.. Current medication: (Selected) Documented Medications Documented Align: 4 mg, PO, Daily Caltrate 600 with D: 1 tab, PO, bid Centrum pro nut-omega 3: 2 tabs/dose unknown, PO, Daily Eliquis 5 mg oral tablet: 1 tab, PO, bid Entyvio 300 mg intravenous injection: every 8 weeks Metoprolol Tartrate 25 mg oral tablet: prn Bulger-3 oral capsule: Protonix 20 mg oral delayed release tablet: 1 tab, PO, Daily Vitamin B12 1000 mcg/mL injectable solution: 1,000 mcg, IM, ONCE, for 30 day Vitamin D3: 1 tab/dose unknown, PO, Daily acetaminophen/butalbital/caffeine 325 mg-50 mg-40 mg oral tablet: budesonide: diltiazem: 240 mg, PO, Daily mercaptopurine 50 mg oral tablet: 1 tab, PO, Daily potassium ACETATE: See Instructions, 10 meq daily vitamin E: 400 Int_Unit, PO, Daily. Problem list: Medical Family history of skin cancer / IMO 063391 / Confirmed Melanocytic nevus of trunk / SNOMED CT 264918283 / Confirmed History of malignant neoplasm of skin / SNOMED CT 9276101628 / Confirmed Crohns disease / ICD-9-CM 555.9 / Confirmed Inflamed seborrheic keratosis / SNOMED CT 1702962673 / Confirmed Actinic keratosis / SNOMED CT 9772464861 / Confirmed Atrial fibrillation / SNOMED CT 2173753400 / Confirmed Common wart / SNOMED CT 34647434 / Confirmed Changing skin lesion / SNOMED CT 7971571413 / Confirmed Dermatitis / SNOMED CT 3296090920 / Confirmed Actinic keratoses / SNOMED CT 1131624720 / Confirmed Squamous cell carcinoma, trunk / SNOMED CT 6760024877 / Confirmed Sun-damaged skin / SNOMED CT 87530308 / Confirmed Skin tag / SNOMED CT 695360580 / Confirmed Resolved: Neoplasm of uncertain behavior of skin / SNOMED CT 855606495 All Problems Family history of skin cancer / IMO 550368 / Confirmed Melanocytic nevus of trunk / SNOMED CT 853608879 / Confirmed History of malignant neoplasm of skin / SNOMED CT 8561057228 / Confirmed Crohns disease / ICD-9-CM 555.9 / Confirmed Inflamed seborrheic keratosis / SNOMED CT 4703482324 / Confirmed Actinic keratosis / SNOMED CT 9521327099 / Confirmed Atrial fibrillation / SNOMED CT 0965759735 / Confirmed Common wart / SNOMED CT 15601027 / Confirmed Changing skin lesion / SNOMED CT 8124273991 / Confirmed Dermatitis / SNOMED CT 6266514292 / Confirmed Actinic keratoses / SNOMED CT 6191256834 / Confirmed Squamous cell carcinoma, trunk / SNOMED CT 7500888918 / Confirmed Sun-damaged skin / SNOMED CT 87908958 / Confirmed Skin tag / SNOMED CT 331885473 / Confirmed Resolved: Neoplasm of uncertain behavior of skin / SNOMED CT 340382270. Mohs Surgical Information Operation: Surgical excision of cutaneous malignancy using continuous microscopic control (Mohs Micrographic Surgery). Diagnosis: Squamous cell carcinoma of scalp (HKZ47-AK C44.42, Discharge, Medical), Well-differentiated. Nurse/MA: Surgical Information Mohs Surgical Diagnosis: Well-differentiated, Acantholytic, Other: invasive Mohs Surgical Location: Left, Scalp Mohs Previous Treatment: None Mohs Anesthetic: 0.5% lidocaine with epinephrine and bicarbonate Mohs Preop Size of Tumor Length: 0.9 cm Mohs Preop Size of Tumor Width: 0.8 cm Mohs Stage 1 Specimen: 1 Mohs Final defect size Length: 1.7 cm Mohs Final defect size Width: 1.2 cm Mohs Size of repair: primary 4 cm Mohs Type of Suture: Monocryl 4-0, Vicryl Rapide 4-0 . Indications for Mohs surgery: Ill-defined margins. Comments: moderate risk location. Appropriate Use Criteria (AUC): 7 . Anesthetic: 0.5% lidocaine with epinephrine and bicarbonate. Total volume of anesthetic administered: 6 ml. Clinical description: pink atrophic papule . Procedure: Informed consent was obtained which included explanation of the Mohs surgery procedure, reasons why Mohs surgery was preferable to alternatives such as standard excision, and wound management, associated risks, scarring, and potential need for further surgery. The patient verbalized understanding and all questions were answered. The biopsy site/lesion was outlined, and the location was re-confirmed by the patient using a hand held mirror. The operative site was then prepped with antiseptic solution, draped, and anesthetized with a infiltration of local anesthetic. Following this, the clinically apparent portion of the tumor was surgically removed. A thin layer of tissue was then surgically excised around the tumor. Hemostasis was obtained with electrocautery, or aluminum chloride, and a pressure dressing was placed on the wound. Bipolar forceps were used in patients with an implanted electrical device. A reference map was drawn and the excised tissue was cut into an appropriate number of sections for examination in the Mohs micrographic laboratory. Edges of each tissue section were dyed with tissue marking ink inorder to achieve precise orientation. These tissue sections were then processed and stained to produce slides for evaluation of the entire peripheral and deep margins of the excised tissue. The prepared microscopic sections were then examined by the Mohs surgeon. Procedural Time Out: Patient identified with name and date of , Procedure verified, Correct site, if applicable. Stages: Stage 1 included multiple microscopic sections of 1 tissue specimens, At this point, no further tumor cells were identified. Tumor eradication was complete after a total of 1 stage(s) of surgery. SCC Staging: AJCC 8th Ed. SCC Tumor Staging: T1. [facility] Tumor Staging: T1. Wound management: A discussion was held with the patient about reconstruction options and wound healing, addressing functional and cosmetic concerns along with benefits and potential risks of each approach., The resultant defect was examined and it was decided that a layered linear closure would best maintain appropriate function of the region without causing distortion of nearby anatomic structures, reduce postoperative morbidity, healing time and risk of infection. It was also required to restore function, eliminate space, relieve tension, prevent deformity, and approximate the edges of the defect, which extended to the deep subcutaneous tissues. Additionally, the defect is being reconstructed with the goal to approximate its appearance prior to Mohs micrographic surgery. The surgical defect and surrounding skin were prepped and draped with sterile towels to ensure a sterile field. Supplemental anesthesia was administered. The wound edges were undermined with a combination of sharp and blunt dissection in the deep subcutaneous plane. The long axis of the closure was oriented so as to parallel the relaxed skin tension lines as much as possible to minimize any pull or distortion on nearby anatomic structures. Linear closure of the circular excisional defect created bilateral incipient standing cones at each pole of the excision. The excision was then extended bilaterally at each end by the removal of this redundant tissue as [place] triangles. Hemostasis was achievedwith spot electrocautery and suture ligation as needed. The defect was then closed in a layered fashion consisting of absorbable sutures in the deep subcutaneous plane followed by separate closure ofthe superficial subcutaneous tissue and skin with superficial cutaneous sutures. The wound was cleansed, a sterile pressure dressing was placed on it, and the patient was instructed in postoperative care.. Procedure Tolerated: Well, Without complications, Estimated blood loss 10 ml. Postoperative follow up: PRN for above and as scheduled for skin exam . Comments Photo: . 2023-04-21 09:57:47 2023-04-21 11:13:12 2023-04-21 11:48:10 Mohs Surgical Information Second Site Nurse/MA: Surgical Information 2nd Site . Electronic Signature on File CC: Maritza Hurd MD [address] [place] [address] [address] [facility] [id number] CC: Jet Leon MD [facility] [address] [place] [address] * Electronically Reviewed/Signed by: Nuria Govea MD Author Signature Dt/Tm:04/21/2023 10:12 PM Department of Dermatology CS Patient Care team information Care Team Personnel Name: MD Edward, Jet Laws Position: Referring DIRECT Member Role: Primary Care Provider Address: Address: [facility] [address] [place] [address] Care Team Related Persons Name: MORENAPHANISARAH ALVARADO Address: home [address], [place] [id number]
[2023-04-25] MEDS: FLECAINIDE ACETATE 100 MG TABLET PO ONE (17:09)
[2023-04-25] MEDS: POTASSIUM CHLORIDE CRTAB 20 MEQ TABCR PO SCH (17:09)
--- NOTE | 2023-04-25 21:26 | XCELERA ---
[id number] \\[id number]
[2023-04-25 22:55] VITALS: RESP 18
[2023-04-26 06:36] LABS: Basophils # (auto) 0.01 K/uL (0.00-0.20); Basophils % (auto) 0.1 %; Eosinophils # (auto) 0.04 K/uL (0.00-0.50); Eosinophils % (auto) 0.5 %; Hemoglobin 11.8 g/dl (12.0-16.0); Immature Granulocytes # (auto) 0.03 K/uL (0.01-0.20); Immature Granulocytes % (auto) 0.4 %; Lymphocytes # (auto) 2.59 K/uL (1.20-3.40); Lymphocytes % (auto) 33.7 %; Mean Corpuscular Hemoglobin 32.9 pg (25.0-34.0); Mean Corpuscular Hgb Conc 34.7 g/dL (32.0-36.0); Mean Corpuscular Volume 94.7 fL (80.0-100.0); Mean Platelet Volume 10.2 fL (9.4-12.4); Monocytes # (auto) 0.46 K/uL (0.11-0.59); Neutrophils # (auto) 4.56 K/uL (1.40-6.50); Neutrophils % (auto) 59.3 %; Platelet Count 227 K/uL (130-400); RDW Coefficient of Variation 16.1 % (11.5-14.5); RDW Standard Deviation 55.8 fL (36.4-46.3); Red Blood Count 3.59 M/uL (4.20-5.40); White Blood Count 7.69 K/ul (4.8-10.8)
[2023-04-26 07:06] LABS: Albumin Globulin Ratio 1.7 (0.9-2); Albumin Level 3.7 gm/dl (3.4-5.0); BUN Creatinine Ratio 20.8 (10-20); Bilirubin,Total 0.8 mg/dl (0.2-1.0); Est GFR (Non-African American) 85.4 ml/min; Globulin 2.2 gm/dl (2.5-4.0); Potassium 3.6 mmol/L (3.5-5.1); Total Protein 5.9 gm/dl (6.0-8.3)
[2023-04-26 07:14] VITALS: O2SAT 100
[2023-04-26 11:34] VITALS: BP 137/82; PULSE 69; TEMP 97.7
--- NOTE | 2023-04-26 12:32 | Discharge Summary ---
"Date of Service April 26, 2023 Admission HPI Per Admitting Provider Neena Merida is a 68 year-old female with past medical history of Crohn's disease, s/p bowel resection with ileocolonic anastomosis with prior anastomotic strictures requiring dilation, paroxysmal atrial fibrillation who presented to the ED due to concern of an episode of atrial fibrillation. Her paroxysmal atrial fibrillation is typically controlled with PRN metoprolol which she took last night, but symptoms this morning had not improved. She notes she has been eating and drinking without issue, denies any changes in bowel or bladder habits. She endorses some chest pressure with her palpitations, although is not experiencing anything at this time. Patient was recently admitted for SBO secondary to Crohn's, was recently switched from dexamethasone to budesonide. She notes that she was also recently restarted on iron infusions with her crop adjuster. ED Course: -EKG -CBC, CMP, Magnesium -s/p IV diltiazem -1L NSS bolus Admission Exam Per Admitting Provider Eyes: + anicteric sclerae; no conjunctival abn ormality ENMT: Ears: no external ear abnormality Nose: no external nose abnormality Moist mucous membranes Respiratory: normal respiratory effort, lungs clear to auscultation Cardiovascular: Rate/Rhythm: + irregularly irregular Extremities: no edema Gastrointestinal (Abdomen): Abdomen soft, nontender and nondistended Musculoskeletal: Moves all limbs independently Skin: no rashes, warm and dry Psychiatric: A+Ox3, euthymic affect Principal Diagnosis Atrial fibrillation with rapid ventricular response Discharge Exam GENERAL : No acute distress EYES: No icterus, gaze conjugate NOSE: No evidence of epistaxis MOUTH: No lesions or candidiasis NECK: Supple LUNGS: CTA B/L, no wheezes, rales or rhonchi HEART: Regular, rate controlled in the 70s. Normal sinus rhythm on telemetry ABDOMEN: Soft, NT, ND, BS Present EXTREMITIES: No LE edema, pedal pulses intact NEURO: A&OX3 Discharge Data Allergies Allergy/AdvReac Type Severity Reaction Status Date / Time infliximab Allergy Severe PALPITATIONS, Verified 04/15/23 12:35 SOB, FLUSHING lactose Allergy Intermediate LACTOSE Verified 04/15/23 12:35 INTOLERANT mushroom Allergy Intermediate GI SYMPTOMS Verified 04/15/23 12:35 nickel Allergy Mild SKIN Verified 04/15/23 12:35 REACTION dexamethasone Allergy multiple sx Verified 04/15/23 12:35 morphine AdvReac Intermediate HALLUCINATI Verified 04/15/23 12:35 ONS prednisone AdvReac Intermediate MOOD Verified 04/15/23 12:35 CHANGES Consultations 04/24/23 18:54 ED Decision to Admit Stat 04/25/23 07:50 Consult Cardiology Routine Hospital Course (1) Paroxysmal atrial fibrillation: (2) GERD (gastroesophageal reflux disease): Plan Attending: Dr. Scott 1. Atrial Fibrillation with RVR * S/P Diltiazem 15mg IV and an additional Diltazem 30mg PO * Continue home PO Diltiazem 240mg * Started on a diltiazem drip for persistent atrial fibrillation with RVR. Flecainide PO was added last evening. The diltiazem drip was able to be titrated off and the patient maintained rate and rhythm control at rest and with ambulation in the hallways. Patient was seen by cardiology this morning and was cleared for discharge home on Diltiazem 240ER PO and with the addition of Flecainide 50mg PO BID. An Rx for the Flecainide was electronically transmitted to [facility] * Continue anticoagulation with Eliquis * Follow up giancarlo Melendrez in 1 - 2 weeks 2. Electrolyte Abnormalities: Hypokalemia | Hypomagnesemia * Potassium of 3.6 today * Continue outpatient monitoring 3. Crohn's Disease * Continue home medications including mercaptopurine and Entyvio * Continue budesonide * Follow electrolytes 4. GERD * Continue home Protonix Diet: Heart healthy VTE Prophylaxis: Eliquis Total Time Total Time Spent Total Time Spent (In Minutes): 45 Discharge Plan Discharge Items Patient Disposition: Home - Self-Care Reason For Visit: AFIB WITH RVR Discharge Diagnosis: Atrial fibrillation with rapid ventricular response Activity: Resume your previous activity Lifting: Gradually increase as tolerated Bathing: No limitations Sexual Activity: When tolerated Exercise/Sports: Gradually increase as tolerated Driving/Machine Use: You should not operate machinery or drive if not in normal sinus rhythm Weightbearing: Full weightbearing Non-emergency contact: Primary Care Provider and Precipitator Call non-emergency contact if: you have any medication questions and your symptoms worsen Follow-up/Referrals: Jayy Melendrez MD [Physician] - (Follow up in the next one to two weeks) Jet Leon MD [Primary Care Provider] - (Please call to schedule apt) Diet: Heart Healthy Add Attending Provider Instructions: You were admitted for uncontrolled atrial fibrillation and required intervenous diltiazem and oral flecainide for rate and rhythm control. You are being discharged home and should continue to watch for uncontrolled heart rate and atrial fibrillation. You should continue with your anticoagulant (blood thinner) as prescribed. If you have further episodes of atrial fibrillation, please contact your soap drier operator or report to the nearest emergency room for evaluation. You should be sure to follow up with your soap drier operator in the next 1 to 2 weeks. Pending Studies at Discharge: No Stand-Alone Forms: My [facility] Medications and DC Order Prescriptions: New flecainide 50 mg tablet 50 mg PO Q12H Qty: 60 2RF Continued diltiazem HCl 240 mg capsule,ext.rel 24h degradable 240 mg PO QAM Qty: 90 3RF Eliquis 5 mg tablet 5 mg PO BID Qty: 180 3RF cyanocobalamin (vitamin B-12) 1,000 mcg/mL kit 1,000 mcg IM .EVERY 3 WEEKS Entyvio 300 mg recon soln 300 mg IV .every 8 weeks cholecalciferol (vitamin D3) 5,000 unit capsule 5,000 units PO QAM multivitamin [Multiple Vitamins] tablet 1 tab PO QAM iron dextran 1 dose IV DIRECTED Align 4 mg Capsule 4 mg PO QAM Caltrate-D3 Plus Minerals 300 mg-800 unit -25 mg-0.5 mg Tablet 1 tab PO BID Patient Comments: CALTRATE 600 + D + MINERALS. [id number]-mh-[id number]-hka-gdj-jfalcjn-ast [MegaRed [place]-3 Krill Oil] [phone] mg Capsule 1 cap PO QAM Patient Comments: 500 MG mercaptopurine 50 mg tablet 50 mg PO QAM potassium chloride [Klor-Con M10] 10 mEq tablet,ER particles/crystals 10 meq PO QAM [id number]-ztmzqtcedlpzg-zasw 50-325-40 mg tablet 1 tab PO DIRECTED PRN (Reason: Migraine Headache) vitamin E 268 mg (400 unit) Capsule 268 mg PO QAM Mag 64 64 mg Tablet,Delayed Release (Dr/Ec) 64 mg PO HS pantoprazole 20 mg tablet,delayed release (DR/EC) 20 mg PO QAM budesonide 9 mg tablet,delayed and ext.release 9 mg PO QAM Discharge Orders: Discharge Order (Routine); Ordered 04/26/23 Ordered By: Son Hayden Admission Data Admit Date/Time: 04/24/23 19:55 Attending Provider: Ernesto Scott Admit Provider: Anais Hadley Primary Care Provider: Jet Leon Other Providers: Ignacio Means; Son Hayden; Rocky Zhao; Ashu Ghotra; Jayy Melendrez; Tito Calhoun; Arsenio Yi; Adrian Proctor Jr; Vic Berg; Ibeth Xavier; Josefa Sauer; Alvarado Hernandez; Alvarado Paulson; Ernesto Chu; Odette Booker; Tamie Olson; Alexei Lopez; Kendell Daniel; Gonzalo Velazquez Supervising Physician Co-Signing Physician Notes The patient was not seen by me. The chart was reviewed. Case discussed with TOREY Georges. Agree with assessment and plan. She is medically stable for discharge today, April 26 Coding Level of Care Code 62310 INP/OBS DISCH >30 MIN Diagnoses Paroxysmal atrial fibrillation I48.0 GERD (gastroesophageal reflux disease) K21.9 Time Spent (min) 45"
--- NOTE | 2023-04-26 12:45 | Cardiology Progress Note ---
Date of Service April 26, 2023 Assessment & Plan (1) Atrial fibrillation with RVR: Plan: -spontaneous converted to sinus rhythm at 9:00 p.m. yesterday. -she is interested in a trial of flecainide 50 mg b.i.d. -continue Eliquis 5 mg b.i.d. -stable for hospital discharge. -she has appointment with me in 2 weeks. Admission and Anticipated Discharge Date Admission Date: April 24, 2023 Subjective The bedside chair without complaints of chest pain, dyspnea, or palpitations. Physical Exam Physical Exam: In general this is a well-developed well-nourished white female in no acute distress. HEENT exam is negative. Neck is supple with full carotid upstrokes. There are no carotid bruits. No jugular venous distention. There is no thyromegaly. Cardiovascular exam reveals a regular rhythm with a normal S1 and S2. No S3, S4, or murmurs are noted. Lungs are clear without rales, rhonchi, or wheezes. Abdomen is soft and nontender without bruits. Extremities reveal intact radial artery and posterior tibial pulses bilaterally. There is no peripheral edema. 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 yesterday. PG Care Time/CCT Total # of Minutes Spent Total Time Spent with Patient: Total time spent is greater than 50% in coordination of care (as documented) at patient's floor/unit and/or counseling patient: Coding Level of Care Code 82226 SUB INP/OBS CARE 3/50MIN Diagnoses Atrial fibrillation with RVR I48.91
--- NOTE | 2023-04-26 13:41 | Electrocardiogram Report ---
Test Reason : Blood Pressure : / mmHG Vent. Rate : 067 BPM Atrial Rate : 067 BPM P-R Int : 170 ms QRS Dur : 104 ms QT Int : 460 ms P-R-T Axes : 037 -39 040 degrees QTc Int : 486 ms Sinus rhythm with Premature atrial complexes Left axis deviation Abnormal ECG When compared with ECG of 24-APR-2023 17:35, Sinus rhythm has replaced Atrial fibrillation Vent. rate has decreased BY 67 BPM Confirmed by Jayy Melendrez ([id number]) on 04/26/2023 1:41:13 PM Referred By: REFERRED SELF Confirmed By:Jayy Mleendrez
== END 2023-04-26 13:20 | disposition home or self-care (01) | DRG 309 ==
LOC: ED 16:02 → SUATTDRO 19:55 → 2S 19:55